=== PATIENT | male | born 1975 | race Caucasian/White ===

== ENCOUNTER 2019-10-23 19:43 | Emergency (ER) | payer MEDICARE, MEDICAID, SELFPAY ==
[2019-10-23] VITALS (10 sets, daily range): BP systolic 112–148; BP diastolic 75–90; PULSE 85–101; RESP 8–26; TEMP 36.7; O2SAT 88–96; BMI 33.8
--- NOTE | 2019-10-23 19:57 | PC.NURSE ---
EKG done at 1954 and shown to ER doctor
--- NOTE | 2019-10-23 21:27 | ECG_ITS ---
Measurements Intervals [place] Rate: 102 P: 59 MI: 144 QRS: 51 QRSD: 136 T: 31 QT: 358 QTc: 468 SINUS TACHYCARDIA INTRAVENTRICULAR CONDUCTION DELAY [130+ ms QRS DURATION] INFERIOR MYOCARDIAL INFARCTION [40+ ms Q WAVE AND/OR ST/T ABNORMALITY IN II/aVF], OF INDETERMINATE AGE Compared to ECG 06/17/2017 18:47:40 Intraventricular conduction delay now present Atrial flutter no longer present 2:1 AV block no longer present ST (T wave) deviation no longer present Myocardial infarct finding still present Electronically Signed On 10-24-2019 16:19:36 CDT by Linda Meade M.D. [id number]
--- NOTE | 2019-10-23 21:27 | XRR_ITS ---
PROCEDURE INFORMATION: Exam: XR Chest, 1 View Exam date and time: 10/23/2019 10:06 PM Age: 43 years old Clinical indication: Chest pain; Prior surgery; Surgery type: Defib, pacer; Additional info: Cp TECHNIQUE: Imaging protocol: XR of the chest Views: 1 view. COMPARISON: PA Chest 1 [place] [id number] 06/17/2017 3:06 PM FINDINGS: No focal pulmonary consolidation is demonstrated on this single frontal image. No significant obscuration of the lateral costophrenic angles is demonstrated. No significant vascular congestion is demonstrated. Visualized cardiac silhouette size appears within normal limits. Stable position of pacer leads. XR/XR chest 1V portable [id number] IMPRESSION: No acute pulmonary process is demonstrated.
[2019-10-23] MEDS: ondansetron 2 mg/ML SDV 2 mL 4 MG IVP (21:36)
[2019-10-23] MEDS: morphine 4 mg/mL SDV 1 mL IVP (21:37)
--- NOTE | 2019-10-23 21:45 | PC.NURSE ---
Second EKG done at 2142 and shown to ER doctor
[2019-10-23 21:57] LABS: Basophils # 0.1 10^3/uL (0.0-0.1); Basophils % 0.8 %; Eosinophils # 0.1 10^3/uL (0.0-0.8); Eosinophils % 0.9 %; Hematocrit 39.8 % (42.0-52.0); Hemoglobin 12.9 g/dL (11.7-16.6); Lymphocytes # 1.5 10^3/uL (0.8-4.8); Lymphocytes % 20.1 %; Mean Corpuscular HGB Conc 32.4 g/dL (30.0-36.0); Mean Corpuscular Hemoglobin 32.3 pg (28.0-34.0); Mean Corpuscular Volume 99.7 fL (80-94); Mean Platelet Volume 9.5 fL (7.4-10.4); Monocytes # 0.6 10^3/uL (0.2-0.9); Monocytes % 8.5 %; Neutrophils # 5.1 10^3/uL (1.8-7.7); Neutrophils % 69.4 %; Nucleated Red Blood Cells % 0 %; Platelet Count 241 10^3/cmm (130-400); Red Blood Count 3.99 10^6/uL (4.1-5.3); Red Cell Distribution Width 15.3 % (12.1-15.1); White Blood Count 7.4 10^3/uL (4.0-10.0)
[2019-10-23 22:14] LABS: Troponin(5th) Baseline 14 ng/mL (0-15)
[2019-10-23 22:23] LABS: Alanine Aminotransferase 100 U/L (0-41); Albumin Level 4.4 g/dL (3.5-5.2); Alkaline Phosphatase 66 IU/L (40-130); Anion Gap 19.7 (5-19); Aspartate Amino Transferase 89 U/L (0-40); Blood Urea Nitrogen 9 mg/dL (6-20); Calcium 9.2 mg/dL (8.5-10.5); Carbon Dioxide 24 mmol/L (22-29); Chloride 98 mmol/L (98-107); Globulin 2.6 g/dL (1.3-4.6); Glomerular Filtration Rate 104.5 mL/min (90-130); Glucose 96 mg/dL (65-115); NT Pro B Type Natriuretic Pept 83 pg/mL (0-125); Osmolality Calculated 282 mOsm/kg (285-295); Potassium 3.7 mmol/L (3.5-5.1); Sodium 138 mmol/L (136-145); Total Bilirubin 0.2 mg/dL (0.15-1.2)
[2019-10-23 22:27] LABS: INR 0.92 (0.8-1.2); Partial Thromboplastin Time 27.6 SECONDS (23.9-36.7)
--- NOTE | 2019-10-23 23:27 | ECG_ITS ---
Measurements Intervals [place] Rate: 92 P: 59 AR: 143 QRS: 56 QRSD: 146 T: 33 QT: 379 QTc: 470 SINUS RHYTHM INTRAVENTRICULAR CONDUCTION DELAY [130+ ms QRS DURATION] INFERIOR MYOCARDIAL INFARCTION , PROBABLY OLD [40+ ms Q WAVE AND/OR ST/T ABNORMALITY IN II/aVF] Compared to ECG 06/17/2017 18:47:40 Intraventricular conduction delay now present Atrial flutter no longer present 2:1 AV block no longer present ST (T wave) deviation no longer present Myocardial infarct finding still present Electronically Signed On 10-24-2019 16:23:38 CDT by Linda Meade M.D. [id number]
[2019-10-23 23:37] LABS: Add Urine Microscopic? YES; Bilirubin Urine 2+ (NEGATIVE); Blood Urine Neg (Negative); Glucose Urine UA Norm (Normal); Ketones Urine 1+ (Negative); Leukocyte Esterase Urine Negative (Negative); Nitrate Urine Negative (Negative); Protein Urine Neg (Negative); RBC Urine 0-4 /hpf (0-2); Squamous Epithelial Cell Urine 0-4 (0-5); Urine Color Yellow (Yellow); Urobilinogen Urine 1 mg/dL (Negative); WBC Urine 0-4 /hpf (0-5); pH Urine 5 (5-7)
[2019-10-23 23:38] LABS: Bacteria Urine 1+; Mucus Urine 3+
[2019-10-24] VITALS: BP 132/89; PULSE 96; RESP 21; O2SAT 92
[2019-10-24 00:26] LABS: Troponin 5 2HR 13.63 ng/mL (0-15)
[2019-10-24 00:30] VITALS: BP 133/84; PULSE 85; RESP 16; O2SAT 94
[2019-10-24 00:46] LABS: Troponin 5 2HR Delta -0.37 ABS# (0-10)
[2019-10-24 01:00] VITALS: BP 133/84; PULSE 88; RESP 16; O2SAT 94
--- NOTE | 2019-10-24 04:14 | ED_ITS ---
HPI - Chest Pain General: Chief Complaint: Chest Pain Stated Complaint: CHEST PAIN Time Seen by Provider: 10/23/19 19:48 History of Present Illness: HPI narrative: 43-year-old male with a history of coronary disease, with chronic pacer/defibrillator implant presents with chest discomfort. He says he was sitting down to eat dinner when it started. He complained of some shortness of breath. He is improved significantly with nitro, down to 3 on arrival. He had aspirin in route as well. It has been 3 years since he has had a cath. He has not had any recent follow-up. He states that he drinks every day, and had cut back significantly on his drinking today, only having one drinks instead of most of the fifth. MD complaint: chest pain Pertinent past history: coronary artery disease and [employer] Onset (ago): minute(s) Timing of current episode: constant Prior episodes: Yes Onset: during rest Pain location: substernal Pain radiation: none Quality: tightness Relieving factors: nitroglycerin Exacerbating factors: nothing Associated symptoms: Reports dyspnea, nausea and vomiting; Deny abdominal pain, fever(s) or palpitations Treatment prior to arrival: aspirin and nitroglycerin Review of Systems Const: Denies: fever Eyes: Denies: change in vision or blurry vision ENMT: Denies: painful swallowing or facial/sinus pain Card: Reports: chest pain and shortness of breath on exertion; Denies: palpitations, irregular heart rhythm, edema, swelling of feet/ankles or shortness of breath when lying down Resp: Reports: shortness of breath GI: Reports: nausea and vomiting; Denies: abdominal pain, rectal pain, blood in stool or black tarry stool : Denies: difficulty urinating, painful urination, urinary frequency, urinary urgency or blood in urine Musc: Denies: neck pain, back pain, redness or joint warmth Skin/Breast: Denies: rash, itching or redness Neuro: Denies: headache, dizziness, vertigo, confusion or seizure-like activity Psych: Denies: anxiety PFSH ED PFSH: Social History Smoking and tobacco status: current every day smoker Physical Exam Const: GENERAL APPEARANCE: well developed ORIENTATION/CONSCIOUSNESS: Yes oriented to person, Yes oriented to place and Yes oriented to time HENMT: COMMON NORMALS: external ears normal and external nose normal FACE & SINUS: normal facial exam NOSE: external nose normal and no nasal discharge EXTERNAL EAR: Yes external ears normal MOUTH: tongue normal Eye: COMMON NORMALS: PERRL, EOMs intact bilaterally and conjunctivae normal EYELID: eyelids normal CONJUNCTIVA: Yes conjunctivae normal PUPIL: Yes PERRL Neck/C-Spine: COMMON NORMALS: full ROM Chest: COMMONS NORMALS: inspection of chest normal CHEST: No tenderness Resp: COMMON NORMALS: clear to auscultation bilaterally EFFORT & INSPECTION: No tachypneic, No respiratory distress, No retractions, No uses accessory muscles and No tracheal deviation AUSCULTATION: clear to auscultation bilaterally, no rhonchi, no wheezes and lung sounds not diminished Cardio: COMMON NORMALS: regular rate and regular rhythm RATE: regular rate RHYTHM: regular rhythm HEART SOUNDS: no murmurs PERIPHERAL PULSES: radial pulses present GI: INSPECTION: No abdominal distension AUSCULTATION: No hyperactive bowel sounds and No hypoactive bowel sounds PALPATION: No guarding and No rigid PERCUSSION: no dullness to percussion and no tympanic to percussion Neuro: SENSORIUM/ORIENTATION: Yes oriented to person, Yes oriented to place and Yes oriented to time Psych: COMMON NORMALS: mental status grossly normal Skin: COMMON NORMALS: no rashes or lesions noted GENERAL SKIN EXAM: no rashes or lesions noted Course Vital Signs: Vital signs: Vital Signs Temperature 98.0 F 10/23/19 19:44 Pulse Rate 88 10/24/19 01:00 Respiratory Rate 16 10/24/19 01:00 Blood Pressure 133/84 10/24/19 01:00 Pulse Oximetry 94 10/24/19 01:00 MDM - Chest Pain MDM Narrative: Medical decision making narrative: 43-year-old male who does have a history. He presents with chest discomfort. His chest x-ray is negative. His EKG does not reveal any ST changes. His troponin was normal at baseline, and did not elevate at 2 hours. His other labs are benign. Since his high-sensitivity troponin is negative, his pain is resolved, he will be allowed home. Case management referral was put in for cardiology follow-up as he has a history. He knows to return for any return of his symptoms Lab Data: Labs: Lab Results 10/23/19 10/23/19 10/23/19 Range/Units 21:42 21:42 21:42 WBC 7.4 (4.0-10.0) 10^3/ uL RBC 3.99 L (4.1-5.3) 10^6/u L Hgb 12.9 (11.7-16.6) g/dL Hct 39.8 L (42.0-52.0) % MCV 99.7 H (80-94) fL MCH 32.3 (28.0-34.0) pg MCHC 32.4 (30.0-36.0) g/dL RDW 15.3 H (12.1-15.1) % Plt Count 241 (130-400) 10^3/c mm MPV 9.5 (7.4-10.4) fL Neut % (Auto) 69.4 % Lymph % (Auto) 20.1 % [place] % (Auto) 8.5 % Eos % (Auto) 0.9 % Baso % (Auto) 0.8 % Neut # (Auto) 5.1 (1.8-7.7) 10^3/u L Lymph # (Auto) 1.5 (0.8-4.8) 10^3/u L [place] # (Auto) 0.6 (0.2-0.9) 10^3/u L Eos # (Auto) 0.1 (0.0-0.8) 10^3/u L Baso # (Auto) 0.1 (0.0-0.1) 10^3/u L Nucleated RBC % (a uto) 0 % Nucleated RBCs # 0.0 /100WBC PT 12.70 (10.5-13.3) SECO NDS INR 0.92 (0.8-1.2) APTT 27.6 (23.9-36.7) SECO NDS Sodium 138 (136-145) mmol/L Potassium 3.7 (3.5-5.1) mmol/L Chloride 98 (98-107) mmol/L Carbon Dioxide 24 (22-29) mmol/L Anion Gap 19.7 H (5-19) BUN 9 (6-20) mg/dL Creatinine 0.8 (0.7-1.2) mg/dL GFR Calculation 104.5 (90-130) mL/min Glucose 96 (65-115) mg/dL Calculated Osmolal ity 282 L (285-295) mOsm/k g Calcium 9.2 (8.5-10.5) mg/dL Total Bilirubin 0.2 (0.15-1.2) mg/dL AST 89 H (0-40) U/L ALT 100 H (0-41) U/L Alkaline Phosphata se 66 (40-130) IU/L Troponin T Baselin e (0-15) ng/mL Troponin T 120 Min [place] (0-15) ng/mL Delta Troponin T (0-10) ABS# NT-Pro-B Natriuret Pep 83 (0-125) pg/mL Total Protein 7.0 (6.6-8.7) g/dL Albumin 4.4 (3.5-5.2) g/dL Globulin 2.6 (1.3-4.6) g/dL Urine Color (Yellow) Urine Appearance (CLEAR) Urine pH (5-7) Ur Specific Gravit y (1.005-1.030) Urine Protein (Negative) Urine Glucose (UA) (Normal) Urine Ketones (Negative) Urine Blood (Negative) Urine Nitrate (Negative) Urine Bilirubin (NEGATIVE) Urine Urobilinogen (Negative) mg/dL Ur Leukocyte Kandice ase (Negative) Urine RBC (0-2) /hpf Urine WBC (0-5) /hpf Ur Squamous Epith Cells (0-5) Urine Bacteria (NONE) Urine Mucus 10/23/19 10/23/19 10/23/19 Range/Units 21:42 23:00 23:40 WBC (4.0-10.0) 10^3/ uL RBC (4.1-5.3) 10^6/u L Hgb (11.7-16.6) g/dL Hct (42.0-52.0) % MCV (80-94) fL MCH (28.0-34.0) pg MCHC (30.0-36.0) g/dL RDW (12.1-15.1) % Plt Count (130-400) 10^3/c mm MPV (7.4-10.4) fL Neut % (Auto) % Lymph % (Auto) % [place] % (Auto) % Eos % (Auto) % Baso % (Auto) % Neut # (Auto) (1.8-7.7) 10^3/u L Lymph # (Auto) (0.8-4.8) 10^3/u L [place] # (Auto) (0.2-0.9) 10^3/u L Eos # (Auto) (0.0-0.8) 10^3/u L Baso # (Auto) (0.0-0.1) 10^3/u L Nucleated RBC % (a uto) % Nucleated RBCs # /100WBC PT (10.5-13.3) SECO NDS INR (0.8-1.2) APTT (23.9-36.7) SECO NDS Sodium (136-145) mmol/L Potassium (3.5-5.1) mmol/L Chloride (98-107) mmol/L Carbon Dioxide (22-29) mmol/L Anion Gap (5-19) BUN (6-20) mg/dL Creatinine (0.7-1.2) mg/dL GFR Calculation (90-130) mL/min Glucose (65-115) mg/dL Calculated Osmolal ity (285-295) mOsm/k g Calcium (8.5-10.5) mg/dL Total Bilirubin (0.15-1.2) mg/dL AST (0-40) U/L ALT (0-41) U/L Alkaline Phosphata se (40-130) IU/L Troponin T Baselin e 14 (0-15) ng/mL Troponin T 120 Min f[place] 13.63 (0-15) ng/mL Delta Troponin T -0.37 L (0-10) ABS# NT-Pro-B Natriuret Pep (0-125) pg/mL Total Protein (6.6-8.7) g/dL Albumin (3.5-5.2) g/dL Globulin (1.3-4.6) g/dL Urine Color Yellow (Yellow) Urine Appearance Sl cloudy A (CLEAR) Urine pH 5 (5-7) Ur Specific Gravit y 1.030 (1.005-1.030) Urine Protein Neg (Negative) Urine Glucose (UA) Norm (Normal) Urine Ketones 1+ H (Negative) Urine Blood Neg (Negative) Urine Nitrate Negative (Negative) Urine Bilirubin 2+ H (NEGATIVE) Urine Urobilinogen 1 H (Negative) mg/dL Ur Leukocyte Kandice ase Negative (Negative) Urine RBC 0-4 H (0-2) /hpf Urine WBC 0-4 H (0-5) /hpf Ur Squamous Epith Cells 0-4 H (0-5) Urine Bacteria 1+ H (NONE) Urine Mucus 3+ Discharge Plan Discharge Patient Disposition: Home, Self-Care Clinical Impression: Chest pain Qualifiers: Chest pain type: unspecified Qualified Code(s): R07.9 - Chest pain, unspecified Condition: Stable Discharge Orders: Discharge Order (Routine); Ordered 10/24/19 Ordered By: Blane Daniel Referrals: Carin Chavez MD [Family Provider] - 4-7 days Discharge Diet: Cardiac Discharge Activity: Increase activity as tolerated Patient Instructions: Chest Pain (ED) Activity Restrictions/Additional Instructions: Return for repeated episodes of chest pain, palpitations, shortness of breath, other concerning symptoms. We are putting in a case management order for referral to cardiology services. 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
--- NOTE | 2019-10-26 11:36 | DCPLANNER ---
manager change had message to schedule a follow up appointment for patient with [facility]. manager change called [facility], spoke with Lilliana, gave clinic patients information. A follow up appointment was scheduled for , November 05, 2019 at 1:[address] Meade. manager change called patient with appointment information, spoke with patients , gave her the appointment information.
--- NOTE | 2019-12-16 10:15 | DCPLANNER ---
Appointment scheduled for 11.05.19 with [facility], was cancelled.
== END 2019-10-24 01:41 | disposition home or self-care (01) ==
PROVIDERS: Emergency Provider Emergency Medicine; Family Provider Family Medicine
DX: R07.9 Chest pain, unspecified (principal); F17.210 Nicotine dependence, cigarettes, uncomplicated
CPT/HCPCS: 12345; 71045; 80053; 81001; 83880; 84484; 85025; 85610; 85730; 93005; 96374; 96375; 99283; 99284; J2270; J2405

== ENCOUNTER 2020-04-09 02:09 | Observation (INO) | payer MEDICARE, MEDICAID, SELFPAY ==
[2020-04-09] VITALS (35 sets, daily range): BP systolic 98–152; BP diastolic 58–99; PULSE 72–100; RESP 13–23; TEMP 36.6–36.9; O2SAT 88–99; BMI 36.4
--- NOTE | 2020-04-09 02:11 | XRR_ITS ---
PROCEDURE INFORMATION: Exam: XR Chest, 1 View Exam date and time: 04/09/2020 2:12 AM Age: 44 years old Clinical indication: Chest pain; Prior surgery; Surgery type: Pacer/defib; Patient HX: HX svt; Additional info: Cp TECHNIQUE: Imaging protocol: XR of the chest Views: 1 view. COMPARISON: CR XR chest 1V portable [id number] 10/23/2019 9:55 PM FINDINGS: Tubes, catheters and devices: Pacemaker. Lungs: Unremarkable. No consolidation. Pleural space: Unremarkable. No pleural effusion. No pneumothorax. Heart/Mediastinum: Cardiomegaly. Bones/joints: Unremarkable. XR/XR chest 1V portable [id number] IMPRESSION: 1. Negative for infiltrate 2. Cardiomegaly. 3. Pacemaker.
--- NOTE | 2020-04-09 02:11 | ECG_ITS ---
[facility] Test Date: 2020-04-09 Pat Name: Carlos Alberto Morrow Department: Room: Gender: Male Guest Specialist: : 1975 Requested By: Blane Mendez Order Number: [id number] Suraj MD: Irasema Patel M.D. Measurements Intervals [place] Rate: 87 P: 62 VT: 154 QRS: 64 QRSD: 144 T: 9 QT: 388 QTc: 467 Interpretive Statements SINUS RHYTHM Possible old inferior wall [place] INTRAVENTRICULAR CONDUCTION DELAY [130+ ms QRS DURATION] Compared to ECG 10/23/2019 21:49:26 Myocardial infarct finding no longer present Electronically Signed On 04-09-2020 16:05:22 CDT by Irasema Patel M.D. [id number]
[2020-04-09 02:17] LABS: Basophils # 0.1 10^3/uL (0.0-0.1); Basophils % 0.9 %; Eosinophils # 0.1 10^3/uL (0.0-0.8); Hematocrit 41.2 % (42.0-52.0); Hemoglobin 13.8 g/dL (11.7-16.6); Lymphocytes # 2.7 10^3/uL (0.8-4.8); Lymphocytes % 21.4 %; Mean Corpuscular HGB Conc 33.5 g/dL (30.0-36.0); Mean Corpuscular Hemoglobin 37.4 pg (28.0-34.0); Mean Corpuscular Volume 111.7 fL (80-94); Mean Platelet Volume 9.6 fL (7.4-10.4); Monocytes # 0.9 10^3/uL (0.2-0.9); Monocytes % 6.9 %; Neutrophils # 8.64 10^3/uL (1.8-7.7); Neutrophils % 68.9 %; Nucleated Red Blood Cells % 0.2 %; Platelet Count 258 10^3/cmm (130-400); Red Blood Count 3.69 10^6/uL (4.1-5.3); Red Cell Distribution Width 13.9 % (12.1-15.1); White Blood Count 12.5 10^3/uL (4.0-10.0)
--- NOTE | 2020-04-09 02:22 | ED_ITS ---
HPI - Arrhythmia/Palpitations General: Chief Complaint: Arrhythmia/Palpitations Stated Complaint: svt Time Seen by Provider: 04/09/20 02:10 History of Present Illness: HPI narrative: 44-year-old male presents after an episode of chest pain with palpitations. He notes that it started around 7 PM. He took a total of 7 nitroglycerin at home, and could not get rid of the pain. He felt his heart rate which was quite fast. EMS was called, and he was given adenosine on scene, twice, without any improvement. Air ambulance was called, and the patient was given 3 mg of Versed followed by cardioversion electronically, which converted the patient back into a sinus rhythm from a wide-complex tachycardia. He is essentially asymptomatic now. He is having minimal tightness in his chest, and is very tired, but otherwise is much improved. Currently his heart rate is 83, sinus. His blood pressure is 98/67. He denies any fever or other recent illness. He does have a history of coronary disease, as well as pacer placement. MD complaint: rapid heart beat and heart racing Onset (ago): hour(s) Duration: constant Severity: severe Context: occurred during rest Arrhythmia history: pacemaker and AICD Associated symptoms: Reports diaphoresis, nausea and short of breath; Deny anxiety Review of Systems Const: Reports: diaphoresis Eyes: Denies: change in vision ENMT: Denies: odynophagia, swelling of lips/tongue, post nasal drip or sinus pain Card: Reports: chest pain, palpitations, edema and dyspnea on exertion; Denies: irregular heart rhythm or orthopnea Resp: Reports: dyspnea; Denies: productive cough, non-productive cough or wheezing GI: Reports: nausea : Denies: difficulty urinating or hematuria Musc: Denies: neck pain, back pain, joint redness or joint warmth Skin/Breast: Denies: rash, pruritus or erythema Neuro: Denies: headache(s), vertigo or seizure-like activity Psych: Denies: anxiety [facility] ED PFSH: Medical History Abnormal coronary angiogram Cardiac defibrillator in place Cardiomyopathy Coronary disease Heart failure with reduced ejection fraction History of cardioversion Hypertension Ischemic cardiomyopathy Nicotine dependence Pacemaker Seizure disorder Surgical History AICD (automatic cardioverter/defibrillator) present H/O cardiac catheterization H/O hernia repair Family History Mother Family history of premature coronary artery disease Initial [place] age 31, at 60 Father Clotting disorder Social History Smoking and tobacco status: current every day smoker Alcohol intake: never Substance/Drug Use: never Housing: House Physical Exam Const: GENERAL APPEARANCE: well developed ORIENTATION/CONSCIOUSNESS: Yes oriented to person, Yes oriented to place and Yes oriented to time HENMT: COMMON NORMALS: normocephalic, external ears normal and Normal external nose present HEAD & SCALP: normocephalic FACE & SINUS: normal facial exam NOSE: Normal external nose present and No nasal discharge present EXTERNAL EAR: Yes external ears normal MOUTH: tongue normal Eye: COMMON NORMALS: Equal, round and reactive pupils present, EOMs intact bilaterally and conjunctivae normal EYELID: eyelids normal CONJUNCTIVA: Yes conjunctivae normal PUPIL: Yes Equal, round and reactive pupils present Neck/C-Spine: GENERAL: No tracheal deviation Chest: COMMONS NORMALS: normal inspection of the chest CHEST: No tenderness Resp: COMMON NORMALS: clear to auscultation bilaterally EFFORT & INSPECTION: No tachypneic, No respiratory distress, No retractions, No uses accessory muscles and No tracheal deviation AUSCULTATION: clear to auscultation bilaterally, no rhonchi, no wheezes and lung sounds not diminished Cardio: COMMON NORMALS: regular rate and regular rhythm RATE: regular rate RHYTHM: regular rhythm HEART SOUNDS: no murmurs PERIPHERAL PULSES: radial pulses present GI: INSPECTION: No abdominal distension AUSCULTATION: No Hyperactive bowel sounds present and No Hypoactive bowel sounds present PALPATION: No Guarding due to palpation present (GI) and No Rigid due to palpation PERCUSSION: no dullness to percussion and no tympanic to percussion Extremity: NARRATIVE EXTREMITY EXAM: Bilateral lower extremity edema present Neuro: SENSORIUM/ORIENTATION: Yes oriented to person, Yes oriented to place and Yes oriented to time Psych: COMMON NORMALS: mental status grossly normal Skin: COMMON NORMALS: no rashes or lesions noted GENERAL SKIN EXAM: no rashes or lesions noted Course Consultations: Consultation #1: hannah Vital Signs: Vital signs: Vital Signs Temperature 98.3 F 04/09/20 02:13 Pulse Rate 88 04/09/20 04:15 Respiratory Rate 16 04/09/20 04:15 Blood Pressure 123/86 04/09/20 04:15 Pulse Oximetry 97 04/09/20 04:15 MDM - Arrhythmia/Palpitations MDM Narrative: Medical decision making narrative: 44-year-old male with a history of heart disease, and ICD/pacemaker placement. He was cardioverted out of a wide-complex tachycardia by EMS. He remained stable in the ER. Blood pressure 130/78, sinus at 84. His chest x-ray only reveals cardiomegaly. His EKG shows no acute ST changes. His first troponin is elevated. His creatinine is elevated, and he has a low bicarbonate level. We will check a lactate. He will be observed for the chest discomfort and arrhythmia requiring cardioversion, pacer interrogated, etc. Lab Data: Labs: Lab Results 04/09/20 04/09/20 04/09/20 Range/Units 02:10 02:10 02:10 WBC 12.5 H (4.0-10.0) 10^3/ uL RBC 3.69 L (4.1-5.3) 10^6/u L Hgb 13.8 (11.7-16.6) g/dL Hct 41.2 L (42.0-52.0) % MCV 111.7 H (80-94) fL MCH 37.4 H (28.0-34.0) pg MCHC 33.5 (30.0-36.0) g/dL RDW 13.9 (12.1-15.1) % Plt Count 258 (130-400) 10^3/c mm MPV 9.6 (7.4-10.4) fL Neut % (Auto) 68.9 % Lymph % (Auto) 21.4 % [place] % (Auto) 6.9 % Eos % (Auto) 1.0 % Baso % (Auto) 0.9 % Neut # (Auto) 8.64 H (1.8-7.7) 10^3/u L Lymph # (Auto) 2.7 (0.8-4.8) 10^3/u L [place] # (Auto) 0.9 (0.2-0.9) 10^3/u L Eos # (Auto) 0.1 (0.0-0.8) 10^3/u L Baso # (Auto) 0.1 (0.0-0.1) 10^3/u L Nucleated RBC % (a uto) 0.2 % Nucleated RBCs # 0.0 /100WBC PT 12.40 (12.1-14.9) SECO NDS INR 0.90 (0.8-1.2) APTT 29.3 (23.9-36.7) SECO NDS Sodium 134 L (136-145) mmol/L Potassium 4.5 (3.5-5.1) mmol/L Chloride 100 (98-107) mmol/L Carbon Dioxide 17 L (22-29) mmol/L Anion Gap 21.5 H (5-19) BUN 17 (6-20) mg/dL Creatinine 1.4 H (0.7-1.2) mg/dL GFR Calculation 54.6 L (90-130) mL/min Glucose 154 H (65-115) mg/dL Calculated Osmolal ity 283 L (285-295) mOsm/k g Lactate (0.5-2.2) mmol/L Calcium 9.5 (8.5-10.5) mg/dL Total Bilirubin 0.2 (0.15-1.2) mg/dL AST 73 H (0-40) U/L ALT 64 H (0-41) U/L Alkaline Phosphata se 66 (40-130) IU/L Creatine Kinase 116 (39-308) U/L Troponin T Baselin e (0-15) ng/L Troponin T 120 Min kashia (0-15) ng/L Delta Troponin T (0-10) ABS# NT-Pro-B Natriuret Pep 422 H (0-125) pg/mL Total Protein 6.8 (6.6-8.7) g/dL Albumin 4.5 (3.5-5.2) g/dL Globulin 2.3 (1.3-4.6) g/dL Urine Color (Yellow) Urine Appearance (CLEAR) Urine pH (5-7) Ur Specific Gravit y (1.005-1.030) Urine Protein (Negative) Urine Glucose (UA) (Normal) Urine Ketones (Negative) Urine Blood (Negative) Urine Nitrate (Negative) Urine Bilirubin (Negative) Urine Urobilinogen (Negative) mg/dL Ur Leukocyte Kandice ase (Negative) Urine Opiates Scre en (Negative) ng/mL Ur Barbiturates Sc reen (Negative) ng/mL Ur Phencyclidine S crn (Negative) ng/mL Ur Amphetamines Sc reen (Negative) ng/mL U Benzodiazepines Scrn (Negative) ng/mL Urine Cocaine Scre en (Negative) ng/mL U Marijuana (THC) Screen (Negative) ng/mL 04/09/20 04/09/20 04/09/20 Range/Units 02:10 04:09 04:09 WBC (4.0-10.0) 10^3/ uL RBC (4.1-5.3) 10^6/u L Hgb (11.7-16.6) g/dL Hct (42.0-52.0) % MCV (80-94) fL MCH (28.0-34.0) pg MCHC (30.0-36.0) g/dL RDW (12.1-15.1) % Plt Count (130-400) 10^3/c mm MPV (7.4-10.4) fL Neut % (Auto) % Lymph % (Auto) % [place] % (Auto) % Eos % (Auto) % Baso % (Auto) % Neut # (Auto) (1.8-7.7) 10^3/u L Lymph # (Auto) (0.8-4.8) 10^3/u L [place] # (Auto) (0.2-0.9) 10^3/u L Eos # (Auto) (0.0-0.8) 10^3/u L Baso # (Auto) (0.0-0.1) 10^3/u L Nucleated RBC % (a uto) % Nucleated RBCs # /100WBC PT (12.1-14.9) SECO NDS INR (0.8-1.2) APTT (23.9-36.7) SECO NDS Sodium (136-145) mmol/L Potassium (3.5-5.1) mmol/L Chloride (98-107) mmol/L Carbon Dioxide (22-29) mmol/L Anion Gap (5-19) BUN (6-20) mg/dL Creatinine (0.7-1.2) mg/dL GFR Calculation (90-130) mL/min Glucose (65-115) mg/dL Calculated Osmolal ity (285-295) mOsm/k g Lactate 1.4 (0.5-2.2) mmol/L Calcium (8.5-10.5) mg/dL Total Bilirubin (0.15-1.2) mg/dL AST (0-40) U/L ALT (0-41) U/L Alkaline Phosphata se (40-130) IU/L Creatine Kinase (39-308) U/L Troponin T Baselin e 57 H (0-15) ng/L Troponin T 120 Min kashia 67.61 H (0-15) ng/L Delta Troponin T 10.61 H* (0-10) ABS# NT-Pro-B Natriuret Pep (0-125) pg/mL Total Protein (6.6-8.7) g/dL Albumin (3.5-5.2) g/dL Globulin (1.3-4.6) g/dL Urine Color (Yellow) Urine Appearance (CLEAR) Urine pH (5-7) Ur Specific Gravit y (1.005-1.030) Urine Protein (Negative) Urine Glucose (UA) (Normal) Urine Ketones (Negative) Urine Blood (Negative) Urine Nitrate (Negative) Urine Bilirubin (Negative) Urine Urobilinogen (Negative) mg/dL Ur Leukocyte Kandice ase (Negative) Urine Opiates Scre en (Negative) ng/mL Ur Barbiturates Sc reen (Negative) ng/mL Ur Phencyclidine S crn (Negative) ng/mL Ur Amphetamines Sc reen (Negative) ng/mL U Benzodiazepines Scrn (Negative) ng/mL Urine Cocaine Scre en (Negative) ng/mL U Marijuana (THC) Screen (Negative) ng/mL 04/09/20 04/09/20 Range/Units 04:16 04:16 WBC (4.0-10.0) 10^3/ uL RBC (4.1-5.3) 10^6/u L Hgb (11.7-16.6) g/dL Hct (42.0-52.0) % MCV (80-94) fL MCH (28.0-34.0) pg MCHC (30.0-36.0) g/dL RDW (12.1-15.1) % Plt Count (130-400) 10^3/c mm MPV (7.4-10.4) fL Neut % (Auto) % Lymph % (Auto) % [place] % (Auto) % Eos % (Auto) % Baso % (Auto) % Neut # (Auto) (1.8-7.7) 10^3/u L Lymph # (Auto) (0.8-4.8) 10^3/u L [place] # (Auto) (0.2-0.9) 10^3/u L Eos # (Auto) (0.0-0.8) 10^3/u L Baso # (Auto) (0.0-0.1) 10^3/u L Nucleated RBC % (a uto) % Nucleated RBCs # /100WBC PT (12.1-14.9) SECO NDS INR (0.8-1.2) APTT (23.9-36.7) SECO NDS Sodium (136-145) mmol/L Potassium (3.5-5.1) mmol/L Chloride (98-107) mmol/L Carbon Dioxide (22-29) mmol/L Anion Gap (5-19) BUN (6-20) mg/dL Creatinine (0.7-1.2) mg/dL GFR Calculation (90-130) mL/min Glucose (65-115) mg/dL Calculated Osmolal ity (285-295) mOsm/k g Lactate (0.5-2.2) mmol/L Calcium (8.5-10.5) mg/dL Total Bilirubin (0.15-1.2) mg/dL AST (0-40) U/L ALT (0-41) U/L Alkaline Phosphata se (40-130) IU/L Creatine Kinase (39-308) U/L Troponin T Baselin e (0-15) ng/L Troponin T 120 Min kashia (0-15) ng/L Delta Troponin T (0-10) ABS# NT-Pro-B Natriuret Pep (0-125) pg/mL Total Protein (6.6-8.7) g/dL Albumin (3.5-5.2) g/dL Globulin (1.3-4.6) g/dL Urine Color Yellow (Yellow) Urine Appearance Clear (CLEAR) Urine pH 5 (5-7) Ur Specific Gravit y 1.020 (1.005-1.030) Urine Protein Neg (Negative) Urine Glucose (UA) Norm (Normal) Urine Ketones Negative (Negative) Urine Blood Neg (Negative) Urine Nitrate Negative (Negative) Urine Bilirubin Neg (Negative) Urine Urobilinogen 1 H (Negative) mg/dL Ur Leukocyte Kandice ase Negative (Negative) Urine Opiates Scre en Positive H (Negative) ng/mL Ur Barbiturates Sc reen Negative (Negative) ng/mL Ur Phencyclidine S crn Negative (Negative) ng/mL Ur Amphetamines Sc reen Negative (Negative) ng/mL U Benzodiazepines Scrn Negative (Negative) ng/mL Urine Cocaine Scre en Negative (Negative) ng/mL U Marijuana (THC) Screen Positive H (Negative) ng/mL Discharge Plan Discharge Patient Disposition: Placed in Observation Clinical Impression: Tachyarrhythmia, Chest pain Condition: Stable Referrals: Carin Chavez MD [Family Provider] - Linda Meade MD [Primary Care Provider] - Coding Level of Care Code ED Iron Melter for g Fwd Exam Comprehensive
[2020-04-09 02:27] LABS: Partial Thromboplastin Time 29.3 SECONDS (23.9-36.7)
[2020-04-09 02:42] LABS: Troponin(5th) Baseline 57 ng/L (0-15)
[2020-04-09 02:51] LABS: Alanine Aminotransferase 64 U/L (0-41); Albumin Level 4.5 g/dL (3.5-5.2); Alkaline Phosphatase 66 IU/L (40-130); Blood Urea Nitrogen 17 mg/dL (6-20); Calcium 9.5 mg/dL (8.5-10.5); Carbon Dioxide 17 mmol/L (22-29); Chloride 100 mmol/L (98-107); Creatine Phosphokinase 116 U/L (39-308); Globulin 2.3 g/dL (1.3-4.6); Glomerular Filtration Rate 54.6 mL/min (90-130); Glucose 154 mg/dL (65-115); NT Pro B Type Natriuretic Pept 422 pg/mL (0-125); Osmolality Calculated 283 mOsm/kg (285-295); Sodium 134 mmol/L (136-145); Total Bilirubin 0.2 mg/dL (0.15-1.2); Total Protein 6.8 g/dL (6.6-8.7)
[2020-04-09 02:53] LABS: Anion Gap 21.5 (5-19)
[2020-04-09 02:54] LABS: Aspartate Amino Transferase 73 U/L (0-40); Potassium 4.5 mmol/L (3.5-5.1)
--- NOTE | 2020-04-09 03:01 | PM.HP ---
Providers/Chief Complaint Primary Care Provider: Linda Meade MD Chief Complaint: svt History of Present Illness Carlos Alberto Morrow is a 44 year old male who carries history of ischemic cardiomyopathy, reduced EF(ejection fraction improved from 35 to 53%), pacemaker/AICD placement, history of cardioversion(atrial flutter RVR) in the past, extensive coronary disease(7-9stents as per the patient), came in today for chest pain. Patient symptoms started around 7 PM with chest heaviness, he took 7 nitroglycerin pills, because of persistent palpitations and discomfort he called EMS, reportedly he was found to be in SVT, he was given adenosine 6 mg and 12 mg without success, his blood pressure dropped hence Air-Evac was called, he was given 3 mg of Versed for synchronized cardioversion for unstable tachycardia heart rate 170s with low blood pressure, it converted his rhythm to sinus. On arrival to the ER heart rate 83 normal sinus rhythm, blood pressure in 90s, patient did not experienced discharge of defibrillator. Patient is stating that he is drinking 6 shots of liquor every day, smoking half a pack a day, he also had a shot of liquor today around 10 PM. At the time my evaluation blood pressure 110/69, heart rate 83, sinus rhythm, saturating well on room air, I have reviewed his rhythm strip, it is wide complex tachycardia, it seems like atrial flutter/fibrillation with aberrant conduction versus V. tach Review of Systems Const: Reports: body aches and fatigue; Denies: fever(s) or chills Eyes: Denies: change in vision ENMT: Denies: throat pain Card: Reports: chest pain, irregular heart rhythm and dyspnea on exertion Resp: Reports: dyspnea GI: Denies: abdominal pain : Denies: flank pain Musc: Denies: neck pain Skin/Breast: Reports: lesions (Multiple skin tattoos) Neuro: Denies: headache(s) Psych: Denies: anxiety Endo: Denies: polyuria Naeem/Lymph: Denies: easy bruising All/Imm: Denies: urticaria Medications/Allergies Home Medications Medication Instructions Recorded Confirmed Last Taken Type amlodipine 04/09/20 04/09/20 Unknown History atorvastatin 04/09/20 04/09/20 Unknown History clopidogrel 04/09/20 04/09/20 Unknown History divalproex PO 04/09/20 04/09/20 Unknown History lisinopril 04/09/20 04/09/20 Unknown History nitroglycerin mg 04/09/20 04/09/20 Unknown History Allergies Allergy/AdvReac Type Severity Reaction Status Date / Time No Known Allergies Allergy Verified 10/23/19 19:50 PFSH Acute PFSH: Medical History Abnormal coronary angiogram Cardiac defibrillator in place Cardiomyopathy Coronary disease Heart failure with reduced ejection fraction History of cardioversion Hypertension Ischemic cardiomyopathy Nicotine dependence Pacemaker Seizure disorder Surgical History AICD (automatic cardioverter/defibrillator) present H/O cardiac catheterization H/O hernia repair Family History Mother Family history of premature coronary artery disease Initial [place] age 31, at 60 Father Clotting disorder Social History Smoking and tobacco status: current every day smoker Alcohol intake: never Substance/Drug Use: never Housing: House Vitals/I&O/Wt Last Vital Signs Temp 98.3 F 04/09/20 02:13 Pulse 86 04/09/20 02:30 Resp 13 04/09/20 02:30 BP 98/58 04/09/20 02:30 Pulse Ox 98 04/09/20 02:30 Weight last 48 hrs Weight 115.212 kg Physical Exam Narrative: EXAM NARRATIVE: This is a young male who appears more than stated age, unkempt appearance Awake alert oriented x3 EOMI, PERRLA No neurological deficit S1, S2 sinus rhythm heart rate 83, blood pressure 110 mmHg, Saturating well on room air No active respiratory distress, Complaining of mild chest discomfort Abdomen soft nontender bowel sound present Lungs are clear to auscultation Multiple skin tattoos Patient seems a bit drowsy Son at the bedside Data : 04/09/20 02:10 04/09/20 02:10 A&P Assessment and plan (1) Tachyarrhythmia: Status: Acute (2) MICHELLE (acute kidney injury): Status: Acute (3) Alcohol abuse: Status: Acute (4) Palpitations: Status: Acute Additional A&P Information Wide QRS tach arrhythmia Most likely atrial flutter/atrial fibrillation with aberrant conduction versus V. tach Failed adenosine 2 doses 6 mg and 12 mg status post cardioversion after getting 3 mg of Ativan by airvac Currently in sinus rhythm heart rate 83 systolic blood pressure 110 mmHg, saturating well on room air Complaining of mild chest discomfort, troponin less than 60, EKG not showing ischemic or infarctive changes, We will check magnesium level, alcohol level, drug screen, TSH Echo in the morning Patient is not sure about Eliquis but on last visit in [facility] 17 he was prescribed anticoagulant Eliquis 5 mg twice a day which I would continue for now along metoprolol 25 mg twice a day Patient had cardioversion in 2017, at that time he was found to be in atrial flutter with RVR We will request for pacemaker/AICD interrogation History of coronary artery disease Patient is endorsing history of 7 stents Ischemic cardiomyopathy with improvement in ejection fraction Current EF 53% No acute heart failure signs I would not start Lasix at this point, hold lisinopril secondary to MICHELLE Continue Plavix along Eliquis and atorvastatin 80 mg History of seizures: Check Depakote level Alcohol abuse: Patient is drinking 6 shots of liquor every day, counseled on cessation of alcohol along nicotine, would start thiamine and folic acid regimen We will check magnesium level Acute kidney injury : Hold lisinopril for now previous creatinine normal No signs of UTI, will follow up with drug screen, urinalysis Full code Cardiac diet DVT prophylaxis not indicated due to Eliquis use Attestations Medical Necessity Statement*: Anticipating discharge in less than 48 hours continued overnight monitoring because of tachyarrhythmia induced palpitations requiring cardioversion Time Spent in Patient Care: (>than 50% of time spent in counselling and/or direct pt care on unit). 40mins Coding Level of Care Code Acute Gas Line Repairer for Chg Fwd Diagnoses Tachyarrhythmia R00.0 MICHELLE (acute kidney injury) N17.9 Alcohol abuse F10.10 Palpitations R00.2
--- NOTE | 2020-04-09 04:11 | ECG_ITS ---
[facility] Test Date: 2020-04-09 Pat Name: Carlos Alberto Morrow Department: Room: Gender: Male Referral And Information Aide: : 1975 Requested By: Blane Mendez Order Number: [id number] Suraj MD: Irasema Patel M.D. Measurements Intervals [place] Rate: 83 P: 62 TN: 160 QRS: 55 QRSD: 145 T: 53 QT: 387 QTc: 455 Interpretive Statements SINUS RHYTHM INTRAVENTRICULAR CONDUCTION DELAY [130+ ms QRS DURATION] Possible old inferior wall MT Compared to ECG 04/09/2020 02:14:05 No significant changes Electronically Signed On 04-09-2020 18:34:37 CDT by Irasema Patel M.D. [email or web address]
[2020-04-09 04:22] LABS: Add Urine Microscopic? NO
[2020-04-09 04:29] LABS: Lactate (Lactic Acid level) 1.4 mmol/L (0.5-2.2)
[2020-04-09 04:32] LABS: Amphetamines Screen Urine Negative (Negative); Barbiturates Screen Urine Negative (Negative); Benzodiazepines Screen Urine Negative (Negative); Cocaine Screen Urine Negative (Negative); Opiate Screen Urine Positive (Negative); PCP Screen Urine Negative (Negative); THC Screen Urine Positive (Negative)
[2020-04-09 04:33] LABS: Bilirubin Urine Neg (Negative); Blood Urine Neg (Negative); Glucose Urine UA Norm (Normal); Ketones Urine Negative (Negative); Leukocyte Esterase Urine Negative (Negative); Nitrate Urine Negative (Negative); Protein Urine Neg (Negative); Urine Appearance Clear (CLEAR); Urine Color Yellow (Yellow); Urobilinogen Urine 1 mg/dL (Negative); pH Urine 5 (5-7)
[2020-04-09 04:35] LABS: Troponin 5 2HR 67.61 ng/L (0-15); Troponin 5 2HR Delta 10.61 ABS# (0-10)
--- NOTE | 2020-04-09 05:11 | PC.SOCIAL ---
ED CM visit: Initial Assessment: Patient seen in ED 11 after learning of his observation stay. His adult son at bedside. He lives with his , son, and 3 grandchildren. He uses a nebulizer and oxygen (nights only) from [facility]. He does not have any services at home such as home health. He uses [facility] in [place] and see's Dr. Gifford for his PCP. He has no advanced directives. This is the 3rd time this year he has went into SVT, he has seen Dr. Meade for this. No needs for discharge at this time. His son will provide a ride home when he is discharge.
[2020-04-09] MEDS: HYDROcodone-acetaminophen 10-325 mg Tablet 1 TAB PO (06:57)
--- NOTE | 2020-04-09 08:11 | ECG_ITS ---
[facility] Test Date: 2020-04-09 Pat Name: Carlos Alberto Morrow Department: Room: Gender: Male Territory Manager General Sales: : 1975 Requested By: Blane Mendez Order Number: [id number] Suraj MD: Irasema Patel M.D. Measurements Intervals [place] Rate: 86 P: 69 IA: 157 QRS: 64 QRSD: 137 T: 60 QT: 385 QTc: 462 Interpretive Statements SINUS RHYTHM INTRAVENTRICULAR CONDUCTION DELAY [130+ ms QRS DURATION] POSSIBLE INFERIOR MYOCARDIAL INFARCTION [30 ms Q WAVE IN II/aVF], PROBABLY OLD Nonspecific ST-T change Compared to ECG 04/09/2020 04:23:32 Myocardial infarct finding now present Electronically Signed On 04-09-2020 18:35:11 CDT by Irasema Patel M.D. [id number] f
[2020-04-09 08:29] LABS: Troponin 5 6HR 99.15 ng/L (0-15)
[2020-04-09] MEDS: lisinopril 20 mg Tablet PO (08:53)
[2020-04-09] MEDS: carvedilol 12.5 mg Tablet PO (08:53)
[2020-04-09] MEDS: divalproex ER 500 mg Tablet (24H) PO (08:54)
[2020-04-09] MEDS: atorvastatin 40 mg Tablet 80 MG PO (08:55)
[2020-04-09] MEDS: amlodipine 5 mg Tablet PO (08:57)
[2020-04-09] MEDS: clopidogrel 75 mg Tablet PO (08:57)
[2020-04-09 09:12] LABS: Troponin 5 6HR Delta 42.15 ng/L (0-12)
--- NOTE | 2020-04-09 13:19 | USCV_ITS ---
Carlos Alberto Morrow Age: 44 Gender: M : 1975 Exam Date: 04/09/2020 14:08 Ordering Phys: Linda Lewis MD Technologist: Unique Worley Exam Location: [facility] [place] Indication: Cardioversion, angina BP: 126 / 79 HR: 79 Rhythm: Sinus Technical Quality: Fair MEASUREMENTS (Male / Female) Normal Values 2D ECHO LV Diastolic Diameter PLAX 5.2 cm 4.2 - 5.9 / 3.9 - 5.3 cm LV Systolic Diameter PLAX 4.8 cm LV Chamber Size 5.6 cm IVS Diastolic Thickness 1.7 cm 0.6 - 1.0 / 0.6 - 0.9 cm IVS Systolic Thickness 1.8 cm LVPW Diastolic Thickness 1.3 cm 0.6 - 1.0 / 0.6 - 0.9 cm LVPW Systolic Thickness 1.6 cm RV Chamber Size 2.6 cm LVOT Diameter 2.4 cm LV Ejection Fraction 2D Teich 14.9 % LV Ejection Fraction MOD 2C 49.8 % LV Ejection Fraction 2C AL 49.9 % LA Diameter 3.2 cm LA Width 3.1 cm LA Height 5.4 cm RA Width 3.6 cm RA Height 3.8 cm Aorta at Sinotubular Diameter 3.6 cm M-MODE LV Diastolic Diameter MM 6.6 cm 4.2 - 5.9 / 3.9 - 5.3 cm LV Systolic Diameter MM 5.3 cm LV Ejection Fraction MM Teich 39.2 % IVS Diastolic Thickness MM 1.1 cm 0.6 - 1.0 / 0.6 - 0.9 cm IVS Systolic Thickness MM 1.2 cm LVPW Diastolic Thickness MM 1.3 cm 0.6 - 1.0 / 0.6 - 0.9 cm LVPW Systolic Thickness MM 1.6 cm RV Diastolic Diameter MM 1.1 cm Aortic Annulus Diameter 4.1 cm LA Ao Ratio MM 0.9 MV E Point Septal Separation 1.5 cm DOPPLER AV Peak Velocity 174.0 cm/s LVOT Peak Velocity 121.0 cm/s AV Area Cont Eq vti 3.2 cm squared AV Area Cont Eq pk 3.1 cm squared MV Area PHT 3.9 cm squared Mitral E to A Ratio 0.9 MV E' Velocity 43.5 cm/s Mitral E to MV E' Ratio 11.1 Mitral E to LV E' Lateral Ratio 9.3 Mitral E to LV E' Septal Ratio 14.1 TV Peak E Velocity 71.0 cm/s Right Atrial Pressure 3.0 mmHg FINDINGS Left Ventricle Mildly dilated left ventricle with diminished ejection fraction of 40 to 45%. Diffuse hypokinesia of the left ventricle. Right Ventricle The right ventricle is normal in size and function. Right Atrium The right atrium is normal in size. Left Atrium The left atrium is normal in size. Mitral Valve Trace mitral valve regurgitation. Aortic Valve Thickened aortic valve. Tricuspid Valve Structurally normal tricuspid valve without significant stenosis or regurgitation. Pulmonary artery systolic pressure is normal. Pulmonic Valve Structurally normal pulmonic valve without significant stenosis. There is no pulmonic regurgitation. Pericardium Normal pericardium without effusion. Aorta Normal ascending aorta dimension. CONCLUSIONS Mildly dilated left ventricle with diminished ejection fraction of 40 to 45%. Dffuse hypokinesia of the left ventricle. Thickened aortic valve. Trace mitral valve regurgitation. There is no pericardial effusion. There are no intracardiac masses. Dr Irasema Patel MD FACC (Electronically Signed) Final Date: 09 April 2020 14:46 S
--- NOTE | 2020-04-09 13:22 | P.CONIM_ITS ---
Providers/Reason For Consult Consulting Physican/Specialty*: Gilbert Patel MD/cardiology Reason for Consult*: Patient with wide-complex tachycardia/cardiomyopathy Attending Physician: Linda Lewis MD Primary Care Provider: Linda Meade MD History of Present Illness History of Present Illness Carlos Alberto Morrow is a 44 year old male with a history of atherosclerotic heart disease, status post multiple PCI's, ischemic cardiomyopathy, status post ICD implantation, is presenting with complaints of chest discomfort and rapid heart rate. He had electrical cardioversion in the air ambulance. Cardiology consult is requested for further cardiac evaluation recommendations. This patient with history of cardiomyopathy, coronary artery disease with multiple PCI's, apparently has been in his baseline state of health up until 8:00 last evening when he started having sudden onset of palpitation while being at home. He thyrocervical sublingual nitro but of no help. Around 12:00, his came home from work and called the ambulance, since there was no improvement of his symptoms. In the ambulance crew apparently he was found to be in an SVT with a heart rate in the 170s. His blood pressure was dropping in the 70s and 80s. Initially he was given IV Cardizem. Since there was no improvement, he was cardioverted. Details of the cardioversion is not known. On arrival to the emergency room, he was found to be in sinus rhythm. His blood pressure also was getting back to the normal range. Since hospital admission, he has not had any recurrence of tachyarrhythmia. According the patient, he had a similar episodes of tachyarrhythmia at least 2 other times in the past. Both times, he had hypotension and required electrical cardioversion. He had the first myocardial infarction at the age of 31. He had ICD implantation in 2008 and cancers for the first time. 3 years ago, the device was revised in [facility] by Dr. Serna the knee. Again details are not available. Seems to have a [employer] device. The patient is a heavy alcoholic. He quit for a while and then again started drinking 3 years ago. Yesterday he has the usual drink. He also smokes at least half a pack a day now. Used to be smoking 2 pack a day for 30 years or so. No other substance abuse. He has a strong family history for premature atherosclerotic heart disease. His mother had a myocardial infarction at the age of 31. Her sister had a heart attack at age of 29. Both grandparents had a myocardial infarction in their 50s and 60s. 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 At the time of my examination, patient has no specific symptoms. No chest pain no palpitation. No unusual shortness of breath. Review of Systems Narrative: CONSTITUTIONAL: No fever or chills. EYES: No blurring of vision or other visual disturbances lately. ENT: No hoarseness of voice, auditory disturbances or sore throat. CARDIOVASCULAR: As mentioned above. RESPIRATORY: Has shortness of breath with exertion. No orthopnea PND. GASTROINTESTINAL: No hematemesis or melena. GENITOURINARY: No dysuria or hematuria. INTEGUMENTARY: No skin rashes or history of skin cancer. NEURO: No transient ischemic attacks or amaurosis. PSYCHIATRIC: No history of psychosis or major depression. HEMATOLOGIC: No bleeding disorders or significant anemia. ENDOCRINE: No history of polyuria or polydipsia. MUSCULOSKELETAL: No recent joint pain or swelling. ALLERGY/IMMUNOLOGY: As mentioned above. Meds/Allergies Home Medications and Allergies Home Medications Medication Instructions Recorded Confirmed Last Taken Type amlodipine 10 mg PO DAILY 04/09/20 04/09/20 04/09/20 History atorvastatin 80 mg PO DAILY 04/09/20 04/09/20 04/09/20 History carvedilol 12.5 mg PO BID 04/09/20 04/09/20 04/09/20 History clopidogrel 75 mg PO DAILY 04/09/20 04/09/20 04/09/20 History divalproex 500 mg PO DAILY 04/09/20 04/09/20 04/09/20 History hydrocodone-acetaminophen 1 tab PO Q6H PRN 04/09/20 04/09/20 Unknown History lisinopril 20 mg PO DAILY 04/09/20 04/09/20 04/09/20 History nitroglycerin 0.4 mg SUBLINGUAL DAILY PRN 04/09/20 04/09/20 Unknown History Allergies Allergy/AdvReac Type Severity Reaction Status Date / Time No Known Allergies Allergy Verified 10/23/19 19:50 PFSH Acute PFSH: Medical History (Updated 04/09/20 @ 15:41 by Irasema Patel MD) Abnormal coronary angiogram Cardiac defibrillator in place Cardiomyopathy Coronary disease Heart failure with reduced ejection fraction History of cardioversion Hypertension Ischemic cardiomyopathy Nicotine dependence Pacemaker Seizure disorder Supraventricular tachycardia Surgical History AICD (automatic cardioverter/defibrillator) present H/O cardiac catheterization H/O hernia repair Family History Mother Family history of premature coronary artery disease Initial [place] age 31, at 60; his mother sister at the age of 20 and had a myocardial infarction. Maternal grandfather and grandmother of myocardial infarction in their 50s and 60s. One of his sisters had pacemaker placed placement Father Clotting disorder Social History Smoking and tobacco status: current every day smoker Alcohol intake: never Substance/Drug Use: never Housing: House Vitals/I&O/Wt Last Vital Signs Temp 97.8 F 04/09/20 12:38 Pulse 93 04/09/20 12:38 Resp 20 H 04/09/20 12:38 BP 124/79 04/09/20 12:38 Pulse Ox 94 04/09/20 12:38 Weight last 48 hrs Weight 254 lb Physical Exam Narrative: EXAM NARRATIVE: GENERAL: The patient is alert and oriented times three. Not in any acute distress. Moderately obese HEENT: No significant pallor, icterus or lymphadenopathy. The pupils are reactant to light. Oral cavity: There are no mucous membrane lesions. Funduscopic examination: The disk margins appear to be sharp with no exudates or hemorrhages. NECK: Trachea appears to be central. No masses noted. No JVD or thyromegaly appreciated. No carotid bruit. RESPIRATORY: Chest is symmetrical. No intercostals muscle retraction or any accessory muscle activation. There is no chest wall tenderness. Breath sounds are heard bilaterally. No rales or rhonchi heard. No evidence of any co nsolidation. BREASTS: Deferred. HEART: The PMI could not be palpated. No other palpable precordial events. . S1 and S2 are normal. No S3 or S4 heard. No pericardial rub or any click heard. Short systolic murmur in the left sternal border. No diastolic murmurs. ABDOMEN: No vessel pulsations or distention. No tenderness. No organomegaly appreciated. No abdominal bruit. Bowel sounds are normally heard. : Deferred. RECTAL: Deferred. LYMPHATIC: No lymphadenopathy noted in the neck or groin. EXTREMITIES: No edema or cyanosis. No clubbing. The pulses are symmetrical bilaterally. The radial, femoral, dorsalis pedis and the posterior tibial pulses are palpated but of low volume and amplitude. MUSCULOSKELETAL: No acute joint deformities or swelling SKIN: There are no significant scars or skin rash noted. NEUROPSYCHIATRIC: The patient is alert and oriented x3. Appears to be in a good mood. The higher functions are grossly within normal limits. No tremors or rigidity noted. Data Labs: Other Labs: Echocardiogram from today revealed Mildly dilated left ventricle with diminished ejection fraction of 40 to 45%. Dffuse hypokinesia of the left ventricle. Thickened aortic valve. Trace mitral valve regurgitation. There is no pericardial effusion. There are no intracardiac masses. Imaging^: Echo: My impression: In May 2017 echocardiogram revealed 1-Normal left ventricular cavity size. No regional wall motion abnormalities. Normal left ventricular systolic function. Left ventricular ejection fraction is estimated at 57 %. Normal diastolic function. 2-Moderately thickened mitral valve. Mild mitral annular calcification. No mitral valve stenosis. Mild mitral valve regurgitation. 3-There is no pericardial effusion. 4-Aortic valve sclerosis without stenosis or regurgitation. 5-Right atrial pressure is around 5 mm of mercury. 6-There are no prior echocardiogram studies to compare. CXR: My impression: Cardiomegaly with no lung infiltrates. Pacemaker/ICD present EKG^: EKG 1: My Interpretation: Normal sinus rhythm with a nonspecific IVCD. Diffuse nonspecific ST-T changes. A&P Assessment and plan (1) Supraventricular tachycardia: The exact nature of the arrhythmia is not clear at this time. Previous myocardial infarction, LV dysfunction coupled with the ongoing alcohol abuse, are major contributing factors for the arrhythmia. Patient is strongly advised to quit smoking and drinking. The cardiovascular implications were discussed in detail. So I will try to interrogate the device to see any stored arrhythmias. Apparently there is no rhythm strips available to review the arrhythmia. After interrogating the device, further management decisions will be made. Status: Acute (2) Atherosclerotic heart disease of [place] coronary artery with other forms of angina pectoris: Atypical chest symptoms, could be related to underlying coronary ischemia. For further evaluation of the patient's coronary status as well as the graft status, a myocardial perfusion imaging would be appropriate. Based on the results of the above test, further recommendations will be made. Status: Acute (3) Ischemic cardiomyopathy: We will continue on the current medication. Currently there is no evidence of any cardiac decompensation. I may discontinue the lisinopril and start him on losartan. We may consider starting him on Entresto after couple of days. Patient may be kept on the current medications for the time being. Status: Acute (4) Cardiac defibrillator in place: We will interrogate the device to recognize arrhythmias and ICD functions. May continue on the current measures at this time. Status: Acute Additional A&P Information Echocardiogram was reviewed. LV ejection fraction was found to be around 40%. Based on the patient's clinical progress and the results of the above, further recommendations will be made. Thank you for the opportunity to evaluate this patient make these recommendations Consult Attestations Medical Necessity Statement: Patient requires continued hospital stay for close monitoring and further management Coding Level of Care Code Acute Film Loader for Theodore Felton Diagnoses Supraventricular tachycardia I47.1 Atherosclerotic heart disease of [place] coronary artery with other forms of angina pectoris I25.118 Ischemic cardiomyopathy I25.[address] Z95.810
[2020-04-09] MEDS: HYDROcodone-acetaminophen 5-325 mg Tablet 1 TAB PO ×2 (13:36→20:06)
[2020-04-09] MEDS: apixaban 5 mg Tablet PO ×2 (13:44→17:05)
[2020-04-09] MEDS: folic acid 1 mg Tablet PO (13:44)
[2020-04-09] MEDS: metoprolol tartrate 25 mg Tablet PO ×2 (13:44→17:05)
[2020-04-09] MEDS: thiamine 100 mg Tablet PO (13:44)
[2020-04-09 14:42] LABS: D Dimer <= 0.27 ug/mIFEU (0-0.59)
[2020-04-09 14:44] LABS: Magnesium 2.2 mg/dL (1.7-2.3); Thyroid Stimulating Hormone 4.19 uIU/mL (0.27-4.20)
--- NOTE | 2020-04-09 20:08 | PC.NURSE ---
Rounding: Patient resting in bed and is alert and oriented. Patient denies any needs at this time.
[2020-04-10] VITALS: PULSE 70
[2020-04-10] MEDS: HYDROcodone-acetaminophen 5-325 mg Tablet 1 TAB PO ×2 (02:14→08:21)
[2020-04-10 03:00] VITALS: BP 106/88; PULSE 81; RESP 16; TEMP 36.6; O2SAT 98
[2020-04-10 05:52] LABS: Basophils # 0.1 10^3/uL (0.0-0.1); Eosinophils # 0.1 10^3/uL (0.0-0.8); Eosinophils % 2.2 %; Hematocrit 41.5 % (42.0-52.0); Hemoglobin 13.7 g/dL (11.7-16.6); Lymphocytes # 1.7 10^3/uL (0.8-4.8); Lymphocytes % 28.6 %; Mean Corpuscular Hemoglobin 37.7 pg (28.0-34.0); Mean Corpuscular Volume 114.3 fL (80-94); Mean Platelet Volume 9.4 fL (7.4-10.4); Monocytes # 0.6 10^3/uL (0.2-0.9); Monocytes % 9.5 %; Neutrophils # 3.49 10^3/uL (1.8-7.7); Nucleated Red Blood Cells % 0 %; Platelet Count 231 10^3/cmm (130-400); Red Blood Count 3.63 10^6/uL (4.1-5.3); Red Cell Distribution Width 13.7 % (12.1-15.1)
[2020-04-10 06:37] LABS: Blood Urea Nitrogen 12 mg/dL (6-20); Calcium 9.5 mg/dL (8.5-10.5); Carbon Dioxide 27 mmol/L (22-29); Chloride 99 mmol/L (98-107); Glomerular Filtration Rate 121.4 mL/min (90-130); Glucose 100 mg/dL (65-115); Osmolality Calculated 282 mOsm/kg (285-295); Sodium 136 mmol/L (136-145)
[2020-04-10 06:51] LABS: Anion Gap 14.2 (5-19); Potassium 4.2 mmol/L (3.5-5.1)
[2020-04-10 06:52] VITALS: BP 153/108; PULSE 86; RESP 16; TEMP 36.5; O2SAT 94
[2020-04-10] MEDS: apixaban 5 mg Tablet PO (08:21)
[2020-04-10] MEDS: clopidogrel 75 mg Tablet PO (08:21)
[2020-04-10] MEDS: thiamine 100 mg Tablet PO (08:22)
[2020-04-10] MEDS: atorvastatin 40 mg Tablet 80 MG PO (08:24)
[2020-04-10] MEDS: folic acid 1 mg Tablet PO (08:25)
[2020-04-10] MEDS: metoprolol tartrate 25 mg Tablet PO (08:25)
--- NOTE | 2020-04-10 09:31 | P.PN_ITS ---
Subjective Subjective: Interval history: Patient has no recurrence of chest pain or cardiac arrhythmia. I reviewed his ICD interrogation report. Patient had episodes of supraventricular tachycardia. No evidence of any atrial fibrillation or flutter. Also had few episodes of nonsustained V. tach. Has not had any recurrence of arrhythmia, since the hospital admission. Medications: Reviewed: Yes Medication Review Details: Current Medications Hydrocodone Bitart/Acetaminophen (Otto 5-325 Mg) 1 tab PO Q6H PRN PRN Reason: MODERATE PAIN Last Admin: 04/10/20 08:21 Dose: 1 tab Documented by: Alprazolam (Xanax) 0.25 mg PO BID PRN PRN Reason: AGITATION Apixaban (Eliquis) 5 mg PO BID [facility] Last Admin: 04/10/20 08:21 Dose: 5 mg Documented by: Atorvastatin Calcium (Lipitor) 80 mg PO DAILY [facility] Last Admin: 04/10/20 08:24 Dose: 80 mg Documented by: Clopidogrel Bisulfate (Plavix) 75 mg PO DAILY [facility] Last Admin: 04/10/20 08:21 Dose: 75 mg Documented by: Folic Acid (Folic Acid) 1 mg PO DAILY [facility] Last Admin: 04/10/20 08:25 Dose: 1 mg Documented by: Metoprolol Tartrate (Lopressor) 25 mg PO BID [facility] Last Admin: 04/10/20 08:25 Dose: 25 mg Documented by: Thiamine Mononitrate (Vitamin B-1) 100 mg PO DAILY [facility] Last Admin: 04/10/20 08:22 Dose: 100 mg Documented by: Vitals/I&O/Wt Last Vital Signs Temp 97.7 F 04/10/20 06:52 Pulse 86 04/10/20 06:52 Resp 16 04/10/20 06:52 BP 153/108 04/10/20 06:52 Pulse Ox 94 04/10/20 06:52 04/09/20 04/10/20 04/10/20 22:59 06:59 14:59 Intake Total 360 / 360 450 / 810 240 / 240 Output Total 400 / 400 Balance 360 / 360 50 / 410 240 / 240 Weight last 48 hrs Weight 254 lb Physical Exam Narrative: EXAM NARRATIVE: GENERAL: The patient is alert and oriented times three. Not in any acute distress. Moderately obese HEENT: No significant pallor, icterus or lymphadenopathy. NECK: Trachea appears to be central. No masses noted. No JVD or thyromegaly appreciated. No carotid bruit. RESPIRATORY: Chest is symmetrical. No intercostals muscle retraction or any accessory muscle activation. There is no chest wall tenderness. Breath sounds are heard bilaterally. No rales or rhonchi heard. No evidence of any consolidation. BREASTS: Deferred. HEART: The PMI could not be palpated. No other palpable precordial events. . S1 and S2 are normal. No S3 or S4 heard. No pericardial rub or any click heard. Short systolic murmur in the left sternal border. No diastolic murmurs. ABDOMEN: No vessel pulsations or distention. No tenderness. No organomegaly appreciated. No abdominal bruit. Bowel sounds are normally heard. : Deferred. RECTAL: Deferred. LYMPHATIC: No lymphadenopathy noted in the neck or groin. EXTREMITIES: No edema or cyanosis. No clubbing. The pulses are symmetrical bilaterally. The radial, femoral, dorsalis pedis and the posterior tibial pulses are palpated but of low volume and amplitude. MUSCULOSKELETAL: No acute joint deformities or swelling SKIN: There are no significant scars or skin rash noted. NEUROPSYCHIATRIC: The patient is alert and oriented x3. Appears to be in a good mood. The higher functions are grossly within normal limits. No tremors or rigidity noted. Data : 04/10/20 05:00 04/10/20 05:00 A&P Assessment and plan (1) Supraventricular tachycardia: Patient's alcohol abuse, could be a major contributing factor. Once again strongly advised to quit drinking. Patient agreed to do so. Status: Acute (2) Atherosclerotic heart disease of [place] coronary artery with other forms of angina pectoris: Atypical chest symptoms, could be related to underlying coronary ischemia. For further evaluation of the patient's coronary status as well as the graft status, a myocardial perfusion imaging would be appropriate. Based on the results of the above test, further recommendations will be made. Patient is wanting to go home today and would like to have the stress test done as an outpatient. Since the patient has no chest pain or any specific cardiac symptoms at this time, it may be appropriate to do so. This was discussed with the primary attending as well. Status: Acute (3) Ischemic cardiomyopathy: Patient was started on losartan. We may bridge this to the [facility] as an outpatient. Continue on the other medications as the days Status: Acute (4) Cardiac defibrillator in place: The defibrillator interrogation report was reviewed and discussed. We will continue on the other current medications as it is. Status: Acute Additional A&P Information If the patient continues remain stable, may be discharged home today. Myocardial perfusion imaging as an outpatient. Will be seen in the office in 3 weeks Attestations Medical Necessity Statement*: Possible discharge home today Coding Level of Care Code Acute Neck Fitter for Theodore Felton Medical Decision Making Moderate Complexity Diagnoses Supraventricular tachycardia I47.1 Atherosclerotic heart disease of [place] coronary artery with other forms of angina pectoris I25.118 Ischemic cardiomyopathy I25.[address] Z95.810 Time Spent (min) 30
--- NOTE | 2020-04-10 10:17 | P.DS_ITS ---
Discharge Providers Date of Admission: 04/09/20 03:19 Date of Discharge: April 10, 2020 Attending Provider at Admission: Linda Lewis MD Attending Provider at Discharge: Linda Lewis MD Primary Care Provider: Linda Meade MD Diagnoses at Discharge Discharge Diagnosis (1) Supraventricular tachycardia: Status: Acute (2) Atherosclerotic heart disease of [place] coronary artery with other forms of angina pectoris: Status: Acute (3) Ischemic cardiomyopathy: Status: Acute (4) Cardiac defibrillator in place: Status: Acute (5) Non-ST elevation [place] (NSTEMI): Status: Acute Problem details: Appears to be type II secondary to SVT. Reason for Visit Reason for Visit: svt Hospital Course Discharge Summary: Patient presented with chest pain and supraventricular tachycardia associated with low blood pressure requiring electrical cardioversion. Patient has AICD which was interrogated showing supraventricular tachycardia but otherwise no atrial fibrillation or flutter. Patient was hospitalized and further evaluated by Dr. Patel with recommendation to proceed with stress test. This morning patient reports that he feels back to his normal baseline. He reports that he likely skipped his home medications and reports that he will make sure he takes them as prescribed. He wants to go home and wants to come back for stress test on outpatient basis. Discussed with Dr. Patel who is okay for patient to be discharged with outpatient stress test scheduled early next week and appropriate follow-up. Some medication changes were made. 81 mg aspirin was also added along with Protonix for GI protection since patient drinks large amount of alcohol. Dr. Patel wants lisinopril to be switched to losartan but otherwise wants to continue rest of the medications. Importance of alcohol abstinence and smoking cessation was discussed with patient. He voiced understanding but refused pharmacological help. He does have at times heartburn but denies melena or hematochezia. Physical Exam Const: COMMON NORMALS: no acute distress and patient oriented x3 Resp: COMMON NORMALS: normal respiratory effort and clear to auscultation bilaterally AUSCULTATION: clear to auscultation bilaterally Cardio: COMMON NORMALS: regular rate, regular rhythm and S2 normal heart sound present RATE: regular rate RHYTHM: regular rhythm HEART SOUNDS: S2 normal heart sound present OTHER: No lower extremity edema GI: COMMON NORMALS: Normal to inspection, nondistended, normoactive bowel sounds present, Soft to palpation and non-tender PALPATION: Yes Soft to palpation Neuro: COMMON NORMALS: patient oriented x3 and no focal motor deficits Discharge Data Data Completed and Pending: Completed Studies During Hospitalization Category Date Time Status XR chest 1V kacie ble [id number] Stat Exams 04/09/20 02:11 Completed CV echo complete* [id number] Routine Ultrasound 04/09/20 13:19 Completed Labs from last 24 hours 04/10/20 04/10/20 04/09/20 05:00 05:00 02:10 WBC 6.0 RBC 3.63 L Hgb 13.7 Hct 41.5 L MCV 114.3 H MCH 37.7 H MCHC 33.0 RDW 13.7 Plt Count 231 MPV 9.4 Neut % (Auto) 58.0 Lymph % (Auto) 28.6 Frontier % (Auto) 9.5 Eos % (Auto) 2.2 Baso % (Auto) 1.0 Neut # (Auto) 3.49 Lymph # (Auto) 1.7 Frontier # (Auto) 0.6 Eos # (Auto) 0.1 Baso # (Auto) 0.1 Nucleated RBC % (a uto) 0 Nucleated RBCs # 0.0 D-Dimer Sodium 136 Potassium 4.2 Chloride 99 Carbon Dioxide 27 Anion Gap 14.2 BUN 12 Creatinine 0.7 GFR Calculation 121.4 Glucose 100 Calculated Osmolal ity 282 L Calcium 9.5 Magnesium 2.2 TSH 4.19 04/09/20 02:10 WBC RBC Hgb Hct MCV MCH MCHC RDW Plt Count MPV Neut % (Auto) Lymph % (Auto) Frontier % (Auto) Eos % (Auto) Baso % (Auto) Neut # (Auto) Lymph # (Auto) Frontier # (Auto) Eos # (Auto) Baso # (Auto) Nucleated RBC % (a uto) Nucleated RBCs # D-Dimer <= 0.27 Sodium Potassium Chloride Carbon Dioxide Anion Gap BUN Creatinine GFR Calculation Glucose Calculated Osmolal ity Calcium Magnesium TSH Vitals: Last Vital Signs Temp 97.7 F 04/10/20 06:52 Pulse 86 04/10/20 06:52 Resp 16 04/10/20 06:52 BP 153/108 04/10/20 06:52 Pulse Ox 94 04/10/20 06:52 Discharge Plan Discharge Patient Disposition: Home Condition: Stable Prescriptions: New folic acid 1 mg Tablet 1 mg PO DAILY Qty: 30 RF: 0 thiamine mononitrate (vit B1) [Vitamin B-1 (mononitrate)] 100 mg Tablet 100 mg PO DAILY Qty: 30 RF: 0 aspirin [Adult Aspirin Regimen] 81 mg tablet,delayed release (DR/EC) 81 mg PO DAILY Qty: 30 RF: 0 losartan 50 mg Tablet 50 mg PO DAILY Qty: 30 RF: 0 pantoprazole [Protonix] 20 mg tablet,delayed release (DR/EC) 20 mg PO DAILY Qty: 30 RF: 0 Continued atorvastatin 80 mg tablet 80 mg PO DAILY RF: 0 clopidogrel 75 mg tablet 75 mg PO DAILY RF: 0 divalproex 500 mg tablet,delayed release (DR/EC) 500 mg PO DAILY RF: 0 amlodipine 10 mg tablet 10 mg PO DAILY RF: 0 nitroglycerin 0.4 mg tablet, sublingual 0.4 mg sublingual DAILY PRN (Reason: Chest Pain) RF: 0 carvedilol 12.5 mg Tablet 12.5 mg PO BID RF: 0 hydrocodone-acetaminophen 10-325 mg tablet 1 tab PO Q6H PRN (Reason: Pain) RF: 0 Discontinued lisinopril 20 mg tablet 20 mg PO DAILY RF: 0 Discharge Orders: Discharge Order (Routine); Ordered 04/10/20 Ordered By: Abdelrahman Jefferson Other Ambulatory Orders: Sestamibi Stress Test Request (Routine) Timeframe: 2 Days Facility: [facility] - Location: Cardiac Diagnostic Laboratory Ordered By: Abdelrahman Jefferson Referrals: Carin Chavez MD [Family Provider] - 4-7 days Irasema Patel MD [Physician] - 4-7 days Linda Meade MD [Primary Care Provider] - Discharge Diet: Advance as tolerated Discharge Activity: Limit activity as instructed Activity Restrictions/Additional Instructions: Please call your doctor or present to emergency department if your condition worsens or you develop diarrhea, lightheadedness, dizziness or see blood in your stool or black stool. Please present back if you develop chest pain. Please make sure you have stress test early next week as we have discussed. Please quit smoking and gradually decrease amount of alcohol you are drinking as we have discussed. Discussed with your doctor if you think you will need to have pharmacological help to quit drinking or smoking. Limit your physical activity as we have discussed until stress test performed and you were told otherwise by your doctor. Discharge Attestations Time Spent in Discharge Care*: greater than 30 min Quality Metrics Clinical Quality Measures During this hospital stay, did patient experience: AMI Clinical Trial Participant: No Contraindication to aspirin (AMI): Aspirin given Cont raindication to statin: Statin prescribed Coding Level of Care Code Acute Psychologist Chief for Chg Fwd Diagnoses Supraventricular tachycardia I47.1 Atherosclerotic heart disease of [place] coronary artery with other forms of angina pectoris I25.118 Ischemic cardiomyopathy I25.[address] Z95.810 Non-ST elevation [place] (NSTEMI) I21.4
[2020-04-10] MEDS: losartan 50 mg Tablet PO (10:29)
[2020-04-10 11:01] VITALS: BP 149/105; PULSE 73; RESP 19; TEMP 36.6; O2SAT 98
[2020-04-10 12:37] VITALS: PULSE 73; RESP 19; TEMP 36.6; O2SAT 98
--- NOTE | 2020-04-10 13:15 | PC.NURSE ---
Discharge to home Instructed pt to follow-up w/ pcp and special events fundraiser. Instructed pt pt on new meds actions, timing, possible s/e and dosing. Informed pt on outpt stress test. Discharge papers provided to pt.
--- NOTE | 2020-04-11 11:52 | PC.RESP ---
SMOKING CESSATION INFORMATION SENT TO PATIENT.
== END 2020-04-10 13:19 | disposition home or self-care (01) ==
LOC: ER 03:59 → CSU 12:36
PROVIDERS: Emergency Medicine; Admitting Provider Internal Medicine; Family Provider Family Medicine; PCP Internal Medicine Cardiovascular Disease; Visit Provider Internal Medicine
DX: I47.1 Supraventricular tachycardia (principal); N17.9 Acute kidney failure, unspecified; F10.10 Alcohol abuse, uncomplicated; R00.2 Palpitations; Z95.0 Presence of cardiac pacemaker; F17.210 Nicotine dependence, cigarettes, uncomplicated; I25.118 Atherosclerotic heart disease of native coronary artery with other forms of angina pectoris; I25.2 Old myocardial infarction; Z82.49 Family history of ischemic heart disease and other diseases of the circulatory system
CPT/HCPCS: 12345; 36415; 71045; 80048; 80053; 80306; 81003; 82550; 83605; 83735; 83880; 84443; 84484; 85025; 85378; 85610; 85730; 93005; 93306; 99284; 99285; G0378

== ENCOUNTER → 2020-07-07 12:12 | Outpatient (BNVA) | payer MEDICARE, MEDICAID, SELFPAY | PROVIDERS: Family Provider Family Medicine; PCP Family Medicine; Visit Provider Internal Medicine Cardiovascular Disease | DX: R06.02 Shortness of breath (principal); I42.9 Cardiomyopathy, unspecified; I25.118 Atherosclerotic heart disease of native coronary artery with other forms of angina pectoris; I50.9 Heart failure, unspecified; I51.7 Cardiomegaly; I10 Essential (primary) hypertension | CPT/HCPCS: 80048; 83880 ==

== ENCOUNTER 2021-02-05 19:22 | Inpatient (IN) | payer MEDICARE, MEDICAID, SELFPAY ==
[2021-02-05] VITALS (7 sets, daily range): BP systolic 104–125; BP diastolic 48–85; PULSE 88–112; RESP 16–34; TEMP 36.6; O2SAT 91–99; BMI 41.5
--- NOTE | 2021-02-05 19:30 | ECG_ITS ---
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 Measurements Intervals [place] Rate: 102 P: 54 DE: 149 QRS: 52 QRSD: 99 T: 58 QT: 359 QTc: 468 Interpretive Statements SINUS TACHYCARDIA POSSIBLE LEFT ATRIAL ENLARGEMENT [-0.1mV P WAVE IN V1/V2] INFERIOR MYOCARDIAL INFARCTION [40+ ms Q WAVE AND/OR ST/T ABNORMALITY IN II/aVF], PROBABLY OLD Compared to ECG 04/09/2020 08:07:52 Sinus rhythm no longer present Intraventricular conduction delay no longer present ST (T wave) deviation no longer present Myocardial infarct finding still present Electronically Signed On 02-07-2021 16:43:25 CDT by Raquel Solano M.D. [email or web address]
--- NOTE | 2021-02-05 19:59 | XRR_ITS ---
PROCEDURE INFORMATION: Exam: XR Chest Exam date and time: 02/05/2021 7:59 PM Age: 45 years old Clinical indication: Pain; Other: Arrhythmia; Prior surgery; Additional info: Chest pain TECHNIQUE: Imaging protocol: XR of the chest. Views: 1 view. COMPARISON: CR XR chest 1V portable [id number] 04/09/2020 2:23 AM FINDINGS: Tubes, catheters and devices: Left chest ICD position is radiographically unremarkable. Lungs: Diffusely increased interstitial lung markings are more prominent than comparison imaging. No focal airspace consolidation. Pleural spaces: Unremarkable. No pleural effusion. No pneumothorax. Heart/Mediastinum: Moderate cardiomegaly. Bones/joints: Unremarkable. XR/XR chest 1V portable [id number] IMPRESSION: New finding of interstitial prominence. Interstitial edema or pneumonia in the differential.
[2021-02-05 20:11] LABS: Basophils # 0.1 10^3/uL (0.0-0.1); Basophils % 0.8 %; Eosinophils # 0.1 10^3/uL (0.0-0.8); Eosinophils % 0.8 %; Hematocrit 36.7 % (42.0-52.0); Hemoglobin 12.3 g/dL (11.7-16.6); Lymphocytes # 1.2 10^3/uL (0.8-4.8); Lymphocytes % 13.7 %; Mean Corpuscular HGB Conc 33.5 g/dL (30.0-36.0); Mean Corpuscular Hemoglobin 38.4 pg (28.0-34.0); Mean Corpuscular Volume 114.7 fl (80-94); Mean Platelet Volume 9.4 fL (7.4-10.4); Monocytes # 1.2 10^3/uL (0.2-0.9); Monocytes % 14.2 %; Nucleated Red Blood Cells % 0 %; Platelet Count 284 10^3/cmm (130-400); Red Cell Distribution Width 13.4 % (12.1-15.1); White Blood Count 8.4 10^3/uL (4.0-10.0)
--- NOTE | 2021-02-05 20:13 | ED_ITS ---
HPI - Arrhythmia/Palpitations General: Chief Complaint: Arrhythmia/Palpitations Stated Complaint: CP Time Seen by Provider: 02/05/21 19:36 Source: patient Mode of arrival: ambulatory Limitations: no limitations History of Present Illness: HPI narrative: This patient comes to our emergency department via EMS. He states she is not felt well for the past several days with some cough and malaise. He states he is not any vomiting or diarrhea. He states that his defibrillator went off earlier today. He states that prior to that he felt like his pacemaker had been trying to overdrive his heart rate. He states that he notified EMS and EMS noted he seemed to have a wide-complex tachycardia and gave him a dose of amiodarone which made him hypotensive. They gave him some fluid challenge and because of the time and distance air care was notified. Air care arrived on scene and found him to still be in a unstable rhythm and sedated and cardioverted him and he is now in the emergency department. He states he has had a total of 4 shocks in the last 12 hours. He states that he is a smoker. He states he had a pacemaker AICD originally placed at age 31 because he developed an arrhythmia at that time. 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 States his mother and sister also have a history of mitral valve disease but has never had any valvular disease. He states his chest is sore but otherwise denies any complaints. He is not immunized against COVID-19. complaint: rapid heart beat and heart racing Duration: intermittent Arrhythmia history: AICD Associated symptoms: Deny nausea or vomiting Review of Systems Const: Reports: body aches and change in appetite; Denies: fever(s) or chills Eyes: Denies: change in vision ENMT: Denies: throat pain or odynophagia Card: Reports: palpitations and irregular heart rhythm Resp: Reports: non-productive cough; Denies: wheezing or stridor GI: Denies: abdominal pain, nausea or vomiting : Denies: flank pain, difficulty urinating or dysuria Musc: Denies: neck pain, back pain or extremity pain Skin/Breast: Denies: rash Neuro: Denies: headache(s), numbness in extremities or weakness in extremities Endo: Denies: polyuria or polydipsia [facility] ED PFSH: Medical History Abnormal coronary angiogram Bronchitis Cardiac defibrillator in place Cardiomyopathy Coronary disease Heart failure with reduced ejection fraction History of cardioversion Hypertension Ischemic cardiomyopathy Nicotine dependence Pacemaker Pharyngitis Seizure disorder Shortness of breath Supraventricular tachycardia Surgical History AICD (automatic cardioverter/defibrillator) present H/O cardiac catheterization H/O hernia repair Family History Mother Family history of premature coronary artery disease Initial [place] age 31, at 60; his mother sister at the age of 20 and had a myocardial infarction. Maternal grandfather and grandmother of myocardial infarction in their 50s and 60s. One of his sisters had pacemaker placed placement CAD (coronary artery disease) Father Clotting disorder Bleeding disorder Family/Other CAD (coronary artery disease) Grandmother CAD (coronary artery disease) Grandfather CAD (coronary artery disease) Denies family history of Diabetes Dementia Chronic kidney disease (CKD) Suicide Anesthesia complication Lung disease Cancer Stroke Social History Smoking and tobacco status: current every day smoker cigarettes Packs smoked per day: 1 Years cigarettes smoked: 30 Alcohol intake: current Alcohol intake frequency: 3 or more drinks per day Alcohol type: hard liquor Housing: House Special eloise needs: No Physical Exam Const: COMMON NORMALS: no acute distress and alert GENERAL APPEARANCE: cooperative and comfortable NUTRITIONAL APPEARANCE: overweight ORIENTATION/CONSCIOUSNESS: Yes oriented to person HENMT: COMMON NORMALS: normocephalic and Normal external nose present HEAD & SCALP: normocephalic FACE & SINUS: normal facial exam NOSE: Normal external nose present MOUTH: Normal oral and palatal mucosa present Eye: COMMON NORMALS: Equal, round and reactive pupils present, EOMs intact bilaterally and conjunctivae normal CONJUNCTIVA: Yes conjunctivae normal PUPIL: Yes Equal, round and reactive pupils present Neck/C-Spine: COMMON NORMALS: full ROM, no lymphadenopathy, supple, no meningeal signs, no JVD and No carotid bruits Lymph: LYMPHATIC: no lymphadenopathy noted Chest: COMMONS NORMALS: normal inspection of the chest and normal palpation of entire chest wall Resp: COMMON NORMALS: normal respiratory effort EFFORT & INSPECTION: Yes Actively coughing AUSCULTATION: rhonchi Cardio: COMMON NORMALS: no JVD, regular rate, regular rhythm and No murmurs present (Cardio) JUGULAR VENOUS DISTENTION: no JVD RATE: regular rate RHYTHM: regular rhythm GI: COMMON NORMALS: Normal to inspection, nondistended, normoactive bowel sounds present, Soft to palpation, non-tender and no masses PALPATION: Yes Soft to palpation : COMMON NORMALS: Yes no CVA tenderness BLADDER/KIDNEY EXAM: Yes no CVA tenderness Back/Pelvis: COMMON NORMALS: no CVA tenderness, thoracic and lumbar spine normal to inspection and no thoracic nor lumbar tenderness Extremity: COMMON NORMALS: normal to inspection, full ROM, capillary refill normal, no calf tenderness and no pedal edema Neuro: COMMON NORMALS: no focal motor deficits, no sensory deficits noted and gait normal SENSORIUM/ORIENTATION: Yes alert and Yes oriented to person MENINGEAL SIGNS: Yes no meningeal signs Course Reevaluation(s): Reevaluation #1: Patient's AICD was interrogated. He apparently has had 2 shocks from V. tach V. fib as well as 2 episodes of attempting to overdrive either V. tach or V. fib today. Had a total of 7 shocks since 2019. Time: 21:10 Reevaluation #2: Patient remained stable. I discussed with him that we will go ahead and start him on a low-dose of amiodarone to control any further arrhythmias and plan for observation in the emergency at this time. He voiced understanding and agreed. Time: 22:00 Consultations: Consultation #1: Discussed with Dr. Patel who recommended we continue on amiodarone infusion to prevent recurrent arrhythmias. He will see and is him in consulting status. He also recommended ordering echocardiogram for tomorrow. Time: 22:00 Consultation #2: Discussed with who agrees to admission Time: 22:40 Vital Signs: Vital signs: Vital Signs Temperature 97.9 F 02/05/21 19:26 Pulse Rate 88 02/05/21 21:00 Respiratory Rate 23 H 02/05/21 21:00 Blood Pressure 105/48 02/05/21 21:00 Pulse Oximetry 99 02/05/21 21:00 MDM - Arrhythmia/Palpitations Lab Data: Labs: Lab Results 02/05/21 02/05/21 02/05/21 Range/Units 19:53 19:53 19:53 WBC 8.4 (4.0-10.0) 10^3/ uL RBC 3.20 L (4.1-5.3) 10^6/u L Hgb 12.3 (11.7-16.6) g/dL Hct 36.7 L (42.0-52.0) % MCV 114.7 H (80-94) fl MCH 38.4 H (28.0-34.0) pg MCHC 33.5 (30.0-36.0) g/dL RDW 13.4 (12.1-15.1) % Plt Count 284 (130-400) 10^3/c mm MPV 9.4 (7.4-10.4) fL Neut % (Auto) 68.0 % Lymph % (Auto) 13.7 % [place] % (Auto) 14.2 % Eos % (Auto) 0.8 % Baso % (Auto) 0.8 % Neut # (Auto) 5.70 (1.8-7.7) 10^3/u L Lymph # (Auto) 1.2 (0.8-4.8) 10^3/u L [place] # (Auto) 1.2 H (0.2-0.9) 10^3/u L Eos # (Auto) 0.1 (0.0-0.8) 10^3/u L Baso # (Auto) 0.1 (0.0-0.1) 10^3/u L Nucleated RBC % (a uto) 0 % Nucleated RBCs # 0.0 /100WBC PT 12.50 (12.1-14.9) SECO NDS INR 0.90 (0.8-1.2) APTT 35.7 (23.9-36.7) SECO NDS Sodium 136 (136-145) mmol/L Potassium 3.2 L (3.5-5.1) mmol/L Chloride 97 L (98-107) mmol/L Carbon Dioxide 27 (22-29) mmol/L Anion Gap 15.2 (5-19) BUN 9 (6-20) mg/dL Creatinine 0.5 L (0.7-1.2) mg/dL GFR Calculation 178.2 H (90-130) mL/min Glucose 97 (65-115) mg/dL Calculated Osmolal ity 281 L (285-295) mOsm/k g Calcium 8.6 (8.5-10.5) mg/dL Magnesium 1.7 (1.7-2.3) mg/dL Total Bilirubin 0.4 (0.15-1.2) mg/dL AST 31 (0-40) U/L ALT 26 (0-41) U/L Alkaline Phosphata se 113 (40-130) IU/L Troponin T Gen 5 n g/L (0-15) ng/L NT-Pro-B Natriuret Pep 696 H (0-125) pg/mL Total Protein 6.5 L (6.6-8.7) g/dL Albumin 3.4 L (3.5-5.2) g/dL Globulin 3.1 (1.3-4.6) g/dL SARS-CoV-2 Ag (Rap id) (Negative) 02/05/21 02/05/21 Range/Units 19:53 20:28 WBC (4.0-10.0) 10^3/ uL RBC (4.1-5.3) 10^6/u L Hgb (11.7-16.6) g/dL Hct (42.0-52.0) % MCV (80-94) fl MCH (28.0-34.0) pg MCHC (30.0-36.0) g/dL RDW (12.1-15.1) % Plt Count (130-400) 10^3/c mm MPV (7.4-10.4) fL Neut % (Auto) % Lymph % (Auto) % [place] % (Auto) % Eos % (Auto) % Baso % (Auto) % Neut # (Auto) (1.8-7.7) 10^3/u L Lymph # (Auto) (0.8-4.8) 10^3/u L [place] # (Auto) (0.2-0.9) 10^3/u L Eos # (Auto) (0.0-0.8) 10^3/u L Baso # (Auto) (0.0-0.1) 10^3/u L Nucleated RBC % (a uto) % Nucleated RBCs # /100WBC PT (12.1-14.9) SECO NDS INR (0.8-1.2) APTT (23.9-36.7) SECO NDS Sodium (136-145) mmol/L Potassium (3.5-5.1) mmol/L Chloride (98-107) mmol/L Carbon Dioxide (22-29) mmol/L Anion Gap (5-19) BUN (6-20) mg/dL Creatinine (0.7-1.2) mg/dL GFR Calculation (90-130) mL/min Glucose (65-115) mg/dL Calculated Osmolal ity (285-295) mOsm/k g Calcium (8.5-10.5) mg/dL Magnesium (1.7-2.3) mg/dL Total Bilirubin (0.15-1.2) mg/dL AST (0-40) U/L ALT (0-41) U/L Alkaline Phosphata se (40-130) IU/L Troponin T Gen 5 n g/L 14 (0-15) ng/L NT-Pro-B Natriuret Pep (0-125) pg/mL Total Protein (6.6-8.7) g/dL Albumin (3.5-5.2) g/dL Globulin (1.3-4.6) g/dL SARS-CoV-2 Ag (Rap id) Negative (Negative) Imaging Data^: CXR: Attestation: I personally reviewed and interpreted this imaging study as follows: (I reviewed the radiology report on the chest x-ray. They comment on some increased interstitial findings however I did not find this significant on my review of the chest x-ray.) EKG Data^: EKG 1: Attestation: I personally reviewed and interpreted this EKG as follows: (Resting EKG shows a borderline sinus tachycardia 102 bpm. Evidence of left atrial enlargement. Does have some baseline irritability and nonspecific ST-T wave changes noted across the precordial leads.) Other EKG comments: Chest X-Ray 02/05/21 19:59 IMPRESSION: New finding of interstitial prominence. Interstitial edema or pneumonia in the differential. Discharge Plan Discharge Clinical Impression: Ventricular tachycardia, Hypokalemia Condition: Stable Prescriptions: No Action albuterol sulfate [ProAir HFA] 90 mcg/actuation HFA aerosol inhaler 1 inh inhalation Q6H PRN (Reason: shortness of breath or wheezing) 30 Days Qty: 8.5 RF: 2 potassium chloride 8 mEq capsule, extended release See Rx Instructions .ROUTE .COMPLEX Qty: 90 RF: 3 metoprolol tartrate 50 mg tablet See Rx Instructions .ROUTE .COMPLEX Qty: 180 RF: 3 furosemide 20 mg tablet See Rx Instructions .ROUTE .COMPLEX Qty: 90 RF: 3 Entresto 49-51 mg tablet See Rx Instructions .ROUTE .COMPLEX Qty: 60 RF: 5 atorvastatin 80 mg tablet 80 mg PO DAILY RF: 0 clopidogrel 75 mg tablet 75 mg PO DAILY RF: 0 divalproex 500 mg tablet,delayed release (DR/EC) 500 mg PO DAILY RF: 0 amlodipine 10 mg tablet 10 mg PO DAILY RF: 0 nitroglycerin 0.4 mg tablet, sublingual 0.4 mg sublingual DAILY PRN (Reason: Chest Pain) RF: 0 hydrocodone-acetaminophen 10-325 mg tablet 1 tab PO Q6H PRN (Reason: Pain) RF: 0 folic acid 1 mg Tablet 1 mg PO DAILY Qty: 30 RF: 0 Vitamin B-1 (mononitrate) 100 mg Tablet 100 mg PO DAILY Qty: 30 RF: 0 Adult Aspirin Regimen 81 mg tablet,delayed release (DR/EC) 81 mg PO DAILY Qty: 30 RF: 0 Protonix 20 mg tablet,delayed release (DR/EC) 20 mg PO DAILY Qty: 30 RF: 0 Referrals: Carin Chavez MD [Family Provider] - Jonny Gifford [Primary Care Provider] - Coding Level of Care Code ED Pathology Teacher for Chg Fwd Exam Comprehensive
[2021-02-05] MEDS: lactated ringers 500 ML 999 ML IV (20:23)
[2021-02-05 20:39] LABS: Partial Thromboplastin Time 35.7 SECONDS (23.9-36.7)
[2021-02-05 20:43] LABS: Slide Review Slide Review Perform
[2021-02-05 20:44] LABS: Alanine Aminotransferase 26 U/L (0-41); Albumin Level 3.4 g/dL (3.5-5.2); Alkaline Phosphatase 113 IU/L (40-130); Anion Gap 15.2 (5-19); Aspartate Amino Transferase 31 U/L (0-40); Blood Urea Nitrogen 9 mg/dL (6-20); Calcium 8.6 mg/dL (8.5-10.5); Carbon Dioxide 27 mmol/L (22-29); Chloride 97 mmol/L (98-107); Globulin 3.1 g/dL (1.3-4.6); Glomerular Filtration Rate 178.2 mL/min (90-130); Glucose 97 mg/dL (65-115); Magnesium 1.7 mg/dL (1.7-2.3); NT Pro B Type Natriuretic Pept 696 pg/mL (0-125); Osmolality Calculated 281 mOsm/kg (285-295); Potassium 3.2 mmol/L (3.5-5.1); Sodium 136 mmol/L (136-145); Total Bilirubin 0.4 mg/dL (0.15-1.2); Total Protein 6.5 g/dL (6.6-8.7)
[2021-02-05 21:40] LABS: SARS Covid-2 Antigen Negative (Negative)
[2021-02-05 22:19] LABS: Troponin T (5th) Once 14 ng/L (0-15)
[2021-02-05] MEDS: potassium bicarb 25 mEq Tablet 50 MEQ PO (22:25)
[2021-02-05] MEDS: HYDROcodone-acetaminophen 10-325 mg Tablet 1 TAB PO (22:43)
--- NOTE | 2021-02-05 23:11 | P.HP_ITS ---
Providers/Chief Complaint Primary Care Provider: oJnny Gifford Chief Complaint: CP History of Present Illness Carlos Alberto Morrow is a 45 year old male with a history of atherosclerotic heart disease, status post multiple PCI's, ischemic cardiomyopathy, status post ICD implantation, is presenting with complaints of palpitations and his AICS firing earlier today x 2.Upon arrival EMS noted a wide complex tachycardia for which he received amiodarone. Then developed hypotension, Air evac was called in, again noted to be in unstable wide complex rhythm for which he was cardioverted en route. Since arrival at ER he has been in sinus rhythm, pacemaker has been interrogated and case discussed by ERP with cloth finishing range tender. Troponin baseline at 14. .EKG with sinus rhythm, D dimer negative. ROS+ respiratory symptoms over the past week with occasional cough Review of Systems General: Reports: 10 or more systems reviewed and unremarkable except in HPI and below Const: Denies: fever(s), chills or body aches Eyes: Denies: change in vision, blurry vision or photophobia ENMT: Reports: hoarseness; Denies: throat pain, enlarged tonsils, odynophagia or nasal congestion Card: Denies: chest pain, palpitations, irregular heart rhythm, edema, swelling of feet/ankles, lightheadedness, pre-syncope, dyspnea on exertion or orthopnea Resp: Denies: dyspnea, productive cough, non-productive cough, wheezing, stridor, pain on inspiration, change in phlegm color, hemoptysis or chest congestion GI: Denies: abdominal pain, nausea, vomiting, hematemesis, coffee ground emesis, dysphagia, heartburn, diarrhea, constipation, GI cramping, change in stool character, hematochezia or melena : Denies: flank pain, dysuria, urinary frequency, urinary urgency, urinary hesitancy or hematuria Musc: Denies: neck pain, back pain, extremity pain, joint swelling, joint warmth or deformity Neuro: Denies: headache(s), numbness in extremities, weakness in extremities, sensory changes, difficulty walking, frequent falls, dizziness, vertigo, b ehavioral changes, Slurred speech present or seizure-like activity Psych: Denies: anxiety, depression, suicidal ideation or homicidal ideation Endo: Denies: polyuria, polydipsia, tired all the time, cold intolerance or hot flashes Naeem/Lymph: Denies: easy bruising or easy bleeding Medications/Allergies Home Medications Medication Instructions Recorded Confirmed Last Taken Type amlodipine 10 mg PO DAILY 04/09/20 08/30/20 04/09/20 History atorvastatin 80 mg PO DAILY 04/09/20 08/30/20 04/09/20 History clopidogrel 75 mg PO DAILY 04/09/20 08/30/20 04/09/20 History divalproex 500 mg PO DAILY 04/09/20 08/30/20 04/09/20 History hydrocodone-acetaminophen 1 tab PO Q6H PRN 04/09/20 08/30/20 Unknown History nitroglycerin 0.4 mg SUBLINGUAL DAILY PRN 04/09/20 08/30/20 Unknown History aspirin [Adult Aspirin Regimen] 81 mg PO DAILY #30 tab 04/10/20 08/30/20 Unknown Rx folic acid 1 mg PO DAILY #30 tab 04/10/20 08/30/20 Unknown Rx pantoprazole [Protonix] 20 mg PO DAILY #30 tab 04/10/20 08/30/20 Unknown Rx thiamine mononitrate (vit B1) 100 mg PO DAILY #30 tab 04/10/20 08/30/20 Unknown Rx [Vitamin B-1 (mononitrate)] albuterol sulfate 90 mcg/actuation 1 inh INHALATION Q6H PRN 30 Days 06/02/20 08/30/20 Unknown Rx aerosol inhaler #8.5 g furosemide 20 mg tablet See Rx Instructions .ROUTE 07/07/20 08/30/20 Unknown Rx .COMPLEX #90 tab metoprolol tartrate 50 mg tablet See Rx Instructions .ROUTE 07/07/20 08/30/20 Unknown Rx .COMPLEX #180 tab potassium chloride 8 mEq See Rx Instructions .ROUTE 07/07/20 08/30/20 Unknown Rx capsule,extended release .COMPLEX #90 cap sacubitril 49 mg-valsartan 51 mg See Rx Instructions .ROUTE 12/28/20 Unknown Rx tablet .COMPLEX #60 tab Allergies Allergy/AdvReac Type Severity Reaction Status Date / Time No Known Allergies Allergy Verified 11/01/20 08:13 PFSH Acute PFSH: Medical History Abnormal coronary angiogram Bronchitis Cardiac defibrillator in place Cardiomyopathy Coronary disease Heart failure with reduced ejection fraction History of cardioversion Hypertension Ischemic cardiomyopathy Nicotine dependence Pacemaker Pharyngitis Seizure disorder Shortness of breath Supraventricular tachycardia Surgical History AICD (automatic cardioverter/defibrillator) present H/O cardiac catheterization H/O hernia repair Family History Mother Family history of premature coronary artery disease Initial [place] age 31, at 60; his mother sister at the age of 20 and had a myocardial infarction. Maternal grandfather and grandmother of myocardial infarction in their 50s and 60s. One of his sisters had pacemaker placed placement CAD (coronary artery disease) Father Clotting disorder Bleeding disorder Family/Other CAD (coronary artery disease) Grandmother CAD (coronary artery disease) Grandfather CAD (coronary artery disease) Denies family history of Diabetes Dementia Chronic kidney disease (CKD) Suicide Anesthesia complication Lung disease Cancer Stroke Social History Smoking and tobacco status: current every day smoker cigarettes Packs smoked per day: 1 Years cigarettes smoked: 30 Alcohol intake: current Alcohol intake frequency: 3 or more drinks per day Alcohol type: hard liquor Housing: House Special eloise needs: No Vitals/I&O/Wt Last Vital Signs Temp 97.9 F 02/05/21 19:26 Pulse 112 H 02/05/21 22:51 Resp 18 02/05/21 22:51 BP 122/85 02/05/21 22:51 Pulse Ox 96 02/05/21 22:51 Weight last 48 hrs Weight 131.542 kg Physical Exam Narrative: EXAM NARRATIVE: General: No acute distress, AO x3 HEENT: PERRLA, pupils bilaterally equal and reactive, pallors not present Chest: Normal vesicular breath sounds, no added sounds, equal good air entry bilaterally CVS: S1-S2 regular, no murmurs, no tachycardia, no gallops, no rubs Abdomen: Soft, nontender, no organomegaly, bowel sounds present Neuro: No focal deficits, no facial deformity, AO x3, power 5/5 in all limbs Data : 02/05/21 19:53 02/05/21 19:53 A&P Assessment and plan (1) Ventricular tachycardia: Status: Acute (2) Hypokalemia: Status: Acute (3) Cardiac defibrillator in place: Status: Acute Additional A&P Information Presentation as above in HPI AICD firing x 2 today, thereafter again noted to be in wide complex rhythm for which cardioversion performed by EMS Currently in sinus rhythm Troponin negative, no current chest pain, less likely ACS d dimer negative Cardiology consulted from ER, recommended to continue amiodarone infusion and monitor closely on telemtery Continue home doses of Asa, plavix, statin, metoprolol, entresto PPM report Attestations Medical Necessity Statement*: Anticipating less than 48 hours admission for now for monitoring because of tachyarrhythmia requiring cardioversion, amiodarone infusion Coding Level of Care Code Acute Bank Examiner for [facility] Fwd Diagnoses Ventricular tachycardia I47.2 Hypokalemia E87.[address] Z95.810
[2021-02-05 23:12] LABS: D Dimer 0.52 ug/mIFEU (0-0.59)
[2021-02-06] VITALS (15 sets, daily range): BP systolic 116–143; BP diastolic 68–93; PULSE 78–117; RESP 16–26; TEMP 36.6–38.5; O2SAT 94–97; BMI 34.7
[2021-02-06] MEDS: enoxaparin 40 mg/0.4 mL Syringe SUBCUT ×2 (02:18→22:51)
--- NOTE | 2021-02-06 03:01 | PC.NURSE ---
Transfer Note Patient transferred to [[facility]] from [ED] via [stretcher] [id number]. Handoff received from [ED nurse]. Patient oriented to environment and equipment. Covering service notified. Orders reviewed and will continue to monitor. Family and/or wholesale representative notified.
[2021-02-06] MEDS: acetaminophen 325 mg Tablet 650 MG PO (05:24)
--- NOTE | 2021-02-06 06:19 | PC.NURSE ---
Shift Note Frequent safety and comfort rounds continue. Orders and/or nursing care completed as indicated. Patient monitored for response to intervention and treatment(s). Education provided includes symptoms to report to the nurse. Patient and/or call center support representative understanding of teaching. Pt reported headache and was given tylenol. Will continue to monitor.
--- NOTE | 2021-02-06 06:36 | P.CONIM_ITS ---
Providers/Reason For Consult Consulting Physician/Specialty*: Gilbert Patel MD/cardiology Reason for Consult*: Patient with the ICD discharges and wide-complex tachycardia requiring electrical cardioversion Attending Physician: Karin Funk MD Primary Care Provider: Jonny Gifford History of Present Illness History of Present Illness Carlos Alberto Morrow is a 45 year old male with a history of coronary artery disease, status post multiple PCI's, status post ICD implantation for malignant ventricular arrhythmia, apparently had a ICD discharges yesterday at home. His called the ambulance. The EMS people found him in wide-complex tachycardia. He was started on IV amiodarone. Apparently his blood pressure dropped at that time. For that reason, he was cardioverted. He was staying in the sinus rhythm, since the ER admission. Except for some soreness in his chest, he seems to be doing okay. For the last 1 week or so, patient has been having some upper respiratory infection symptoms. He feels like the chest is congested. He was coughing up yellowish sputum. He also was having to use oxygen more often during the daytime than in the past. His oxygen saturation may drop dpwn to the 80s or low 90s. He was tested negative for COVID-19 in the ER(rapid test) . He also might have had some low-grade fever at home. He had the first myocardial infarction at the age of 31. He had ICD implantation in 2008 in [place] for the first time. 4 years ago, the device was revised in [facility] by Dr. Magallanes . He has a [employer] device. The device interrogation yesterday revealed two ATPs and 2 ICD discharges within the last 12 hours. The patient used to be a heavy alcoholic but lately he has been cutting it down. According to him he currently takes 4 drinks a day. He also smokes at least half a pack a day now. Used to be smoking 2 pack a day for 30 years or so. No other substance abuse. He has a strong family history for premature atherosclerotic heart disease. His mother had a myocardial infarction at the age of 31. Her sister had a heart attack at age of 29. Both grandparents had a myocardial infarction in their 50s and 60s. 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 Currently at the time of my examination, patient seems to be back to his baseline. Still having a cough and some amount of shortness of breath. Has some chest wall soreness soreness from the cardioversion. He had a low-grade fever of 101.3 last night. No other specific complaints. Review of Systems Narrative: CONSTITUTIONAL: Low-grade fever and upper respiratory infection symptoms as mentioned above. EYES: No blurring of vision or other visual disturbances lately. ENT: No hoarseness of voice, auditory disturbances or sore throat. CARDIOVASCULAR: As mentioned above. RESPIRATORY: COPD/sleep apnea. On home oxygen. GASTROINTESTINAL: No hematemesis or melena. GENITOURINARY: No dysuria or hematuria. INTEGUMENTARY: No skin rashes or history of skin cancer. NEURO: No transient ischemic attacks or amaurosis. PSYCHIATRIC: No history of psychosis or major depression. HEMATOLOGIC: No bleeding disorders or significant anemia. ENDOCRINE: No history of polyuria or polydipsia. MUSCULOSKELETAL: No recent joint pain or swelling. ALLERGY/IMMUNOLOGY: As mentioned above. Meds/Allergies Home Medications and Allergies Home Medications Medication Instructions Recorded Confirmed Last Taken Type amlodipine 10 mg PO DAILY@04/09/20 02/06/21 04/09/20 History atorvastatin 80 mg PO DAILY@04/09/20 02/06/21 04/09/20 History clopidogrel 75 mg PO DAILY@04/09/20 02/06/21 04/09/20 History divalproex 500 mg PO BID@04/09/20 02/06/21 04/09/20 History hydrocodone-acetaminophen 1 tab PO Q6H PRN 04/09/20 02/06/21 Unknown History folic acid 1 mg PO DAILY #30 tab 04/10/20 02/06/21 Unknown Rx albuterol sulfate 90 mcg/actuation 1 inh INHALATION Q6H PRN 30 Days 06/02/20 02/06/21 Unknown Rx aerosol inhaler #8.5 g aspirin [Aspir-81] 81 mg PO DAILY@02/06/21 02/06/21 Unknown History aspirin-caffeine [BC Pain Relief] 1 ea PO PRN PRN 02/06/21 02/06/21 Unknown History buspirone 10 mg PO TID PRN 02/06/21 02/06/21 Unknown History furosemide [Lasix] 20 mg PO DAILY@02/06/21 02/06/21 Unknown History garlic 1 tab PO DAILY 02/06/21 02/06/21 Unknown History metoprolol tartrate 50 mg PO BID@02/06/21 02/06/21 Unknown History multivitamin 1 tab PO DAILY@07 02/06/21 02/06/21 Unknown History nitroglycerin [Nitrostat] 0.4 mg SUBLINGUAL Q5M PRN 02/06/21 02/06/21 Unknown History potassium chloride 8 meq PO DAILY@02/06/21 02/06/21 Unknown History potassium gluconate 595 mg PO DAILY PRN 02/06/21 02/06/21 Unknown History sacubitril-valsartan [Entresto] 1 tab PO BID@02/06/21 02/06/21 Unknown History Allergies Allergy/AdvReac Type Severity Reaction Status Date / Time No Known Allergies Allergy Verified 02/06/21 08:05 Current Medications Current Medications Generic Name Dose Route Start Last Admin Trade Name Freq PRN Reason Stop Dose Admin Acetaminophen 650 mg 02/05/21 23:29 02/06/21 05:24 Acetaminophen 325 Mg Tablet PO 650 mg Q6H PRN Administration Mild/Mod Pain Or Temp >/= 101 Enoxaparin Sodium 40 mg 02/05/21 23:30 02/06/21 02:18 Enoxaparin 40 Mg/0.4 Ml Syringe SUBCUT 40 mg Q24H RICHARD Administration Amiodarone HCl 900 mg/ 518 mls @ 17.267 mls/hr 02/05/21 22:15 02/05/21 23:10 Dextrose/ IV Miscellaneous IV 0.5 mg/min Supplies CONT RICHARD 17.27 mls/hr Administration 0.5 MG/MIN PFSH Acute PFSH: Medical History Abnormal coronary angiogram Bronchitis Cardiac defibrillator in place Cardiomyopathy Coronary disease Heart failure with reduced ejection fraction History of cardioversion Hypertension Ischemic cardiomyopathy Nicotine dependence Pacemaker Pharyngitis Seizure disorder Shortness of breath Supraventricular tachycardia Surgical History AICD (automatic cardioverter/defibrillator) present H/O cardiac catheterization H/O hernia repair Family History Mother Family history of premature coronary artery disease Initial [place] age 31, at 60; his mother sister at the age of 20 and had a myocardial infarction. Maternal grandfather and grandmother of myocardial infarction in their 50s and 60s. One of his sisters had pacemaker placed placement CAD (coronary artery disease) Father Clotting disorder Bleeding disorder Family/Other CAD (coronary artery disease) Grandmother CAD (coronary artery disease) Grandfather CAD (coronary artery disease) Denies family history of Diabetes Dementia Chronic kidney disease (CKD) Suicide Anesthesia complication Lung disease Cancer Stroke Social History Smoking and tobacco status: current every day smoker cigarettes Packs smoked per day: 1 Years cigarettes smoked: 30 Alcohol intake: current Alcohol intake frequency: 3 or more drinks per day Alcohol type: hard liquor Housing: House Special eloise needs: No Vitals/I&O/Wt Last Vital Signs Temp 99 F 02/06/21 03:14 Pulse 112 H 02/06/21 05:10 Resp 26 H 02/06/21 03:14 BP 142/83 02/06/21 03:14 Pulse Ox 96 02/06/21 03:14 02/05/21 02/05/21 02/06/21 14:59 22:59 06:59 Output Total 350 / 350 Balance -350 / -350 Weight last 48 hrs Weight 242 lb 3.2 oz Weight 290 lb Physical Exam Narrative: EXAM NARRATIVE: GENERAL: The patient is alert and oriented times three. Not in any acute distress. Moderately obese HEENT: No significant pallor, icterus or lymphadenopathy. The pupils are reactant to light. Oral cavity: There are no mucous membrane lesions. Funduscopic examination: The fundus is not visualized. NECK: Trachea appears to be central. No masses noted. No JVD or thyromegaly appreciated. No carotid bruit. RESPIRATORY: Chest is symmetrical. No intercostals muscle retraction or any accessory muscle activation. There is no chest wall tenderness. Breath sounds are heard bilaterally. Bilateral coarse crackles and scattered expiratory wheezing. No evidence of consolidation. BREASTS: Deferred. HEART: The PMI could not be palpated. No other palpable precordial events. No palpable precordial events. S1 and S2 are normal. No S3 or S4 heard. No pericardial rub or any click heard. ABDOMEN: No vessel pulsations or distention. No tenderness. No organomegaly appreciated. No abdominal bruit. Bowel sounds are normally heard. : Deferred. RECTAL: Deferred. LYMPHATIC: No lymphadenopathy noted in the neck or groin. EXTREMITIES: No edema or cyanosis. No clubbing. The peripheral pulses are palpable in fairly good volume and amplitude. MUSCULOSKELETAL: No acute joint deformities or swelling. SKIN: There are no significant scars or skin rash noted. NEUROPSYCHIATRIC: The patient is alert and oriented x3. Appears to be in a good mood. The higher functions are grossly within normal limits. No tremors or rigidity noted. Data Labs: Other Labs: Laboratory Last Values WBC 8.4 10^3/uL (4.0- 10.0) 02/05/21 19:53 RBC 3.20 10^6/uL (4.1 -5.3) L 02/05/21 19:53 Hgb 12.3 g/dL (11.7-1 6.6) 02/05/21 19:53 Hct 36.7 % (42.0-52.0 ) L 02/05/21 19:53 MCV 114.7 fl (80-94) H 02/05/21 19:53 MCH 38.4 pg (28.0-34. 0) H 02/05/21 19:53 MCHC 33.5 g/dL (30.0-3 6.0) 02/05/21 19:53 RDW 13.4 % (12.1-15.1 ) 02/05/21 19:53 Plt Count 284 10^3/cmm (130 -400) 02/05/21 19:53 MPV 9.4 fL (7.4-10.4) 02/05/21 19:53 Neut % (Auto) 68.0 % 02/05/21 19:53 Lymph % (Auto) 13.7 % 02/05/21 19:53 [place] % (Auto) 14.2 % 02/05/21 19:53 Eos % (Auto) 0.8 % 02/05/21 19:53 Baso % (Auto) 0.8 % 02/05/21 19:53 Neut # (Auto) 5.70 10^3/uL (1.8 -7.7) 02/05/21 19:53 Lymph # (Auto) 1.2 10^3/uL (0.8- 4.8) 02/05/21 19:53 [place] # (Auto) 1.2 10^3/uL (0.2- 0.9) H 02/05/21 19:53 Eos # (Auto) 0.1 10^3/uL (0.0- 0.8) 02/05/21 19:53 Baso # (Auto) 0.1 10^3/uL (0.0- 0.1) 02/05/21 19:53 Nucleated RBC % (a uto) 0 % 02/05/21 19:53 Nucleated RBCs # 0.0 /100WBC 02/05/21 19:53 PT 12.50 SECONDS (12 .1-14.9) 02/05/21 19:53 INR 0.90 (0.8-1.2) 02/05/21 19:53 APTT 35.7 SECONDS (23. 9-36.7) 02/05/21 19:53 D-Dimer 0.52 ug/mIFEU (0- 0.59) 02/05/21 19:53 Sodium 136 mmol/L (136-1 45) 02/05/21 19:53 Potassium 3.2 mmol/L (3.5-5 .1) L 02/05/21 19:53 Chloride 97 mmol/L (98-107 ) L 02/05/21 19:53 Carbon Dioxide 27 mmol/L (22-29) 02/05/21 19:53 Anion Gap 15.2 (5-19) 02/05/21 19:53 BUN 9 mg/dL (6-20) 02/05/21 19:53 Creatinine 0.5 mg/dL (0.7-1. 2) L 02/05/21 19:53 GFR Calculation 178.2 mL/min (90- 130) H 02/05/21 19:53 Glucose 97 mg/dL (65-115) 02/05/21 19:53 Calculated Osmolal ity 281 mOsm/kg (285- 295) L 02/05/21 19:53 Calcium 8.6 mg/dL (8.5-10 .5) 02/05/21 19:53 Magnesium 1.7 mg/dL (1.7-2. 3) 02/05/21 19:53 Total Bilirubin 0.4 mg/dL (0.15-1 .2) 02/05/21 19:53 AST 31 U/L (0-40) 02/05/21 19:53 ALT 26 U/L (0-41) 02/05/21 19:53 Alkaline Phosphata se 113 IU/L (40-130) 02/05/21 19:53 Troponin T Gen 5 n g/L 14 ng/L (0-15) 02/05/21 19:53 NT-Pro-B Natriuret Pep 696 pg/mL (0-125) H 02/05/21 19:53 Total Protein 6.5 g/dL (6.6-8.7 ) L 02/05/21 19:53 Albumin 3.4 g/dL (3.5-5.2 ) L 02/05/21 19:53 Globulin 3.1 g/dL (1.3-4.6 ) 02/05/21 19:53 SARS-CoV-2 Ag (Rap id) Negative (Negati ve) 02/05/21 20:28 Imaging^: Echo: My impression: Echocardiogram from 04/09/2020 Mildly dilated left ventricle with diminished ejection fraction of 40 to 45%. Dffuse hypokinesia of the left ventricle. Thickened aortic valve. Trace mitral valve regurgitation. There is no pericardial effusion. There are no intracardiac masses. EKG^: EKG 1: My Interpretation: Normal sinus rhythm with nonspecific IVCD. Possible old inferior wall myocardial infarction. Some nonspecific T wave changes. A&P Assessment and plan (1) ICD (implantable cardioverter-defibrillator) discharge: The etiology for the recurrent ICD discharge is no clear at this time. Possibility of underlying coronary ischemia causing this is a consideration. His upper respiratory infection also could be a contributing factor. I will do an ICD interrogation today. After reviewing the recordings, further recommendations will be made. He is currently on IV amiodarone which may be continued. Once the IV infusion is finished, I may start him on p.o. amiodarone Status: Acute (2) Fever: This could be related to the upper respiratory infection. Further evaluation and management as per the primary attending Status: Acute Qualifiers: Fever type: unspecified Qualified Code(s): R50.9 - Fever, unspecified (3) Ischemic cardiomyopathy: Considering the possibility of coronary ischemia causing the ventricular arrhythmia, a myocardial perfusion imaging would be appropriate. So far there is no evidence of medical injury. We may go ahead and do a couple more cardiac enzymes to evaluate for medical injury. I may also go ahead and do an echocardiogram, to reevaluate LV ejection fraction. Status: Acute (4) Atherosclerosis of coronary artery of bo[place] heart without angina pectoris: As mentioned above. After reviewing the myocardial perfusion imaging results, further management decisions will be made. Status: Acute Qualifiers: Coronary Disease-Associated Artery/Lesion type: [place] artery Qualified Code(s): I25.10 - Atherosclerotic heart disease of [place] coronary artery without angina pectoris (5) Ventricular tachycardia: Patient may continue on the IV amiodarone. Once the IV infusion is done, we may start on p.o. Status: Acute Additional A&P Information After reviewing the above and also based on the patient's the clinical progress, further recommendations will be made. Thank you for the opportunity to eval this patient make these recommendations Consult Attestations Medical Necessity Statement: Patient requires continued hospital stay for close monitoring and further management Coding Level of Care Code Acute Human Resources Specialist for g Fwd History Detailed Exam Detailed Medical Decision Making Moderate Complexity Diagnoses ICD (implantable cardioverter-defibrillator) discharge Z45.02 Fever R50.9 Fever type: unspecified Ischemic cardiomyopathy I25.5 Atherosclerosis of coronary artery of [place] heart without angina pectoris I25.10 Coronary Disease-Associated Artery/Lesion type: [place] artery Ventricular tachycardia I47.2 Time Spent (min) 60
--- NOTE | 2021-02-06 08:10 | ECG_ITS ---
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 Measurements Intervals [place] Rate: 106 P: 55 DE: 148 QRS: 70 QRSD: 130 T: 85 QT: 338 QTc: 449 Interpretive Statements SINUS TACHYCARDIA POSSIBLE LEFT ATRIAL ENLARGEMENT [-0.1mV P-WAVE IN V1/V2] PROBABLE INFERIOR MYOCARDIAL INFARCTION , PROBABLY OLD [35 ms Q WAVE IN II/aVF] Compared to ECG 04/09/2020 08:07:52 Sinus rhythm no longer present Intraventricular conduction delay no longer present ST (T wave) deviation no longer present Myocardial infarct finding still present Electronically Signed On 02-07-2021 0:07:25 CDT by Irasema Patel M.D. [id number]
--- NOTE | 2021-02-06 08:17 | PC.PHAR ---
pt states him and his set up his medications-pt and pts linda verified the pts medications-pt states he only takes his divalproex dr 500mg bid rx filled as 500mg po tid on 12/28/20 90d/s-pts states the pt will take kcl otc when he is out of the rx kcl-pts states the pt will take about 6 bc powder a day sometimes-
--- NOTE | 2021-02-06 08:39 | P.PN_ITS ---
Subjective Subjective: Interval history: He says he is doing okay currently he has been ill for about a week, coughing up thick sputum, with greenish discoloration. Has not seen his PCP. Normally uses some oxygen only at night. Recently has been having to use it during the day as well. Had a headache initially, not currently. No nausea vomiting. No diarrhea. No abdominal discomfort. Vitals/I&O/Wt Last Vital Signs Temp 97.9 F 02/06/21 06:50 Pulse 105 H 02/06/21 06:50 Resp 18 02/06/21 06:50 BP 128/84 02/06/21 06:50 Pulse Ox 96 02/06/21 06:50 02/05/21 02/06/21 02/06/21 22:59 06:59 14:59 Output Total 350 / 350 Balance -350 / -350 Weight last 48 hrs Weight 109.86 kg Weight 131.542 kg Physical Exam Const: COMMON NORMALS: no acute distress and patient oriented x3 GENERAL APPEARANCE: cooperative NUTRITIONAL APPEARANCE: overweight OTHER: Sitting up in bed. Awake, alert. Conversant. HENMT: COMMON NORMALS: oropharynx normal Neck/C-Spine: COMMON NORMALS: no JVD Resp: COMMON NORMALS: normal respiratory effort AUSCULTATION: wheezes Cardio: COMMON NORMALS: no JVD, regular rhythm, S1 normal heart sound present, S2 normal heart sound present and No murmurs present (Cardio) RHYTHM: regular rhythm HEART SOUNDS: S1 normal heart sound present and S2 normal heart sound present GI: COMMON NORMALS: Normal to inspection, nondistended, normoactive bowel sounds present, Soft to palpation and non-tender PALPATION: Yes Soft to palpation Extremity: COMMON NORMALS: no joint enlargement GENERAL: Yes edema (trace if any) Neuro: COMMON NORMALS: patient oriented x3 and moves all extremities Skin: COMMON NORMALS: no rashes or lesions noted GENERAL SKIN EXAM: no rashes or lesions noted Data : 02/05/21 19:53 02/05/21 19:53 A&P Assessment and plan (1) Fever: 101.3 overnight. Discussed with cardiology, discussed with him. Possible sepsis with fever last night at midnight, sinus tachycardia 105. Cardiology request avoid azithromycin, quinolones for possibility of QT prolongation. Blood cultures requested. Will start on Zosyn as per discussion with him and with cardiology for now empirically, discussed with him possible pneumonia with interstitial prominence, as well as with his respiratory symptoms, cough, purulent sputum, hypoxia. Check MRSA PCR. Sputum culture. Urine bacterial antigens. COVID-19 PCR is ordered. Requested UA. Status: Acute (2) Hypoxia: Possible pneumonia as above. He reports at home had worse lower extremity swelling. Does have history of congestive heart failure. Possibly adding to the interstitial findings on chest x-ray. However I barely find traces of edema on exam. JVD not present, although neck is difficult to examine due to body habitus. Reports also COPD history. He is a current smoker. Appears to be in severe COPD exacerbation also as below. Has history of YURY with nocturnal hypoxia. Status: Acute (3) Ventricular tachycardia: Additional work-up by cardiology. Given received potassium replacement. Recheck BMP. Replace hypomagnesemia. Status post several discharges of ICD preadmission. Status: Acute (4) Hypokalemia: Status: Acute (5) Cardiac defibrillator in place: Pocket well-healed old scar. No signs of infection. Without any jamir thema, no swelling, no tenderness over palpation. Status: Acute Additional A&P Information Reports COPD COPD with exacerbation, with productive cough, wheezing, hypoxia, purulent sputum, dyspnea. Severe COPD exacerbation. Zosyn as above. Sputum cultures. Combivent. Hypomagnesemia: Replace. Smoking addiction: Encourage cessation. Continue home doses of Asa, plavix, statin, metoprolol, entresto Attestations Medical Necessity Statement*: Admission of over 2 midnights is going to be needed for assessment of management of gentleman presenting with ventricular tachycardia status post discharge of ICD, with fever, worsened hypoxia recently, possible sepsis. Coding Level of Care Code Acute Button Machine Operator for [facility] Fwd Diagnoses Fever R50.9 Hypoxia R09.02 Ventricular tachycardia I47.2 Hypokalemia E87.[address] Z95.810
[2021-02-06] MEDS: aspirin 81 mg EC Tablet PO (08:45)
[2021-02-06] MEDS: HYDROcodone-acetaminophen 10-325 mg Tablet 1 TAB PO ×3 (08:45→21:17)
[2021-02-06] MEDS: pantoprazole DR 40 mg Tablet PO (08:46)
[2021-02-06] MEDS: FUROsemide 20 mg Tablet PO (08:46)
[2021-02-06] MEDS: clopidogrel 75 mg Tablet PO (08:46)
--- NOTE | 2021-02-06 08:46 | PC.CHAP ---
Pastoral Care Encounter/Spiritual Assessment Type of Contact [] Declined business excellence manager visit [] Patient/Family/Request visit [] Outpatient visit [] Follow-up visit [] Physician referral [] Code/Alert [x] Routine visit [] Staff referral [] Actively dying [] Patient sleeping [] Family support [] [] Out of room [] Palliative care [] [] Receiving care in room [] Pre-surgical visit [] Trauma [] Long length of stay [] ICU visit [] Other: Relational/Emotional Strength [] Patient feels connected with others/family/visitors/staff [] Distress [] Loneliness/isolation [] Abandonment Spirituality of Patient [] Person of Jumana [] Attends Scientology of their Jumana [] Believes in Prayer [] Reads Bible or Baptism materials [] There are Spiritual issues to be addressed Training Instructor Interventions [x] Prayer [] Active listening [] Non-anxious presence [] Spiritual/emotional support [] Crisis/trauma care [] Spiritual counseling [] Bereavement support [] Provided bereavement packet [] Provided Bible/devotional materials [] Provided toy/stuffed animal, coloring book to patient or family member [] Provided Communion [] Anointing/[place] [] Salvation [x] Completed spiritual assessment [] Other: Impact on Illness or Injury [] Angry [] Fearful [] Anxious [] Often cries [] Exhaustion [] Unable to work [] Unable to attend religion [] Unable to walk/stand [] Unable to read [] Unable to drive [] Unable to eat/drink [] Unable to sleep [] Unable to be with family [] Patient intubated [] Other: Summary patient feeling much stronger... Time spent with patient 5 min
[2021-02-06] MEDS: atorvastatin 40 mg Tablet 80 MG PO (08:47)
[2021-02-06] MEDS: divalproex DR 500 mg Tablet PO (08:47)
[2021-02-06] MEDS: sacubitril/valsartan 24-26 mg Tablet 2 EACH PO ×2 (08:47→17:20)
[2021-02-06] MEDS: metoprolol tartrate 50 mg Tablet PO ×2 (08:47→17:20)
[2021-02-06] MEDS: magnesium sulfate premix 2 GM/50 ML PIGGYBACK IV (08:47)
[2021-02-06 10:03] LABS: Alanine Aminotransferase 23 U/L (0-41); Albumin Level 3.4 g/dL (3.5-5.2); Alkaline Phosphatase 107 IU/L (40-130); Anion Gap 12.6 (5-19); Aspartate Amino Transferase 32 U/L (0-40); Blood Urea Nitrogen 9 mg/dL (6-20); Calcium 8.5 mg/dL (8.5-10.5); Carbon Dioxide 32 mmol/L (22-29); Chloride 95 mmol/L (98-107); Globulin 2.5 g/dL (1.3-4.6); Glomerular Filtration Rate 230.6 mL/min (90-130); Glucose 101 mg/dL (65-115); Osmolality Calculated 281 mOsm/kg (285-295); Potassium 3.6 mmol/L (3.5-5.1); Sodium 136 mmol/L (136-145); Total Bilirubin 0.5 mg/dL (0.15-1.2); Total Protein 5.9 g/dL (6.6-8.7)
--- NOTE | 2021-02-06 10:04 | USCV_ITS ---
Carlos Alberto Morrow Age: 45 Gender: M : 1975 Exam Date: 02/06/2021 14:32 Ordering Phys: Irasema Patel MD ([email or web address]) Technologist: Exam Location: [facility] [place] Indication: HX OF NM CHEST PAIN BP: / HR: 99 Rhythm: Sinus Technical Quality: Adequate MEASUREMENTS (Male / Female) Normal Values 2D ECHO LV Diastolic Diameter PLAX 6.2 cm 4.2 - 5.9 / 3.9 - 5.3 cm LV Systolic Diameter PLAX 4.3 cm IVS Diastolic Thickness 1.1 cm 0.6 - 1.0 / 0.6 - 0.9 cm IVS Systolic Thickness 1.6 cm LVPW Diastolic Thickness 1.2 cm 0.6 - 1.0 / 0.6 - 0.9 cm LVPW Systolic Thickness 1.4 cm LVOT Diameter 2.1 cm LV Ejection Fraction 2D Teich 58.8 % LV Ejection Fraction MOD 2C 36.6 % LV Ejection Fraction 2C AL 36.5 % LA Diameter 4.7 cm LA Width 4.9 cm LA Height 5.4 cm RA Width 4.9 cm RA Height 5.6 cm DOPPLER AV Peak Velocity 179.3 cm/s LVOT Peak Velocity 80.3 cm/s AV Area Cont Eq vti 1.5 cm squared AV Area Cont Eq pk 1.5 cm squared MV Area PHT 5.0 cm squared Mitral E to A Ratio 0.9 MV E' Velocity 42.5 cm/s Mitral E to MV E' Ratio 6.9 Mitral E to LV E' Lateral Ratio 6.2 Mitral E to LV E' Septal Ratio 7.9 TR Peak Velocity 158.0 cm/s TR Peak Gradient 10.0 mmHg FINDINGS Left Ventricle Mildly dilated LV cavity with diffuse hypokinesia. LV ejection fraction around 40% Right Ventricle Could not be visualized well Right Atrium Right atrium not well visualized. Left Atrium Mildly increased left atrial size. Mitral Valve No gross abnormalities noted Aortic Valve No gross abnormalities noted Tricuspid Valve Tricuspid valve not well visualized. Pulmonic Valve Pulmonic valve not well visualized. Pericardium No pericardial effusion. Aorta Normal aortic annulus size. CONCLUSIONS Mildly dilated LV cavity with diffuse hypokinesia. Mildly increased left atrial size. LV ejection fraction around 40%. There is no pericardial effusion. The right-sided valves were not visualized because of the technical issues. LV Ejection fraction was performed with contrast echo. Comparison with the previous study is difficult because of the difference in the technical quality. Dr Irasema Patel MD [facility] (Electronically Signed) Final Date: 06 February 2021 17:59 S
[2021-02-06 10:10] LABS: Troponin T (5th) Once 11 ng/L (0-15)
[2021-02-06] MEDS: piperacillin-tazobactam 3.375 GM in sodium chloride 0.9% (plus) 50 ML IV ×2 (10:38→17:19)
[2021-02-06] MEDS: perflutren protein-a microsphr 0.22 mg/mL SDV 3 mL IV (15:12)
[2021-02-06 16:28] LABS: Add Urine Microscopic? NO; Charge for UA Resulting for Rev
--- NOTE | 2021-02-06 16:57 | PC.RESP ---
SMOKING CESSATION INFORMATION SENT TO PATIENT.
[2021-02-06 17:34] LABS: Bilirubin Urine Neg (Negative); Blood Urine Neg (Negative); Glucose Urine UA Norm (Normal); Ketones Urine Negative (Negative); Leukocyte Esterase Urine Negative (Negative); Nitrate Urine Negative (Negative); Protein Urine Neg (Negative); Specific Gravity, Urine 1.015 (1.005-1.030); Urine Appearance Clear (CLEAR); Urine Color Yellow (Yellow); Urobilinogen Urine Norm (Negative); pH Urine 5 (5-7)
[2021-02-07] VITALS (17 sets, daily range): BP systolic 106–175; BP diastolic 64–95; PULSE 71–110; RESP 16–26; TEMP 36.6–37; O2SAT 92–98
[2021-02-07] MEDS: piperacillin-tazobactam 3.375 GM in sodium chloride 0.9% (plus) 50 ML IV ×3 (00:04→17:30)
[2021-02-07] MEDS: HYDROcodone-acetaminophen 10-325 mg Tablet 1 TAB PO ×4 (03:28→22:23)
[2021-02-07 04:43] LABS: Basophils % 0.3 %; Eosinophils # 0.2 10^3/uL (0.0-0.8); Eosinophils % 1.9 %; Hematocrit 36.7 % (42.0-52.0); Hemoglobin 12.2 g/dL (11.7-16.6); Lymphocytes # 1.1 10^3/uL (0.8-4.8); Lymphocytes % 13.6 %; Mean Corpuscular HGB Conc 33.2 g/dL (30.0-36.0); Mean Corpuscular Volume 117.3 fl (80-94); Mean Platelet Volume 9.6 fL (7.4-10.4); Monocytes % 12.5 %; Neutrophils % 66.3 %; Nucleated Red Blood Cells % 0 %; Platelet Count 296 10^3/cmm (130-400); Red Blood Count 3.13 10^6/uL (4.1-5.3); Red Cell Distribution Width 13.3 % (12.1-15.1); White Blood Count 7.8 10^3/uL (4.0-10.0)
[2021-02-07 05:02] LABS: Alanine Aminotransferase 20 U/L (0-41); Albumin Level 2.7 g/dL (3.5-5.2); Alkaline Phosphatase 105 IU/L (40-130); Anion Gap 13.3 (5-19); Aspartate Amino Transferase 28 U/L (0-40); Blood Urea Nitrogen 7 mg/dL (6-20); Calcium 8.3 mg/dL (8.5-10.5); Carbon Dioxide 29 mmol/L (22-29); Chloride 95 mmol/L (98-107); Globulin 3.4 g/dL (1.3-4.6); Glomerular Filtration Rate 230.6 mL/min (90-130); Glucose 95 mg/dL (65-115); Magnesium 2.1 mg/dL (1.7-2.3); Osmolality Calculated 276 mOsm/kg (285-295); Potassium 3.3 mmol/L (3.5-5.1); Sodium 134 mmol/L (136-145); Total Bilirubin 0.4 mg/dL (0.15-1.2); Total Protein 6.1 g/dL (6.6-8.7)
[2021-02-07 05:19] LABS: Slide Review Slide Review Perform
--- NOTE | 2021-02-07 06:39 | NUR.SHIFT ---
Shift Note Frequent safety and comfort rounds continue. Orders and/or nursing care completed as indicated. Patient monitored for response to intervention and treatment(s). Education provided includes infection prevention. Patient and/or call center representative verbalized understanding. Will continue to monitor.
--- NOTE | 2021-02-07 08:40 | P.PN_ITS ---
Subjective Subjective: Interval history: Patient is complaining of palpitations when the heart rate goes into the 150s and 170s as he gets up and move around. I reviewed his device interrogation reports. The patient appears to have a narrow complex tachycardia. So-called V. fib that triggered the ICD discharge appeared to be atrial fibrillation with rapid ventricular rate. Medications: Reviewed: Yes Medication Review Details: Current Medications Acetaminophen (Acetaminophen 325 Mg Tablet) 650 mg PO Q6H PRN PRN Reason: Mild/Mod Pain Or Temp >/= 101 Last Admin: 02/06/21 05:24 Dose: 650 mg Documented by: Hydrocodone Bitart/Acetaminophen (Hydrocodone-Acetaminophen 10-325 Mg Tablet) 1 tab PO Q6H PRN PRN Reason: Pain Last Admin: 02/07/21 03:28 Dose: 1 tab Documented by: Albuterol Sulfate (Albuterol 2.5 Mg/0.5 Ml Neb) 2.5 mg INHALATION Q4H PRN PRN Reason: wheezing Albuterol/Ipratropium (Ipratropium-Albuterol 4 Gm Mdi) 1 puff INHALATION QID.RESPIRATORY [facility] Last Admin: 02/07/21 07:15 Dose: 1 puff Documented by: Aspirin (Aspirin 81 Mg Ec Tablet) 81 mg PO DAILY [facility] Last Admin: 02/06/21 08:45 Dose: 81 mg Documented by: Atorvastatin Calcium (Atorvastatin 40 Mg Tablet) 80 mg PO DAILY [facility] Last Admin: 02/06/21 08:47 Dose: 80 mg Documented by: Clopidogrel Bisulfate (Clopidogrel 75 Mg Tablet) 75 mg PO DAILY [facility] Last Admin: 02/06/21 08:46 Dose: 75 mg Documented by: Divalproex Sodium (Divalproex Dr 500 Mg Tablet) 500 mg PO DAILY [facility] Last Admin: 02/06/21 08:47 Dose: 500 mg Documented by: Enoxaparin Sodium (Enoxaparin 40 Mg/0.4 Ml Syringe) 40 mg SUBCUT Q24H [facility] Last Admin: 02/06/21 22:51 Dose: 40 mg Documented by: Furosemide (Furosemide 20 Mg Tablet) 20 mg PO DAILY [facility] Last Admin: 02/06/21 08:46 Dose: 20 mg Documented by: Guaifenesin (Guaifenesin 600 Mg Tablet) 1,200 mg PO BID [facility] Amiodarone HCl 900 mg/Dextrose/ IV Miscellaneous Supplies 518 mls @ 17.267 mls/hr IV CONT [facility] Last Admin: 02/07/21 04:10 Dose: 0.5 mg/min, 17.27 mls/hr Documented by: Piperacillin Sod/Tazobactam (Sod 3.375 gm/ Sodium Chloride) 50 mls @ 12.5 ml s/hr IV Q8H [facility]; Protocol Last Infusion: 02/07/21 04:25 Dose: Infused Documented by: Metoprolol Tartrate (Metoprolol Tartrate 50 Mg Tablet) 50 mg PO BID [facility] Last Admin: 02/06/21 17:20 Dose: 50 mg Documented by: Morphine Sulfate (Morphine 4 Mg/Ml Sdv 1 Ml) 2 mg IVP Q4H PRN PRN Reason: SEVERE PAIN Nitroglycerin (Nitroglycerin 0.4 Mg Sublingual Tablet) 0.4 mg SUBLINGUAL DAILY PRN PRN Reason: Chest Pain Ondansetron HCl (Ondansetron 2 Mg/Ml Sdv 2 Ml) 4 mg IVP Q8H PRN PRN Reason: vomiting, or N/V if npo Pantoprazole Sodium (Pantoprazole Dr 40 Mg Tablet) 40 mg PO DAILY [facility] Last Admin: 02/06/21 08:46 Dose: 40 mg Documented by: Sacubitril/Valsartan (Sacubitril/Valsartan 24-26 Mg Tablet) 2 each PO BID [facility] Last Admin: 02/06/21 17:20 Dose: 2 each Documented by: Vitals/I&O/Wt Last Vital Signs Temp 98.4 F 02/07/21 07:17 Pulse 103 H 02/07/21 08:00 Resp 16 02/07/21 07:17 BP 150/94 02/07/21 07:17 Pulse Ox 98 02/07/21 07:17 02/06/21 02/07/21 02/07/21 22:59 06:59 14:59 Intake Total 530 / 870 868 / 1738 Output Total 400 / 850 Balance 530 / 420 468 / 888 Weight last 48 hrs Weight 243 lb Weight 242 lb 3.2 oz Weight 290 lb Physical Exam Narrative: EXAM NARRATIVE: GENERAL: The patient is alert and oriented times three. Not in any acute distress. Moderately obese HEENT: No significant pallor, icterus or lymphadenopathy. The pupils are reactant to light. Oral cavity: There are no mucous membrane lesions. Funduscopic examination: The fundus is not visualized. NECK: Trachea appears to be central. No masses noted. No JVD or thyromegaly appreciated. No carotid bruit. RESPIRATORY: Chest is symmetrical. No intercostals muscle retraction or any accessory muscle activation. There is no chest wall tenderness. Breath sounds are heard bilaterally. Bilateral coarse crackles and scattered expiratory wheezing. No evidence of consolidation. BREASTS: Deferred. HEART: The PMI could not be palpated. No other palpable precordial events. No palpable precordial events. S1 and S2 are normal. No S3 or S4 heard. No pericardial rub or any click heard. ABDOMEN: No vessel pulsations or distention. No tenderness. No organomegaly appreciated. No abdominal bruit. Bowel sounds are normally heard. : Deferred. RECTAL: Deferred. LYMPHATIC: No lymphadenopathy noted in the neck or groin. EXTREMITIES: No edema or cyanosis. No clubbing. The peripheral pulses are palpable in fairly good volume and amplitude. MUSCULOSKELETAL: No acute joint deformities or swelling. SKIN: There are no significant scars or skin rash noted. NEUROPSYCHIATRIC: The patient is alert and oriented x3. Appears to be in a good mood. The higher functions are grossly within normal limits. No tremors or rigidity noted. Data : 02/09/21 05:06 02/09/21 05:06 Other Labs: Laboratory Last Values WBC 7.8 10^3/uL (4.0-10.0) 02/07/21 04:35 RBC 3.13 10^6/uL (4.1-5.3) L 02/07/21 04:35 Hgb 12.2 g/dL (11.7-16.6) 02/07/21 04:35 Hct 36.7 % (42.0-52.0) L 02/07/21 04:35 MCV 117.3 fl (80-94) H 02/07/21 04:35 MCH 39.0 pg (28.0-34.0) H 02/07/21 04:35 MCHC 33.2 g/dL (30.0-36.0) 02/07/21 04:35 RDW 13.3 % (12.1-15.1) 02/07/21 04:35 Plt Count 296 10^3/cmm (130-400) 02/07/21 04:35 MPV 9.6 fL (7.4-10.4) 02/07/21 04:35 Neut % (Auto) 66.3 % 02/07/21 04:35 Lymph % (Auto) 13.6 % 02/07/21 04:35 Pratt % (Auto) 12.5 % 02/07/21 04:35 Eos % (Auto) 1.9 % 02/07/21 04:35 Baso % (Auto) 0.3 % 02/07/21 04:35 Neut # (Auto) 5.20 10^3/uL (1.8-7.7) 02/07/21 04:35 Lymph # (Auto) 1.1 10^3/uL (0.8-4.8) 02/07/21 04:35 Pratt # (Auto) 1.0 10^3/uL (0.2-0.9) H 02/07/21 04:35 Eos # (Auto) 0.2 10^3/uL (0.0-0.8) 02/07/21 04:35 Baso # (Auto) 0.0 10^3/uL (0.0-0.1) 02/07/21 04:35 Nucleated RBC % (auto) 0 % 02/07/21 04:35 Nucleated RBCs # 0.0 /100WBC 02/07/21 04:35 PT 12.50 SECONDS (12.1-14.9) 02/05/21 19:53 INR 0.90 (0.8-1.2) 02/05/21 19:53 APTT 35.7 SECONDS (23.9-36.7) 02/05/21 19:53 D-Dimer 0.52 ug/mIFEU (0-0.59) 02/05/21 19:53 Sodium 134 mmol/L (136-145) L 02/07/21 04:35 Potassium 3.3 mmol/L (3.5-5.1) L 02/07/21 04:35 Chloride 95 mmol/L (98-107) L 02/07/21 04:35 Carbon Dioxide 29 mmol/L (22-29) 02/07/21 04:35 Anion Gap 13.3 (5-19) 02/07/21 04:35 BUN 7 mg/dL (6-20) 02/07/21 04:35 Creatinine 0.4 mg/dL (0.7-1.2) L 02/07/21 04:35 GFR Calculation 230.6 mL/min (90-130) H 02/07/21 04:35 Glucose 95 mg/dL (65-115) 02/07/21 04:35 Calculated Osmolality 276 mOsm/kg (285-295) L 02/07/21 04:35 Calcium 8.3 mg/dL (8.5-10.5) L 02/07/21 04:35 Magnesium 2.1 mg/dL (1.7-2.3) 02/07/21 04:35 Total Bilirubin 0.4 mg/dL (0.15-1.2) 02/07/21 04:35 AST 28 U/L (0-40) 02/07/21 04:35 ALT 20 U/L (0-41) 02/07/21 04:35 Alkaline Phosphatase 105 IU/L (40-130) 02/07/21 04:35 Troponin T Gen 5 ng/L 11 ng/L (0-15) 02/06/21 09:25 NT-Pro-B Natriuret Pep 696 pg/mL (0-125) H 02/05/21 19:53 Total Protein 6.1 g/dL (6.6-8.7) L 02/07/21 04:35 Albumin 2.7 g/dL (3.5-5.2) L 02/07/21 04:35 Globulin 3.4 g/dL (1.3-4.6) 02/07/21 04:35 Urine Color Yellow (Yellow) 02/06/21 16:05 Urine Appearance Clear (CLEAR) 02/06/21 16:05 Urine pH 5 (5-7) 02/06/21 16:05 Ur Specific [place] 1.015 (1.005-1.030) 02/06/21 16:05 Urine Protein Neg (Negative) 02/06/21 16:05 Urine Glucose (UA) Norm (Normal) 02/06/21 16:05 Urine Ketones Negative (Negative) 02/06/21 16:05 Urine Blood Neg (Negative) 02/06/21 16:05 Urine Nitrate Negative (Negative) 08/16/21 16:05 Urine Bilirubin Neg (Negative) 02/06/21 16:05 Urine Urobilinogen Norm mg/dL (Negative) 02/06/21 16:05 Ur Leukocyte Esterase Negative (Negative) 02/06/21 16:05 SARS-CoV-2 Ag (Rapid) Negative (Negative) 02/05/21 20:28 Micro: Microbiology 02/06/21 10:30 MRSA Culture - Final Nose 02/06/21 09:30 Blood Culture - Preliminary Blood SPECIMEN COLLECTED 02/06/21 09:25 Blood Culture - Preliminary Blood SPECIMEN COLLECTED A&P Assessment and plan (1) ICD (implantable cardioverter-defibrillator) discharge: The patient seems to have aflutter fib on the monitor. I would increase the dose of Metoprolol to 100 mg PO BID and also start him on PO Amiodarone. He also may benefit form from terminal block assembler oral anticoagulation. I will start him on Lovenox now. We also will reprogram the ICD for a different arrhythmia detection algorithm. Status: Acute (2) Fever: This could be related to the upper respiratory infection. Further evaluation and management as per the primary attending Status: Acute Qualifiers: Fever type: unspecified Qualified Code(s): R50.9 - Fever, unspecified (3) Ischemic cardiomyopathy: Considering the possibility of coronary ischemia causing the ventricular arrhythmia, a myocardial perfusion imaging would be appropriate. So far there is no evidence of myocardial injury. The echocardiogram was reviewed. His LV ejection fraction was around 40%. I may add spironolactone to his current medications. Status: Acute (4) Atherosclerosis of coronary artery of [place] heart without angina pectoris: As mentioned above. After reviewing the myocardial perfusion imaging results, further management decisions will be made. Status: Acute Qualifiers: Coronary Disease-Associated Artery/Lesion type: [place] artery Qualified Code(s): I25.10 - Atherosclerotic heart disease of [place] coronary artery without angina pectoris (5) Benign essential hypertension with target blood pressure below 140/90: We will optimize his antihypertensive medications. Status: Acute Additional A&P Information Based on his clinical progress, further management decisions will be made Attestations Medical Necessity Statement*: Patient requires continued hospital stay for close monitoring and further management Coding Level of Care Code Acute Physical Therapy Technician for [facility] Fwd History Detailed Exam Detailed Medical Decision Making Moderate Complexity Diagnoses ICD (implantable cardioverter-defibrillator) discharge Z45.02 Fever R50.9 Fever type: unspecified Ischemic cardiomyopathy I25.5 Atherosclerosis of coronary artery of [place] heart without angina pectoris I25.10 Coronary Disease-Associated Artery/Lesion type: [place] artery Benign essential hypertension with target blood pressure below 140/90 I10 Time Spent (min) 35
--- NOTE | 2021-02-07 08:51 | P.PN_ITS ---
Subjective Subjective: Interval history: He is doing little better. He is still coughing quite a bit, coughing up quite a bit of phlegm. Green in color. Denies chest pain. So far without recurrence of ICD discharge. Vitals/I&O/Wt Last Vital Signs Temp 98.4 F 02/07/21 07:17 Pulse 103 H 02/07/21 08:00 Resp 16 02/07/21 07:17 BP 150/94 02/07/21 07:17 Pulse Ox 98 02/07/21 07:17 02/06/21 02/07/21 02/07/21 22:59 06:59 14:59 Intake Total 530 / 870 868 / 1738 Output Total 400 / 850 Balance 530 / 420 468 / 888 Weight last 48 hrs Weight 110.223 kg Weight 109.86 kg Weight 131.542 kg Physical Exam Const: COMMON NORMALS: no acute distress and patient oriented x3 GENERAL APPEARANCE: cooperative NUTRITIONAL APPEARANCE: overweight OTHER: Sitting up in bed. HENMT: COMMON NORMALS: oropharynx normal Neck/C-Spine: COMMON NORMALS: no JVD Resp: COMMON NORMALS: normal respiratory effort AUSCULTATION: wheezes and diminished lung sounds Cardio: COMMON NORMALS: no JVD, regular rhythm, S1 normal heart sound present, S2 normal heart sound present and No murmurs present (Cardio) RHYTHM: regular rhythm HEART SOUNDS: S1 normal heart sound present and S2 normal heart sound present GI: COMMON NORMALS: Normal to inspection, nondistended, normoactive bowel s ounds present, Soft to palpation and non-tender PALPATION: Yes Soft to palpation Extremity: COMMON NORMALS: no joint enlargement GENERAL: Yes edema (trace if any) Neuro: COMMON NORMALS: patient oriented x3 and moves all extremities Skin: COMMON NORMALS: no rashes or lesions noted GENERAL SKIN EXAM: no rashes or lesions noted Data : 02/07/21 04:35 02/07/21 04:35 Micro: Microbiology 02/06/21 10:30 MRSA Culture - Final Nose 02/06/21 09:30 Blood Culture - Preliminary Blood SPECIMEN COLLECTED 02/06/21 09:25 Blood Culture - Preliminary Blood SPECIMEN COLLECTED A&P Assessment and plan (1) Hypoxia: Possible pneumonia as above. He reports at home had worse lower extremity swelling. Does have history of congestive heart failure. Possibly adding to the interstitial findings on chest x-ray. However I barely find traces of edema on exam. JVD not present, although neck is difficult to examine due to body habitus. Reports also COPD history. He is a current smoker. Appears to be in severe COPD exacerbation also as below. Has history of YURY with nocturnal hypoxia. Status: Acute (2) Fever: Fever so far without recurrence. Today is feeling a bit better. Still coughing with productive cough. Suspect may be related to pneumonia. COVID-19 PCR sample for some reason was not collected given the marked collected, confirmed with nursing, who submitted a fresh sample today. Pending. 101.3 overnight. Blood cultures requested. Zosyn empirically, discussed with him possible pneumonia with interstitial prominence, as well as with his respiratory symptoms, cough, purulent sputum, hypoxia. Negative MRSA PCR. Sputum culture. Urine bacterial antigens. Unremarkable UA. Status: Acute Qualifiers: Fever type: unspecified Qualified Code(s): R50.9 - Fever, unspecified (3) Ventricular tachycardia: Continue cardiac work-up as per cardiology service. He is requested to have stress test today. Appears he is has breakfast. Change diet to n.p.o. Next available stress test. Currently on amiodarone drip. Transition to p.o. as per cardiology. Received potassium, magnesium replacement. Status post several discharges of ICD preadmission. TTE with improvement in EF to 40%. Mildly dilated LV cavity with diffuse hypokinesia. Mildly increased LA size. No effusion. Status: Acute (4) Hypokalemia: Status: Acute (5) Cardiac defibrillator in place: Pocket well-healed old scar. No signs of infection. Without any erythema, no swelling, no tenderness over palpation. Status: Acute Attestations Medical Necessity Statement*: Continue admission for assessment management of new hypoxia, severe COPD suspicion, pneumonia, DVT with several ICD discharges. Coding Level of Care Code Acute Dye Tub Tender for [facility] Diagnoses Hypoxia R09.02 Fever R50.9 Fever type: unspecified Ventricular tachycardia I47.2 Hypokalemia E87.[address] Z95.810
--- NOTE | 2021-02-07 09:00 | PC.NURSE ---
Dr Patel on unit for rounds and discussion of plan of care instructions given to start amio 400mg bid when 16 hrs of maintenance amio iv is finished
[2021-02-07] MEDS: metoprolol tartrate 50 mg Tablet PO ×2 (09:19→10:00)
[2021-02-07] MEDS: guaiFENesin 600 mg Tablet 1200 MG PO ×2 (09:19→17:31)
[2021-02-07] MEDS: pantoprazole DR 40 mg Tablet PO (09:19)
[2021-02-07] MEDS: sacubitril/valsartan 24-26 mg Tablet 2 EACH PO ×2 (09:19→17:31)
[2021-02-07] MEDS: FUROsemide 20 mg Tablet PO (09:19)
[2021-02-07] MEDS: divalproex DR 500 mg Tablet PO (09:19)
[2021-02-07] MEDS: clopidogrel 75 mg Tablet PO (09:19)
[2021-02-07] MEDS: potassium chloride ER 20 mEq Tablet PO ×3 (09:19→21:14)
[2021-02-07] MEDS: atorvastatin 40 mg Tablet 80 MG PO (09:20)
[2021-02-07] MEDS: morphine 4 mg/mL SDV 1 mL 2 MG IVP (09:20)
[2021-02-07] MEDS: aspirin 81 mg EC Tablet PO (09:20)
--- NOTE | 2021-02-07 09:31 | PC.CHAP ---
Pastoral Care Encounter/Spiritual Assessment Type of Contact [] Declined chopper feeder visit [] Patient/Family/Request visit [] Outpatient visit [] Follow-up visit [] Physician referral [] Code/Alert [x] Routine visit [] Staff referral [] Actively dying [x] Patient sleeping [] Family support [] [] Out of room [] Palliative care [] [] Receiving care in room [] Pre-surgical visit [] Trauma [] Long length of stay [] ICU visit [] Other: Relational/Emotional Strength [] Patient feels connected with others/family/visitors/staff [] Distress [] Loneliness/isolation [] Abandonment Spirituality of Patient [] Person of Jumana [] Attends Yazidi of their Jumana [] Believes in Prayer [] Reads Bible or Anabaptism materials [] There are Spiritual issues to be addressed Food Beverage Manager Interventions [x] Prayer [] Active listening [] Non-anxious presence [] Spiritual/emotional support [] Crisis/trauma care [] Spiritual counseling [] Bereavement support [] Provided bereavement packet [] Provided Bible/devotional materials [] Provided toy/stuffed animal, coloring book to patient or family member [] Provided Communion [] Anointing/Terril [] Salvation [x] Completed spiritual assessment [] Other: Impact on Illness or Injury [] Angry [] Fearful [] Anxious [] Often cries [] Exhaustion [] Unable to work [] Unable to attend presybeterian [] Unable to walk/stand [] Unable to read [] Unable to drive [] Unable to eat/drink [] Unable to sleep [] Unable to be with family [] Patient intubated [] Other: Summary Time spent with patient
--- NOTE | 2021-02-07 10:15 | PC.NURSE ---
patient got up to bathroom upon returning to bed patient felt a bit sob and when plugged into monitor patient HR 172 sustained tried vagal with no success ICU nurse at bedside and had patient blow through straw and patient HR then settled into the low 100's Dr Patel notified and instructions received to give metoprolol IVP 5 mg times one order placed upon waiting for pharmacy verification patient HR decreased to 97-103 call then placed to Dr Patel instruction to hold off on giving the IVP metoprolol continue with Administration of extra dose of 50 mg po metoprolol if patient has another episode attempt to obtain EKG while patient is having elevated HR
[2021-02-07] MEDS: enoxaparin 100 mg/mL Syringe SUBCUT ×2 (11:03→21:14)
[2021-02-07] MEDS: spironolactone 25 mg Tablet PO (11:04)
--- NOTE | 2021-02-07 11:19 | PC.NURSE ---
Patient HR is now down to 78-85 patient was able to get out of bed and to use the urinal with out episode
[2021-02-07] MEDS: amiodarone 200 mg Tablet 400 MG PO (17:31)
[2021-02-07] MEDS: metoprolol tartrate 50 mg Tablet 100 MG PO (17:31)
--- NOTE | 2021-02-07 20:11 | PC.NURSE ---
Shift Note Frequent safety and comfort rounds continue. Orders and/or nursing care completed as indicated. Patient monitored for response to intervention and treatment(s). Education provided includes amiodarone. Patient and/or automotive sales representative verbalized understanding. Received bedside report from KIM Hu. Mayte stopped amiodarone drip at 1930. Patient has received PO dose of Amiodarone. Patient current heart rate in the 70s. Patient denies pain or discomfort at this time. No distress observed. Will continue to monitor.
[2021-02-08] VITALS (14 sets, daily range): BP systolic 121–154; BP diastolic 74–129; PULSE 64–94; RESP 17–24; TEMP 36.2–36.8; O2SAT 92–96
[2021-02-08] MEDS: potassium chloride ER 20 mEq Tablet PO (01:54)
[2021-02-08] MEDS: piperacillin-tazobactam 3.375 GM in sodium chloride 0.9% (plus) 50 ML IV ×4 (01:54→23:49)
[2021-02-08] MEDS: HYDROcodone-acetaminophen 10-325 mg Tablet 1 TAB PO ×4 (04:02→23:49)
[2021-02-08 05:58] LABS: Hematocrit 37.1 % (42.0-52.0); Hemoglobin 12.5 g/dL (11.7-16.6); Mean Corpuscular HGB Conc 33.7 g/dL (30.0-36.0); Mean Corpuscular Hemoglobin 38.9 pg (28.0-34.0); Mean Corpuscular Volume 115.6 fl (80-94); Mean Platelet Volume 10.5 fL (7.4-10.4); Platelet Count 336 10^3/cmm (130-400); Red Blood Count 3.21 10^6/uL (4.1-5.3); Red Cell Distribution Width 13.2 % (12.1-15.1); White Blood Count 9.6 10^3/uL (4.0-10.0)
[2021-02-08 06:18] LABS: Alanine Aminotransferase 20 U/L (0-41); Alkaline Phosphatase 118 IU/L (40-130); Aspartate Amino Transferase 30 U/L (0-40); Blood Urea Nitrogen 6 mg/dL (6-20); Calcium 8.6 mg/dL (8.5-10.5); Carbon Dioxide 30 mmol/L (22-29); Chloride 93 mmol/L (98-107); Globulin 3.7 g/dL (1.3-4.6); Glomerular Filtration Rate 178.2 mL/min (90-130); Glucose 86 mg/dL (65-115); Osmolality Calculated 275 mOsm/kg (285-295); Sodium 134 mmol/L (136-145); Total Bilirubin 0.3 mg/dL (0.15-1.2); Total Protein 6.7 g/dL (6.6-8.7)
[2021-02-08 06:19] LABS: Anion Gap 14.8 (5-19); Potassium 3.8 mmol/L (3.5-5.1)
--- NOTE | 2021-02-08 06:28 | PC.NURSE ---
Shift Note Frequent safety and comfort rounds continue. Orders and/or nursing care completed as indicated. Patient monitored for response to intervention and treatment(s). Education provided includes Zosyn. Patient and/or patient care representative verbalized complete understanding. Patient had an uneventful evening. Heart rate remained well controlled with no evidence of tachycardia during the night. Patient c/o chronic generalized body pain. Hyrocodone given as ordered. Patient denies needs at this time. No distress observed. Will continue to monitor.
[2021-02-08 06:29] LABS: Slide Review Slide Review Perform
[2021-02-08 06:39] LABS: Absolute Segmented Neutrophil 4.2 10/cmm (1.6-7.1); Band Neutrophils Absolute 1.5 10^3/cmm (0.0-1.2); Eosinophils 1 %; Lymphocytes 19 %; Lymphocytes Absolute 1.9 10^3/cmm (1.2-3.4); Monocytes Absolute 0.7 10^3/cmm (0.1-0.6); Segmented Neutrophils 44 %; Total Cells Counted 100 (0-100)
[2021-02-08 06:40] LABS: Absolute Neutrophil 5.8 10^3/cmm (1.4-6.5); Macrocytosis 1+; Platelet Estimate Normal (Normal)
[2021-02-08] MEDS: guaiFENesin 600 mg Tablet 1200 MG PO ×2 (08:08→17:04)
[2021-02-08] MEDS: FUROsemide 20 mg Tablet PO (08:09)
[2021-02-08] MEDS: spironolactone 25 mg Tablet PO (08:09)
[2021-02-08] MEDS: divalproex DR 500 mg Tablet PO (08:09)
[2021-02-08] MEDS: amiodarone 200 mg Tablet 400 MG PO ×2 (08:09→17:04)
[2021-02-08] MEDS: sacubitril/valsartan 24-26 mg Tablet 2 EACH PO ×2 (08:09→17:04)
[2021-02-08] MEDS: metoprolol tartrate 50 mg Tablet 100 MG PO ×2 (08:09→17:04)
[2021-02-08] MEDS: atorvastatin 40 mg Tablet 80 MG PO (08:09)
[2021-02-08] MEDS: aspirin 81 mg EC Tablet PO (08:09)
[2021-02-08] MEDS: clopidogrel 75 mg Tablet PO (08:10)
[2021-02-08] MEDS: pantoprazole DR 40 mg Tablet PO (08:10)
[2021-02-08] MEDS: enoxaparin 100 mg/mL Syringe SUBCUT ×2 (10:35→23:49)
--- NOTE | 2021-02-08 11:37 | P.PN_ITS ---
Subjective Subjective: Interval history: Please continue to gradually improve in terms of his breathing. Chest still congested, still coughing, sputum is becoming thinner. Denies chest pain. Discussed with him as per cardiology is asked to get up and get around little bit to see how his heart rates may respond with transition to oral medication. Pending results of COVID-19 PCR. Pending additional assessment by stress testing. Vitals/I&O/Wt Last Vital Signs Temp 98.3 F 02/08/21 04:00 Pulse 88 02/08/21 11:04 Resp 17 02/08/21 11:01 BP 121/74 02/08/21 04:00 Pulse Ox 96 02/08/21 11:01 02/07/21 02/08/21 02/08/21 22:59 06:59 14:59 Intake Total 431.928 / 481.928 470 / 951.928 Output Total 850 / 1200 300 / 1500 Balance -418.072 / -718.072 170 / -548.072 Weight last 48 hrs Weight 111.13 kg Weight 110.223 kg Physical Exam Const: COMMON NORMALS: no acute distress and patient oriented x3 GENERAL APPEARANCE: cooperative NUTRITIONAL APPEARANCE: overweight OTHER: Sitting up in bed. HENMT: COMMON NORMALS: oropharynx normal Neck/C-Spine: COMMON NORMALS: no JVD Resp: COMMON NORMALS: normal respiratory effort AUSCULTATION: wheezes and diminished lung sounds Cardio: COMMON NORMALS: no JVD, regular rhythm, S1 normal heart sound present, S2 normal heart sound present and No murmurs present (Cardio) RHYTHM: regular rhythm HEART SOUNDS: S1 normal heart sound present and S2 normal heart sound present GI: COMMON NORMALS: Normal to inspection, nondistended, normoactive bowel so unds present, Soft to palpation and non-tender PALPATION: Yes Soft to palpation Extremity: COMMON NORMALS: no joint enlargement GENERAL: Yes edema (trace if any) Neuro: COMMON NORMALS: patient oriented x3 and moves all extremities Skin: COMMON NORMALS: no rashes or lesions noted GENERAL SKIN EXAM: no rashes or lesions noted Data : 02/08/21 04:47 02/08/21 04:47 Micro: Microbiology 02/07/21 21:20 Gram Stain - Final Sputum - Expectorated Sputum 02/06/21 16:05 Legionella Urinary Antigen - Final Urine,Voided Bacterial Antigens - Final 02/06/21 09:30 Blood Culture - Preliminary Blood NEGATIVE TO DATE 02/06/21 09:25 Blood Culture - Preliminary Blood NEGATIVE TO DATE A&P Assessment and plan (1) Hypoxia: As he is still having chest congestion, wheezing, productive cough, persistent hypoxia, heart rates are now better, we will additionally start him on Solu-Medrol for severe COPD exacerbation. Possible pneumonia. Continue Zosyn. He is a current smoker. Has history of YURY with nocturnal hypoxia. Status: Acute (2) Fever: Continue Zosyn for pneumonia. Additional treatment for severe COPD exacerbation as above. Pending COVID-19 PCR. Sputum culture was requested. Urine bacterial antigens negative. Negative MRSA PCR. Status: Acute Qualifiers: Fever type: unspecified Qualified Code(s): R50.9 - Fever, unspecified (3) Ventricular tachycardia: Becoming tachycardic with exertion. Metoprolol dose had to be increased. Is transition to oral amiodarone. Pending additional assessment by stress testing. Cardiology plans to also reprogram his ICD to prevent discharge and response to atrial fibrillation. Continue cardiac work-up as per cardiology service. Status post several discharges of ICD preadmission. TTE with improvement in EF to 40%. Mildly dilated LV cavity with diffuse hypokinesia. Mildly increased LA size. No effusion. Status: Acute (4) Hypokalemia: Status: Acute (5) Cardiac defibrillator in place: Pocket well-healed old scar. No signs of infection. Without any erythema, no swelling, no tenderness over palpation. Status: Acute Attestations Medical Necessity Statement*: Continue admission for assessment of management of pneumonia, severe COPD exacerbation, optimization of antiarrhythmic medication after several discharges of ICD with underlying cardiomyopathy. Coding Level of Care Code Acute Director Of Family Service [facility] for [facility] Fwd Diagnoses Hypoxia R09.02 Fever R50.9 Fever type: unspecified Ventricular tachycardia I47.2 Hypokalemia E87.[address] Z95.810
--- NOTE | 2021-02-08 19:48 | PC.NURSE ---
Shift Note Frequent safety and comfort rounds continue. Orders and/or nursing care completed as indicated. Patient monitored for response to intervention and treatment(s). Education provided includes deep breathing and coughing, treatment plan, medications. Patient and/or canvas products sales representative receptive to teaching. Will continue to monitor.
[2021-02-09] VITALS (20 sets, daily range): BP systolic 123–180; BP diastolic 76–118; PULSE 63–98; RESP 16–24; TEMP 36.6–36.8; O2SAT 92–96
[2021-02-09] MEDS: HYDROcodone-acetaminophen 10-325 mg Tablet 1 TAB PO ×3 (05:30→20:30)
[2021-02-09 05:33] LABS: Hematocrit 39.1 % (42.0-52.0); Hemoglobin 13.1 g/dL (11.7-16.6); Mean Corpuscular HGB Conc 33.5 g/dL (30.0-36.0); Mean Corpuscular Volume 116.4 fl (80-94); Mean Platelet Volume 9.6 fL (7.4-10.4); Platelet Count 353 10^3/cmm (130-400); Red Blood Count 3.36 10^6/uL (4.1-5.3); Red Cell Distribution Width 13.2 % (12.1-15.1)
[2021-02-09 05:51] LABS: Alanine Aminotransferase 19 U/L (0-41); Albumin Level 3.3 g/dL (3.5-5.2); Alkaline Phosphatase 117 IU/L (40-130); Aspartate Amino Transferase 27 U/L (0-40); Blood Urea Nitrogen 9 mg/dL (6-20); Calcium 8.9 mg/dL (8.5-10.5); Carbon Dioxide 28 mmol/L (22-29); Chloride 97 mmol/L (98-107); Globulin 2.7 g/dL (1.3-4.6); Glomerular Filtration Rate 178.2 mL/min (90-130); Glucose 125 mg/dL (65-115); Magnesium 2.2 mg/dL (1.7-2.3); Osmolality Calculated 280 mOsm/kg (285-295); Sodium 135 mmol/L (136-145); Total Bilirubin 0.2 mg/dL (0.15-1.2)
[2021-02-09 06:00] LABS: Anion Gap 14.5 (5-19); Potassium 4.5 mmol/L (3.5-5.1)
--- NOTE | 2021-02-09 06:19 | PC.NURSE ---
Shift Note Frequent safety and comfort rounds continue. Orders and/or nursing care completed as indicated. Patient monitored for response to intervention and treatment(s). Education provided includes Solumedrol. Patient verbalized complete understanding. Patient had uneventful evening. C/o chronic pain which was managed well per patient. Patient reports feeling ready to go home. Will continue to monitor.
[2021-02-09 06:28] LABS: Slide Review Slide Review Perform
[2021-02-09 06:29] LABS: Absolute Neutrophil 11.8 10^3/cmm (1.4-6.5); Absolute Segmented Neutrophil 10.5 10/cmm (1.6-7.1); Band Neutrophils Absolute 1.3 10^3/cmm (0.0-1.2); Eosinophils 0 %; Lymphocytes 7 %; Monocytes Absolute 0.3 10^3/cmm (0.1-0.6); Platelet Estimate Normal (Normal); Segmented Neutrophils 75 %; Total Cells Counted 100 (0-100)
[2021-02-09 08:51] LABS: Coronavirus Test Green County Not Detected
--- NOTE | 2021-02-09 09:00 | PC.NURSE ---
called infection control Talked to Cristiane Mancilla RN. To verify pt's Covid PCR result
--- NOTE | 2021-02-09 09:17 | ECG_ITS ---
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 Interpretive Statements NAME OF STUDY: LEXISCAN SESTAMIBI STRESS TEST INDICATION: Chest Pressure; Shortness of Breath PROCEDURE: At the baseline, the EKG revealed normal sinus rhythm with some nonspecific T wave changes. The baseline blood pressure was 137/85 mm Hg with a heart rate of 88 beats/min. Lexiscan was infused over a period of 20 seconds. A total of 0.4 milligrams of Lexiscan was infused. The stress phase was continued for a total of 5 minutes. Heart rate at the end of the stress phase was 98 with a blood pressure 144/90. The EKG at the peak infusion revealed no significant changes. Sestamibi was injected 20 seconds after the Lexiscan infusion. Blood pressure at the end of the recovery phase was 127/96 with a heart rate of 98 per minute. CONCLUSION: 1. No significant EKG changes with the LexiScan infusion 2. No LexiScan induced chest pain or cardiac arrhythmia 3. Normal blood pressure and heart rate response 4. Sestamibi/sestamibi perfusion scan pending; see separate report. Electronically Signed On 02-10-2021 19:05:54 CDT by Irasema Patel M.D. [id number]
--- NOTE | 2021-02-09 09:17 | NMCV_ITS ---
NM alfonso perf SPECT r/s* [id number] Carlos Alberto Morrow Age: 45 Gender: M : 1975 Exam Date: 02/09/2021 12:01 Ordering Phys: Irasema Patel MD ([email or web address]) Technologist: CARMEN Womack Exam Location: [facility] Indications: CHEST PAIN STRESS TEST [facility] IMAGE PROTOCOL Rest/Stress 1 Lexiscan Day Radiopharmaceutical Dose (mCi) Administration Site Administered by Rest: Tc-99m 10.9 IV CARMEN Womack Sestamibi Stress:Tc-99m 33.0 IV CARMEN Williamson Sestamibi Rest: 09-Feb-2021 60 Discovery 630 Stress: 09-Feb-2021 30 Discovery 630 0.4mg Lexiscan. Images obtained in supine and prone position. SPECT RESULTS Technical Quality: Excellent Raw Data Analysis: Normal Image Corrections: No attenuation or motion correction applied to prone images. Summed Stress Score: 30 Summed Rest Score: 19 Summed Difference Score: 11 PERFUSION FINDINGS Moderate to large area of severely decreased tracer uptake in the basal and mid inferior, inferolateral regions with a subtle area of reversibility in the basal inferolateral region. Moderate areas of decreased reciprocal noted in the basal and mid anterolateral and inferoseptal regions with significant reversibility. Severely decreased tracer uptake also was noted in the apical inferior, apical lateral and LV apex. Some reversibility was noted in the apical lateral and apex. FUNCTIONAL RESULTS (calculated via Gated SPECT) Stress Image LV EF (%): 53 Stress EDV (mL):193 TID: 1.24 Stress ESV (mL):90 FUNCTIONAL FINDINGS: Segmental wall motion analysis revealed mild diffuse hypokinesia of the septum and the LV apex. IMPRESSIONS #1. Myocardial perfusion imaging revealing moderate to large areas of persistent decreased tracer uptake in the inferior and inferolateral regions, suggestive of myocardial scarring in the distribution of the right coronary artery and circumflex artery. Small to moderate areas of moderately decreased tracer uptake in the anterolateral, inferoseptal and apical regions, with significant reversibility, suggestive of myocardial scarring with ischemia in the distribution of the left circumflex artery/right coronary artery. Elevated transient ischemic dilatation index of 1.24 also is suggestive of ischemia. #2 . Normal LV ejection fraction of 53%. #3. LV wall motion analysis revealing mild diffuse hypokinesia of the septum and the apical regions. #4. Moderately dilated LV cavity with an end-systolic volume of 90 ml. No similar previous studies are available for comparison Dr Irasema Patel MD [facility] (Electronically Signed) Final Date: 09 February 2021 14:51 S
[2021-02-09] MEDS: guaiFENesin 600 mg Tablet 1200 MG PO ×2 (09:27→17:20)
[2021-02-09] MEDS: FUROsemide 20 mg Tablet PO (09:27)
[2021-02-09] MEDS: sacubitril/valsartan 24-26 mg Tablet 2 EACH PO ×2 (09:27→17:20)
[2021-02-09] MEDS: divalproex DR 500 mg Tablet PO (09:27)
[2021-02-09] MEDS: clopidogrel 75 mg Tablet PO (09:27)
[2021-02-09] MEDS: metoprolol tartrate 50 mg Tablet 100 MG PO ×2 (09:27→17:21)
[2021-02-09] MEDS: spironolactone 25 mg Tablet PO (09:27)
[2021-02-09] MEDS: amiodarone 200 mg Tablet 400 MG PO ×2 (09:28→17:21)
[2021-02-09] MEDS: aspirin 81 mg EC Tablet PO (09:28)
[2021-02-09] MEDS: atorvastatin 40 mg Tablet 80 MG PO (09:28)
[2021-02-09] MEDS: pantoprazole DR 40 mg Tablet PO (09:28)
[2021-02-09] MEDS: piperacillin-tazobactam 3.375 GM in sodium chloride 0.9% (plus) 50 ML IV ×2 (09:31→17:19)
[2021-02-09] MEDS: enoxaparin 100 mg/mL Syringe SUBCUT (09:31)
--- NOTE | 2021-02-09 10:24 | PC.SOCIAL ---
Pg 2 IMM Explained to pt Pg 2 IMM. No questions voiced. Provided pt a copy. Initialed, dated, & timed a copy & placed in chart.
--- NOTE | 2021-02-09 12:12 | PC.NURSE ---
Off unit To [facility] for stress test.
[2021-02-09] MEDS: regadenoson 0.4 Mg/5 ml Syringe IVP (12:43)
--- NOTE | 2021-02-09 19:15 | P.PN_ITS ---
Subjective Subjective: Interval history: He is feeling better still with regards to his respiratory condition. Secretions are quite improved, drying up. Still having cough, now dry. Denies being short of breath. Currently no chest pain. Vitals/I&O/Wt Last Vital Signs Temp 97.9 F 02/09/21 16:23 Pulse 96 02/09/21 16:23 Resp 17 02/09/21 16:23 BP 180/118 02/09/21 16:23 Pulse Ox 92 02/09/21 16:23 02/09/21 02/09/21 02/09/21 06:59 14:59 22:59 Intake Total 50 / 150 890 / 890 582 / 1472 Output Total 200 / 500 Balance -150 / -350 890 / 890 582 / 1472 Weight last 48 hrs Weight 111.13 kg Physical Exam Const: COMMON NORMALS: no acute distress and patient oriented x3 GENERAL APPEARANCE: cooperative NUTRITIONAL APPEARANCE: overweight OTHER: Sitting up in bed. Pleasant, conversant. HENMT: COMMON NORMALS: oropharynx normal Neck/C-Spine: COMMON NORMALS: no JVD Resp: COMMON NORMALS: normal respiratory effort AUSCULTATION: no rhonchi and wheezes (Now mild to none) Cardio: COMMON NORMALS: no JVD, regular rhythm, S1 normal heart sound present, S2 normal heart sound present and No murmurs present (Cardio) RHYTHM: regular rhythm HEART SOUNDS: S1 normal heart sound present and S2 normal heart sound present GI: COMMON NORMALS: Normal to inspection, nondistended, normoactive bowel sounds present, Soft to palpation and non-tender PALPATION: Yes Soft to palpation Extremity: COMMON NORMALS: no joint enlargement GENERAL: Yes edema (trace if any) Neuro: COMMON NORMALS: patient oriented x3 and moves all extremities Skin: COMMON NORMALS: no rashes or lesions noted GENERAL SKIN EXAM: no rashes or lesions noted Data : 02/09/21 05:06 02/09/21 05:06 Micro: Microbiology 02/07/21 21:20 Gram Stain - Final Sputum - Expectorated Sputum Sputum Culture - Preliminary A&P Assessment and plan (1) Ventricular tachycardia: COVID-19 was found negative. Assessed by stress test, which was found abnormal. Appreciate cardiology assessment, they are planning for additional a ssessment by coronary angiography tomorrow for possible advancement of CAD. He reports he has previously had a cardiogram but it had been 4-5 years ago. Becoming tachycardic with exertion. Metoprolol dose had to be increased. Is transition to oral amiodarone. Cardiology plans to also reprogram his ICD to prevent discharge and response to atrial fibrillation. Status post several discharges of ICD preadmission. TTE with improvement in EF to 40%. Mildly dilated LV cavity with diffuse hypoki nesia. Mildly increased LA size. No effusion. Status: Acute (2) Hypoxia: Continuing to improve. COPD exacerbation improving. Possible pneumonia. Continue Solu-Medrol. Continue Zosyn. He is a current smoker. Has history of YURY with nocturnal hypoxia. Status: Acute (3) Fever: Resolved. As above. Continue Zosyn for pneumonia. Negative COVID-19 PCR. Urine bacterial antigens negative. Negative MRSA PCR. Status: Acute Qualifiers: Fever type: unspecified Qualified Code(s): R50.9 - Fever, unspecified (4) Hypokalemia: Status: Acute (5) Cardiac defibrillator in place: Pocket well-healed old scar. No signs of infection. Without any erythema, no swelling, no tenderness over palpation. Status: Acute Attestations Medical Necessity Statement*: Continue admission for assessment management of CAD following abnormal stress test, status post ICD discharges due to arrhythmia. Coding Level of Care Code Acute Saw [facility] Fuser Circular for [facility] Diagnoses Ventricular tachycardia I47.2 Hypoxia R09.02 Fever R50.9 Fever type: unspecified Hypokalemia E87.[address] Z95.810
--- NOTE | 2021-02-09 19:31 | PC.NURSE ---
Shift Note Frequent safety and comfort rounds continue. Orders and/or nursing care completed as indicated. Patient monitored for response to intervention and treatment(s). Education provided includes left heart cath tomorrow. 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 Will continue to monitor.
--- NOTE | 2021-02-09 19:35 | PM.PN ---
Subjective Subjective: Interval history: Patient is feeling better. He still has some cough and wheezing. He is remaining afebrile. Telemetry shows sinus rhythm. Has shortness of breath with activities. No chest pain. Medications: Reviewed: Yes Medication Review Details: Current Medications Acetaminophen (Acetaminophen 325 Mg Tablet) 650 mg PO Q6H PRN PRN Reason: Mild/Mod Pain Or Temp >/= 101 Last Admin: 02/06/21 05:24 Dose: 650 mg Documented by: Hydrocodone Bitart/Acetaminophen (Hydrocodone-Acetaminophen 10-325 Mg Tablet) 1 tab PO Q6H PRN PRN Reason: Pain Last Admin: 02/09/21 14:05 Dose: 1 tab Documented by: Albuterol Sulfate (Albuterol 2.5 Mg/0.5 Ml Neb) 2.5 mg INHALATION Q4H PRN PRN Reason: wheezing Albuterol/Ipratropium (Ipratropium-Albuterol 4 Gm Mdi) 1 puff INHALATION QID.RESPIRATORY [facility] Last Admin: 02/09/21 15:06 Dose: 1 puff Documented by: Aminophylline (Aminophylline 25 Mg/Ml Sdv 10 Ml) 25 mg IVP Q2M PRN PRN Reason: see dose instructions Stop: 02/10/21 09:16 Amiodarone HCl (Amiodarone 200 Mg Tablet) 400 mg PO BID [facility] Last Admin: 02/09/21 17:21 Dose: 400 mg Documented by: Aspirin (Aspirin 81 Mg Ec Tablet) 81 mg PO DAILY [facility] Last Admin: 02/09/21 09:28 Dose: 81 mg Documented by: Atorvastatin Calcium (Atorvastatin 40 Mg Tablet) 80 mg PO DAILY [facility] Last Admin: 02/09/21 09:28 Dose: 80 mg Documented by: Benzonatate (Benzonatate 100 Mg Capsule) 100 mg PO TID PRN PRN Reason: COUGH Clopidogrel Bisulfate (Clopidogrel 75 Mg Tablet) 75 mg PO DAILY [facility] Last Admin: 02/09/21 09:27 Dose: 75 mg Documented by: Diphenhydramine HCl (Diphenhydramine 50 Mg Capsule) 50 mg PO ONCE ONE Stop: 02/10/21 12:01 Divalproex Sodium (Divalproex Dr 500 Mg Tablet) 500 mg PO DAILY [facility] Last Admin: 02/09/21 09:27 Dose: 500 mg Documented by: Enoxaparin Sodium (Enoxaparin 100 Mg/Ml Syringe) 100 mg SUBCUT Q12H [facility] Last Admin: 02/09/21 09:31 Dose: 100 mg Documented by: Furosemide (Furosemide 20 Mg Tablet) 20 mg PO DAILY [facility] Last Admin: 02/09/21 09:27 Dose: 20 mg Documented by: Guaifenesin (Guaifenesin 600 Mg Tablet) 1,200 mg PO BID [facility] Last Admin: 02/09/21 17:20 Dose: 1,200 mg Documented by: Piperacillin Sod/Tazobactam (Sod 3.375 gm/ Sodium Chloride) 50 mls @ 12.5 mls/hr IV Q8H [facility]; Protocol Last Admin: 02/09/21 17:19 Dose: 12.5 mls/hr Documented by: Sodium Chloride (Sodium Chloride 0.9%) 1,000 mls @ 50 mls/hr IV .Q20H ONE Stop: 02/11/21 07:59 Methylprednisolone Sodium Succinate (Methylprednisolone Sod Succ 125 Mg/2 Ml Inj) 60 mg IVP Q6H [facility] Last Admin: 02/09/21 18:35 Dose: 60 mg Documented by: Metoprolol Tartrate (Metoprolol Tartrate 50 Mg Tablet) 100 mg PO BID [facility] Last Admin: 02/09/21 17:21 Dose: 100 mg Documented by: Morphine Sulfate (Morphine 4 Mg/Ml Sdv 1 Ml) 2 mg IVP Q4H PRN PRN Reason: SEVERE PAIN Last Admin: 02/07/21 09:20 Dose: 2 mg Documented by: Nitroglycerin (Nitroglycerin 0.4 Mg Sublingual Tablet) 0.4 mg SUBLINGUAL DAILY PRN PRN Reason: Chest Pain Nitroglycerin (Nitroglycerin 0.4 Mg Sublingual Tablet) 0.4 mg SUBLINGUAL Q5M PRN PRN Reason: CHEST PAIN Stop: 02/10/21 09:16 Ondansetron HCl (Ondansetron 2 Mg/Ml Sdv 2 Ml) 4 mg IVP Q8H PRN PRN Reason: vomiting, or N/V if npo Ondansetron HCl (Ondansetron 2 Mg/Ml Sdv 2 Ml) 4 mg IVP Q2M PRN PRN Reason: NAUSEA Pantoprazole Sodium (Pantoprazole Dr 40 Mg Tablet) 40 mg PO DAILY [facility] Last Admin: 02/09/21 09:28 Dose: 40 mg Documented by: Sacubitril/Valsartan (Sacubitril/Valsartan 24-26 Mg Tablet) 2 each PO BID [facility] Last Admin: 02/09/21 17:20 Dose: 2 each Documented by: Spironolactone (Spironolactone 25 Mg Tablet) 25 mg PO DAILY [facility] Last Admin: 02/09/21 09:27 Dose: 25 mg Documented by: Vitals/I&O/Wt Last Vital Signs Temp 97.9 F 02/09/21 16:23 Pulse 96 02/09/21 16:23 Resp 17 02/09/21 16:23 BP 180/118 02/09/21 16:23 Pulse Ox 92 02/09/21 16:23 02/09/21 02/09/21 02/09/21 06:59 14:59 22:59 Intake Total 50 / 150 890 / 890 582 / 1472 Output Total 200 / 500 Balance -150 / -350 890 / 890 582 / 1472 Weight last 48 hrs Weight 245 lb Physical Exam Narrative: EXAM NARRATIVE: GENERAL: The patient is alert and oriented times three. Not in any acute distress. Moderately obese HEENT: No significant pallor, icterus or lymphadenopathy. The pupils are reactant to light. Oral cavity: There are no mucous membrane lesions. Funduscopic examination: The fundus is not visualized. NECK: Trachea appears to be central. No masses noted. No JVD or thyromegaly appreciated. No carotid bruit. RESPIRATORY: Chest is symmetrical. No intercostals muscle retraction or any accessory muscle activation. There is no chest wall tenderness. Breath sounds are heard bilaterally. Bilateral coarse crackles and scattered expiratory wheezing. No evidence of consolidation. BREASTS: Deferred. HEART: The PMI could not be palpated. No other palpable precordial events. No palpable precordial events. S1 and S2 are normal. No S3 or S4 heard. No pericardial rub or any click heard. ABDOMEN: No vessel pulsations or distention. No tenderness. No organomegaly appreciated. No abdominal bruit. Bowel sounds are normally heard. : Deferred. RECTAL: Deferred. LYMPHATIC: No lymphadenopathy noted in the neck or groin. EXTREMITIES: No edema or cyanosis. No clubbing. The peripheral pulses are palpable in fairly good volume and amplitude. MUSCULOSKELETAL: No acute joint deformities or swelling. SKIN: There are no significant scars or skin rash noted. NEUROPSYCHIATRIC: The patient is alert and oriented x3. Appears to be in a good mood. The higher functions are grossly within normal limits. No tremors or rigidity noted. Data : 02/09/21 05:06 02/09/21 05:06 Other Labs: Laboratory Last Values WBC 14.0 10^3/uL (4.0-10.0) H 02/09/21 05:06 RBC 3.36 10^6/uL (4.1-5.3) L 02/09/21 05:06 Hgb 13.1 g/dL (11.7-16.6) 02/09/21 05:06 Hct 39.1 % (42.0-52.0) L 02/09/21 05:06 MCV 116.4 fl (80-94) H 02/09/21 05:06 MCH 39.0 pg (28.0-34.0) H 02/09/21 05:06 MCHC 33.5 g/dL (30.0-36.0) 02/09/21 05:06 RDW 13.2 % (12.1-15.1) 02/09/21 05:06 Plt Count 353 10^3/cmm (130-400) 02/09/21 05:06 MPV 9.6 fL (7.4-10.4) 02/09/21 05:06 Neut % (Auto) 66.3 % 02/07/21 04:35 Lymph % (Auto) Not Reportable 02/09/21 05:06 [place] % (Auto) Not Reportable 02/09/21 05:06 Eos % (Auto) 1.9 % 02/07/21 04:35 Baso % (Auto) 0.3 % 02/07/21 04:35 Neut # (Auto) 5.20 10^3/uL (1.8-7.7) 02/07/21 04:35 Lymph # (Auto) Not Reportable 02/09/21 05:06 [place] # (Auto) Not Reportable 02/09/21 05:06 Eos # (Auto) 0.2 10^3/uL (0.0-0.8) 02/07/21 04:35 Baso # (Auto) 0.0 10^3/uL (0.0-0.1) 02/07/21 04:35 Nucleated RBC % (auto) 0 % 02/07/21 04:35 Total Counted 100 (0-100) 02/09/21 05:06 Atypical Lymphs % 0.0 % (0-5) 02/09/21 05:06 Absolute Neutrophils 11.8 10^3/cmm (1.4-6.5) H 02/09/21 05:06 Segmented Neutrophils 75 % 02/09/21 05:06 Abs Segm Neuts (Man) 10.5 10/cmm (1.6-7.1) H 02/09/21 05:06 Band Neutrophils 9.0 % 02/09/21 05:06 Abs Band Neuts (Man) 1.3 10^3/cmm (0.0-1.2) H 02/09/21 05:06 Absolute Lymphocytes 1.0 10^3/cmm (1.2-3.4) L 02/09/21 05:06 Lymphocytes (Manual) 7 % 02/09/21 05:06 Monocytes (Manual) 2.0 % 02/09/21 05:06 Absolute Monocytes 0.3 10^3/cmm (0.1-0.6) 02/09/21 05:06 Eosinophils (Manual) 0 % 02/09/21 05:06 Absolute Eosinophils 0.0 10^3/cmm (0.0-0.7) 02/09/21 05:06 Basophils (Manual) 0.0 % 02/09/21 05:06 Absolute Basophils 0.0 10^3/cmm (0.0-0.2) 02/09/21 05:06 Metamyelocytes 6.0 % 02/09/21 05:06 Myelocytes 1.0 % 02/09/21 05:06 Nucleated RBCs 1.0 /100WBC (0-1) 02/08/21 04:47 Nucleated RBCs # 0.0 /100WBC 02/07/21 04:35 Platelet Estimate Normal (Normal) 02/09/21 05:06 Macrocytosis 1+ H 02/08/21 04:47 PT 12.50 SECONDS (12.1-14.9) 02/05/21 19:53 INR 0.90 (0.8-1.2) 02/05/21 19:53 APTT 35.7 SECONDS (23.9-36.7) 02/05/21 19:53 D-Dimer 0.52 ug/mIFEU (0-0.59) 02/05/21 19:53 Sodium 135 mmol/L (136-145) L 02/09/21 05:06 Potassium 4.5 mmol/L (3.5-5.1) 02/09/21 05:06 Chloride 97 mmol/L (98-107) L 02/09/21 05:06 Carbon Dioxide 28 mmol/L (22-29) 02/09/21 05:06 Anion Gap 14.5 (5-19) 02/09/21 05:06 BUN 9 mg/dL (6-20) 02/09/21 05:06 Creatinine 0.5 mg/dL (0.7-1.2) L 02/09/21 05:06 GFR Calculation 178.2 mL/min (90-130) H 02/09/21 05:06 Glucose 125 mg/dL (65-115) H 02/09/21 05:06 Calculated Osmolality 280 mOsm/kg (285-295) L 02/09/21 05:06 Calcium 8.9 mg/dL (8.5-10.5) 02/09/21 05:06 Magnesium 2.2 mg/dL (1.7-2.3) 02/09/21 05:06 Total Bilirubin 0.2 mg/dL (0.15-1.2) 02/09/21 05:06 AST 27 U/L (0-40) 02/09/21 05:06 ALT 19 U/L (0-41) 02/09/21 05:06 Alkaline Phosphatase 117 IU/L (40-130) 02/09/21 05:06 Troponin T Gen 5 ng/L 11 ng/L (0-15) 02/06/21 09:25 NT-Pro-B Natriuret Pep 696 pg/mL (0-125) H 02/05/21 19:53 Total Protein 6.0 g/dL (6.6-8.7) L 02/09/21 05:06 Albumin 3.3 g/dL (3.5-5.2) L 02/09/21 05:06 Globulin 2.7 g/dL (1.3-4.6) 02/09/21 05:06 Urine Color Yellow (Yellow) 02/06/21 16:05 Urine Appearance Clear (CLEAR) 02/06/21 16:05 Urine pH 5 (5-7) 02/06/21 16:05 Ur Specific [place] 1.015 (1.005-1.030) 02/06/21 16:05 Urine Protein Neg (Negative) 02/06/21 16:05 Urine Glucose (UA) Norm (Normal) 02/06/21 16:05 Urine Ketones Negative (Negative) 02/06/21 16:05 Urine Blood Neg (Negative) 02/06/21 16:05 Urine Nitrate Negative (Negative) 02/06/21 16:05 Urine Bilirubin Neg (Negative) 02/06/21 16:05 Urine Urobilinogen Norm mg/dL (Negative) 02/06/21 16:05 Ur Leukocyte Esterase Negative (Negative) 02/06/21 16:05 Nasal/Oral COVID-19 PCR Not detected 02/07/21 07:30 SARS-CoV-2 Ag (Rapid) Negative (Negative) 02/05/21 20:28 Micro: Microbiology 02/07/21 21:20 Gram Stain - Final Sputum - Expectorated Sputum Sputum Culture - Preliminary A&P Assessment and plan (1) Atherosclerosis of coronary artery of [place] heart without angina pectoris: Patient had a myocardial perfusion imaging today. He was found to have areas of ischemia in the distribution of the left circumflex artery and right coronary artery. For further evaluation of his coronary status, he requires a cardiac catheterization. The risk of bleeding, hematoma, vascular injury, myocardial infarction, CVA, renal failure and other concomitant complications were explained in detail. Patient understood this well and consented to proceed. Status: Acute Qualifiers: Coronary Disease-Associated Artery/Lesion type: [place] artery Qualified Code(s): I25.10 - Atherosclerotic heart disease of [place] coronary artery without angina pectoris (2) ICD (implantable cardioverter-defibrillator) discharge: Continue other current medications. Status: Acute (3) Fever: Most likely from the upper story infection. Currently he is afebrile. Management as per the primary attending. Status: Acute Qualifiers: Fever type: unspecified Qualified Code(s): R50.9 - Fever, unspecified (4) Ischemic cardiomyopathy: Considering the possibility of coronary ischemia causing the ventricular arrhythmia, a myocardial perfusion imaging would be appropriate. So far there is no evidence of myocardial injury. The echocardiogram was reviewed. His LV ejection fraction was around 40%. I may add spironolactone to his current medications. Status: Acute (5) Benign essential hypertension with target blood pressure below 140/90: Currently the blood pressure is a stage II. We will optimize his antihypertensive medications. Status: Acute (6) Atrial fibrillation: Continue with the Lovenox and other current medications. Will discontinue the Lovenox in the morning Status: Acute Qualifiers: Atrial fibrillation type: unspecified chronic Qualified Code(s): I48.20 - Chronic atrial fibrillation, unspecified Additional A&P Information Will require to schedule further cardiac catheterization tomorrow. We will continue optimizing medical treatment. Based on the clinical progress and the results of the above, further management decisions will be made Attestations Medical Necessity Statement*: Patient requires continued hospital stay for close monitoring and further management Coding Level of Care Code Acute Client Services Specialist for [facility] Diagnoses Atherosclerosis of coronary artery of [place] heart without angina pectoris I25.10 Coronary Disease-Associated Artery/Lesion type: [place] artery ICD (implantable cardioverter-defibrillator) discharge Z45.02 Fever R50.9 Fever type: unspecified Ischemic cardiomyopathy I25.5 Benign essential hypertension with target blood pressure below 140/90 I10 Atrial fibrillation I48.20 Atrial fibrillation type: unspecified chronic
[2021-02-09] MEDS: benzonatate 100 mg Capsule PO (20:30)
--- NOTE | 2021-02-09 21:26 | PC.NURSE ---
Shift Note Frequent safety and comfort rounds continue. Orders and/or nursing care completed as indicated. Patient monitored for response to intervention and treatment(s). Education provided includes Qi Murphy. Patient verbalized complete understanding. Will continue to monitor.
[2021-02-10] VITALS (23 sets, daily range): BP systolic 99–147; BP diastolic 58–113; PULSE 60–91; RESP 14–18; TEMP 36.2–36.6; O2SAT 93–98
[2021-02-10] MEDS: piperacillin-tazobactam 3.375 GM in sodium chloride 0.9% (plus) 50 ML IV ×3 (00:21→17:10)
[2021-02-10] MEDS: HYDROcodone-acetaminophen 10-325 mg Tablet 1 TAB PO ×3 (02:40→19:44)
--- NOTE | 2021-02-10 06:17 | PM.PN ---
Subjective Subjective: Interval history: The patient is feeling okay with no chest pain or chest tightness. He still has some amount of shortness of breath with activities. No fever or chills. Has intermittent cough . The cough and the shortness of breath are improving Medications: Reviewed: Yes Medication Review Details: Current Medications Acetaminophen (Acetaminophen 325 Mg Tablet) 650 mg PO Q6H PRN PRN Reason: Mild/Mod Pain Or Temp >/= 101 Last Admin: 02/06/21 05:24 Dose: 650 mg Documented by: Hydrocodone Bitart/Acetaminophen (Hydrocodone-Acetaminophen 10-325 Mg Tablet) 1 tab PO Q6H PRN PRN Reason: MODERATE PAIN Last Admin: 02/10/21 02:40 Dose: 1 tab Documented by: Albuterol Sulfate (Albuterol 2.5 Mg/0.5 Ml Neb) 2.5 mg INHALATION Q4H PRN PRN Reason: wheezing Albuterol/Ipratropium (Ipratropium-Albuterol 4 Gm Mdi) 1 puff INHALATION QID.RESPIRATORY [facility] Last Admin: 02/09/21 20:50 Dose: 1 puff Documented by: Aminophylline (Aminophylline 25 Mg/Ml Sdv 10 Ml) 25 mg IVP Q2M PRN PRN Reason: see dose instructions Stop: 02/10/21 09:16 Amiodarone HCl (Amiodarone 200 Mg Tablet) 400 mg PO BID [facility] Last Admin: 02/09/21 17:21 Dose: 400 mg Documented by: Aspirin (Aspirin 81 Mg Ec Tablet) 81 mg PO DAILY [facility] Last Admin: 02/09/21 09:28 Dose: 81 mg Documented by: Atorvastatin Calcium (Atorvastatin 40 Mg Tablet) 80 mg PO DAILY [facility] Last Admin: 02/09/21 09:28 Dose: 80 mg Documented by: Benzonatate (Benzonatate 100 Mg Capsule) 100 mg PO TID PRN PRN Reason: COUGH Last Admin: 02/09/21 20:30 Dose: 100 mg Documented by: Clopidogrel Bisulfate (Clopidogrel 75 Mg Tablet) 75 mg PO DAILY [facility] Last Admin: 02/09/21 09:27 Dose: 75 mg Documented by: Diphenhydramine HCl (Diphenhydramine 50 Mg Capsule) 50 mg PO ONCE ONE Stop: 02/10/21 12:01 Divalproex Sodium (Divalproex Dr 500 Mg Tablet) 500 mg PO DAILY [facility] Last Admin: 02/09/21 09:27 Dose: 500 mg Documented by: Enoxaparin Sodium (Enoxaparin 100 Mg/Ml Syringe) 100 mg SUBCUT Q12H [facility] Last Admin: 02/09/21 09:31 Dose: 100 mg Documented by: Furosemide (Furosemide 20 Mg Tablet) 20 mg PO DAILY [facility] Last Admin: 02/09/21 09:27 Dose: 20 mg Documented by: Guaifenesin (Guaifenesin 600 Mg Tablet) 1,200 mg PO BID [facility] Last Admin: 02/09/21 17:20 Dose: 1,200 mg Documented by: Piperacillin Sod/Tazobactam (Sod 3.375 gm/ Sodium Chloride) 50 mls @ 12.5 mls/hr IV Q8H [facility]; Protocol Last Infusion: 02/10/21 04:06 Dose: Infused Documented by: Sodium Chloride (Sodium Chloride 0.9%) 1,000 mls @ 50 mls/hr IV .Q20H ONE Stop: 02/11/21 07:59 Methylprednisolone Sodium Succinate (Methylprednisolone Sod Succ 125 Mg/2 Ml Inj) 60 mg IVP Q6H [facility] Last Admin: 02/10/21 06:15 Dose: 60 mg Documented by: Metoprolol Tartrate (Metoprolol Tartrate 50 Mg Tablet) 100 mg PO BID [facility] [place] Last Admin: 02/09/21 17:21 Dose: 100 mg Documented by: Nitroglycerin (Nitroglycerin 0.4 Mg Sublingual Tablet) 0.4 mg SUBLINGUAL DAILY PRN PRN Reason: Chest Pain Nitroglycerin (Nitroglycerin 0.4 Mg Sublingual Tablet) 0.4 mg SUBLINGUAL Q5M PRN PRN Reason: CHEST PAIN Stop: 02/10/21 09:16 Ondansetron HCl (Ondansetron 2 Mg/Ml Sdv 2 Ml) 4 mg IVP Q8H PRN PRN Reason: vomiting, or N/V if npo Ondansetron HCl (Ondansetron 2 Mg/Ml Sdv 2 Ml) 4 mg IVP Q2M PRN PRN Reason: NAUSEA Pantoprazole Sodium (Pantoprazole Dr 40 Mg Tablet) 40 mg PO DAILY [facility] [place] Last Admin: 02/09/21 09:28 Dose: 40 mg Documented by: Sacubitril/Valsartan (Sacubitril/Valsartan 24-26 Mg Tablet) 2 each PO BID [facility] [place] Last Admin: 02/09/21 17:20 Dose: 2 each Documented by: Spironolactone (Spironolactone 25 Mg Tablet) 25 mg PO DAILY [facility] Last Admin: 02/09/21 09:27 Dose: 25 mg Documented by: Vitals/I&O/Wt Last Vital Signs Temp 97.8 F 02/10/21 04:22 Pulse 60 02/10/21 05:33 Resp 16 02/09/21 20:51 BP 143/85 02/10/21 04:20 Pulse Ox 96 02/10/21 04:20 02/09/21 02/09/21 02/10/21 14:59 22:59 06:59 Intake Total 890 / 890 632 / 1522 50 / 1572 Output Total 250 / 250 Balance 890 / 890 632 / 1522 -200 / 1322 Physical Exam Narrative: EXAM NARRATIVE: GENERAL: The patient is alert and oriented times three. Not in any acute distress. Moderately obese HEENT: No significant pallor, icterus or lymphadenopathy. The pupils are reactant to light. Oral cavity: There are no mucous membrane lesions. Funduscopic examination: The fundus is not visualized. NECK: Trachea appears to be central. No masses noted. No JVD or thyromegaly appreciated. No carotid bruit. RESPIRATORY: Chest is symmetrical. No intercostals muscle retraction or any accessory muscle activation. There is no chest wall tenderness. Breath sounds are heard bilaterally. Bilateral coarse crackles and scattered expiratory wheezing. No evidence of consolidation. BREASTS: Deferred. HEART: The PMI could not be palpated. No other palpable precordial events. No palpable precordial events. S1 and S2 are normal. No S3 or S4 heard. No pericardial rub or any click heard. ABDOMEN: No vessel pulsations or distention. No tenderness. No organomegaly appreciated. No abdominal bruit. Bowel sounds are normally heard. : Deferred. RECTAL: Deferred. LYMPHATIC: No lymphadenopathy noted in the neck or groin. EXTREMITIES: No edema or cyanosis. No clubbing. The peripheral pulses are palpable in fairly good volume and amplitude. MUSCULOSKELETAL: No acute joint deformities or swelling. SKIN: There are no significant scars or skin rash noted. NEUROPSYCHIATRIC: The patient is alert and oriented x3. Appears to be in a good mood. The higher functions are grossly within normal limits. No tremors or rigidity noted. Data : 02/10/21 07:19 02/10/21 07:19 Other Labs: Laboratory Last Values WBC 14.0 10^3/uL (4.0-10.0) H 02/09/21 05:06 RBC 3.36 10^6/uL (4.1-5.3) L 02/09/21 05:06 Hgb 13.1 g/dL (11.7-16.6) 02/09/21 05:06 Hct 39.1 % (42.0-52.0) L 02/09/21 05:06 MCV 116.4 fl (80-94) H 02/09/21 05:06 MCH 39.0 pg (28.0-34.0) H 02/09/21 05:06 MCHC 33.5 g/dL (30.0-36.0) 02/09/21 05:06 RDW 13.2 % (12.1-15.1) 02/09/21 05:06 Plt Count 353 10^3/cmm (130-400) 02/09/21 05:06 MPV 9.6 fL (7.4-10.4) 02/09/21 05:06 Neut % (Auto) 66.3 % 02/07/21 04:35 Lymph % (Auto) Not Reportable 02/09/21 05:06 [place] % (Auto) Not Reportable 02/09/21 05:06 Eos % (Auto) 1.9 % 02/07/21 04:35 Baso % (Auto) 0.3 % 02/07/21 04:35 Neut # (Auto) 5.20 10^3/uL (1.8-7.7) 02/07/21 04:35 Lymph # (Auto) Not Reportable 02/09/21 05:06 [place] # (Auto) Not Reportable 02/09/21 05:06 Eos # (Auto) 0.2 10^3/uL (0.0-0.8) 02/07/21 04:35 Baso # (Auto) 0.0 10^3/uL (0.0-0.1) 02/07/21 04:35 Nucleated RBC % (auto) 0 % 02/07/21 04:35 Total Counted 100 (0-100) 02/09/21 05:06 Atypical Lymphs % 0.0 % (0-5) 02/09/21 05:06 Absolute Neutrophils 11.8 10^3/cmm (1.4-6.5) H 02/09/21 05:06 Segmented Neutrophils 75 % 02/09/21 05:06 Abs Segm Neuts (Man) 10.5 10/cmm (1.6-7.1) H 02/09/21 05:06 Band Neutrophils 9.0 % 02/09/21 05:06 Abs Band Neuts (Man) 1.3 10^3/cmm (0.0-1.2) H 02/09/21 05:06 Absolute Lymphocytes 1.0 10^3/cmm (1.2-3.4) L 02/09/21 05:06 Lymphocytes (Manual) 7 % 02/09/21 05:06 Monocytes (Manual) 2.0 % 02/09/21 05:06 Absolute Monocytes 0.3 10^3/cmm (0.1-0.6) 02/09/21 05:06 Eosinophils (Manual) 0 % 02/09/21 05:06 Absolute Eosinophils 0.0 10^3/cmm (0.0-0.7) 02/09/21 05:06 Basophils (Manual) 0.0 % 02/09/21 05:06 Absolute Basophils 0.0 10^3/cmm (0.0-0.2) 02/09/21 05:06 Metamyelocytes 6.0 % 02/09/21 05:06 Myelocytes 1.0 % 02/09/21 05:06 Nucleated RBCs 1.0 /100WBC (0-1) 02/08/21 04:47 Nucleated RBCs # 0.0 /100WBC 02/07/21 04:35 Platelet Estimate Normal (Normal) 02/09/21 05:06 Macrocytosis 1+ H 02/08/21 04:47 PT 12.50 SECONDS (12.1-14.9) 02/05/21 19:53 INR 0.90 (0.8-1.2) 02/05/21 19:53 APTT 35.7 SECONDS (23.9-36.7) 02/05/21 19:53 D-Dimer 0.52 ug/mIFEU (0-0.59) 02/05/21 19:53 Sodium 135 mmol/L (136-145) L 02/09/21 05:06 Potassium 4.5 mmol/L (3.5-5.1) 02/09/21 05:06 Chloride 97 mmol/L (98-107) L 02/09/21 05:06 Carbon Dioxide 28 mmol/L (22-29) 02/09/21 05:06 Anion Gap 14.5 (5-19) 02/09/21 05:06 BUN 9 mg/dL (6-20) 02/09/21 05:06 Creatinine 0.5 mg/dL (0.7-1.2) L 02/09/21 05:06 GFR Calculation 178.2 mL/min (90-130) H 02/09/21 05:06 Glucose 125 mg/dL (65-115) H 02/09/21 05:06 Calculated Osmolality 280 mOsm/kg (285-295) L 02/09/21 05:06 Calcium 8.9 mg/dL (8.5-10.5) 02/09/21 05:06 Magnesium 2.2 mg/dL (1.7-2.3) 02/09/21 05:06 Total Bilirubin 0.2 mg/dL (0.15-1.2) 02/09/21 05:06 AST 27 U/L (0-40) 02/09/21 05:06 ALT 19 U/L (0-41) 02/09/21 05:06 Alkaline Phosphatase 117 IU/L (40-130) 02/09/21 05:06 Troponin T Gen 5 ng/L 11 ng/L (0-15) 02/06/21 09:25 NT-Pro-B Natriuret Pep 696 pg/mL (0-125) H 02/05/21 19:53 Total Protein 6.0 g/dL (6.6-8.7) L 02/09/21 05:06 Albumin 3.3 g/dL (3.5-5.2) L 02/09/21 05:06 Globulin 2.7 g/dL (1.3-4.6) 02/09/21 05:06 Urine Color Yellow (Yellow) 02/06/21 16:05 Urine Appearance Clear (CLEAR) 02/06/21 16:05 Urine pH 5 (5-7) 02/06/21 16:05 Ur Specific [place] 1.015 (1.005-1.030) 02/06/21 16:05 Urine Protein Neg (Negative) 02/06/21 16:05 Urine Glucose (UA) Norm (Normal) 02/06/21 16:05 Urine Ketones Negative (Negative) 02/06/21 16:05 Urine Blood Neg (Negative) 02/06/21 16:05 Urine Nitrate Negative (Negative) 02/06/21 16:05 Urine Bilirubin Neg (Negative) 02/06/21 16:05 Urine Urobilinogen Norm mg/dL (Negative) 02/06/21 16:05 Ur Leukocyte Esterase Negative (Negative) 02/06/21 16:05 Nasal/Oral COVID-19 PCR Not detected 02/07/21 07:30 SARS-CoV-2 Ag (Rapid) Negative (Negative) 02/05/21 20:28 Micro: Microbiology 02/07/21 21:20 Gram Stain - Final Sputum - Expectorated Sputum Sputum Culture - Preliminary A&P Assessment and plan (1) Atherosclerosis of coronary artery of ione heart without angina pectoris: Patient underwent left heart catheterization with left and right coronary angiogram and an aortogram today. He was found to have a high-grade lesion in the proximal circumflex artery and had a high-grade in-stent stenosis in the first obtuse marginal artery. The LAD was found to have no significant stenotic lesions. The right coronary artery was found to be totally occluded with fairly good [id number] collaterals. Patient underwent a PCI of the circumflex/obtuse marginal artery lesion. Status: Acute Qualifiers: Coronary Disease-Associated Artery/Lesion type: ione artery Qualified Code(s): I25.10 - Atherosclerotic heart disease of ione coronary artery without angina pectoris (2) ICD (implantable cardioverter-defibrillator) discharge: Continue other current medications. Status: Acute (3) Fever: Most likely from the upper story infection. Currently he is afebrile. Management as per the primary attending. Status: Acute Qualifiers: Fever type: unspecified Qualified Code(s): R50.9 - Fever, unspecified (4) Ischemic cardiomyopathy: 12 ejection fraction was around 40% by echocardiogram. Patient will be kept on the Entresto. Status: Acute (5) Benign essential hypertension with target blood pressure below 140/90: The blood pressure seems to be fairly under control. May continue on the current medications. Status: Acute (6) Atrial fibrillation: Patient is to be started on Eliquis tomorrow. We will discontinue the Lovenox now Status: Acute Qualifiers: Atrial fibrillation type: unspecified chronic Qualified Code(s): I48.20 - Chronic atrial fibrillation, unspecified Additional A&P Information If the patient continues remain stable, may be discharged home tomorrow. May continue on the metoprolol, tapering dose of amiodarone and Entresto. May be started on Eliquis tomorrow. Elevated white cell count most likely from the steroids. Need to have a repeat CBC in the morning Attestations Medical Necessity Statement*: Possible discharge home tomorrow Coding Level of Care Code Acute [place] Worker for g Fwd Diagnoses Atherosclerosis of coronary artery of ione heart without angina pectoris I25.10 Coronary Disease-Associated Artery/Lesion type: ione artery ICD (implantable cardioverter-defibrillator) discharge Z45.02 Fever R50.9 Fever type: unspecified Ischemic cardiomyopathy I25.5 Benign essential hypertension with target blood pressure below 140/90 I10 Atrial fibrillation I48.20 Atrial fibrillation type: unspecified chronic
--- NOTE | 2021-02-10 06:30 | PC.NURSE ---
Shift Note Frequent safety and comfort rounds continue. Orders and/or nursing care completed as indicated. Patient monitored for response to intervention and treatment(s). Education provided includes solumedrol. Patient verbalized complete understanding. Patient ready for [facility] today. Will continue to monitor.
[2021-02-10 07:52] LABS: Basophils # 0.1 10^3/uL (0.0-0.1); Basophils % 0.5 %; Hematocrit 39.7 % (42.0-52.0); Hemoglobin 13.3 g/dL (11.7-16.6); Lymphocytes # 1.3 10^3/uL (0.8-4.8); Lymphocytes % 5.1 %; Mean Corpuscular HGB Conc 33.5 g/dL (30.0-36.0); Mean Corpuscular Hemoglobin 38.9 pg (28.0-34.0); Mean Corpuscular Volume 116.1 fl (80-94); Mean Platelet Volume 9.5 fL (7.4-10.4); Monocytes # 1.1 10^3/uL (0.2-0.9); Monocytes % 4.5 %; Neutrophils # 21.51 10^3/uL (1.8-7.7); Neutrophils % 85.3 %; Nucleated Red Blood Cells % 0 %; Platelet Count 435 10^3/cmm (130-400); Red Blood Count 3.42 10^6/uL (4.1-5.3); Red Cell Distribution Width 13.3 % (12.1-15.1); White Blood Count 25.2 10^3/uL (4.0-10.0)
[2021-02-10 08:02] LABS: Blood Urea Nitrogen 13 mg/dL (6-20); Carbon Dioxide 25 mmol/L (22-29); Chloride 97 mmol/L (98-107); Glomerular Filtration Rate 178.2 mL/min (90-130); Glucose 113 mg/dL (65-115); Osmolality Calculated 279 mOsm/kg (285-295); Sodium 134 mmol/L (136-145)
[2021-02-10] MEDS: aspirin 81 mg EC Tablet PO (08:52)
[2021-02-10] MEDS: sacubitril/valsartan 24-26 mg Tablet 2 EACH PO ×2 (08:52→17:18)
[2021-02-10] MEDS: guaiFENesin 600 mg Tablet 1200 MG PO ×2 (08:52→17:18)
[2021-02-10] MEDS: pantoprazole DR 40 mg Tablet PO (08:53)
[2021-02-10] MEDS: spironolactone 25 mg Tablet PO (08:53)
[2021-02-10] MEDS: clopidogrel 75 mg Tablet PO (08:53)
[2021-02-10] MEDS: atorvastatin 40 mg Tablet 80 MG PO (08:53)
[2021-02-10] MEDS: divalproex DR 500 mg Tablet PO (08:53)
[2021-02-10] MEDS: amiodarone 200 mg Tablet 400 MG PO ×2 (08:53→17:18)
[2021-02-10] MEDS: FUROsemide 20 mg Tablet PO (08:53)
[2021-02-10] MEDS: metoprolol tartrate 50 mg Tablet 100 MG PO ×2 (08:54→17:18)
--- NOTE | 2021-02-10 10:31 | PC.NURSE ---
Shift Rounds: Patient is awake, a/ox3, aware of upcoming left heart cath at noon. He states he has had nothing to eat or drink since midnight. Patient is requesting a shower prior ro procedure.
--- NOTE | 2021-02-10 10:34 | PC.NURSE ---
At 0915 patient was taken to shower room in a wheelchair and assisted with set up for shower. Patient showered self. Assisted patient into hospital gown and non skid socks. Patient was a little shob. Wheeled patient back to room. Resumed O2 and patient recovered oxygen saturation within a few minutes.
--- NOTE | 2021-02-10 10:35 | XACV_ITS ---
Exam Room: 1 Ht: 178 cm Wt: 111 kg BSA: 2.38 m2 Gender: Male : 1975 Exam Priority: Routine Procedure(s): Procedure Description: Diagnostic procedure Procedure Description: PCI procedure Procedure Description: Left Heart Catheterization Procedure Description: Aortogram Procedure Description: Drug Eluting Coronary Stent Procedure Description: PTCA Procedure Description: Coronary Angiography Diagnostic Cath Status: Urgent Diagnostic Findings * Coronary angiography shows right dominance. * Left main is a medium caliber short vessel with no significant stenotic lesions. * The left anterior descending artery is a medium caliber vessel which appears to bifurcate of the mid segment by giving a fair diagonal branch of equal caliber. The LAD proper appears to taper off towards the LV apex. Minimal intimal abnormalities were noted in the mid LAD and the proximal segment of the first diagonal. No significant stenotic lesions were seen.. * The left circumflex artery is a medium caliber vessel. The proximal segment of the artery appears to be stented with severe diffuse in-stent narrowing. The proximal segment of the first obtuse marginal artery also is stented with a severe diffuse in-stent narrowing. The distal artery was found to have minimal intimal irregularities. * The intermedius artery is a high diagonal branch with mild diffuse disease. No significant stenotic lesions. * The right coronary artery could not be engaged selectively. With aortic root injection, the artery appears to be totally occluded. Grade 2 to 3 [id number] collaterals were noted filling up the PDA and the PLV branches during the left coronary injection.. PCI Status: Urgent PCI Indication: Other Interventional Findings * Procedure detail: We engaged left main artery with XB 3.5 guide catheter. IV heparin was used to maintain ACT above 2/52. We used 0.014 run-through guidewire to cross the left circumflex stenosis and put in distal vessel. This was followed by predilation with a 2.5 x 12 mm semicompliant balloon. We then placed 3.0 x 38 mm resolute Jacqueline drug-eluting stent. Proximal part of the stent was postdilated with a 3.0 x 8 mm NC balloon. At this time final angiogram was performed that showed excellent stent expansion, ANILA-3 flow and no residual stenosis. Guidewire and guide catheter were removed. Patient left the Organ Builder in a stable condition.. * Proximal Circumflex: 100% stenosis treated with a AB TREK 2.50X12 RX BALLOON, KULWINDER R JACQUELINE 3.0X38 ADITHYA, and MDAilyn NC EUPHORA RX [id number] BALLOON. 0% residual stenosis, ANILA: 3 flow. * First Obtuse Marginal Branch Segment: 100% stenosis treated with a AB TREK 2.50X12 RX BALLOON. 0% residual stenosis, ANILA: 3 flow. Conclusions 1. This is a 45-year-old white male with history of coronary disease, status post multiple PCI's, history of ventricular arrhythmia, presents with complaints of chest pain and recurrent episodes of ICD discharges/overdrive pacing. He was found to have episodes of atrial fibrillation with rapid ventricular rate. For further evaluation of his coronary status, a myocardialperfusion imaging was performed. The perfusion scan revealed moderate areas of ischemia in the distribution of the left circumflex artery and right coronary artery. In view of his presenting symptoms and the abnormal objective findings, in order to further evaluate his coronary status, a cardiac catheterization was recommended. Patient underwent left heart catheterization with left and right coronary angiogram and an aortogram today. The findings are as follows.. 2. High-grade in-stent stenosis in the proximal circumflex and proximal segment of the first obtuse marginal artery. Total occlusion of the right coronary artery at the ostium. Mild disease in the left anterior descending artery. LVEDP of 27 mmHg. 3. I reviewed and discussed the cardiac catheterization data with the Dr. Hardwick. Based on the above findings, it was thought to be appropriate to consider PCI of the in-stent stenosis in the circumflex/obtuse marginal artery. At this point, Dr. Hardwick took over further management of this patient. 4. Successful revascularization of proximal 5. to mid left circumflex artery with ADITHYA x1.. 6. Proximal Circumflex was treated with a Balloon, Drug Eluting Stent, and Balloon. 7. First Obtuse Marginal Branch Segment was treated with a Balloon. Recommendations * Continue aspirin and Plavix for at least 1 year. * High intensity statin therapy. * Follow-up appointment with cardiology in 4 weeks. Interventional RX Recommendation: PCI w/o planned CABG Diagnostic RX Recommendation: PCI w/o planned CABG Anticoagulation: Heparin LV EDP: 27 mmHg Left Ventriculography Findings: * LV gram was not performed because of the concern about dye overload. An aortogram was performed by placing the pigtail catheter just above the level of the coronary sinus. The right coronary artery appears to be completely occluded. The proximal artery appears to be stented. Pressures Phase:Rest AO : 152 / 71 ( 103 ) @ 10:02:00 AM 146 / 55 ( 91 ) @ 10:20:00 AM 131 / 94 ( 109 ) @ 10:21:00 AM 99 / 73 ( 85 ) @ 10:51:00 AM 121 / 86 ( 102 ) @ 11:00:00 AM LV : 145 / 8 / 28 @ 10:20:00 AM Clinical Evaluation EBL: 5mL-10mL Procedural Details Pre-Procedure Time Out. Identified patient by full name and date of as verbalized by the patient/guarantor. Does the consent match the physician's order: Yes. Accurate & Complete Informed Consent: Yes. Inpatient/Outpatient History & Physical on Chart: Yes. If H&P is completed, is and addenduem needed: No. Visualize and Verify Site with Patient/Guarantor: N/A. Relevant Radiology Images available: Yes. Pre-op teaching completed and patient verbalized understanding. The risks, benefits, and alternatives of sedation and/or procedure were discussed by physician. The patient agrees to continue. Procedure started. [facility] Clinical Fraility Score: 4: Vulnerable. Organ Builder Indications: Cardiac Arrhythmia. Chest Pain Symptom Assessment: Atypical Angina. Cardiovascular Instability: No. Correct patient, site and procedure confirmed by cath team. Current diagnosis: Cardiac arrythmia s/p ICD discharge with abnormal stress test. PERRLA. Strong, equal hand adjunct phlebotomy instructor bilaterally. Lungs clear x 5 lobes. IV Site on Arrival: 20 gauge in the left anticubital. IV Fluids: 0.9% NaCl at KVO. 0 mL infused prior to optical lab technician. Oxygen started at 2liters/min via nasal canula. Pre Procedural Pulses: bilateral posterior tibial was Doppled. Pre Procedural Pulses: bilateral dorsalis pedis was Doppled. Pre Procedural Pulses: bilateral radial was 1+. right groin was prepped with chloroprep then draped in the usual sterile fashion. right radial was prepped with chloroprep then draped in the usual sterile fashion. Physician notified. Physician arrived. Patient's family unavailable. Equipment: 6F - Radial. Cardiac Cath Pack. ACIST Manifold Kit Model BT 2000. Heparinized Saline (2 units/mL), 1000 mL bag. Baseline sample Acquired. HR: 80 BPM. Becki Carrasco RN cirulating with Cassi Brasher RN. Current Diagnosis : Chest Pain. Physician scrubbed in. Immediate Pre-Procedure Time Out. Correct Patient: Yes; Correct Procedure: Yes; Correct Site: Yes; Correct Patient Position: Yes; Correct Supplies: Yes; Dried Flammable Prep: Yes; Blood Products Available: N/A. Lidocaine 1% infiltrated to the right radial. Arterial access obtained. A 5 english Evelio catheter in over the exchange wire. Multiple views taken of left coronary artery. Dr. Hardwick called to view cineography. Catheter redirected to the RCA. Unable to cannulate. Catheter removed over the exchange wire. A 5 english JR4 catheter in over the exchange wire , unable to cannulate. Dr. Hardwick here to view cineography. Catheter removed over the exchange wire. A 5 english AR MOD catheter in over the exchange wire. Catheter removed over the exchange wire. A 5 english Angled Pig catheter in over wire. EDP Sample taken: LV 145/8,28; HR: 71 BPM; SpO2: 97%. Pullback taken: LV Off; AO Off; Mean: , Peak to Peak: , SEP: ; HR: 74 BPM; SpO2: 98%. Aortogram performed in MAKI @ 20 mL/second for a total of 40 mL. Catheter removed over the exchange wire. A 5 english 3DRC catheter in over the exchange wir, unable to cannulate. Catheter removed over the exchange wire. Dr. Patel scrubbed out. Diagnostic complete, starting intervention. Dr. Hardwick scrubbed in to perform intervention. 6 english XB 3.5 guide catheter was inserted over the exchange wire. Exchange wire out, glidewire in. Glidewire out. Exchange wire in. A 5 english JR4 catheter in over the exchange wire. Cine of the RCA performed, chronic occlusion. Catheter removed over the exchange wire. 6 english XB 3.5 guide catheter was inserted over the exchange wire. Runthrough guidewire was advanced through the guide catheter to lesion in the prox Circ. Inflation number : 1 A AB TREK 2.50X12 RX BALLOON was prepped and advanced across the 1st Ob Nany , then inflated to 14 TATO for 0:22 seconds. Inflation number: 2 The AB TREK 2.50X12 RX BALLOON was reinflated across the 1st Ob Nany, to 16 TATO for 0:24 seconds. Inflation number: 1 The AB TREK 2.50X12 RX BALLOON was reinflated across the Prox CX, to 14 TATO for 0:25 seconds. Inflation number: 2 The AB TREK 2.50X12 RX BALLOON was reinflated across the Prox CX, to 14 TATO for 0:20 seconds. Balloon out. Results checked. Balloon redirected tot he Prox CX. Inflation Number : 3 A MDT R JACQUELINE 3.0X38 ADITHYA -Lot Number# [id number] was prepped and advanced across the Prox CX. The stent was deployed at 12 TATO for 0:28 seconds. Exp. 10/19/2023. Stent balloon out over wire. Results checked. Inflation number : 4 A MDT NC EUPHORA RX 3.19W48OP BALLOON was prepped and advanced across the Prox CX , then inflated to 16 TATO for 0:19 seconds. Inflation number: 5 The MDT NC EUPHORA RX 3.90S59KT BALLOON was reinflated across the Prox CX, to 16 TATO for 0:14 seconds. Inflation number: 6 The MDT NC EUPHORA RX [id number] BALLOON was reinflated across the Prox CX, to 16 TATO for 0:16 seconds. Inflation number: 7 The MDT NC EUPHORA RX 3.13O02YW BALLOON was reinflated across the Prox CX, to 16 TATO for 0:17 seconds. results checked. Wire out. Results checked. Guide catheter out over the exchange wire. Dr. Hardwick scrubbed out. A TR Band was successful obtaining hemostatsis at the Right Radial artery insertion site. TR band placed. Hemostasis obtained. Post Procedure: Pulses reassessed and unchanged. PERRLA. Strong, equal hand adjunct phlebotomy instructor bilaterally. No VTE prophylaxis required. Medication's Wasted: Lidocaine 1% = 17 mL. Medication's Wasted: Nitro = 49.8 mg. Medication's Wasted: Heparin = 4000 units. Medication's Wasted: Lasix = 80 mg. Total IV fluids: 328 mL. Post-op diagnosis: Severe Proximal CX/1st Om stenosis, CLINICAL SERVICES SPECIALIST of the RCA. Complications: none. Estimated blood loss: 5mL-10mL. Procedure completed. Patient transferred by wheelchair to 1st floor. Vital chart was stopped. Access Site Site: Right Radial artery Sheath Size: 6 Fr Hemostasis Method: TR Band Hemostasis Success: Successful Procedure Medications Start: 10:51 AM Stop: 10:51 AM Medication: Versed Amount: 1 mg Route: I.V. Start: 10:51 AM Stop: 10:51 AM Medication: Fentanyl Amount: 50 mcg Route: I.V. Start: 10:51 AM Stop: 10:51 AM Medication: Benadryl Amount: 50 mg Route: I.V. Start: 10:56 AM Stop: 10:56 AM Medication: Versed Amount: 1 mg Route: I.V. Start: 10:56 AM Stop: 10:56 AM Medication: Fentanyl Amount: 50 mcg Route: I.V. Start: 10:59 AM Stop: 10:59 AM Medication: Nitrogylcerin Amount: 200 mcg Route: I.A. Start: 10:59 AM Stop: 10:59 AM Medication: Verapamil Amount: 5 mg Route: I.A. Start: 11:00 AM Stop: 11:00 AM Medication: Versed Amount: 1 mg Route: I.V. Start: 11:03 AM Stop: 11:03 AM Medication: 0.9% Saline Amount: 250 ml Route: I.V. bolus Start: 11:03 AM Stop: 11:03 AM Medication: Heparin Amount: 5000 units Route: I.V. Start: 11:24 AM Stop: 11:24 AM Medication: Versed Amount: 1 mg Route: I.V. Start: 11:28 AM Stop: 11:28 AM Medication: Lasix (furosemide) Amount: 20 mg Route: I.V. Start: 11:34 AM Stop: 11:34 AM Medication: Heparin Amount: 5000 units Route: I.V. Start: 11:51 AM Stop: 11:51 AM Medication: Fentanyl Amount: 50 mcg Route: I.V. Start: 11:56 AM Stop: 11:56 AM Medication: Versed Amount: 1 mg Route: I.V. Start: 11:57 AM Stop: 11:57 AM Medication: Heparin Amount: 2000 units Route: I.V. I, the attending physician, have reviewed and verified all procedure medications. Yes, all medications given per verbal order History/Risk Factors Hypertension: Yes Dyslipidemia: No Peripheral Arterial Disease (PAD): No Myocardial Infarction (SC): Yes Obesity: Yes Renal Disease: No Tobacco Use: Current/Recent(w/in 1 year) Prior Interventions PCI: Yes CABG: No Valve Surgery: No Report Signatures Interventional Workflow Finalized by Ulices Hardwick MD on 02/22/2021 12:05 PM Diagnostic Workflow Finalized by Dr Irasema Patel MD [facility] on 02/10/2021 05:55 PM
--- NOTE | 2021-02-10 10:48 | W.PM.OPSUD ---
Surgery/Procedure H&P Update DATE OF PROCEDURE: February 10, 2021 DATE H&P PERFORMED: 02/06/21 H&P UPDATE INFORMATION: I have reviewed H&P completed within last 30 days and I have examined patient prior to procedure PREOP DIAGNOSIS: ASHD/abnormal stress test PRIMARY INDICATION FOR PROCEDURE: As above PLANNED PROCEDURE: Operation Date: 02/10/21 13:30 Proposed Procedures p Cardiac Catheterization(Left) - Irasema Patel MD PATIENT REASSESSED PRIOR TO SEDATION, WITH NO CHANGE NOTED: Yes PHYSICAL EXAM: alert, clear to auscultation bilaterally and regular rate & rhythm AIRWAY EVAL/ANESTHESIA PLAN: normal airway, see other exam findings, ASA III, Monitored Anesthesia, Local Anesthesia, Risks, benefits & alternatives of sedation and/or procedure discussed and Patient agrees to continue as planned
--- NOTE | 2021-02-10 11:30 | PC.NURSE ---
Patient taken to heart medical lab assistant
--- NOTE | 2021-02-10 13:41 | PM.PN ---
Subjective Subjective: Interval history: This morning he is doing all right. He gradually continues to improve constantly having cough, some wheezing. Vitals/I&O/Wt Last Vital Signs Temp 97.2 F L 02/10/21 08:00 Pulse 80 02/10/21 08:00 Resp 14 02/10/21 08:00 BP 112/70 02/10/21 08:00 Pulse Ox 93 02/10/21 08:00 02/09/21 02/10/21 02/10/21 22:59 06:59 14:59 Intake Total 632 / 1522 50 / 1572 Output Total 250 / 250 Balance 632 / 1522 -200 / 1322 Physical Exam Const: COMMON NORMALS: no acute distress and patient oriented x3 GENERAL APPEARANCE: cooperative NUTRITIONAL APPEARANCE: overweight OTHER: Sitting up in bed. Pleasant, conversant. HENMT: COMMON NORMALS: oropharynx normal Neck/C-Spine: COMMON NORMALS: no JVD Resp: COMMON NORMALS: normal respiratory effort AUSCULTATION: no rhonchi and wheezes (Now mild to none) Cardio: COMMON NORMALS: no JVD, regular rhythm, S1 normal heart sound present, S2 normal heart sound present and No murmurs present (Cardio) RHYTHM: regular rhythm HEART SOUNDS: S1 normal heart sound present and S2 normal heart sound present GI: COMMON NORMALS: Normal to inspection, nondistended, normoactive bowel sounds present, Soft to palpation and non-tender PALPATION: Yes Soft to palpation Extremity: COMMON NORMALS: no joint enlargement GENERAL: Yes edema (trace if any) Neuro: COMMON NORMALS: patient oriented x3 and moves all extremities Skin: COMMON NORMALS: no rashes or lesions noted GENERAL SKIN EXAM: no rashes or lesions noted Data : 02/10/21 07:19 02/10/21 07:19 A&P Assessment and plan (1) Ventricular tachycardia: Significant CAD noted in several vessels per discussion with cardiology during angiogram, currently undergoing PCI, stenting. Continue post PCI care. Continue metoprolol, amiodarone. Cardiology plans to also reprogram his ICD to prevent discharge and response to atrial fibrillation. Status post several discharges of ICD preadmission. TTE with improvement in EF to 40%. Mildly dilated LV cavity with diffuse hypokinesia. Mildly increased LA size. No effusion. Status: Acute (2) Hypoxia: COPD exacerbation gradually improving but still wheezing,, still somewhat diminished air entry, continue IV steroids currently. Still requiring 2 L of oxygen during the day. Continue nebulizer treatments. Possible pneumonia. Sputum culture so far with moderate mixed upper respiratory tomas. Continue Zosyn. He is a current smoker. Has history of YURY with nocturnal hypoxia. Status: Acute (3) Fever: Resolved. As above. Continue Zosyn for pneumonia. Negative COVID-19 PCR. Urine bacterial antigens negative. Negative MRSA PCR. Status: Acute Qualifiers: Fever type: unspecified Qualified Code(s): R50.9 - Fever, unspecified (4) Hypokalemia: Status: Acute (5) Cardiac defibrillator in place: Pocket well-healed old scar. No signs of infection. Without any erythema, no swelling, no tenderness over palpation. Status: Acute Attestations Medical Necessity Statement*: Continue admission for assessment of management of CAD and several vessels, requiring PCI, stenting, with arrhythmia, ICD discharges prior to admission. Continue treatment of COPD exacerbation, pneumonia. Coding Level of Care Code Acute C 40A Crew Chief for [facility] Diagnoses Ventricular tachycardia I47.2 Hypoxia R09.02 Fever R50.9 Fever type: unspecified Hypokalemia E87.[address] Z95.810
--- NOTE | 2021-02-10 15:00 | PC.NURSE ---
Between 1400 and 1500 air removed from TR band in 3 ml increments. No bleeding. No hematoma. Site cleaned and dressed with 2x2 and opsite.
--- NOTE | 2021-02-10 16:28 | PC.RESP ---
SMOKING CESSATION INFORMATION SENT TO PATIENT.
--- NOTE | 2021-02-10 19:33 | PC.NURSE ---
Shift Note Frequent safety and comfort rounds continue. Orders and/or nursing care completed as indicated. Patient monitored for response to intervention and treatment(s). Education provided includes[physical restrictions of right arm.]. Patient and/or sales representative gas service [states understanding]. Will continue to monitor.
--- NOTE | 2021-02-10 19:42 | PC.NURSE ---
NS running at 75 ml/hr upon my arrival on shift. Dr. Hardwick ordered to stop fluids at 9 pm.
--- NOTE | 2021-02-10 22:26 | PC.NURSE ---
Spoke with Dr. Solano. Lovenox is due at this time. Ordered to stop Lovenox.
[2021-02-11] MEDS: HYDROcodone-acetaminophen 10-325 mg Tablet 1 TAB PO ×2 (01:16→08:01)
[2021-02-11] MEDS: piperacillin-tazobactam 3.375 GM in sodium chloride 0.9% (plus) 50 ML IV ×2 (01:17→08:00)
--- NOTE | 2021-02-11 03:30 | PC.NURSE ---
Shift Note Frequent safety and comfort rounds continue. Orders and/or nursing care completed as indicated. Patient monitored for response to intervention and treatment(s). Education provided includes post-cath activity and care. Patient and/or industrial relations representative verbalized understanding. Will continue to monitor.
[2021-02-11 04:00] VITALS: BP 129/83; PULSE 61; PULSE 74; RESP 22; TEMP 36.4; O2SAT 91
[2021-02-11 07:51] VITALS: BP 142/80; PULSE 113; RESP 29; TEMP 36.2; O2SAT 89
[2021-02-11] MEDS: spironolactone 25 mg Tablet PO (08:00)
[2021-02-11] MEDS: aspirin 81 mg EC Tablet PO (08:00)
[2021-02-11] MEDS: FUROsemide 20 mg Tablet PO (08:00)
[2021-02-11] MEDS: clopidogrel 75 mg Tablet PO (08:00)
[2021-02-11] MEDS: metoprolol tartrate 50 mg Tablet 100 MG PO (08:00)
[2021-02-11] MEDS: divalproex DR 500 mg Tablet PO (08:00)
[2021-02-11] MEDS: sacubitril/valsartan 24-26 mg Tablet 2 EACH PO (08:00)
[2021-02-11] MEDS: amiodarone 200 mg Tablet 400 MG PO (08:00)
[2021-02-11] MEDS: pantoprazole DR 40 mg Tablet PO (08:01)
[2021-02-11] MEDS: atorvastatin 40 mg Tablet 80 MG PO (08:01)
[2021-02-11] MEDS: guaiFENesin 600 mg Tablet 1200 MG PO (08:01)
[2021-02-11 08:03] LABS: Basophils # 0.1 10^3/uL (0.0-0.1); Basophils % 0.6 %; Hematocrit 42.6 % (42.0-52.0); Hemoglobin 14.3 g/dL (11.7-16.6); Lymphocytes # 1.2 10^3/uL (0.8-4.8); Lymphocytes % 5.7 %; Mean Corpuscular HGB Conc 33.6 g/dL (30.0-36.0); Mean Corpuscular Hemoglobin 38.3 pg (28.0-34.0); Mean Corpuscular Volume 114.2 fl (80-94); Mean Platelet Volume 10.5 fL (7.4-10.4); Monocytes # 0.9 10^3/uL (0.2-0.9); Monocytes % 4.3 %; Neutrophils # 18.44 10^3/uL (1.8-7.7); Neutrophils % 85.1 %; Nucleated Red Blood Cells % 0 %; Platelet Count 483 10^3/cmm (130-400); Red Blood Count 3.73 10^6/uL (4.1-5.3); Red Cell Distribution Width 13.3 % (12.1-15.1); White Blood Count 21.7 10^3/uL (4.0-10.0)
[2021-02-11 08:06] VITALS: PULSE 86; RESP 18; O2SAT 95
--- NOTE | 2021-02-11 09:06 | PC.SOCIAL ---
Pg 2 IMM Explained to pt Pg 2 IMM. No questions voiced. Provided pt a copy. Initialed, dated, & timed a copy & placed in chart.
--- NOTE | 2021-02-11 10:16 | P.PN_ITS ---
Subjective Subjective: Interval history: HPI: Carlos Alberto Morrow is a 45 year old male with a history of coronary artery disease, family history of premature CAD, former heavy alcoholic status, chronic active smoker, post multiple PCI's, status post ICD implantation for malignant ventricular arrhythmia, apparently had a ICD discharges on presentation. EMS found him in wide-complex tachycardia. He was started on IV amiodarone. He was cardioverted. He had the first myocardial infarction at the age of 31. He had ICD implantation in 2008 in [place] for the first time. 4 years ago, the device was revised in [facility] by Dr. Magallanes . He has a [employer] device. The device interrogation yesterday revealed two ATPs and 2 ICD discharges within the last 12 hours. He was tested negative for COVID-19 in the ER . He underwent stress test that was abnormal and hence underwent coronary angiogram and intervention to circumflex and obtuse marginal artery yesterday. Sub: Patient is s/p left heart cath and intervention to circumflex and obtuse marginal artery lesion yesterday. He is doing well post procedure. His shortness of breath has improved and he is eager to go home. Medications: Reviewed: Yes Vitals/I&O/Wt Last Vital Signs Temp 97.1 F L 02/11/21 07:51 Pulse 86 02/11/21 08:06 Resp 18 02/11/21 08:06 BP 142/80 02/11/21 07:51 Pulse Ox 95 02/11/21 08:06 02/10/21 02/11/21 02/11/21 22:59 06:59 14:59 Intake Total 770 / 1220 1250 / 2470 Output Total 1010 / 1810 900 / 2710 Balance -240 / -590 350 / -240 Physical Exam Narrative: EXAM NARRATIVE: GENERAL: Obese man sitting in bed in no acute distress HEENT: Pupils equal round reactive to light. No pallor or icterus. NECK: No JVD appreciated CARDIOVASCULAR SYSTEM: S1-S2 regular. No S3 or S4 present. No murmur rubs or gallops. RESPIRATORY SYSTEM: Chest clear to auscultation. No wheezes rhonchi heard. No use of accessory muscles. ABDOMEN: Soft, nontender and obese. Normal bowel sounds present. EXTREMITIES: No cyanosis or clubbing. No edema. 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 No focal neurological deficits. Data : 02/11/21 06:35 02/10/21 07:19 Micro: Microbiology 02/06/21 09:30 Blood Culture - Final Blood NO GROWTH AFTER 5 DAYS 02/06/21 09:25 Blood Culture - Final Blood NO GROWTH AFTER 5 DAYS 02/07/21 21:20 Gram Stain - Final Sputum - Expectorated Sputum Sputum Culture - Final Attestation for Other Data: I personally reviewed and interpreted the following: Other data: Transthoracic echocardiogram 16 transthoracic echocardiogram 06 February 2021 CONCLUSIONS Mildly dilated LV cavity with diffuse hypokinesia. Mildly increased left atrial size. LV ejection fraction around 40%. There is no pericardial effusion. The right-sided valves were not visualized because of the technical issues. LV Ejection fraction was performed with contrast echo. Comparison with the previous study is difficult because of the difference in the technical quality. A&P Assessment and plan (1) Atherosclerosis of coronary artery of [place] heart without angina pectoris: Patient underwent left heart catheterization with left and right coronary angiogram and an aortogram today. He was found to have a high-grade lesion in the proximal circumflex artery and had a high-grade in-stent stenosis in the first obtuse marginal artery. The LAD was found to have no significant stenotic lesions. The right coronary artery was found to be totally occluded with fairly good [id number] collaterals. Patient underwent a PCI of the circumflex/obtuse marginal artery lesion. -Continue DAPT, statin and beta-anna. -Stable to be discharged home. -Follow-up with Ms. Mya Valenzuela in 1 week for BMP and site check. -Follow-up with Dr. Patel in 6 weeks. Status: Acute Qualifiers: Coronary Disease-Associated Artery/Lesion type: [place] artery Qualified Code(s): I25.10 - Atherosclerotic heart disease of [place] coronary artery without angina pectoris (2) ICD (implantable cardioverter-defibrillator) discharge: ICD discharges for A. fib/flutter with RVR -currently on amiodarone 400 mg twice daily, -continue at same dose for another 7 days and then decrease to amiodarone 200 mg daily. Status: Acute (3) Ischemic cardiomyopathy: Currently on Entresto, Aldactone and metoprolol tartrate. -Transition to metoprolol succinate. Status: Acute (4) Atrial fibrillation: Runs of A. fib/flutter with RVR causing ICD discharge - restart Eliquis. -Continue amiodarone to maintain sinus rhythm. Status: Acute Qualifiers: Atrial fibrillation type: unspecified chronic Qualified Code(s): I48.20 - Chronic atrial fibrillation, unspecified (5) Benign essential hypertension with target blood pressure below 140/90: The blood pressure seems to be fairly under control. May continue on the current medications. Status: Acute Additional A&P Information Pneumonia Current active smoker: Counseled on smoking cessation patient voiced his willingness to quit. Obstructive sleep apnea Attestations Medical Necessity Statement*: Patient is stable to be discharged home from cardiac standpoint. Time Spent in Patient Care: 16 - 35 minutes (>than 50% of time spent in counselling and/or direct pt care on unit) . 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
--- NOTE | 2021-02-11 10:37 | P.DS_ITS ---
Discharge Providers Date of Admission: 02/06/21 08:54 Date of Discharge: February 11, 2021 Attending Provider at Admission: Karin Funk MD Attending Provider at Discharge: Wolfgang Mcaedo Primary Care Provider: Jonny Gifford Diagnoses at Discharge Discharge Diagnosis (1) Atherosclerosis of coronary artery of [place] heart without angina pectoris: Status: Acute Qualifiers: Coronary Disease-Associated Artery/Lesion type: [place] artery Qualified Code(s): I25.10 - Atherosclerotic heart disease of [place] coronary artery without angina pectoris (2) ICD (implantable cardioverter-defibrillator) discharge: Status: Acute (3) Ischemic cardiomyopathy: Status: Acute (4) Benign essential hypertension with target blood pressure below 140/90: Status: Acute (5) Atrial fibrillation: Status: Acute Qualifiers: Atrial fibrillation type: unspecified chronic Qualified Code(s): I48.20 - Chronic atrial fibrillation, unspecified (6) Fever: Status: Acute Qualifiers: Fever type: unspecified Qualified Code(s): R50.9 - Fever, unspecified Reason for Visit Reason for Visit: CP Hospital Course Hospital Course Very pleasant 45-year-old gentleman with history of ischemic cardiomyopathy, ICD in place, CAD, HTN, current smoker, COPD was admitted due to ICD discharge. Hospitalization, with reported ventricular tachycardia, as well as respiratory symptoms over the preceding week, with productive cough, dyspnea and having to use oxygen worse previously using oxygen only at night. He was assessed by cardiology, treated with amiodarone drip, and metoprolol dose was increased from 50 to 100 mg. Amiodarone transition to 400 mg twice daily by mouth. While in hospital noted episodes of atrial fibrillation. Due to hypoxia, respiratory symptoms was tested for COVID-19 which was negative. He has not received vaccination. Due to possible pneumonia, with episode of fever, was treated with Zosyn. Continue inhalers for COPD exacerbation, due to persistent symptoms, wheezing, productive cough with purulent sputum in addition to antibiotic steroid was added as well. His oxygenation gradually improved, oxygen requi rement came down from 5 L to 2 L. Purulent secretions improving/resolving. Air entry improving, wheezing improving. He eventually underwent stress testing which was found abnormal with perfusion scan indicating multiple areas of abnormal tracer uptake, LVEF 53%, diffuse hypokinesis of septum and apical regions. He was additionally assessed by coronary angiography with finding of multifocal CAD with high-grade lesions stented in circumflex artery and in-stent stenosis of OM1. With also disease noted in RCA with total occlusion. Please see final report once available. He is feeling quite significantly better. Feels ready to return home. Prescription with cardiology they like to continue Plavix and Eliquis, together with aspirin for about a month at which point aspirin may be discontinued. He is otherwise continuing on metoprolol, tapering dose of amiodarone, statin, Entresto. For COPD exacerbation, pneumonia, he will complete prednisone taper, antibiotic course with cefdinir, continue with Combivent, albuterol as needed. He is asked to stop smoking. Please aid him in achieving cessation. Physical Exam Const: COMMON NORMALS: no acute distress and patient oriented x3 HENMT: COMMON NORMALS: oropharynx normal Neck/C-Spine: COMMON NORMALS: no JVD Resp: COMMON NORMALS: normal respiratory effort and clear to auscultation bilaterally AUSCULTATION: clear to auscultation bilaterally Cardio: COMMON NORMALS: no JVD, regular rhythm, S1 normal heart sound present, S2 normal heart sound present and No murmurs present (Cardio) RHYTHM: regular rhythm HEART SOUNDS: S1 normal heart sound present and S2 normal heart sound present GI: COMMON NORMALS: Normal to inspection, nondistended, normoactive bowel sounds present, Soft to palpation and non-tender PALPATION: Yes Soft to palpation Extremity: COMMON NORMALS: no joint enlargement and no pedal edema OTHER: Right wrist access site clean, no swelling bruising, no pulsatile mass. Neuro: COMMON NORMALS: patient oriented x3 and moves all extremities Skin: COMMON NORMALS: no rashes or lesions noted GENERAL SKIN EXAM: no rashes or lesions noted Discharge Data Data Completed and Pending: Completed Studies During Hospitalization Category Date Time Status Cardiac Stress Te st MIBI [Sestamibi Stress Test Reque st Exams 02/09/21 09:17 Completed ] Routine XR chest 1V kacie ble [id number] Urgent Exams 02/05/21 19:59 Completed NM alfonso perf SPECT r/s* [id number] Routin e Nuc Med 02/09/21 09:17 Completed CV. echo wo/w con trast [id number] Routin e Ultrasound 02/06/21 10:04 Completed Pending at discharge Category Date Time Status METAL BURRER request for service Routin e Exams 02/10/21 10:35 Ordered Basic Metabolic P deo AM LABS Lab 02/12/21 04:00 Ordered Basic Metabolic P deo Routine Lab 02/11/21 08:29 Ordered Complete Blood Co unt w/Auto AM LABS Lab 02/12/21 04:00 Ordered Labs from last 24 hours 02/11/21 02/11/21 06:35 06:35 WBC 21.7 H RBC 3.73 L Hgb 14.3 Hct 42.6 MCV 114.2 H MCH 38.3 H MCHC 33.6 RDW 13.3 Plt Count 483 H MPV 10.5 H Neut % (Auto) 85.1 Lymph % (Auto) 5.7 Walker % (Auto) 4.3 Eos % (Auto) 0.0 Baso % (Auto) 0.6 Neut # (Auto) 18.44 H Lymph # (Auto) 1.2 Walker # (Auto) 0.9 Eos # (Auto) 0.0 Baso # (Auto) 0.1 Nucleated RBC % (a uto) 0 Nucleated RBCs # 0.0 Sodium Cancelled Potassium Cancelled Chloride Cancelled Carbon Dioxide Cancelled Anion Gap Cancelled BUN Cancelled Creatinine Cancelled GFR Calculation Cancelled Glucose Cancelled Calculated Osmolal ity Cancelled Calcium Cancelled Vitals: Last Vital Signs Temp 97.1 F L 02/11/21 07:51 Pulse 86 02/11/21 08:06 Resp 18 02/11/21 08:06 BP 142/80 02/11/21 07:51 Pulse Ox 95 02/11/21 08:06 Discharge Plan Discharge Patient Disposition: Home Condition: Stable Prescriptions: New Combivent Respimat 20-100 mcg/actuation Mist 1 puff inhalation QID.RESPIRATORY Qty: 4 RF: 0 guaifenesin [Mucinex] 600 mg Tablet Extended Release 12hr 1,200 mg PO BID Qty: 60 RF: 0 spironolactone 25 mg Tablet 25 mg PO DAILY Qty: 30 RF: 0 benzonatate 100 mg Capsule 100 mg PO TID PRN (Reason: Cough) Qty: 30 RF: 0 prednisone 10 mg tablet 10 mg PO DAILY Qty: 20 RF: 0 metoprolol succinate 100 mg tablet extended release 24 hr 100 mg PO BID Qty: 60 RF: 3 amiodarone 200 mg tablet 400 mg PO BID Qty: 120 RF: 2 apixaban 5 mg (74 tabs) tablets,dose pack See Rx Instructions .ROUTE .COMPLEX Qty: 74 RF: 0 cefdinir 300 mg capsule 300 mg PO BID 5 Days Qty: 10 RF: 0 Continued albuterol sulfate [ProAir HFA] 90 mcg/actuation HFA aerosol inhaler 1 inh inhalation Q6H PRN (Reason: shortness of breath or wheezing) 30 Days Qty: 8.5 RF: 2 multivitamin Tablet 1 tab PO DAILY@07 RF: 0 potassium chloride 8 mEq capsule, extended release 8 meq PO DAILY@07 RF: 0 buspirone 10 mg tablet 10 mg PO TID PRN (Reason: Anxiety) RF: 0 Nitrostat 0.4 mg Tablet, Sublingual 0.4 mg SUBLINGUAL Q5M PRN (Reason: Chest Pain) RF: 0 Lasix 20 mg Tablet 20 mg PO DAILY@07 RF: 0 garlic Tablet 1 tab PO DAILY RF: 0 potassium gluconate 595 mg (99 mg) Tablet 595 mg PO DAILY PRN (Reason: will take when out of rx kcl) RF: 0 BC Pain Relief 845-65 mg Powder In Packet 1 ea PO PRN PRN (Reason: see pharmacy comments) RF: 0 Entresto 49-51 mg tablet 1 tab PO BID@,13 RF: 0 atorvastatin 80 mg tablet 80 mg PO DAILY@07 RF: 0 clopidogrel 75 mg tablet 75 mg PO DAILY@07 RF: 0 divalproex 500 mg tablet,delayed release (DR/EC) 500 mg PO BID@,13 RF: 0 amlodipine 10 mg tablet 10 mg PO DAILY@07 RF: 0 hydrocodone-acetaminophen 10-325 mg tablet 1 tab PO Q6H PRN (Reason: Pain) RF: 0 folic acid 1 mg Tablet 1 mg PO DAILY Qty: 30 RF: 0 aspirin 81 mg Tablet,Delayed Release (Dr/Ec) 81 mg PO DAILY@07 Qty: 0 RF: 0 Discontinued metoprolol tartrate 50 mg tablet 50 mg PO BID@,13 RF: 0 Discharge Orders: Discharge Order (Routine); Ordered 02/11/21 Ordered By: Wolfgang Macedo Referrals: Carin Chavez MD [Family Provider] - Irasema Patel MD [Physician] - 2 weeks ([facility] will contact you to schedule an follow-up appointment. If you haven't heard from them by Saturday. Please call ) Jonny Gifford [Primary Care Provider] - 4-7 days Mya Valenzuela FNP [Nurse Practitioner] - 1 week ([facility] will contact you to schedule an follow-up appointment in 1 week. If you haven't heard from them by Saturday. Please call ) Discharge Diet: Cardiac Discharge Activity: Increase activity as tolerated and Oxygen as instructed Patient Instructions: Metoprolol (By mouth), Spironolactone (By mouth), Prednisone (By mouth), Clopidogrel (By mouth), Cefdinir (By mouth), Prednisolone (By mouth), Apixaban (By mouth), Coronary Artery Disease (GEN), Left Heart Catheterization (DC), How to Stop Smoking (GEN), Cigarette Smoking and Your Health (GEN), Chronic Obstructive Pulmonary Disease (GEN), Opioid Safety, Post Angiogram Home Care Instructions Activity Restrictions/Additional Instructions: Please stop smoking. Continued smoking will worsen your lung disease, hypoxia, lead to progression of coronary disease, heart attack, risk of stroke, as well as risk of multiple different cancers. Please never smoke anywhere near oxygen due to severe fire hazard. If you experience chest pain or pressure, severe shortness of breath, very fast heart rate, or other concerning symptoms, please seek medial attention. Please note that Plavix, Eliquis can increase your risk of bleeding. Please avoid injury at any cost. In case you experience bleeding seek medical att ention. Please make sure not to stop to take your Plavix as this may be life-threatening risking blockage of the stents and heart attack. Please obtain vaccination for COVID-19 to protect herself from the infection as you have risk factors for severe disease. Discharge Attestations Time Spent in Discharge Care*: greater than 30 min Quality Metrics Clinical Quality Measures During this hospital stay, did patient experience: None Coding Level of Care Code Acute g FW DC note Diagnoses Atherosclerosis of coronary artery of [place] heart without angina pectoris I25.10 Coronary Disease-Associated Artery/Lesion type: [place] artery ICD (implantable cardioverter-defibrillator) discharge Z45.02 Ischemic cardiomyopathy I25.5 Benign essential hypertension with target blood pressure below 140/90 I10 Atrial fibrillation I48.20 Atrial fibrillation type: unspecified chronic Fever R50.9 Fever type: unspecified
[2021-02-11 11:26] VITALS: PULSE 85; RESP 18; O2SAT 93
[2021-02-11 11:37] VITALS: O2SAT 86; O2SAT 93; O2SAT 95
[2021-02-11 12:24] VITALS: PULSE 85; RESP 18; O2SAT 93
[2021-02-11] MEDS: apixaban 5 mg Tablet PO (12:28)
[2021-02-11 12:32] LABS: Blood Urea Nitrogen 15 mg/dL (6-20); Calcium 8.7 mg/dL (8.5-10.5); Carbon Dioxide 27 mmol/L (22-29); Chloride 95 mmol/L (98-107); Glomerular Filtration Rate 120.9 mL/min (90-130); Glucose 113 mg/dL (65-115); Osmolality Calculated 280 mOsm/kg (285-295); Sodium 134 mmol/L (136-145)
--- NOTE | 2021-02-11 12:33 | PC.NURSE ---
Discharge Note Patient discharged to Home via private vehicle accompanied by spouse . Discharge instructions reviewed with patient and/or financial sales representative. Mobile pharmacy medications and/or prescriptions provided. Belongings/home medications returned.
[2021-02-11 12:36] LABS: Anion Gap 16.3 (5-19); Potassium 4.3 mmol/L (3.5-5.1)
--- NOTE | 2021-02-15 08:59 | PC.SOCIAL ---
discharge follow up call made. patient had medications delivered to his room prior to discharge, taking as prescribed. states he feels much better and he can actually breath. Pt continues to use 2L O2 NC. Has follow up appointments with Dr. Patel and Mya Valenzuela. Will make his appointment with .
== END 2021-02-11 12:32 | disposition home or self-care (01) | DRG 247 ==
LOC: ER 23:40 → CSU 23:56
PROVIDERS: Internal Medicine; Internal Medicine Cardiovascular Disease; Admitting Provider Student in an Organized Health Care Education/Training Program; Emergency Provider Emergency Medicine; Family Provider Family Medicine; PCP Family Medicine; Visit Provider Internal Medicine
DX: T82.855A Stenosis of coronary artery stent, initial encounter (principal); I47.2 Ventricular tachycardia; I48.20 Chronic atrial fibrillation, unspecified; J44.1 Chronic obstructive pulmonary disease with (acute) exacerbation; J44.0 Chronic obstructive pulmonary disease with (acute) lower respiratory infection; Z95.810 Presence of automatic (implantable) cardiac defibrillator; Y71.1 Therapeutic (nonsurgical) and rehabilitative cardiovascular devices associated with adverse incidents; I25.10 Atherosclerotic heart disease of native coronary artery without angina pectoris; F17.210 Nicotine dependence, cigarettes, uncomplicated; I25.5 Ischemic cardiomyopathy; I10 Essential (primary) hypertension; E87.6 Hypokalemia; Z99.81 Dependence on supplemental oxygen; I25.2 Old myocardial infarction; F10.20 Alcohol dependence, uncomplicated; Z82.49 Family history of ischemic heart disease and other diseases of the circulatory system; E83.42 Hypomagnesemia; G47.33 Obstructive sleep apnea (adult) (pediatric); Z79.82 Long term (current) use of aspirin; Z79.891 Long term (current) use of opiate analgesic; Z79.02 Long term (current) use of antithrombotics/antiplatelets; Z79.51 Long term (current) use of inhaled steroids
CPT/HCPCS: 36415; 71045; 78452; 80048; 80053; 81003; 83735; 83880; 84484; 85007; 85025; 85378; 85610; 85730; 86403; 87040; 87070; 87205; 87426; 87449; 87635; 87641; 93005; 93017; 93452; 94640; 96365; 96366; 96372; 99285; A9500; C1725; C1769; C1874; C1887; C1894; C8929; C9600; G0378; J0282; J1200; J1644; J1650; J1940; J2250; J2270; J2543; J2785; J2930; J3010; J3475; J3490; J3535; J7030; J7060; Q9956; Q9967

== ENCOUNTER → 2021-02-20 09:57 | Outpatient (BNVA) | payer MEDICARE, MEDICAID, SELFPAY | PROVIDERS: Family Provider Family Medicine; PCP Family Medicine; Visit Provider Nurse Practitioner Family | DX: Z09 Encounter for follow-up examination after completed treatment for conditions other than malignant neoplasm (principal); I25.10 Atherosclerotic heart disease of native coronary artery without angina pectoris; Z79.899 Other long term (current) drug therapy | CPT/HCPCS: 80048 ==

== ENCOUNTER 2021-10-03 18:27 | Inpatient (IN) | payer MEDICARE, MEDICAID, SELFPAY ==
[2021-10-03] VITALS (66 sets, daily range): BP systolic 56–138; BP diastolic 44–99; PULSE 70–159; RESP 10–29; TEMP 36.7–37; O2SAT 87–99; BMI 38.4
--- NOTE | 2021-10-03 18:31 | ECG_ITS ---
[facility] Test Date: 2021-10-03 Pat Name: Carlos Alberto Morrow Department: Room: Gender: Male Mother'S Helper: : 1975 Requested By: Prieto Saldaña Order Number: [id number] Suraj MD: Raquel Solano M.D. Measurements Intervals [place] Rate: 143 P: [place]: QRS: -76 QRSD: 160 T: 97 QT: 337 QTc: 521 Interpretive Statements Ventricular tachycardia Compared to ECG 02/06/2021 08:36:11 Sinus tachycardia no longer present Myocardial infarct finding no longer present Electronically Signed On 10-04-2021 6:35:08 CDT by Raquel Solano M.D. [email or web address]
[2021-10-03] MEDS: LORazepam 2 mg/mL INJ 1 mL IVP (18:36)
[2021-10-03] MEDS: metoprolol tartrate 1 mg/1 mL SDV 5 mL 5 MG IVP ×2 (18:37→18:40)
[2021-10-03 18:40] LABS: Basophils # 0.1 10^3/uL (0.0-0.1); Basophils % 0.5 %; Eosinophils # 0.1 10^3/uL (0.0-0.8); Eosinophils % 1.4 %; Hematocrit 44.3 % (42.0-52.0); Hemoglobin 15.8 g/dL (11.7-16.6); Lymphocytes # 1.4 10^3/uL (0.8-4.8); Mean Corpuscular HGB Conc 35.7 g/dL (30.0-36.0); Mean Corpuscular Hemoglobin 35.5 pg (28.0-34.0); Mean Corpuscular Volume 99.6 fl (80-94); Mean Platelet Volume 9.5 fL (7.4-10.4); Monocytes # 1.2 10^3/uL (0.2-0.9); Monocytes % 12.1 %; Neutrophils # 7.33 10^3/uL (1.8-7.7); Neutrophils % 71.4 %; Nucleated Red Blood Cells % 0 %; Platelet Count 277 10^3/cmm (130-400); Red Blood Count 4.45 10^6/uL (4.1-5.3); Red Cell Distribution Width 15.6 % (12.1-15.1); White Blood Count 10.3 10^3/uL (4.0-10.0)
[2021-10-03] MEDS: morphine 4 mg/mL SDV 1 mL IVP (18:43)
[2021-10-03] MEDS: sodium chloride 0.9% 1,000 ML 999 ML IV ×2 (18:50→19:30)
--- NOTE | 2021-10-03 18:52 | XRR_ITS ---
PROCEDURE INFORMATION: Exam: XR Chest Exam date and time: 10/03/2021 7:08 PM Age: 45 years old Clinical indication: Condition or disease; Cardiac pacemaker adjustment and management; Prior surgery; Surgery date: 6+ months; Additional info: Vt TECHNIQUE: Imaging protocol: XR of the chest. Views: 1 view. COMPARISON: CR (CHEST, ) 02/05/2021 8:12 PM FINDINGS: Tubes, catheters and devices: There is a dual-lead cardiac AICD via left subclavian approach. Findings are stable. External defibrillator patches overlie the chest. Lungs: Lungs are clear bilaterally. Pleural spaces: No pleural effusion. No pneumothorax. Heart/Mediastinum: Stable moderate enlargement of the cardiac silhouette. Mediastinal contours are unremarkable. Bones/joints: Unremarkable for age. XR/XR chest 1V portable [id number] IMPRESSION: 1. No acute cardiopulmonary process. 2. Incidental/nonacute findings are listed in the report.
[2021-10-03] MEDS: midazolam 1 mg/mL INJ 2 mL 2 MG IVP (18:55)
--- NOTE | 2021-10-03 18:56 | P.CONIM_ITS ---
Providers/Reason For Consult Consulting Physician/Specialty*: FRANKLIN Patel MD/cardiology Reason for Consult*: Patient with ventricular tachycardia/ASHD/ICD implantation Primary Care Provider: Jonny Gifford History of Present Illness History of Present Illness Carlos Alberto Morrow is a 45 year old male with a history of sensory coronary disease, i ncessant ventricular tachycardia, atrial fibrillation, status post ICD implantation, is presenting with complaints of recurrent episodes of near syncope. He was found to be in ventricular tachycardia by the EMS. He was given simulates cardioversion 1 time in the ambulance. Since there was no resp onse, he was started on IV amiodarone. Since he came to our emergency room, he had 2 more attempted synchronized cardioversion. Apparently there was no response. Cardiology consult is requested for further cardiac evaluation recommendations. This patient was in the hospital in January of last year with a more or less similar symptoms. At that time, he was started on amiodarone. He was dischar ged home on amiodarone along with the medication. According the patient, he was compliant with the medication. For the last 4 days, he and his family had some kind of viral infection/stomach flu. He had a watery diarrhea for 3 days or so. Apparently he was not eating for the last 3 days or so. This afternoon, he started eating fried chicken and [place] fries. Prior to this he had a couple of shots of wine?. Soon after his meal, he started getting dizzy and lightheaded. He also started shaking all over. At this point, his called 911. As EMS arrived, he was in medically tachycardia. He had a 1 attempted cardioversion. Since there was no response, he was started on IV amiodarone in the ambulance. He had 150 mg of bolus. Currently he is on a maintenance dose. Patient denies any chest pain or chest tightness. No fever or chills. No cough. He was started on IV esmolol in the emergency room. At the time of my examination, patient seems to be in sinus rhythm. He had the first myocardial infarction at the age of 31.? He had ICD implantation in 2008 at [place] for the first time.? 4 years ago, the device was revised in [facility] by ? The details are not available.? Seems to have a [employer] device. The patient is a heavy alcoholic.? Current hemoglobin has not been drinking for 3 to 4 months. Even drinking very occasionally. His previous drink was more than 2 weeks ago. He also smokes at least half a pack a day now.? Used to be smoking 2 pack a day for 30 years or so.? No other substance abuse. He has a strong family history for premature atherosclerotic heart disease.? His mother had a myocardial infarction at the age of 31.? Her sister had a heart attack at age of 29.? 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 Review of Systems Narrative: CONSTITUTIONAL: No fever or chills. EYES: No blurring of vision or other visual disturbances lately. ENT: No hoarseness of voice, auditory disturbances or sore throat. CARDIOVASCULAR: As mentioned above. RESPIRATORY: No significant cough. GASTROINTESTINAL: Diarrhea for the last 3 days. GENITOURINARY: No dysuria or hematuria. INTEGUMENTARY: No skin rashes or history of skin cancer. NEURO: History of seizure disorder PSYCHIATRIC: No history of psychosis or major depression. HEMATOLOGIC: No bleeding disorders or significant anemia. ENDOCRINE: No history of polyuria or polydipsia. MUSCULOSKELETAL: No recent joint pain or swelling. ALLERGY/IMMUNOLOGY: As mentioned above. Medications/Allergies Home Medications Medication Instructions Recorded Confirmed Last Taken Type amlodipine 10 mg tablet 10 mg PO DAILY@04/09/20 10/04/21 04/09/20 History atorvastatin 80 mg tablet 80 mg PO DAILY@04/09/20 10/04/21 04/09/20 History clopidogrel 75 mg tablet 75 mg PO DAILY@04/09/20 10/04/21 04/09/20 History divalproex 500 mg tablet,delayed 500 mg PO BID 04/09/20 10/04/21 04/09/20 History release hydrocodone 10 mg-acetaminophen 1 tab PO Q6H PRN 04/09/20 10/04/21 Unknown History 325 mg tablet folic acid 1 mg tablet 1 mg PO DAILY #30 tab 04/10/20 10/04/21 Unknown Rx albuterol sulfate 90 mcg/actuation 1 inh INHALATION Q6H PRN 30 Days 06/02/20 10/04/21 Unknown Rx aerosol inhaler (ProAir HFA) #8.5 g aspirin-caffeine 845 mg-65 mg oral 1 ea PO PRN PRN 02/06/21 10/04/21 Unknown History powder packet (BC Pain Relief) buspirone 10 mg tablet 10 mg PO BID 02/06/21 10/04/21 Unknown History furosemide 20 mg tablet (Lasix) 20 mg PO DAILY@02/06/21 10/04/21 Unknown History multivitamin 1 tab PO DAILY@02/06/21 10/04/21 Unknown History potassium gluconate 595 mg (99 mg) 595 mg PO DAILY PRN 02/06/21 10/04/21 Unknown History tablet aspirin 81 mg tablet,delayed 81 mg PO DAILY@07 #0 tab 02/11/21 10/04/21 Unknown Rx release metoprolol succinate 100 mg 100 mg PO BID #60 tab 02/11/21 10/04/21 Unknown Rx tablet,extended release 24 hr apixaban 5 mg tablet (Eliquis) 5 mg PO BID 10/04/21 10/04/21 Unknown History nitroglycerin 0.4 mg sublingual 0.4 mg SUBLINGUAL Q5M PRN 10/04/21 10/04/21 Unknown History tablet (Nitrostat) sildenafil 100 mg tablet 50 - 100 mg PO DAILY PRN 10/04/21 10/04/21 Unknown History Allergies Allergy/AdvReac Type Severity Reaction Status Date / Time No Known Allergies Allergy Verified 10/04/21 08:16 Current Medications Generic Name Dose Route Start Last Admin Trade Name Freq PRN Reason Stop Dose Admin Sodium Chloride 1,000 mls @ 999 mls/hr 10/03/21 18:31 10/03/21 18:50 Sodium Chloride 0.9% IV 10/03/21 19:31 999 mls/hr .Q1H1M ONE Administration Amiodarone HCl 900 mg/ 518 mls @ 0 mls/hr 10/03/21 18:45 10/03/21 18:53 Dextrose/ IV Miscellaneous IV 0.96 mg/min Supplies .Q0M RICHARD 33.3 mls/hr Administration Protocol Per Protocol PFSH Acute 2 PFSH: Medical History Abnormal coronary angiogram Bronchitis Cardiac defibrillator in place Cardiomyopathy Coronary disease Heart failure with reduced ejection fraction History of cardioversion Hypertension ICD (implantable cardioverter-defibrillator) discharge Ischemic cardiomyopathy Nicotine dependence Pacemaker Pharyngitis Seizure disorder Shortness of breath Supraventricular tachycardia Ventricular tachycardia Surgical History AICD (automatic cardioverter/defibrillator) present H/O cardiac catheterization H/O hernia repair Family History Mother Family history of premature coronary artery disease Initial [place] age 31, at 60; his mother sister at the age of 20 and had a myocardial infarction. Maternal grandfather and grandmother of myocardial infarction in their 50s and 60s. One of his sisters had pacemaker placed placement CAD (coronary artery disease) Father Clotting disorder Bleeding disorder Family/Other CAD (coronary artery disease) Grandmother CAD (coronary artery disease) Grandfather CAD (coronary artery disease) Denies family history of Diabetes Dementia Chronic kidney disease (CKD) Suicide Anesthesia complication Lung disease Cancer Stroke Social History Smoking and tobacco status: current every day smoker cigarettes Packs smoked per day: 1 Years cigarettes smoked: 30 Alcohol intake: current Alcohol intake frequency: 3 or more drinks per day Alcohol type: hard liquor Housing: House Special eloise needs: No Vitals/I&O/Wt Last Vital Signs Temp 98.1 F 10/03/21 18:27 Pulse 145 H 10/03/21 18:48 Resp 21 H 10/03/21 18:48 BP 100/83 10/03/21 18:48 Pulse Ox 94 10/03/21 18:48 Weight last 48 hrs Weight 268 lb Physical Exam Narrative: GENERAL: The patient is alert and oriented times three. Not in any acute distress. HEENT: No significant pallor, icterus or lymphadenopathy. The pupils are reactant to light. Oral cavity: There are no mucous membrane lesions. Funduscopic examination: The disk margins appear to be sharp with no exudates or hemorrhages. NECK: Trachea appears to be central. No masses noted. No JVD or thyromegaly appreciated. No carotid bruit. RESPIRATORY: Chest is symmetrical. No intercostals muscle retraction or any accessory muscle activation. There is no chest wall tenderness. Breath sounds are heard bilaterally. No rales or rhonchi heard. No evidence of any consolidation. BREASTS: Deferred. HEART: The PMI could not be about. No palpable precordial events. S1 and S2 are normal. No S3 or S4 heard. No pericardial rub or any click heard. ABDOMEN: No vessel pulsations or distention. No tenderness. No organomegaly appreciated. No abdominal bruit. Bowel sounds are normally heard. : Deferred. RECTAL: Deferred. LYMPHATIC: No lymphadenopathy noted in the neck or groin. EXTREMITIES: No edema or cyanosis. No clubbing. The pulses are symmetrical bilaterally. The radial, femoral, dorsalis pedis and the posterior tibial pulses are palpated and found to be in good volume and amplitude. MUSCULOSKELETAL: No acute joint deformities or swelling SKIN: There are no significant scars or skin rash noted. NEUROPSYCHIATRIC: The patient is alert and oriented x3. Appears to be in a good mood. The higher functions are grossly within normal limits. No tremors or rigidity noted. Data : 10/04/21 05:07 10/04/21 05:07 Echo: My impression: On 02/09/2021 Mildly dilated LV cavity with diffuse hypokinesia.? ?Mildly increased left atrial size. ?LV ejection fraction around 40%. ?There is no pericardial effusion. ?The right-sided valves were not visualized because of the ?technical issues. ?LV Ejection fraction was performed with contrast echo. ?Comparison with the previous study is difficult because of the ?difference in the technical quality. Cardiac catheterization: My impression: 02/10/2021 * Coronary angiography shows right dominance. ? * Left main is a medium caliber short vessel with no significant stenotic lesions. ? * The left anterior descending artery is a medium caliber vessel which appears to bifurcate of the mid segment by giving a fair diagonal branch of equal caliber. The LAD proper appears to taper off towards the LV apex. Minimal intimal abnormalities were noted in the mid LAD and the proximal segment of the first diagonal. No significant stenotic lesions were seen.. ? * The left circumflex artery is a medium caliber vessel.? The proximal segment of the artery appears to be stented with severe diffuse in-stent narrowing.? The proximal segment of the first obtuse marginal artery also is stented with a severe diffuse in-stent narrowing.? The distal artery was found to have minimal intimal irregularities. ? * The intermedius artery is a high diagonal branch with mild diffuse disease.? No significant stenotic lesions. ? * The right coronary artery could not be engaged selectively.? With aortic root injection, the artery appears to be totally occluded.? Grade 2 to 3 [id number] collaterals were noted filling up? the PDA and the PLV branches during the left coronary injection.. EKG 1: My Interpretation: Nuclear tachycardia with a heart rate of 143 bpm. EKG computer-generated impression: Chest X-Ray 10/03/21 18:52 IMPRESSION: 1. No acute cardiopulmonary process. 2. Incidental/nonacute findings are listed in the report. A&P Assessment and plan (1) Ventricular tachycardia: Patient will be kept on IV amiodarone and the esmolol. Also he may be restarted on all his home medications. Myocardial infarction needs to be ruled out with serial enzymes and EKGs. Eliquis may be held at this time. May be started on Lovenox, weight-based Status: Acute (2) Atrial fibrillation: Eliquis may be held at this point. Start him on Lovenox, weight-based Status: Acute Qualifiers: Atrial fibrillation type: unspecified chronic Qualified Code(s): I48.20 - Chronic atrial fibrillation, unspecified (3) Benign essential hypertension with target blood pressure below 140/90: May continue on the current medications. Status: Acute (4) Atherosclerosis of coronary artery of [place] heart without angina pectoris: Serial cardiac enzymes and EKGs as mentioned above. Patient clinical progress, further recommendations will be made. Status: Acute Qualifiers: Coronary Disease-Associated Artery/Lesion type: [place] artery Qualified Code(s): I25.10 - Atherosclerotic heart disease of [place] coronary artery without angina pectoris (5) Cardiomyopathy: Clinically there is no evidence of any decompensation. Status: Acute (6) Seizure disorder: Continue on the current medications. Status: Acute Plan Other problems are as outlined before Consult Attestations Medical Necessity Statement: Consider doing a myocardial perfusion imaging, to evaluate for any underlying coronary ischemia causing the V. tach. 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
[2021-10-03] MEDS: esmolol drip 2,500 MG/250 ML PREMIX 36.47 MG IV ×2 (19:03→21:16)
[2021-10-03 19:04] LABS: Troponin(5th) Baseline 17 ng/L (0-15)
--- NOTE | 2021-10-03 19:13 | W.ED.GENADLT ---
HPI - General Adult General: Chief complaint: Arrhythmia/Palpitations Stated complaint: VTACH INTERMITTENT Time Seen by Provider: 10/03/21 18:30 History of Present Illness: Patient is a 45-year-old male with CAD with stent x8 presenting to the emergency room with paroxsymal wide complex tachycardia. Earlier today, patient reports that he was not feeling well throughout the day. Patient called EMS earlier noted that he was in ventricular tachycardia to the 180s 200s. In route patient received 1 cardioversion and 150 mg of amiodarone 10 minutes. On arrival, patient denies any active chest pain, LOC, shortness of breath, abdominal complaints nausea/vomiting, fever/chills. Patient is followed by Dr. Patel. On ekg monitor tech, patient showed ventricular tachycardia with intermittent capture beats. Patient has an ICD device but however did not get any shocks today. Onset: earlier today Duration:ongoing Location:home Severity:severe Associated symptoms: Reports palpitations; Deny chest pain, dyspnea, nausea, rash or vomiting Review of Systems Const: Denies: fever(s) or chills Eyes: Denies: change in vision ENMT: Denies: mouth pain Card: Reports: palpitations; Denies: chest pain Resp: Denies: dyspnea or non-productive cough GI: Denies: abdominal pain, nausea, vomiting or diarrhea : Denies: dysuria Musc: Denies: extremity pain Skin/Breast: Denies: rash or new lesions Neuro: Denies: weakness in extremities Psych: Reports: other (Normal mood) Naeem/Lymph: Denies: easy bruising PFS ED PFSH: Medical History Abnormal coronary angiogram Bronchitis Cardiac defibrillator in place Cardiomyopathy Coronary disease Heart failure with reduced ejection fraction History of cardioversion Hypertension ICD (implantable cardioverter-defibrillator) discharge Ischemic cardiomyopathy Nicotine dependence Pacemaker Pharyngitis Seizure disorder Shortness of breath Supraventricular tachycardia Ventricular tachycardia Surgical History AICD (automatic cardioverter/defibrillator) present H/O cardiac catheterization H/O hernia repair Family History Mother Family history of premature coronary artery disease Initial [place] age 31, at 60; his mother sister at the age of 20 and had a myocardial infarction. Maternal grandfather and grandmother of myocardial infarction in their 50s and 60s. One of his sisters had pacemaker placed placement CAD (coronary artery disease) Father Clotting disorder Bleeding disorder Family/Other CAD (coronary artery disease) Grandmother CAD (coronary artery disease) Grandfather CAD (coronary artery disease) Denies family history of Diabetes Dementia Chronic kidney disease (CKD) Suicide Anesthesia complication Lung disease Cancer Stroke Social History Smoking and tobacco status: current every day smoker cigarettes Packs smoked per day: 1 Years cigarettes smoked: 30 Alcohol intake: current Alcohol intake frequency: 3 or more drinks per day Alcohol type: hard liquor Housing: House Special eloise needs: No Physical Exam Const: COMMON NORMALS: alert HENMT: COMMON NORMALS: atraumatic HEAD & SCALP: atraumatic MOUTH: moist mucous membranes not abnormal Eye: COMMON NORMALS: EOMs intact bilaterally and conjunctivae normal CONJUNCTIVA: Yes conjunctivae normal Neck/C-Spine: COMMON NORMALS: full ROM and supple Resp: COMMON NORMALS: normal respiratory effort and clear to auscultation bilaterally AUSCULTATION: clear to auscultation bilaterally Cardio: RATE: tachycardic GI: COMMON NORMALS: Soft to palpation and non-tender PALPATION: Yes Soft to palpation Extremity: COMMON NORMALS: full ROM Neuro: SENSORIUM/ORIENTATION: Yes alert MOTOR EXAM: No Abnormal motor strength present and Other motor observations present (no focal motor deficits) Psych: COMMON NORMALS: speech normal SPEECH: Yes normal speech MOOD & AFFECT: Yes euthymic mood Course Vital Signs: Vital signs: Vital Signs Temperature 98.7 F 10/04/21 07:30 Pulse Rate 77 10/04/21 11:15 Respiratory Rate 16 10/04/21 11:15 Blood Pressure 106/63 10/04/21 10:15 Pulse Oximetry 94 10/04/21 11:15 [facility] - General Adult Medical Decision Making 45-year-old male w/ CAD s/p stents x 8 presenting to the emergency room with wide-complex tachycardia. Patient is hemodynamically stable, GCS 15. Patient is noted to have captured beats intermittently. Findings consistent with ventricular tachycardia. Patient received 150 mg amiodarone over 10 minutes prior to arrival. Patient was started on amiodarone 1mg/kg. Patient received 2 mg of Ativan and and 200 J of synchronized cardioversion. Patient temporarily break into NSR before resuming back into V. tach intermittently. Patient received 10 mg of metoprolol for burst suppression. We performed a second synchronized cardioversion of 200 J after patient received 5 mg of Versed and 4mg of morphine. Patient was then started on esmolol drip at 50 mcg/kg/min with moderate improvement on ekg monitor tech. Patient was observed to be in more NRS but has occasional runs of V tach. Case was discussed with Dr. Patel recommend continue the esmolol and the amiodarone drip. Dr. Patel evaluated patient at bedside and tells me he will follow the patient. It is unclear why patient's AICD device is not working. It is likely due to low VT HR and ICD is not sensing properly at this rates. Patient received 10mEQ/hr of K for hypokalemia and 2g of magnesium sulfate. He had intermittent hypotension for which he received 2 L of fluids. Disposition: admission Lab Data : 10/04/21 05:07 10/04/21 05:07 Radiology Impressions Chest X-Ray 10/03/21 18:52 IMPRESSION: 1. No acute cardiopulmonary process. 2. Incidental/nonacute findings are listed in the report. Laboratory Results WBC 10.3 10^3/uL (4.0-10.0) H 10/03/21 18:31 RBC 4.45 10^6/uL (4.1-5.3) 10/03/21 18:31 Hgb 15.8 g/dL (11.7-16.6) 10/03/21 18:31 Hct 44.3 % (42.0-52.0) 10/03/21 18:31 MCV 99.6 fl (80-94) H 10/03/21 18:31 MCH 35.5 pg (28.0-34.0) H 10/03/21 18:31 MCHC 35.7 g/dL (30.0-36.0) 10/03/21 18:31 RDW 15.6 % (12.1-15.1) H 10/03/21 18:31 Plt Count 277 10^3/cmm (130-400) 10/03/21 18:31 MPV 9.5 fL (7.4-10.4) 10/03/21 18: Neut % (Auto) 71.4 % 10/03/21 18: Lymph % (Auto) 14.0 % 10/03/21 18: [place] % (Auto) 12.1 % 10/03/21 18: Eos % (Auto) 1.4 % 10/03/21 18: Baso % (Auto) 0.5 % 10/03/21 18: Neut # (Auto) 7.33 10^3/uL (1.8-7.7) 10/03/21 18: Lymph # (Auto) 1.4 10^3/uL (0.8-4.8) 10/03/21: [place] # (Auto) 1.2 10^3/uL (0.2-0.9) H 10/03/21: Eos # (Auto) 0.1 10^3/uL (0.0-0.8) 10/03/21: Baso # (Auto) 0.1 10^3/uL (0.0-0.1) 10/03/21 18: Nucleated RBC % (auto) 0 % 10/03/21 Nucleated RBCs # 0.0 /100WBC 10/03/21 18: D-Dimer Cancelled 10/03/21 18: Sodium 131 mmol/L (136-145) L 10/03/21 18: Potassium 3.0 mmol/L (3.5-5.1) L 10/03/21: Chloride 91 mmol/L (98-107) L 10/03/21: Carbon Dioxide 24 mmol/L (22-29) 10/03/21 18: Anion Gap 19.0 (5-19) 10/03/21 18: BUN 14 mg/dL (6-20) 10/03/21 18: Creatinine 1.0 mg/dL (0.7-1.2) 10/03/21 18: GFR Calculation 80.1 mL/min (90-130) L 10/03/21 18: Glucose 110 mg/dL (65-115) 10/03/21 18: Calculated Osmolality 273 mOsm/kg (285-295) L 10/03/21: Calcium 9.4 mg/dL (8.5-10.5) 10/03/21 18:31 Magnesium 2.1 mg/dL (1.7-2.3) 10/03/21 18:31 Total Bilirubin 0.6 mg/dL (0.15-1.2) 10/03/21 18:31 AST 30 U/L (0-40) 10/03/21 18:31 ALT 20 U/L (0-41) 10/03/21 18:31 Alkaline Phosphatase 92 IU/L (40-130) 10/03/21 18:31 Troponin T Baseline 17 ng/L (0-15) H 10/03/21 18:31 NT-Pro-B Natriuret Pep 1873 pg/mL (0-125) H 10/03/21 18:31 Total Protein 7.7 g/dL (6.6-8.7) 10/03/21 18:31 Albumin 4.5 g/dL (3.5-5.2) 10/03/21 18:31 Globulin 3.2 g/dL (1.3-4.6) 10/03/21 18:31 Lipase 9 U/L (13-60) L 10/03/21 18:31 Vitamin B12 353 pg/mL (232-1245) 10/03/21 18:31 Folate 7.1 ng/mL (4.5-32.2) 10/03/21 18:31 TSH 5.86 uIU/mL (0.27-4.20) H 10/03/21 18:31 Free T4 1.24 ng/dL (0.82-1.77) 10/03/21 18:31 Imaging Data Other Imaging: Radiologist's impression: [address] [address] XRay Report Signed Patient: Carlos Alberto Morrow Unit #: [id number] : 1975 Age/Sex: 45 / M ADM Date: 10/03/21 Loc: ER Room/Bed: Attending Dr: Ordering Provider/Ordering MD: Raad Prado MD Date of Service: 10/03/21 Procedure(s): XR chest 1V portable [id number] Accession Number(s): [id number] Report Number: [id number] PROCEDURE INFORMATION: Exam: XR Chest Exam date and time: 10/03/2021 7:08 PM Age: 45 years old Clinical indication: Condition or disease; Cardiac pacemaker adjustment and management; Prior surgery; Surgery date: 6+ months; Additional info: Vt TECHNIQUE: Imaging protocol: XR of the chest. Views: 1 view. COMPARISON: CR (CHEST, ) 02/05/2021 8:12 PM FINDINGS: Tubes, catheters and devices: There is a dual-lead cardiac AICD via left subclavian approach. Findings are stable. External defibrillator patches overlie the chest. Lungs: Lungs are clear bilaterally. Pleural spaces: No pleural effusion. No pneumothorax. Heart/Mediastinum: Stable moderate enlargement of the cardiac silhouette. Mediastinal contours are unremarkable. Bones/joints: Unremarkable for age. XR/XR chest 1V portable [id number] IMPRESSION: 1. No acute cardiopulmonary process. 2. Incidental/nonacute findings are listed in the report. ? Dictated By: Jojo Ang MD Signed By: Jojo Ang MD Signed Date/Time: 10/03/211948 DD/ 07 Critical Care Time Critical Care Time: Critical Care Time: Yes Total Critical Care Time: 38 Attestation: The high probability of a clinically significant, sudden or life threatening deterioration of the patient's Cardiovascular system(s) required my full and direct attention, intervention and personal management. The critical care time is as shown. This time is in addition to time spent performing any reported procedures but includes the following: [x] Data and vital sign review and interpretation [x] Patient assessment, examination and intervention [x] Documentation [x] Medication orders and management Discharge Plan Discharge Patient Disposition: Admitted As Inpatient Admit Provider: Hernan Frey Clinical Impression: Ventricular tachycardia Condition: Stable Coding Level of Care Code ED Preparation Room Worker for Chg Fwd Exam Comprehensive
[2021-10-03 19:14] LABS: Alanine Aminotransferase 20 U/L (0-41); Albumin Level 4.5 g/dL (3.5-5.2); Alkaline Phosphatase 92 IU/L (40-130); Aspartate Amino Transferase 30 U/L (0-40); Blood Urea Nitrogen 14 mg/dL (6-20); Calcium 9.4 mg/dL (8.5-10.5); Carbon Dioxide 24 mmol/L (22-29); Chloride 91 mmol/L (98-107); Globulin 3.2 g/dL (1.3-4.6); Glomerular Filtration Rate 80.1 mL/min (90-130); Glucose 110 mg/dL (65-115); Lipase 9 U/L (13-60); NT Pro B Type Natriuretic Pept 1873 pg/mL (0-125); Osmolality Calculated 273 mOsm/kg (285-295); Sodium 131 mmol/L (136-145); Thyroid Stimulating Hormone 5.86 uIU/mL (0.27-4.20); Total Bilirubin 0.6 mg/dL (0.15-1.2); Total Protein 7.7 g/dL (6.6-8.7)
[2021-10-03 19:27] LABS: Magnesium 2.1 mg/dL (1.7-2.3)
[2021-10-03 19:51] LABS: D Dimer 0.19 ug/mIFEU (0-0.59)
[2021-10-03] MEDS: magnesium sulfate premix 2 GM/50 ML PIGGYBACK IV (20:12)
[2021-10-03 20:16] LABS: SARS Covid-2 Antigen Negative (Negative)
[2021-10-03] MEDS: lidocaine drip 2,000 MG/500 ML PREMIX 30 MG IV (20:16)
--- NOTE | 2021-10-03 20:16 | P.HP_ITS ---
Providers/Chief Complaint Admitting Physician: Hernan Frey DO Primary Care Provider: Jonny Gifford Chief Complaint: VTACH INTERMITTENT History of Present Illness The patient is a 45-year-old male who present chief complaint of my heart was not feeling right . The patient is a fair historian at best and not forthcoming with details especially regarding his smoking, his drinking, and his drug use. From what I was able to ascertain he admits to dyspnea, lightheaded, dizziness, diaphoresis, sense of rapid heartbeat, sensation knee regular heartbeat. He denies chest pain or any new peripheral edema. Patient has known history of coronary artery disease, status post IN, status post stent ?8, CHF ejection fraction 40-45%, continued tobacco abuse, continued alcohol abuse, he is status post pacemaker/AICD placement. During my encounter with the patient, he is quite argumentative his lifestyle choices and does not cooperate with the interview. He presents for further evaluation Review of Systems General: Reports: 10 or more systems reviewed and unremarkable except in HPI and below Medications/Allergies Home Medications Medication Instructions Recorded Confirmed Last Taken Type amlodipine 10 mg tablet 10 mg PO DAILY@04/09/20 02/20/21 04/09/20 History atorvastatin 80 mg tablet 80 mg PO DAILY@04/09/20 02/20/21 04/09/20 History clopidogrel 75 mg tablet 75 mg PO DAILY@04/09/20 02/20/21 04/09/20 History divalproex 500 mg tablet,delayed 500 mg PO BID@,04/09/20 02/20/21 04/09/20 History release hydrocodone 10 mg-acetaminophen 1 tab PO Q6H PRN 04/09/20 02/20/21 Unknown History 325 mg tablet folic acid 1 mg tablet 1 mg PO DAILY #30 tab 04/10/20 02/20/21 Unknown Rx albuterol sulfate 90 mcg/actuation 1 inh INHALATION Q6H PRN 30 Days 06/02/20 02/20/21 Unknown Rx aerosol inhaler (ProAir HFA) #8.5 g aspirin-caffeine 845 mg-65 mg oral 1 ea PO PRN PRN 02/06/21 02/20/21 Unknown H istory powder packet (BC Pain Relief) buspirone 10 mg tablet 10 mg PO TID PRN 02/06/21 02/20/21 Unknown History furosemide 20 mg tablet (Lasix) 20 mg PO DAILY@07 02/06/21 02/20/21 Unknown Hi story garlic 1 tab PO DAILY 02/06/21 02/20/21 Unknown History multivitamin 1 tab PO DAILY@07 02/06/21 02/20/21 Unknown History nitroglycerin 0.4 mg sublingual 0.4 mg SUBLINGUAL Q5M PRN 02/06/21 02/20/21 Unknown History tablet (Nitrostat) potassium chloride 8 mEq 8 meq PO DAILY@07 02/06/21 02/20/21 Unknown History capsule,extended release potassium gluconate 595 mg (99 mg) 595 mg PO DAILY PRN 02/06/21 02/20/21 Unknown History tablet sacubitril 49 mg-valsartan 51 mg 1 tab PO BID@07,13 02/06/21 02/20/21 Unknown History tablet (Entresto) apixaban 5 mg (74 tabs) tablets in See Rx Instructions .ROUTE 02/11/21 02/20/21 Unknown Rx a dose pack .COMPLEX #74 ea aspirin 81 mg tablet,delayed 81 mg PO DAILY@07 #0 tab 02/11/21 02/20/21 Unknown Rx release benzonatate 100 mg capsule 100 mg PO TID PRN #30 cap 02/11/21 02/20/21 Unknown Rx guaifenesin 600 mg tablet, 1,200 mg PO BID #60 tab 02/11/21 Unknown Rx extended release 12 hr (Mucinex) ipratropium 20 mcg-albuterol 100 1 puff INHALATION QID.RESPIRATORY 02/11/21 02/20/21 Unknown Rx mcg/actuation mist for inhalation #4 g (Combivent Respimat) metoprolol succinate 100 mg 100 mg PO BID #60 tab 02/11/21 02/20/21 Unknown Rx tablet,extended release 24 hr prednisone 10 mg tablet 10 mg PO DAILY #20 tab 02/11/21 02/20/21 Unknown Rx spironolactone 25 mg tablet 25 mg PO DAILY #30 tab 02/11/21 02/20/21 Unknown Rx amiodarone 200 mg tablet 200 mg PO DAILY tab 02/20/21 02/20/21 Unknown History Allergies Allergy/AdvReac Type Severity Reaction Status Date / Time No Known Allergies Allergy Verified 03/15/21 08:30 PFSH Acute PFSH: Medical History Abnormal coronary angiogram Bronchitis Cardiac defibrillator in place Cardiomyopathy Coronary disease Heart failure with reduced ejection fraction History of cardioversion Hypertension ICD (implantable cardioverter-defibrillator) discharge Ischemic cardiomyopathy Nicotine dependence Pacemaker Pharyngitis Seizure disorder Shortness of breath Supraventricular tachycardia Ventricular tachycardia Surgical History AICD (automatic cardioverter/defibrillator) present H/O cardiac catheterization H/O hernia repair Family History Mother Family history of premature coronary artery disease Initial IN age 29, at 60; his mother sister at the age of 20 and had a myocardial infarction. Maternal grandfather and grandmother of myocardial infarction in their 50s and 60s. One of his sisters had pacemaker placed placement CAD (coronary artery disease) Father Clotting disorder Bleeding disorder Family/Other CAD (coronary artery disease) Grandmother CAD (coronary artery disease) Grandfather CAD (coronary artery disease) Denies family history of Diabetes Dementia Chronic kidney disease (CKD) Suicide Anesthesia complication Lung disease Cancer Stroke Social History Smoking and tobacco status: current every day smoker cigarettes Packs smoked per day: 1 Years cigarettes smoked: 30 Alcohol intake: current Alcohol intake frequency: 3 or more drinks per day Alcohol type: hard liquor Housing: House Special eloise needs: No Vitals/I&O/Wt Last Vital Signs Temp 98.1 F 10/03/21 18:27 Pulse 100 10/03/21 18:54 Resp 14 10/03/21 18:54 BP 100/83 10/03/21 18:50 Pulse Ox 97 10/03/21 18:54 10/03/21 10/03/21 10/03/21 06:59 14:59 22:59 Intake Total 1027.048 / 1027.048 Balance 1027.048 / 1027.048 Weight last 48 hrs Weight 121.563 kg Physical Exam Narrative: General: -Alert -No acute distress -No dyspnea -No tachypnea Head: -Atraumatic -Normocephalic Eyes: -Pupils equally round and reactive to light and accommodation -Extraocular muscles intact Neurological: -Cranial nerves II-XII intact Neck: -No jugular venous distention -No thyromegaly -No cervical lymphadenopathy Heart: -Regular rate -Regular rhythm -No murmurs -No gallops -No rubs Lungs: -No wheeze -No rhonchi -No rales ? Abdomen: -Normal bowel sounds in all four quadrants -No rebound -No guarding -No tenderness Extremities: -2/4 pulse in all four extremities -No clubbing -No cyanosis -No edema -No calf tenderness present bilaterally -Negative Shania?s sign bilaterally Musculoskeletal: -5/5 bilateral upper extremity strength -5/5 bilateral lower extremity strength -Sensorium of bilateral upper extremities are equal and intact -Sensorium of bilateral lower extremities are equal and intact ? Additional Details / Additional Findings / Exceptions / Miscellaneous: Data : 10/03/21 18:31 10/03/21 18:31 A&P Assessment and plan (1) Cardiomyopathy: Status: Acute Plan Ventricular tachycardia. Patient status post AICD/pacemaker placement. Patient slightly hypokalemic which may be contributing.TSH slightly elevated, free T4 pending. Urine drug screen pending. Magnesium level within normal limits. Echo cardiac pending. Lexiscan pending. Will monitor patient on telemetry and checks her cardiac enzymes. Recheck EKG on the morning of October 04, 2021. IV amiodarone drip per protocol. IV esmolol drip per protocol. IV lidocaine drip per protocol. IV heparin drip per protocol.Will follow up on cardiology's findings recommendations Hyponatremia, chronic. This may be a sequelae of his history of alcohol abuse. Will monitor sodium level intermittently Proximal atrial fibrillation. Will monitor patient on telemetry. IV amiodarone drip per protocol. IV heparin drip per protocol. Hypokalemia. Will monitor potassium levels intermittently and supplement as necessary. Telemetry monitoring Chronic pain Anxiety Query depression. Depakote 500 Mill grams by mouth twice a day Hypothyroidism. TSH slightly elevated. Free T4 pending. Synthroid 50 my grams by mouth daily Macrocytosis. This likely sequelae of his history of alcohol abuse. TSH slightly elevated. Free T4, B12, folate levels pending COPD, O2 dependent nocturnally at 2.5-3 L. Pain is on 10 Mill grams by mouth daily plus Combivent Respimat: 20/100 my grams: 1 inhalation 4 times a day CHF, ejection fraction 40-45%. Patient status post AICD/pacemaker placement. Echocardiogram pending. Strict I/O. Daily weight. In Presto 49/51 Mill grams by mouth twice a day Coronary artery disease, status post IN, status post stent ?8. Aspirin 81 Mill grams by mouth daily plus Plavix 85 Mill grams by mouth daily plus Lipitor 80 Mill grams by mouth daily at bedtime plus IV heparin drip per protocol. Hyperlipidemia. Lipitor 80 Mill grams by mouth daily at bedtime History of hypertension Obesity. The patient becomes regarding lifestyle modification Smoker. The patient becomes regarding smoking cessation Alcohol abuse. Seizure precautions. IV when necessary Ativan on a sliding scale Marijuana abuse. The patient will be counseled regarding marijuana cessation Medical noncompliance. The patient will be counseled regarding medical compliance DVT Proflex is. 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
--- NOTE | 2021-10-03 20:31 | ECG_ITS ---
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 Measurements Intervals [place] Rate: 75 P: 56 WA: 158 QRS: 62 QRSD: 162 T: 32 QT: 438 QTc: 490 Interpretive Statements SINUS RHYTHM WITH OCCASIONAL VENTRICULAR PREMATURE COMPLEXES INTRAVENTRICULAR CONDUCTION DELAY [130+ ms QRS DURATION] PROBABLE INFERIOR MYOCARDIAL INFARCTION , PROBABLY OLD [35 ms Q WAVE IN II/aVF] Compared to ECG 10/03/2021 18:28:08 Ventricular premature complex(es) now present Myocardial infarct finding now present Left ventricular hypertrophy no longer present ST (T wave) deviation no longer present Electronically Signed On 10-04-2021 6:46:45 CDT by Raquel Solano M.D. [id number]
--- NOTE | 2021-10-03 20:45 | PC.NURSE ---
Pt. has arrived to room icu 10 from er. Pt. is on esmolol drip, amiodarone drip, lidocaine drip per protocol from ER. Pt. is sinus rhythm with frequent pvc's and runs of V-tach. Pads and defibrillator hooked to patient and at bedside precautionary. Pt. states he is feeling much better than when he came to the hospital. NO needs expressed or identified at this time.
--- NOTE | 2021-10-03 20:48 | USCV_ITS ---
Transthoracic Echo Carlos Alberto Morrow Age: 45 Gender: M : 1975 Exam Date: 10/03/2021 23:42 Ordering Phys: Hernan Frey DO Technologist: Ariel Guan Exam Location: [facility] [place] Indication: V-Tach BP: 108 / 87 HR: 72 Rhythm: Sinus Technical Quality: Adequate MEASUREMENTS (Male / Female) Normal Values 2D ECHO LV Diastolic Diameter PLAX 6.6 cm 4.2 - 5.9 / 3.9 - 5.3 cm LV Systolic Diameter PLAX 6.1 cm IVS Diastolic Thickness 0.9 cm 0.6 - 1.0 / 0.6 - 0.9 cm IVS Systolic Thickness 1.8 cm LVPW Diastolic Thickness 1.4 cm 0.6 - 1.0 / 0.6 - 0.9 cm LVPW Systolic Thickness 1.1 cm LVOT Diameter 2.6 cm LV Ejection Fraction 2D Teich 16.2 % LV Ejection Fraction MOD 2C 38.1 % LV Ejection Fraction 2C AL 37.9 % LA Diameter 2.8 cm LA Width 3.3 cm LA Height 6.3 cm RA Width 3.4 cm RA Height 3.2 cm Aorta at Sinotubular Diameter 2.6 cm M-MODE Aortic Annulus Diameter 3.5 cm LA Ao Ratio MM 0.7 MV E Point Septal Separation 1.9 cm DOPPLER AV Peak Velocity 160.3 cm/s LVOT Peak Velocity 86.0 cm/s AV Area Cont Eq vti 2.4 cm squared AV Area Cont Eq pk 2.9 cm squared MV Peak Velocity 49.0 cm/s MV Area PHT 3.1 cm squared Mitral E to A Ratio 1.1 MV E' Velocity 26.0 cm/s Mitral E to MV E' Ratio 4.8 Mitral E to LV E' Lateral Ratio 4.4 Mitral E to LV E' Septal Ratio 5.3 TR Peak Velocity 69.6 cm/s TR Peak Gradient 1.9 mmHg TR Mean Velocity 48.8 cm/s TR Mean Gradient 1.0 mmHg TR Velocity Time Integral 13.4 cm Right Atrial Pressure 10.0 mmHg Pulmonary Artery Systolic Pressu 11.9 mmHg PV Peak Velocity 66.0 cm/s RV Acceleration Time 0.1 s RV Ejection Time 0.3 s RV AcT/ET 0.4 FINDINGS Left Ventricle Dilated left ventricle with ejection fraction of 38%. Diffuse hypokinesia of the ventricle. Right Ventricle The right ventricle is normal in size and function. Defibrillator wire on the right ventricle Right Atrium The right atrium is normal in size. Left Atrium The left atrium is normal in size. Mitral Valve Mild mitral valve regurgitation. Aortic Valve No gross abnormalities noted Tricuspid Valve No gross abnormalities noted Pulmonic Valve Pulmonic valve not well visualized. Pericardium No pericardial effusion. Aorta Normal ascending aorta dimension. CONCLUSIONS Dilated left ventricle with ejection fraction of 38%. Diffuse hypokinesia of the ventricle. Mild mitral valve regurgitation. There is no pericardial effusion. Defibrillator wire on the right ventricle There is no pericardial effusion. Compared to the study from 02/06/2021, there may not be a significant change Dr Irasema Patel MD [facility] (Electronically Signed) Final Date: 04 October 2021 11:14 S
--- NOTE | 2021-10-03 20:54 | PC.NURSE ---
1857 Pr cardioiverted 200j per Dr Saldaña
[2021-10-03 20:56] LABS: Troponin 5 2HR 15.81 ng/L (0-15)
[2021-10-03 20:57] LABS: Troponin 5 2HR Delta -1.19 ABS# (0-10)
[2021-10-03] MEDS: lidocaine drip 2,000 MG/500 ML PREMIX 15 MG IV (21:11)
[2021-10-03] MEDS: lidocaine 1% 5 ML in potassium chloride premix 100 ML 25 ML IV (21:30)
[2021-10-03] MEDS: HYDROcodone-acetaminophen 10-325 mg Tablet 1 TAB PO (21:55)
[2021-10-03 22:16] LABS: Folate Level 7.1 ng/mL (4.5-32.2); Vitamin B12 353 pg/mL (232-1245)
[2021-10-03] MEDS: heparin drip 25,000 UNIT/500 ML PREMIX 35 UNIT IV (23:32)
[2021-10-03 23:42] LABS: Free T4 Free Thyroxine 1.24 ng/dL (0.82-1.77)
[2021-10-04] VITALS (233 sets, daily range): BP systolic 68–141; BP diastolic 44–91; PULSE 65–142; RESP 8–30; TEMP 36.4–37.1; O2SAT 65–100; BMI 41.0
[2021-10-04] MEDS: lidocaine 1% 5 ML in potassium chloride premix 100 ML 25 ML IV (02:05)
[2021-10-04 02:25] LABS: Troponin 5 6HR 16.13 ng/L (0-15)
[2021-10-04] MEDS: esmolol drip 2,500 MG/250 ML PREMIX 36.47 MG IV (02:34)
[2021-10-04 02:51] LABS: Troponin 5 6HR Delta -0.87 ng/L (0-12)
[2021-10-04] MEDS: HYDROcodone-acetaminophen 10-325 mg Tablet 1 TAB PO ×4 (04:17→22:27)
[2021-10-04 05:34] LABS: Alanine Aminotransferase 17 U/L (0-41); Albumin Level 3.8 g/dL (3.5-5.2); Alkaline Phosphatase 77 IU/L (40-130); Anion Gap 15.5 (5-19); Aspartate Amino Transferase 27 U/L (0-40); Blood Urea Nitrogen 13 mg/dL (6-20); Calcium 8.3 mg/dL (8.5-10.5); Carbon Dioxide 24 mmol/L (22-29); Chloride 97 mmol/L (98-107); Globulin 2.8 g/dL (1.3-4.6); Glomerular Filtration Rate 120.9 mL/min (90-130); Glucose 91 mg/dL (65-115); Osmolality Calculated 276 mOsm/kg (285-295); Potassium 3.5 mmol/L (3.5-5.1); Sodium 133 mmol/L (136-145); Total Bilirubin 0.8 mg/dL (0.15-1.2); Total Protein 6.6 g/dL (6.6-8.7)
[2021-10-04 05:35] LABS: Basophils % 0.6 %; Eosinophils # 0.2 10^3/uL (0.0-0.8); Eosinophils % 2.2 %; Hematocrit 41.7 % (42.0-52.0); Hemoglobin 14.3 g/dL (11.7-16.6); Lymphocytes # 1.3 10^3/uL (0.8-4.8); Lymphocytes % 19.7 %; Mean Corpuscular HGB Conc 34.3 g/dL (30.0-36.0); Mean Corpuscular Hemoglobin 35.6 pg (28.0-34.0); Mean Corpuscular Volume 103.7 fl (80-94); Mean Platelet Volume 9.6 fL (7.4-10.4); Monocytes # 0.8 10^3/uL (0.2-0.9); Monocytes % 11.7 %; Neutrophils # 4.41 10^3/uL (1.8-7.7); Neutrophils % 65.5 %; Nucleated Red Blood Cells % 0 %; Platelet Count 204 10^3/cmm (130-400); Red Blood Count 4.02 10^6/uL (4.1-5.3); Red Cell Distribution Width 15.7 % (12.1-15.1); White Blood Count 6.7 10^3/uL (4.0-10.0)
[2021-10-04 05:52] LABS: Partial Thromboplastin Time 116.1 SECONDS (23.9-36.7)
[2021-10-04] MEDS: sacubitril/valsartan 24-26 mg Tablet 2 EACH PO ×2 (06:20→12:25)
[2021-10-04] MEDS: levothyroxine 50 mcg Tablet PO (06:21)
[2021-10-04] MEDS: clopidogrel 75 mg Tablet PO (06:21)
[2021-10-04] MEDS: aspirin 81 mg EC Tablet PO (06:21)
[2021-10-04] MEDS: atorvastatin 40 mg Tablet 80 MG PO (06:22)
[2021-10-04] MEDS: divalproex DR 500 mg Tablet PO ×2 (06:22→12:25)
--- NOTE | 2021-10-04 07:31 | PC.NURSE ---
07- Spoke with Dr. Mahmood about call from nuclear medicine questioning ordering medication used for stress test. Medication needed to be ordered by 0715 to perform stress test today. Dr. Mahmood reviewed cardiac events over night and the decision was made not to perform stress test at this time and would reorder test if needed.
[2021-10-04] MEDS: amiodarone 200 mg Tablet 400 MG PO ×2 (09:37→17:16)
[2021-10-04] MEDS: predniSONE 10 mg Tablet PO (09:37)
[2021-10-04] MEDS: metoprolol succinate ER (24 HR) 100 mg Tablet PO ×2 (09:37→18:16)
[2021-10-04] MEDS: potassium chloride ER 20 mEq Tablet 40 MEQ PO (09:37)
[2021-10-04] MEDS: adenosine 3 mg/mL SDV 2mL 6 MG IVP (14:21)
[2021-10-04 14:57] LABS: Partial Thromboplastin Time 43.6 SECONDS (23.9-36.7)
[2021-10-04] MEDS: adenosine 3 mg/mL SDV 2mL 12 MG IVP (14:59)
[2021-10-04] MEDS: esmolol drip 2,500 MG/250 ML PREMIX 91.17 MG IV (15:02)
[2021-10-04] MEDS: LORazepam 2 mg/mL INJ 1 mL IVP (15:27)
[2021-10-04] MEDS: heparin drip 25,000 UNIT/500 ML PREMIX 77.8 UNIT IV (16:12)
[2021-10-04] MEDS: heparin 5,000 unit/mL INJ 1 mL 5000 UNIT IVP (16:14)
[2021-10-04] MEDS: lidocaine drip 2,000 MG/500 ML PREMIX 15 MG IV (16:28)
--- NOTE | 2021-10-04 16:32 | P.PN_ITS ---
Subjective Subjective: Patient was seen and examined this morning again went into SVT, with rate in 160s , for which he had to be restarted on lidocaine as well as esmolol drip,and was continued on amidarone drip,he was also given adenosine times 2 6 and 12 with no effect, later esmolol drip had to be titrated down as h is blood pressure was dropping, patient was continued on amnio drip as well as lidocaine drip. 500 normal saline IV bolus was given. During the entire event patient was asymptomatic. Medications: Medication Review Details: Generic Name Dose Route Start Last Admin Trade Name Freq PRN Reason Stop Dose Admin Hydrocodone Bitart /Acetaminophen 1 tab 10/03/21 21:44 10/04/21 16:27 Hydrocodone-Acet aminophen 10-325 M g Tablet PO 1 tab Q6H PRN Administration MODERATE PAIN Albuterol/Ipratrop ium 1 puff 10/04/21 08:00 10/04/21 15:40 Ipratropium-Albu terol 4 Gm Mdi INHALATION Not Given QID.RESPIRATORY S CH Amiodarone HCl 400 mg 10/04/21 09:00 10/04/21 09:37 Amiodarone 200 M g Tablet PO 400 mg Q8H RICHARD Administration Aspirin 81 mg 10/04/21 07:00 10/04/21 06:21 Aspirin 81 Mg Ec Tablet PO 81 mg DAILY@07 RICHARD Administration Atorvastatin Calci um 80 mg 10/04/21 07:00 10/04/21 06:22 Atorvastatin 40 Mg Tablet PO 80 mg DAILY@07 RICHARD Administration Clopidogrel Bisulf ate 75 mg 10/04/21 07:00 10/04/21 06:21 Clopidogrel 75 M g Tablet PO 75 mg DAILY@07 RICHARD Administration Divalproex Sodium 500 mg 10/04/21 07:00 10/04/21 12:[address] 50 0 Mg Tablet PO 500 mg BID@ RICHARD Administration Amiodarone HCl 900 mg/ 518 mls @ 0 mls/h r 10/03/21 18:45 10/04/21 01:00 Dextrose/ IV Misce llaneous IV 0.5 mg/min Supplies .Q0M RICHARD 17.27 mls/hr Titration Protocol Per Protocol Heparin Sodium/Sod ium Chloride 25,000 unit in 50 0 mls @ 29.175 mls /hr 10/03/21 20:48 10/04/21 16:12 Heparin Drip IV 32 unit/kg/hr .Q17H9M RICHARD 77.8 mls/hr Administration 12 UNIT/KG/HR Esmolol HCl 2,500 mg in 250 m ls @ 0 mls/hr 10/04/21 15:00 10/04/21 15:02 Brevibloc Drip IV 125 mcg/kg/min .Q0M RICHARD 91.17 mls/hr Administration Protocol Per Protocol Lidocaine HCl/Dext dinh 2,000 mg in 500 m ls @ 15 mls/hr 10/04/21 16:00 10/04/21 16:28 Lidocaine Drip IV 1 mg/min .Q24H RICHARD 15 mls/hr Administration 1 MG/MIN Levothyroxine Sodi um 50 mcg 10/04/21 06:00 10/04/21 06:21 Levothyroxine 50 Mcg Tablet PO 50 mcg QAM RICHARD Administration Lorazepam 2 mg 10/03/21 20:48 10/04/21 15:27 Lorazepam 2 Mg/M l Inj 1 Ml IVP 2 mg Q2H PRN Administration prn mod anx/agita tion Metoprolol Succina te 100 mg 10/04/21 09:00 10/04/21 09:37 Metoprolol Succi kemal Er (24 Hr) 10 0 Mg Tablet PO 100 mg BID RICHARD Administration Prednisone 10 mg 10/04/21 09:00 10/04/21 09:37 Prednisone 10 Mg Tablet PO 10 mg DAILY RICHARD Administration Sacubitril/Valsart an 2 each 10/04/21 07:00 10/04/21 12:25 Sacubitril/Valsa rtan 24-26 Mg Tabl et PO 2 each BID@ RICHARD Administration Vitals/I&O/Wt Last Vital Signs Temp 98.7 F 10/04/21 07:30 Pulse 127 H 10/04/21 15:30 Resp 13 10/04/21 15:30 BP 89/59 10/04/21 15:30 Pulse Ox 97 10/04/21 15:30 10/04/21 10/04/21 10/04/21 06:59 14:59 22:59 Intake Total 428.354 / 2602.180 1202 / 1202 Output Total 400 / 400 Balance 28.354 / 2202.180 1202 / 1202 Weight last 48 hrs Weight 121.563 kg Physical Exam Const: COMMON NORMALS: patient oriented x3 HENMT: COMMON NORMALS: normocephalic and atraumatic HEAD & SCALP: no rmocephalic and atraumatic Chest: COMMONS NORMALS: normal inspection of the chest and normal palpation of entire chest wall CHEST: Yes Symmetrical chest wall rise Resp: COMMON NORMALS: normal respiratory effort, No retractions, No use of accessory muscles and clear to auscultation bilaterally EFFORT & INSPECTION: Yes symmetric chest movement AUSCULTATION: clear to auscultation bilaterally Cardio: COMMON NORMALS: regular rate, regular rhythm, S1 normal heart sound present, S2 normal heart sound present, No gallops present (Cardio), No murmurs present (Cardio), No rub (Cardio) and Peripheral pulses 2+ throughout RATE: regular rate RHYTHM: regular rhythm HEART SOUNDS: S1 normal heart sound present and S2 normal heart sound present PERIPHERAL PULSES: Peripheral pulses 2+ throughout GI: COMMON NORMALS: Normal to inspection, nondistended, normoactive bowel sounds present, Soft to palpation, non-tender, No hepatosplenomegaly present and no masses AUSCULTATION: Yes normoactive bowel sounds PALPATION: Yes Soft to palpation and Yes No hepatosplenomegaly present RECTAL EXAM: Yes deferred Extremity: COMMON NORMALS: no clubbing, cyanosis or edema and no pedal edema Neuro: COMMON NORMALS: patient oriented x3 Data : 10/04/21 05:07 10/04/21 05:07 A&P Assessment and plan (1) Cardiomyopathy: Status: Acute Plan 45-year-old male with past medical history of coronary artery disease status post PCI, ischemic cardiomyopathy, HFrEF EF of 40-45 hypertension, status post AICD placement, pacemaker,?incessant ventricular tachycardia, atrial fibrillation,history of alcohol use in the past, was brought in with chief complaint of palpitation, dyspnea , dizziness, lightheadedness, he was found to be in ventricular tachycardia by the EMS and was given cardioversion one time, in the ER he subsequently received 2 synchronized cardioversion , after that he was started on amiodarone drip, lidocaine drip, esmolol drip. Assessment #?Incessant ventricular tachycardia: Currently on lidocaine amiodarone and esmolol drip On p.o. amiodarone On heparin drip K>4 ,MG>2 Continue telemetry monitoring AICD interrogation Cardiology on board #History of coronary artery disease s/p PCI: Patient has a recent coronary angiogram: 2D echo: Dilated left ventricle with ejection fraction of 38%.?Diffuse hypokinesia of the ventricle. ?Mild mitral valve regurgitation. ?There is no pericardial effusion. Initial plan was to do stress test, which has been canceled Continue aspirin, Plavix statin beta-anna, continue Entresto #History of atrial fibrillation: #HFrEF : Plan as above #Hypothyroidism: TSH:5.86 Continue levothyroxine #Seizure: Continue Depakote #DVT PPX : Not needed on heparin drip #CODE STATUS; full code Attestations Medical Necessity Statement*: Patient needs to be in hospital for management of wide-complex tachycardia Time Spent in Patient Care: Greater than 35 minutes (>than 50% of time spe nt in counselling and/or direct pt care on unit) . Critical Care Time: The high probability of a clinically significant, sudden or life threatening deterioration of the patient's [] system(s) required my full and direct attention, intervention and personal management. The critical care time is as shown. 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
--- NOTE | 2021-10-04 17:35 | ECG_ITS ---
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 Measurements Intervals [place] Rate: 123 P: -59 DE: 218 QRS: -86 QRSD: 179 T: 82 QT: 381 QTc: 546 Interpretive Statements ECTOPIC ATRIAL TACHYCARDIA WITH FIRST DEGREE AV BLOCK RIGHT BUNDLE BRANCH BLOCK [120+ ms QRS DURATION, UPRIGHT V1, 40+ ms S IN I/aVL/V4/V5/V6] Compared to ECG 10/03/2021 21:21:06 First degree AV block now present Right bundle-branch block now present Electronically Signed On 10-05-2021 18:16:19 CDT by Ulices Hardwick M.D. [id number]
[2021-10-04] MEDS: sodium chloride 0.9% 500 ML 150 ML IV (17:49)
[2021-10-04] MEDS: esmolol drip 2,500 MG/250 ML PREMIX 18.23 MG IV (18:29)
--- NOTE | 2021-10-04 19:28 | PC.NURSE ---
Approximately 1420 patients rhythm changed from SR to SVT sustained in the 150's. Patient instructed in valsalva maneuver which was ineffective. Patient not symptomatic. Dr. Mahmood called and arrived on unit. At approximately 1430 Dr. Mahmood ordered 6mg IVP adenosine which was ineffective. 12mg adenosine also ineffective. Dr. Mahmood ordered Esmolol drip restarted at 100mcg/kg/min. Titrated Q15min to reach 200mcg/kg/min. Dr. Patel notified. At approximately 1450 Dr. Mahmood ordered Lidocaine drip restarted at 1mg/min as well as 10 mg IVP of Cardizem. Patient remained in SVT in 120's to 130's. Approximately 1615, Dr. Mahmood ordered 150 amiodarone bolus. Patient remains in SVT 120's. Blood pressures very soft with MAP sustaining in the 50's. Dr. Mahmood notified and orders to titrate esmolol down received. EKG performed and pacemaker interrogated. Report to be faxed to ICU per Indigo who gave report from [employer]. Patient remains in SVT at this time. MAP of 71 currently. Patient remains asymptomatic and is resting in bed.
[2021-10-04 20:49] LABS: Partial Thromboplastin Time 146.7 SECONDS (23.9-36.7)
--- NOTE | 2021-10-04 21:30 | PC.NURSE ---
Lidocaine Drip During bedside report, nurse reported lidocaine drip to be titrated to 2 mg/min from 1 mg/min. No order for titration present. Upon assessment of patient, HR remaining around 120s while blood pressure MAP 72. Dr. Hardwick called, notified of patient's vitals, and order clarified. Telephone order received for lidocaine drip to be titrated to 2 mg/min. Medication titrated per AUG.
[2021-10-04] MEDS: lidocaine drip 2,000 MG/500 ML PREMIX 30 MG IV (21:32)
--- NOTE | 2021-10-04 22:51 | PM.PN ---
Subjective Subjective: Patient was in sinus rhythm this morning. He was on IV amiodarone, lidocaine and esmolol. The lidocaine and esmolol were tapered off. An hour later, he went back into wide-complex tachycardia. He was placed back on a lidocaine and esmolol. His blood pressure started dropping. The dose of the esmolol was titrated down. Currently he is staying in a heart rate around 122 bpm. He appears to be tracking his upper rate for the pacemaker Medications: Medication Review Details: Current Medications Hydrocodone Bitart/Acetaminophen (Hydrocodone-Acetaminophen 10-325 Mg Tablet) 1 tab PO Q6H PRN PRN Reason: MODERATE PAIN Last Admin: 10/04/21 22:27 Dose: 1 tab Documented by: Albuterol/Ipratropium (Ipratropium-Albuterol 4 Gm Mdi) 1 puff INHALATION QID.RESPIRATORY [facility] Last Admin: 10/04/21 20:19 Dose: 1 puff Documented by: Amiodarone HCl (Amiodarone 200 Mg Tablet) 400 mg PO Q8H [facility] Last Admin: 10/04/21 17:16 Dose: 400 mg Documented by: Aspirin (Aspirin 81 Mg Ec Tablet) 81 mg PO DAILY@07 [facility] Last Admin: 10/04/21 06:21 Dose: 81 mg Documented by: Atorvastatin Calcium (Atorvastatin 40 Mg Tablet) 80 mg PO DAILY@07 [facility] Last Admin: 10/04/21 06:22 Dose: 80 mg Documented by: Buspirone HCl (Buspirone 10 Mg Tablet) 10 mg PO TID PRN PRN Reason: Anxiety Clopidogrel Bisulfate (Clopidogrel 75 Mg Tablet) 75 mg PO DAILY@ [facility] Last Admin: 10/04/21 06:21 Dose: 75 mg Documented by: Divalproex Sodium (Divalproex Dr 500 Mg Tablet) 500 mg PO BID@ [facility] Last Admin: 10/04/21 12:25 Dose: 500 mg Documented by: Amiodarone HCl 900 mg/Dextrose/ IV Miscellaneous Supplies 518 mls @ 0 mls/hr IV .Q0M [facility]; Protocol Last Admin: 10/04/21 18:13 Dose: 0.5 mg/min, 17.27 mls/hr Documented by: Heparin Sodium/Sodium Chloride (Heparin Drip) 25,000 unit in 500 mls @ 29.175 mls/hr IV .Q17H9M [facility] Last Infusion: 10/04/21 21:00 Dose: 9.87 unit/kg/hr, 24 mls/hr Documented by: Esmolol HCl (Brevibloc Drip) 2,500 mg in 250 mls @ 0 mls/hr IV .Q0M [facility]; Protocol Last Admin: 10/04/21 18:29 Dose: 25 mcg/kg/min, 18.23 mls/hr Documented by: Lidocaine HCl/Dextrose (Lidocaine Drip) 2,000 mg in 500 mls @ 30 mls/hr IV .[id number] [facility] Last Admin: 10/04/21 21:32 Dose: 2 mg/min, 30 mls/hr Documented by: Levothyroxine Sodium (Levothyroxine 50 Mcg Tablet) 50 mcg PO QAM [facility] Last Admin: 10/04/21 06:21 Dose: 50 mcg Documented by: Lorazepam (Lorazepam 2 Mg/Ml Inj 1 Ml) 1 mg IVP Q2H PRN PRN Reason: prn mild anx/agita Lorazepam (Lorazepam 2 Mg/Ml Inj 1 Ml) 2 mg IVP Q2H PRN PRN Reason: prn mod anx/agitation Last Admin: 10/04/21 15:27 Dose: 2 mg Documented by: Lorazepam (Lorazepam 2 Mg/Ml Inj 1 Ml) 5 mg IVP Q2H PRN PRN Reason: prn severe anx/agitation Metoprolol Succinate (Metoprolol Succinate Er (24 Hr) 100 Mg Tablet) 100 mg PO BID [facility] Last Admin: 10/04/21 18:16 Dose: 100 mg Documented by: Prednisone (Prednisone 10 Mg Tablet) 10 mg PO DAILY [facility] Last Admin: 10/04/21 09:37 Dose: 10 mg Documented by: Sacubitril/Valsartan (Sacubitril/Valsartan 24-26 Mg Tablet) 2 each PO BID@ [facility] Last Admin: 10/04/21 12:25 Dose: 2 each Documented by: Vitals/I&O/Wt Last Vital Signs Temp 98.2 F 10/04/21 20:00 Pulse 118 H 10/04/21 22:00 Resp 14 10/04/21 22:00 BP 94/73 10/04/21 22:00 Pulse Ox 94 10/04/21 22:00 10/04/21 10/04/21 10/04/21 06:59 14:59 22:59 Intake Total 428.354 / 2602.180 1202 / 1202 1989.151 / 3191.151 Output Total 400 / 400 600 / 600 Balance 28.354 / 2202.180 1202 / 1202 1389.151 / 2591.151 Weight last 48 hrs Weight 286 lb Weight 268 lb Physical Exam Narrative: GENERAL: The patient is alert and oriented times three. Not in any acute distress. Obese HEENT: No significant pallor, icterus or lymphadenopathy. NECK: Trachea appears to be central. No masses noted. No JVD or thyromegaly appreciated. No carotid bruit. RESPIRATORY: Chest is symmetrical. No intercostals muscle retraction or any accessory muscle activation. There is no chest wall tenderness. Breath sounds are heard bilaterally. No rales or rhonchi heard. No evidence of any consolidation. BREASTS: Deferred. HEART: The PMI could not be about. No palpable precordial events. S1 and S2 are normal. No S3 or S4 heard. No pericardial rub or any click heard. ABDOMEN: No vessel pulsations or distention. No tenderness. No organomegaly appreciated. No abdominal bruit. Bowel sounds are normally heard. : Deferred. RECTAL: Deferred. LYMPHATIC: No lymphadenopathy noted in the neck or groin. EXTREMITIES: 1+ edema with no cyanosis. Intervals are palpable and fairly good volume. MUSCULOSKELETAL: No acute joint deformities or swelling SKIN: There are no significant scars or skin rash noted. NEUROPSYCHIATRIC: The patient is alert and oriented x3. Appears to be in a good mood. The higher functions are grossly within normal limits. No tremors or rigidity noted. Data : 10/04/21 05:07 10/04/21 05:07 Micro: Laboratory Last Values WBC 6.7 10^3/uL (4.0-10.0) 10/04/21 05:07 RBC 4.02 10^6/uL (4.1-5.3) L 10/04/21 05:07 Hgb 14.3 g/dL (11.7-16.6) 10/04/21 05:07 Hct 41.7 % (42.0-52.0) L 10/04/21 05:07 MCV 103.7 fl (80-94) H 10/04/21 05:07 MCH 35.6 pg (28.0-34.0) H 10/04/21 05:07 MCHC 34.3 g/dL (30.0-36.0) 10/04/21 05:07 RDW 15.7 % (12.1-15.1) H 10/04/21 05:07 Plt Count 204 10^3/cmm (130-400) 10/04/21 05:07 MPV 9.6 fL (7.4-10.4) 10/04/21 05:07 Neut % (Auto) 65.5 % 10/04/21 05:07 Lymph % (Auto) 19.7 % 10/04/21 05:07 [place] % (Auto) 11.7 % 10/04/21 05:07 Eos % (Auto) 2.2 % 10/04/21 05:07 Baso % (Auto) 0.6 % 10/04/21 05:07 Neut # (Auto) 4.41 10^3/uL (1.8-7.7) 10/04/21 05:07 Lymph # (Auto) 1.3 10^3/uL (0.8-4.8) 10/04/21 05:07 [place] # (Auto) 0.8 10^3/uL (0.2-0.9) 10/04/21 05:07 Eos # (Auto) 0.2 10^3/uL (0.0-0.8) 10/04/21 05:07 Baso # (Auto) 0.0 10^3/uL (0.0-0.1) 10/04/21 05:07 Nucleated RBC % (auto) 0 % 10/04/21 05:07 Nucleated RBCs # 0.0 /100WBC 10/04/21 05:07 APTT 146.7 SECONDS (23.9-36.7) H D 10/04/21 20:04 D-Dimer 0.19 ug/mIFEU (0-0.59) 10/03/21 19:32 Sodium 133 mmol/L (136-145) L 10/04/21 05:07 Potassium 3.5 mmol/L (3.5-5.1) 10/04/21 05:07 Chloride 97 mmol/L (98-107) L 10/04/21 05:07 Carbon Dioxide 24 mmol/L (22-29) 10/04/21 05:07 Anion Gap 15.5 (5-19) 10/04/21 05:07 BUN 13 mg/dL (6-20) 10/04/21 05:07 Creatinine 0.7 mg/dL (0.7-1.2) 10/04/21 05:07 GFR Calculation 120.9 mL/min (90-130) 10/04/21 05:07 Glucose 91 mg/dL (65-115) 10/04/21 05:07 Calculated Osmolality 276 mOsm/kg (285-295) L 10/04/21 05:07 Calcium 8.3 mg/dL (8.5-10.5) L 10/04/21 05:07 Magnesium 2.1 mg/dL (1.7-2.3) 10/03/21 18:31 Total Bilirubin 0.8 mg/dL (0.15-1.2) 10/04/21 05:07 AST 27 U/L (0-40) 10/04/21 05:07 ALT 17 U/L (0-41) 10/04/21 05:07 Alkaline Phosphatase 77 IU/L (40-130) 10/04/21 05:07 Troponin T Baseline 17 ng/L (0-15) H 10/03/21 18:31 Troponin T 120 Minute 15.81 ng/L (0-15) H 10/03/21 20:24 Delta Troponin T -1.19 ABS# (0-10) L 10/03/21 20:24 Troponin T Hi Sens 6Hr 16.13 ng/L (0-15) H 10/04/21 01:04 Troponin T Hi Sens 6Hr Delta -0.87 ng/L (0-12) L 10/04/21 01:04 NT-Pro-B Natriuret Pep 1873 pg/mL (0-125) H 10/03/21 18:31 Total Protein 6.6 g/dL (6.6-8.7) 10/04/21 05:07 Albumin 3.8 g/dL (3.5-5.2) 10/04/21 05:07 Globulin 2.8 g/dL (1.3-4.6) 10/04/21 05:07 Lipase 9 U/L (13-60) L 10/03/21 18:31 Vitamin B12 353 pg/mL (232-1245) 10/03/21 18:31 Folate 7.1 ng/mL (4.5-32.2) 10/03/21 18:31 TSH 5.86 uIU/mL (0.27-4.20) H 10/03/21 18:31 Free T4 1.24 ng/dL (0.82-1.77) 10/03/21 18:31 SARS-CoV-2 Ag (Rapid) Negative (Negative) 10/03/21 19:30 A&P Assessment and plan (1) Ventricular tachycardia: Patient was placed back on the lidocaine and esmolol along with IV amiodarone. I may taper off the esmolol at this time. The dose of the latter can be decreased to 2 mg/min Status: Acute (2) Atrial fibrillation: Eliquis may be held at this point. Start him on Lovenox, weight-based Status: Acute Qualifiers: Atrial fibrillation type: unspecified chronic Qualified Code(s): I48.20 - Chronic atrial fibrillation, unspecified (3) Benign essential hypertension with target blood pressure below 140/90: Patient was hypotensive for a while. Currently the blood pressure has improved. Status: Acute (4) Atherosclerosis of coronary artery of cheesh-na heart without angina pectoris: The cardiac enzymes are negative for micro injury. Status: Acute Qualifiers: Coronary Disease-Associated Artery/Lesion type: cheesh-na artery Qualified Code(s): I25.10 - Atherosclerotic heart disease of cheesh-na coronary artery without angina pectoris (5) Cardiomyopathy: Clinically there is no evidence of any decompensation. Status: Acute (6) Seizure disorder: Continue on the current medications. Status: Acute Plan Other problems are as outlined before. Apparently the ventricular tachycardia detection rate was set for 171 to 200/min. This need to be reprogrammed for a low rate. He also has pacemaker at the AAI/DDD mode. Because of the atrial fibrillation, this also need to be changed. 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
--- NOTE | 2021-10-04 23:52 | PC.NURSE ---
Esmolol Dr. Patel called and received updates on patient. Vitals and current administration of esmolol, lidocaine, and amiodarone relayed. Verbal order received to discontinue esmolol for systolic BP <100. Critical care message order placed. See MAR for titrations.
[2021-10-05] VITALS (66 sets, daily range): BP systolic 83–132; BP diastolic 60–99; PULSE 60–119; RESP 8–26; TEMP 36.1–37.2; O2SAT 85–99; BMI 41.0
[2021-10-05] MEDS: amiodarone 200 mg Tablet 400 MG PO ×4 (00:17→21:03)
--- NOTE | 2021-10-05 02:15 | PC.NURSE ---
Physician Communication Patient's HR remaining in the 60-70s, normal sinus rhythm. Dr. Hardwick called and notified; telephone order received to decrease lidocaine drip to 1 mg/min. Additional telephone order received to restart esmolol drip if HR sustains >80 and BP maintains adequate. See MAR for titrations.
[2021-10-05] MEDS: lidocaine drip 2,000 MG/500 ML PREMIX 15 MG IV (02:30)
[2021-10-05 04:04] LABS: Partial Thromboplastin Time 44.9 SECONDS (23.9-36.7)
[2021-10-05] MEDS: HYDROcodone-acetaminophen 10-325 mg Tablet 1 TAB PO ×4 (04:25→22:45)
[2021-10-05] MEDS: heparin 5,000 unit/mL INJ 1 mL IV (04:26)
--- NOTE | 2021-10-05 04:50 | PC.NURSE ---
Physician Communication Patient's ptt resulted at 44.9; per protocol, heparin drip to be increased by 5 ml/hr and a 5000 unit bolus administered. No PRN heparin bolus ordered. Dr. Frey contacted and order clarified to administer heparin PRN bolus per protocol. Patient's HR also sustaining around 115s with esmolol drip restarted. Dr. Hardwick contacted and notified of increased HR; order received to titrate lidocaine back to 2 mg/min. See MAR for medication administrations.
[2021-10-05] MEDS: lidocaine drip 2,000 MG/500 ML PREMIX 30 MG IV ×2 (05:05→22:37)
[2021-10-05] MEDS: levothyroxine 50 mcg Tablet PO (05:22)
[2021-10-05] MEDS: atorvastatin 40 mg Tablet 80 MG PO (06:11)
[2021-10-05] MEDS: sacubitril/valsartan 24-26 mg Tablet 2 EACH PO ×2 (06:12→13:24)
[2021-10-05] MEDS: aspirin 81 mg EC Tablet PO (06:12)
[2021-10-05] MEDS: clopidogrel 75 mg Tablet PO (06:12)
[2021-10-05] MEDS: divalproex DR 500 mg Tablet PO ×2 (06:12→13:23)
[2021-10-05] MEDS: predniSONE 10 mg Tablet PO (08:59)
[2021-10-05] MEDS: metoprolol succinate ER (24 HR) 100 mg Tablet PO ×2 (08:59→16:46)
[2021-10-05] MEDS: heparin drip 25,000 UNIT/500 ML PREMIX 29 UNIT IV (10:29)
[2021-10-05 11:06] LABS: Partial Thromboplastin Time 86.5 SECONDS (23.9-36.7)
--- NOTE | 2021-10-05 13:48 | P.PN_ITS ---
Subjective Subjective: Patient was seen and examined today ICD interrogation done, appropriate settings done, Patient has remained in sinus rhythm for most part of the day. We will titrate lidocaine drip down Continue amnio drip, esmolol drip has been discontinued, Patient has been fairly stable today. Medications: Medication Review Details: Current Medications Hydrocodone Bitart/Acetaminophen (Hydrocodone-Acetaminophen 10-325 Mg Tablet) 1 tab PO Q6H PRN PRN Reason: MODERATE PAIN Last Admin: 10/04/21 22:27 Dose: 1 tab Documented by: Albuterol/Ipratropium (Ipratropium-Albuterol 4 Gm Mdi) 1 puff INHALATION QID.RESPIRATORY [facility] Last Admin: 10/04/21 20:19 Dose: 1 puff Documented by: Amiodarone HCl (Amiodarone 200 Mg Tablet) 400 mg PO Q8H [facility] Last Admin: 10/04/21 17:16 Dose: 400 mg Documented by: Aspirin (Aspirin 81 Mg Ec Tablet) 81 mg PO DAILY@07 [facility] Last Admin: 10/04/21 06:21 Dose: 81 mg Documented by: Atorvastatin Calcium (Atorvastatin 40 Mg Tablet) 80 mg PO DAILY@07 [facility] Last Admin: 10/04/21 06:22 Dose: 80 mg Documented by: Buspirone HCl (Buspirone 10 Mg Tablet) 10 mg PO TID PRN PRN Reason: Anxiety Clopidogrel Bisulfate (Clopidogrel 75 Mg Tablet) 75 mg PO DAILY@07 [facility] Last Admin: 10/04/21 06:21 Dose: 75 mg Documented by: Divalproex Sodium (Divalproex Dr 500 Mg Tablet) 500 mg PO BID@ [facility] Last Admin: 10/04/21 12:25 Dose: 500 mg Documented by: Amiodarone HCl 900 mg/Dextrose/ IV Miscellaneous Supplies 518 mls @ 0 mls/hr IV .Q0M [facility]; Protocol Last Admin: 10/04/21 18:13 Dose: 0.5 mg/min, 17.27 mls/hr Documented by: Heparin Sodium/Sodium Chloride (Heparin Drip) 25,000 unit in 500 mls @ 29.175 mls/hr IV .Q17H9M [facility] Last Infusion: 10/04/21 21:00 Dose: 9.87 unit/kg/hr, 24 mls/hr Documented by: Esmolol HCl (Brevibloc Drip) 2,500 mg in 250 mls @ 0 mls/hr IV .Q0M [facility]; Pr otocol Last Admin: 10/04/21 18:29 Dose: 25 mcg/kg/min, 18.23 mls/hr Documented by: Lidocaine HCl/Dextrose (Lidocaine Drip) 2,000 mg in 500 mls @ 30 mls/hr IV .[id number] [facility] Last Admin: 10/04/21 21:32 Dose: 2 mg/min, 30 mls/hr Documented by: Levothyroxine Sodium (Levothyroxine 50 Mcg Tablet) 50 mcg PO QAM [facility] Last Admin: 10/04/21 06:21 Dose: 50 mcg Documented by: Lorazepam (Lorazepam 2 Mg/Ml Inj 1 Ml) 1 mg IVP Q2H PRN PRN Reason: prn mild anx/agita Lorazepam (Lorazepam 2 Mg/Ml Inj 1 Ml) 2 mg IVP Q2H PRN PRN Reason: prn mod anx/agitation Last Admin: 10/04/21 15:27 Dose: 2 mg Documented by: Lorazepam (Lorazepam 2 Mg/Ml Inj 1 Ml) 5 mg IVP Q2H PRN PRN Reason: prn severe anx/agitation Metoprolol Succinate (Metoprolol Succinate Er (24 Hr) 100 Mg Tablet) 100 mg PO BID [facility] Last Admin: 10/04/21 18:16 Dose: 100 mg Documented by: Prednisone (Prednisone 10 Mg Tablet) 10 mg PO DAILY [facility] Last Admin: 10/04/21 09:37 Dose: 10 mg Documented by: Sacubitril/Valsartan (Sacubitril/Valsartan 24-26 Mg Tablet) 2 each PO BID@07,13 [facility] Last Admin: 10/04/21 12:25 Dose: 2 each Documented by: Vitals/I&O/Wt Last Vital Signs Temp 97.0 F L 10/05/21 08:30 Pulse 69 10/05/21 13:00 Resp 21 H 10/05/21 13:00 BP 122/83 10/05/21 13:00 Pulse Ox 93 10/05/21 13:00 10/04/21 10/05/21 10/05/21 22:59 06:59 14:59 Intake Total 1989.151 / 3191.151 817.493 / 4008.644 486.56 / 486.56 Output Total 600 / 600 725 / 1325 525 / 525 Balance 1389.151 / 2591.151 92.493 / 2683.644 -38.44 / -38.44 Weight last 48 hrs Weight 129.727 kg Weight 129.727 kg Weight 121.563 kg Physical Exam Const: COMMON NORMALS: patient oriented x3 HENMT: COMMON NORMALS: normocephalic and atraumatic HEAD & SCALP: normocephalic and atraumatic Chest: COMMONS NORMALS: normal inspection of the chest and normal palpation of entire chest wall CHEST: Yes Symmetrical chest wall rise Resp: COMMON NORMALS: normal respiratory effort, No retractions, No use of accessory muscles and clear to auscultation bilaterally EFFORT & INSPECTION: Yes symmetric chest movement AUSCULTATION: clear to auscultation bilaterally Cardio: COMMON NORMALS: regular rate, regular rhythm, S1 normal heart sound present, S2 normal heart sound present, No gallops present (Cardio), No murmurs present (Cardio), No rub (Cardio) and Peripheral pulses 2+ throughout RATE: r egular rate RHYTHM: regular rhythm HEART SOUNDS: S1 normal heart sound present and S2 normal heart sound present PERIPHERAL PULSES: Peripheral pulses 2+ throughout GI: COMMON NORMALS: Normal to inspection, nondistended, normoactive bowel sounds present, Soft to palpation, non-tender, No hepatosplenomegaly present and no masses AUSCULTATION: Yes normoactive bowel sounds PALPATION: Yes Soft to palpation and Yes No hepatosplenomegaly present RECTAL EXAM: Yes deferred Extremity: COMMON NORMALS: no clubbing, cyanosis or edema and no pedal edema Neuro: COMMON NORMALS: patient oriented x3 Data : 10/04/21 05:07 10/04/21 05:07 A&P Assessment and plan (1) Cardiomyopathy: Status: Acute Plan 45-year-old male with past medical history of coronary artery disease status post PCI, ischemic cardiomyopathy, HFrEF EF of 40-45 hypertension, status post AICD placement, pacemaker,?incessant ventricular tachycardia, atrial fibrillation,history of alcohol use in the past, was brought in with chief complaint of palpitation, dyspnea , dizziness, lightheadedness, he was found to be in ventricular tachycardia by the EMS and was given cardioversion one time, in the ER he subsequently received 2 synchronized cardioversion , after that he was started on amiodarone drip, lidocaine drip, esmolol drip. Assessment #?Incessant ventricular tachycardia: Currently on lidocaine amiodarone and esmolol drip On p.o. amiodarone On heparin drip K>4 ,MG>2 Continue telemetry monitoring AICD interrogation Cardiology on board #History of coronary artery disease s/p PCI: Patient has a recent coronary angiogram:02/11: * The left anterior descending artery is a medium caliber vessel which appears to bifurcate of the mid segment by giving a fair diagonal branch of equal caliber. The LAD proper appears to taper off towards the LV apex. Minimal intimal abnormalities were noted in the mid LAD and the proximal segment of the first diagonal. No significant stenotic lesions were seen.The left circumflex artery is a medium caliber vessel.? The proximal segment of the artery appears to be stented with severe diffuse in-stent narrowing.? The proximal segment of the first obtuse marginal artery also is stented with a severe diffuse in-stent narrowing.? The distal artery was found to have minimal intimal irregularities. The intermedius artery is a high diagonal branch with mild diffuse disease.? No significant stenotic lesions.The right coronary artery could not be engaged selectively.? With aortic root injection, the artery appears to be totally occluded.? Grade 2 to 3 [id number] collaterals were noted filling up? the PDA and the PLV branches during the left coronary injection.. 2D echo: Dilated left ventricle with ejection fraction of 38%.?Diffuse hypokinesia of the ventricle. Mild mitral valve regurgitation. ?There is no pericardial effusion. Initial plan was to do stress test, which has been canceled Continue aspirin, Plavix statin beta-anna, continue Entresto #History of atrial fibrillation: #HFrEF : Plan as above #Hypothyroidism: TSH:5.86 Continue levothyroxine #Seizure: Continue Depakote #DVT PPX : Not needed on heparin drip #CODE STATUS; full code Attestations Medical Necessity Statement*: Patient is to the hospital for management of SVT with aberrancy. Critical Care Time: The high probability of a clinically significant, sudden or life threatening deterioration of the patient's [] system(s) required my full and direct attention, intervention and personal management. The critical care time is as shown. 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
[2021-10-05 18:13] LABS: Partial Thromboplastin Time 43.2 SECONDS (23.9-36.7)
[2021-10-05] MEDS: enoxaparin 100 mg/mL Syringe SUBCUT (18:33)
[2021-10-05] MEDS: enoxaparin 30 mg/0.3 mL Syringe SUBCUT (18:33)
[2021-10-05] MEDS: digoxin 250 mcg/ml INJ 2 mL IVP ×2 (18:34→23:35)
--- NOTE | 2021-10-05 22:58 | PM.PN ---
Subjective Subjective: This patient went back into the tachycardia after the lidocaine was rescheduled. So she had to be restarted on the lidocaine. Continues to be in tachycardia with a rate of 130/min. Denies any chest pain. Has some amount of shortness of breath. No fever or chills. No cough. No other specific complaints. Medications: Medication Review Details: Current Medications Hydrocodone Bitart/Acetaminophen (Hydrocodone-Acetaminophen 10-325 Mg Tablet) 1 tab PO Q6H PRN PRN Reason: MODERATE PAIN Last Admin: 10/05/21 22:45 Dose: 1 tab Documented by: Albuterol/Ipratropium (Ipratropium-Albuterol 4 Gm Mdi) 1 puff INHALATION QID.RESPIRATORY [facility] Last Admin: 10/05/21 20:51 Dose: 1 puff Documented by: Amiodarone HCl (Amiodarone 200 Mg Tablet) 400 mg PO TID [facility] Last Admin: 10/05/21 21:03 Dose: 400 mg Documented by: Aspirin (Aspirin 81 Mg Ec Tablet) 81 mg PO DAILY@07 [facility] Last Admin: 10/05/21 06:12 Dose: 81 mg Documented by: Atorvastatin Calcium (Atorvastatin 40 Mg Tablet) 80 mg PO DAILY@07 [facility] Last Admin: 10/05/21 06:11 Dose: 80 mg Documented by: Buspirone HCl (Buspirone 10 Mg Tablet) 10 mg PO TID PRN PRN Reason: Anxiety Clopidogrel Bisulfate (Clopidogrel 75 Mg Tablet) 75 mg PO DAILY@07 [facility] Last Admin: 10/05/21 06:12 Dose: 75 mg Documented by: Digoxin (Digoxin 250 Mcg/Ml Inj 2 Ml) 250 mcg IVP Q6H [facility] Stop: 10/06/21 12:01 Last Admin: 10/05/21 18:34 Dose: 250 mcg Documented by: Digoxin (Digoxin 250 Mcg/Ml Inj 2 Ml) 250 mcg IVP DAILY [facility] Divalproex Sodium (Divalproex Dr 500 Mg Tablet) 500 mg PO BID@, [facility] Last Admin: 10/05/21 13:23 Dose: 500 mg Documented by: Enoxaparin Sodium (Enoxaparin 100 Mg/Ml Syringe) 100 mg SUBCUT Q12H [facility] Last Admin: 10/05/21 18:33 Dose: 100 mg Documented by: Enoxaparin Sodium (Enoxaparin 30 Mg/0.3 Ml Syringe) 30 mg SUBCUT Q12H [facility] Last Admin: 10/05/21 18:33 Dose: 30 mg Documented by: Heparin Sodium (Porcine) (Heparin 5,000 Unit/Ml Inj 1 Ml) 0 unit IV PRN PRN; Protocol PRN Reason: Heparin weight-base protocol Last Admin: 10/05/21 04:26 Dose: 5,000 unit Documented by: Amiodarone HCl 900 mg/Dextrose/ IV Miscellaneous Supplies 518 mls @ 0 mls/hr IV .Q0M [facility]; Protocol Last Titration: 10/05/21 22:00 Dose: 0 mg/min, 0 mls/hr Documented by: Lidocaine HCl/Dextrose (Lidocaine Drip) 2,000 mg in 500 mls @ 15 mls/hr IV .Q24H [facility] Last Admin: 10/05/21 22:37 Dose: 2 mg/min, 30 mls/hr Documented by: Levothyroxine Sodium (Levothyroxine 50 Mcg Tablet) 50 mcg PO QAM [facility] Last Admin: 10/05/21 05:22 Dose: 50 mcg Documented by: Lorazepam (Lorazepam 2 Mg/Ml Inj 1 Ml) 1 mg IVP Q2H PRN PRN Reason: prn mild anx/agita Lorazepam (Lorazepam 2 Mg/Ml Inj 1 Ml) 2 mg IVP Q2H PRN PRN Reason: prn mod anx/agitation Last Admin: 10/04/21 15:27 Dose: 2 mg Documented by: Lorazepam (Lorazepam 2 Mg/Ml Inj 1 Ml) 5 mg IVP Q2H PRN PRN Reason: prn severe anx/agitation Metoprolol Succinate (Metoprolol Succinate Er (24 Hr) 100 Mg Tablet) 100 mg PO BID [facility] Last Admin: 10/05/21 16:46 Dose: 100 mg Documented by: Sacubitril/Valsartan (Sacubitril/Valsartan 24-26 Mg Tablet) 2 each PO BID@, [facility] Last Admin: 10/05/21 13:24 Dose: 2 each Documented by: Vitals/I&O/Wt Last Vital Signs Temp 98.0 F 10/05/21 21:00 Pulse 64 10/05/21 22:30 Resp 14 10/05/21 22:30 BP 119/82 10/05/21 22:30 Pulse Ox 96 04/14/22 22:30 10/05/21 10/05/21 10/05/21 06:59 14:59 22:59 Intake Total 817.493 / 4008.644 830.543 / 830.543 995.818 / 1826.361 Output Total 725 / 1325 1225 / 1225 850 / 2075 Balance 92.493 / 2683.644 -394.457 / -394.457 145.818 / -248.639 Weight last 48 hrs Weight 286 lb Weight 286 lb Physical Exam Narrative: GENERAL: The patient is alert and oriented times three. Not in any acute distress. Obese HEENT: No significant pallor, icterus or lymphadenopathy. NECK: Trachea appears to be central. No masses noted. No JVD or thyromegaly appreciated. No carotid bruit. RESPIRATORY: Chest is symmetrical. No intercostals muscle retraction or any accessory muscle activation. There is no chest wall tenderness. Breath sounds are heard bilaterally. No rales or rhonchi heard. No evidence of any consolidation. BREASTS: Deferred. HEART: The PMI could not be about. No palpable precordial events. S1 and S2 are normal. No S3 or S4 heard. No pericardial rub or any click heard. ABDOMEN: No vessel pulsations or distention. No tenderness. No organomegaly appreciated. No abdominal bruit. Bowel sounds are normally heard. : Deferred. RECTAL: Deferred. LYMPHATIC: No lymphadenopathy noted in the neck or groin. EXTREMITIES: 1+ edema with no cyanosis. Intervals are palpable and fairly good volume. MUSCULOSKELETAL: No acute joint deformities or swelling SKIN: There are no significant scars or skin rash noted. NEUROPSYCHIATRIC: The patient is alert and oriented x3. Appears to be in a good mood. The higher functions are grossly within normal limits. No tremors or rigidity noted. Data : 10/04/21 05:07 10/04/21 05:07 Other Labs: Laboratory Last Values WBC 6.7 10^3/uL (4.0-10.0) 10/04/21 05:07 RBC 4.02 10^6/uL (4.1-5.3) L 10/04/21 05:07 Hgb 14.3 g/dL (11.7-16.6) 10/04/21 05:07 Hct 41.7 % (42.0-52.0) L 10/04/21 05:07 MCV 103.7 fl (80-94) H 10/04/21 05:07 MCH 35.6 pg (28.0-34.0) H 10/04/21 05:07 MCHC 34.3 g/dL (30.0-36.0) 10/04/21 05:07 RDW 15.7 % (12.1-15.1) H 10/04/21 05:07 Plt Count 204 10^3/cmm (130-400) 10/04/21 05:07 MPV 9.6 fL (7.4-10.4) 10/04/21 05:07 Neut % (Auto) 65.5 % 10/04/21 05:07 Lymph % (Auto) 19.7 % 10/04/21 05:07 [place] % (Auto) 11.7 % 10/04/21 05:07 Eos % (Auto) 2.2 % 10/04/21 05:07 Baso % (Auto) 0.6 % 10/04/21 05:07 Neut # (Auto) 4.41 10^3/uL (1.8-7.7) 10/04/21 05:07 Lymph # (Auto) 1.3 10^3/uL (0.8-4.8) 10/04/21 05:07 [place] # (Auto) 0.8 10^3/uL (0.2-0.9) 10/04/21 05:07 Eos # (Auto) 0.2 10^3/uL (0.0-0.8) 10/04/21 05:07 Baso # (Auto) 0.0 10^3/uL (0.0-0.1) 10/04/21 05:07 Nucleated RBC % (auto) 0 % 10/04/21 05:07 Nucleated RBCs # 0.0 /100WBC 10/04/21 05:07 APTT 43.2 SECONDS (23.9-36.7) H D 10/05/21 17:40 D-Dimer 0.19 ug/mIFEU (0-0.59) 10/03/21 19:32 Sodium 133 mmol/L (136-145) L 10/04/21 05:07 Potassium 3.5 mmol/L (3.5-5.1) 10/04/21 05:07 Chloride 97 mmol/L (98-107) L 10/04/21 05:07 Carbon Dioxide 24 mmol/L (22-29) 10/04/21 05:07 Anion Gap 15.5 (5-19) 10/04/21 05:07 BUN 13 mg/dL (6-20) 10/04/21 05:07 Creatinine 0.7 mg/dL (0.7-1.2) 10/04/21 05:07 GFR Calculation 120.9 mL/min (90-130) 10/04/21 05:07 Glucose 91 mg/dL (65-115) 10/04/21 05:07 Calculated Osmolality 276 mOsm/kg (285-295) L 10/04/21 05:07 Calcium 8.3 mg/dL (8.5-10.5) L 10/04/21 05:07 Magnesium 2.1 mg/dL (1.7-2.3) 10/03/21 18:31 Total Bilirubin 0.8 mg/dL (0.15-1.2) 10/04/21 05:07 AST 27 U/L (0-40) 10/04/21 05:07 ALT 17 U/L (0-41) 10/04/21 05:07 Alkaline Phosphatase 77 IU/L (40-130) 10/04/21 05:07 Troponin T Baseline 17 ng/L (0-15) H 10/03/21 18:31 Troponin T 120 Minute 15.81 ng/L (0-15) H 10/03/21 20:24 Delta Troponin T -1.19 ABS# (0-10) L 10/03/21 20:24 Troponin T Hi Sens 6Hr 16.13 ng/L (0-15) H 10/04/21 01:04 Troponin T Hi Sens 6Hr Delta -0.87 ng/L (0-12) L 10/04/21 01:04 NT-Pro-B Natriuret Pep 1873 pg/mL (0-125) H 10/03/21 18:31 Total Protein 6.6 g/dL (6.6-8.7) 10/04/21 05:07 Albumin 3.8 g/dL (3.5-5.2) 10/04/21 05:07 Globulin 2.8 g/dL (1.3-4.6) 10/04/21 05:07 Lipase 9 U/L (13-60) L 10/03/21 18:31 Vitamin B12 353 pg/mL (232-1245) 10/03/21 18:31 Folate 7.1 ng/mL (4.5-32.2) 10/03/21 18:31 TSH 5.86 uIU/mL (0.27-4.20) H 10/03/21 18:31 Free T4 1.24 ng/dL (0.82-1.77) 10/03/21 18:31 SARS-CoV-2 Ag (Rapid) Negative (Negative) 10/03/21 19:30 A&P Assessment and plan (1) Ventricular tachycardia: The patient was interrogated today. Patient had a several episodes of sustained ventricular tachycardia which were treated with ATP. Patient was found to be in atrial tachycardia following the ATP. He was responding to lidocaine in addition to the IV amiodarone. Apparently the time when the lidocaine is discontinued, he goes into tachycardia with a heart rate in the 120s Status: Acute (2) Atrial fibrillation: Patient is on IV heparin. The Eliquis was held. Status: Acute Qualifiers: Atrial fibrillation type: unspecified chronic Qualified Code(s): I48.20 - Chronic atrial fibrillation, unspecified (3) Benign essential hypertension with target blood pressure below 140/90: Patient was hypotensive for a while. Currently the blood pressure has improved. He is taking normotensive. Status: Acute (4) Atherosclerosis of coronary artery of [place] heart without angina pectoris: The cardiac enzymes are negative for myocardial injury. Patient may not require any specific intervention at this point. Status: Acute Qualifiers: Coronary Disease-Associated Artery/Lesion type: [place] artery Qualified Code(s): I25.10 - Atherosclerotic heart disease of [place] coronary artery without angina pectoris (5) Cardiomyopathy: Clinically there is no evidence of any decompensation. We will continue on the current medications. Status: Acute (6) Seizure disorder: Continue on the current medications. Has not had any recurrence of seizure activities in the recent past. Status: Acute Plan The ICD was reprogrammed today for burst pacing for a VT of 140/min. Also the mode switch was turned on for atrial fibrillation. We will discontinue the lidocaine. We will start him on p.o. amiodarone, once the IV amiodarone is finished. For some reason, the patient has not been taking p.o. 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
[2021-10-06] VITALS (29 sets, daily range): BP systolic 98–146; BP diastolic 56–101; PULSE 60–85; RESP 10–22; TEMP 36.7–37; O2SAT 89–98
[2021-10-06] MEDS: HYDROcodone-acetaminophen 10-325 mg Tablet 1 TAB PO ×2 (05:05→10:57)
[2021-10-06] MEDS: digoxin 250 mcg/ml INJ 2 mL IVP ×2 (05:05→11:44)
[2021-10-06] MEDS: levothyroxine 50 mcg Tablet PO (05:06)
[2021-10-06 05:33] LABS: Basophils % 0.6 %; Eosinophils # 0.1 10^3/uL (0.0-0.8); Eosinophils % 1.3 %; Hematocrit 43.3 % (42.0-52.0); Hemoglobin 14.8 g/dL (11.7-16.6); Lymphocytes # 2.2 10^3/uL (0.8-4.8); Lymphocytes % 30.6 %; Mean Corpuscular HGB Conc 34.2 g/dL (30.0-36.0); Mean Corpuscular Hemoglobin 35.6 pg (28.0-34.0); Mean Corpuscular Volume 104.1 fl (80-94); Mean Platelet Volume 10.1 fL (7.4-10.4); Monocytes # 0.7 10^3/uL (0.2-0.9); Monocytes % 10.1 %; Neutrophils # 4.07 10^3/uL (1.8-7.7); Neutrophils % 56.7 %; Nucleated Red Blood Cells % 0 %; Platelet Count 184 10^3/cmm (130-400); Red Blood Count 4.16 10^6/uL (4.1-5.3); Red Cell Distribution Width 15.6 % (12.1-15.1); White Blood Count 7.2 10^3/uL (4.0-10.0)
[2021-10-06] MEDS: sacubitril/valsartan 24-26 mg Tablet 2 EACH PO ×2 (06:05→11:59)
[2021-10-06] MEDS: enoxaparin 30 mg/0.3 mL Syringe SUBCUT (06:06)
[2021-10-06] MEDS: enoxaparin 100 mg/mL Syringe SUBCUT (06:06)
[2021-10-06] MEDS: atorvastatin 40 mg Tablet 80 MG PO (06:06)
[2021-10-06] MEDS: aspirin 81 mg EC Tablet PO (06:06)
[2021-10-06] MEDS: divalproex DR 500 mg Tablet PO ×2 (06:06→12:00)
[2021-10-06] MEDS: clopidogrel 75 mg Tablet PO (06:06)
[2021-10-06 07:30] LABS: Anion Gap 14.3 (5-19); Blood Urea Nitrogen 10 mg/dL (6-20); Calcium 8.3 mg/dL (8.5-10.5); Carbon Dioxide 27 mmol/L (22-29); Chloride 93 mmol/L (98-107); Glomerular Filtration Rate 120.9 mL/min (90-130); Glucose 97 mg/dL (65-115); Magnesium 2.5 mg/dL (1.7-2.3); Osmolality Calculated 269 mOsm/kg (285-295); Potassium 4.3 mmol/L (3.5-5.1); Sodium 130 mmol/L (136-145)
[2021-10-06] MEDS: amiodarone 200 mg Tablet 400 MG PO (08:41)
[2021-10-06] MEDS: metoprolol succinate ER (24 HR) 100 mg Tablet PO (08:41)
--- NOTE | 2021-10-06 10:04 | P.PN_ITS ---
Subjective Subjective: The patient is feeling okay with no chest pain, palpitation, dizziness or any syncopal episode. Seems to be staying in the sinus rhythm since yesterday. The vital signs remained stable. He is off the lidocaine and IV amiodarone. Received 1 dose of digoxin 25 mg yesterday IV. Medications: Medication Review Details: Current Medications Hydrocodone Bitart/Acetaminophen (Hydrocodone-Acetaminophen 10-325 Mg Tablet) 1 tab PO Q6H PRN PRN Reason: MODERATE PAIN Last Admin: 10/06/21 05:05 Dose: 1 tab Documented by: Albuterol/Ipratropium (Ipratropium-Albuterol 4 Gm Mdi) 1 puff INHALATION QID.RESPIRATORY [facility] Last Admin: 10/06/21 08:22 Dose: 1 puff Documented by: Amiodarone HCl (Amiodarone 200 Mg Tablet) 400 mg PO TID [facility] Last Admin: 10/06/21 08:41 Dose: 400 mg Documented by: Aspirin (Aspirin 81 Mg Ec Tablet) 81 mg PO DAILY@07 [facility] Last Admin: 10/06/21 06:06 Dose: 81 mg Documented by: Atorvastatin Calcium (Atorvastatin 40 Mg Tablet) 80 mg PO DAILY@07 [facility] Last Admin: 10/06/21 06:06 Dose: 80 mg Documented by: Buspirone HCl (Buspirone 10 Mg Tablet) 10 mg PO TID PRN PRN Reason: Anxiety Clopidogrel Bisulfate (Clopidogrel 75 Mg Tablet) 75 mg PO DAILY@07 [facility] Last Admin: 10/06/21 06:06 Dose: 75 mg Documented by: Digoxin (Digoxin 250 Mcg/Ml Inj 2 Ml) 250 mcg IVP Q6H [facility] Stop: 10/06/21 12:01 Last Admin: 10/06/21 05:05 Dose: 250 mcg Documented by: Digoxin (Digoxin 250 Mcg/Ml Inj 2 Ml) 250 mcg IVP DAILY [facility] Divalproex Sodium (Divalproex Dr 500 Mg Tablet) 500 mg PO BID@ [facility] Last Admin: 10/06/21 06:06 Dose: 500 mg Documented by: Enoxaparin Sodium (Enoxaparin 100 Mg/Ml Syringe) 100 mg SUBCUT Q12H [facility] Last Admin: 10/06/21 06:06 Dose: 100 mg Documented by: Enoxaparin Sodium (Enoxaparin 30 Mg/0.3 Ml Syringe) 30 mg SUBCUT Q12H [facility] Last Admin: 10/06/21 06:06 Dose: 30 mg Documented by: Heparin Sodium (Porcine) (Heparin 5,000 Unit/Ml Inj 1 Ml) 0 unit IV PRN PRN; Protocol PRN Reason: Heparin weight-base protocol Last Admin: 10/05/21 04:26 Dose: 5,000 unit Documented by: Amiodarone HCl 900 mg/Dextrose/ IV Miscellaneous Supplies 518 mls @ 0 mls/hr IV .Q0M [facility]; Protocol Last Titration: 10/05/21 22:00 Dose: 0 mg/min, 0 mls/hr Documented by: Lidocaine HCl/Dextrose (Lidocaine Drip) 2,000 mg in 500 mls @ 15 mls/hr IV .Q24H [facility] Last Titration: 10/05/21 23:38 Dose: 0 mg/min, 0 mls/hr Documented by: Levothyroxine Sodium (Levothyroxine 50 Mcg Tablet) 50 mcg PO QAM [facility] Last Admin: 10/06/21 05:06 Dose: 50 mcg Documented by: Lorazepam (Lorazepam 2 Mg/Ml Inj 1 Ml) 1 mg IVP Q2H PRN PRN Reason: prn mild anx/agita Lorazepam (Lorazepam 2 Mg/Ml Inj 1 Ml) 2 mg IVP Q2H PRN PRN Reason: prn mod anx/agitation Last Admin: 10/04/21 15:27 Dose: 2 mg Documented by: Lorazepam (Lorazepam 2 Mg/Ml Inj 1 Ml) 5 mg IVP Q2H PRN PRN Reason: prn severe anx/agitation Metoprolol Succinate (Metoprolol Succinate Er (24 Hr) 100 Mg Tablet) 100 mg PO BID [facility] Last Admin: 10/06/21 08:41 Dose: 100 mg Documented by: Sacubitril/Valsartan (Sacubitril/Valsartan 24-26 Mg Tablet) 2 each PO BID@ [facility] Last Admin: 10/06/21 06:05 Dose: 2 each Documented by: Vitals/I&O/Wt Last Vital Signs Temp 98.6 F 10/06/21 09:30 Pulse 67 10/06/21 10:00 Resp 17 10/06/21 10:00 BP 118/88 10/06/21 10:00 Pulse Ox 93 10/06/21 10:00 10/05/21 10/06/21 10/06/21 22:59 06:59 14:59 Intake Total 995.818 / 1826.361 502.25 / 2328.611 240 / 240 Output Total 850 / 2075 1300 / 3375 Balance 145.818 / -248.639 -797.75 / -1046.389 240 / 240 Weight last 48 hrs Weight 275 lb 3 oz Weight 286 lb Weight 286 lb Physical Exam Narrative: GENERAL: The patient is alert and oriented times three. Not in any acute distress. Obese HEENT: No significant pallor, icterus or lymphadenopathy. NECK: Trachea appears to be central. No masses noted. No JVD or thyromegaly appreciated. No carotid bruit. RESPIRATORY: Chest is symmetrical. No intercostals muscle retraction or any accessory muscle activation. There is no chest wall tenderness. Breath sounds are heard bilaterally. No rales or rhonchi heard. No evidence of any consolidation. BREASTS: Deferred. HEART: The PMI could not be about. No palpable precordial events. S1 and S2 are normal. No S3 or S4 heard. No pericardial rub or any click heard. ABDOMEN: No vessel pulsations or distention. No tenderness. No organomegaly appreciated. No abdominal bruit. Bowel sounds are normally heard. : Deferred. RECTAL: Deferred. LYMPHATIC: No lymphadenopathy noted in the neck or groin. EXTREMITIES: No edema or cyanosis. MUSCULOSKELETAL: No acute joint deformities or swelling SKIN: There are no significant scars or skin rash noted. NEUROPSYCHIATRIC: The patient is alert and oriented x3. Appears to be in a good mood. The higher functions are grossly within normal limits. No tremors or rigidity noted. Data : 10/06/21 04:32 10/06/21 06:38 Other Labs: Laboratory Last Values WBC 7.2 10^3/uL (4.0-10.0) 10/06/21 04:32 RBC 4.16 10^6/uL (4.1-5.3) 10/06/21 04:32 Hgb 14.8 g/dL (11.7-16.6) 10/06/21 04:32 Hct 43.3 % (42.0-52.0) 10/06/21 04:32 MCV 104.1 fl (80-94) H 10/06/21 04:32 MCH 35.6 pg (28.0-34.0) H 10/06/21 04:32 MCHC 34.2 g/dL (30.0-36.0) 10/06/21 04:32 RDW 15.6 % (12.1-15.1) H 10/06/21 04:32 Plt Count 184 10^3/cmm (130-400) 10/06/21 04:32 MPV 10.1 fL (7.4-10.4) 10/06/21 04:32 Neut % (Auto) 56.7 % 10/06/21 04:32 Lymph % (Auto) 30.6 % 10/06/21 04:32 [place] % (Auto) 10.1 % 10/06/21 04:32 Eos % (Auto) 1.3 % 10/06/21 04:32 Baso % (Auto) 0.6 % 10/06/21 04:32 Neut # (Auto) 4.07 10^3/uL (1.8-7.7) 10/06/21 04:32 Lymph # (Auto) 2.2 10^3/uL (0.8-4.8) 10/06/21 04:32 [place] # (Auto) 0.7 10^3/uL (0.2-0.9) 10/06/21 04:32 Eos # (Auto) 0.1 10^3/uL (0.0-0.8) 10/06/21 04:32 Baso # (Auto) 0.0 10^3/uL (0.0-0.1) 10/06/21 04:32 Nucleated RBC % (auto) 0 % 10/06/21 04:32 Nucleated RBCs # 0.0 /100WBC 10/06/21 04:32 APTT 43.2 SECONDS (23.9-36.7) H D 10/05/21 17:40 D-Dimer 0.19 ug/mIFEU (0-0.59) 10/03/21 19:32 Sodium 130 mmol/L (136-145) L 10/06/21 06:38 Potassium 4.3 mmol/L (3.5-5.1) 10/06/21 06:38 Chloride 93 mmol/L (98-107) L 10/06/21 06:38 Carbon Dioxide 27 mmol/L (22-29) 10/06/21 06:38 Anion Gap 14.3 (5-19) 10/06/21 06:38 BUN 10 mg/dL (6-20) 10/06/21 06:38 Creatinine 0.7 mg/dL (0.7-1.2) 10/06/21 06:38 GFR Calculation 120.9 mL/min (90-130) 10/06/21 06:38 Glucose 97 mg/dL (65-115) 10/06/21 06:38 Calculated Osmolality 269 mOsm/kg (285-295) L 10/06/21 06:38 Calcium 8.3 mg/dL (8.5-10.5) L 10/06/21 06:38 Magnesium 2.5 mg/dL (1.7-2.3) H 10/06/21 06:38 Total Bilirubin 0.8 mg/dL (0.15-1.2) 10/04/21 05:07 AST 27 U/L (0-40) 10/04/21 05:07 ALT 17 U/L (0-41) 10/04/21 05:07 Alkaline Phosphatase 77 IU/L (40-130) 10/04/21 05:07 Troponin T Baseline 17 ng/L (0-15) H 10/03/21 18:31 Troponin T 120 Minute 15.81 ng/L (0-15) H 10/03/21 20:24 Delta Troponin T -1.19 ABS# (0-10) L 10/03/21 20:24 Troponin T Hi Sens 6Hr 16.13 ng/L (0-15) H 10/04/21 01:04 Troponin T Hi Sens 6Hr Delta -0.87 ng/L (0-12) L 10/04/21 01:04 NT-Pro-B Natriuret Pep 1873 pg/mL (0-125) H 10/03/21 18:31 Total Protein 6.6 g/dL (6.6-8.7) 10/04/21 05:07 Albumin 3.8 g/dL (3.5-5.2) 10/04/21 05:07 Globulin 2.8 g/dL (1.3-4.6) 10/04/21 05:07 Lipase 9 U/L (13-60) L 10/03/21 18:31 Vitamin B12 353 pg/mL (232-1245) 10/03/21 18:31 Folate 7.1 ng/mL (4.5-32.2) 10/03/21 18:31 TSH 5.86 uIU/mL (0.27-4.20) H 10/03/21 18:31 Free T4 1.24 ng/dL (0.82-1.77) 10/03/21 18:31 SARS-CoV-2 Ag (Rapid) Negative (Negative) 10/03/21 19:30 A&P Assessment and plan (1) Ventricular tachycardia: We will continue on the p.o. amiodarone. Amiodarone 400 mg p.o. 3 times a day for 5 days followed by twice daily for 1 week, followed by 400 mg daily. Status: Acute (2) Atrial fibrillation: Discontinue the IV heparin. Start taking Eliquis this evening. He was given a total of 0.75 mg of digoxin. May get the next 0.25 mg at noon. He may be started on a maintenance dose of 0.25 mg p.o. daily from tomorrow onwards. Status: Acute Qualifiers: Atrial fibrillation type: unspecified chronic Qualified Code(s): I48.20 - Chronic atrial fibrillation, unspecified (3) Benign essential hypertension with target blood pressure below 140/90: Blood pressure seems to be staying in the normal range at this time. We will continue on the current medication. Status: Acute (4) Atherosclerosis of coronary artery of [place] heart without angina pectoris: The cardiac enzymes are negative for myocardial injury. Patient may not require any specific intervention at this point. May continue on the current medications. Status: Acute Qualifiers: Coronary Disease-Associated Artery/Lesion type: [place] artery Qualified Code(s): I25.10 - Atherosclerotic heart disease of [place] coronary artery without angina pectoris (5) Cardiomyopathy: Clinically there is no evidence of any decompensation. We will continue on the current medications. Status: Acute (6) Seizure disorder: Continue on the current medications. Has not had any recurrence of seizure activities in the recent past. Status: Acute Plan We will keep the patient on the current VT therapy protocol-burst pacing x3, ATP x3. VT detection rate 140 Attestations Medical Necessity Statement*: The patient continues remain stable, may be discharged home today. 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
--- NOTE | 2021-10-06 10:44 | P.DS_ITS ---
Discharge Providers Date of Admission: 10/03/21 19:29 Date of Discharge: October 06, 2021 Attending Provider at Admission: Hernan Frey DO Attending Provider at Discharge: Angel Mahmood MD Primary Care Provider: Jonny Gifford Diagnoses at Discharge Discharge Diagnosis (1) Ventricular tachycardia: Status: Acute (2) Atrial fibrillation: Status: Acute Qualifiers: Atrial fibrillation type: unspecified chronic Qualified Code(s): I48.20 - Chronic atrial fibrillation, unspecified (3) Benign essential hypertension with target blood pressure below 140/90: Status: Acute (4) Atherosclerosis of coronary artery of [place] heart without angina pectoris: Status: Acute Qualifiers: Coronary Disease-Associated Artery/Lesion type: [place] artery Qualified Code(s): I25.10 - Atherosclerotic heart disease of [place] coronary artery without angina pectoris (5) Cardiomyopathy: Status: Acute (6) Seizure disorder: Status: Acute Reason for Visit Reason for Visit: [facility] Hospital Course Hospital Course HPI: 45-year-old male with past medical history of coronary artery disease status post PCI, ischemic cardiomyopathy, HFrEF EF of 40-45 hypertension, status post AICD placement, pacemaker,?incessant ventricular tachycardia, atrial fibrillation,history of alcohol use in the past, was brought in with chief complaint of palpitation, dyspnea , dizziness, lightheadedness, he was found to be in ventricular tachycardia by the EMS and was given cardioversion one time,? in the ER he subsequently? received 2 synchronized cardioversion , after that he was started on amiodarone drip, lidocaine drip, esmolol drip. Hospital course: Was admitted for the management of Incessant ventricular tachycardia: He was kept on amiodarone drip lidocaine drip, esmolol drip , device interrogation was done which showed multiple episodes of nonsustained VT dealt with Antitachycardia Pacing (ATP), changes were made to the device settings, he was discharged on amiodarone p.o. For his atrial fibrillation he was loaded with digoxin and was then discharged on p.o. digoxin maintenance dose of 0.25 p.o. daily, he has been continued on Eliquis for his anticoagulation. Patient responded well to medical management and has been discharged in stable condition to home he will continue to follow cardiology as well as his primary care physician as an outpatient. Physical Exam Const: COMMON NORMALS: patient oriented x3 HENMT: COMMON NORMALS: normocephalic and atraumatic HEAD & SCALP: normocephalic and atraumatic Chest: COMMONS NORMALS: normal inspection of the chest and normal palpation of entire chest wall CHEST: Yes Symmetrical chest wall rise Resp: COMMON NORMALS: normal respiratory effort, No retractions, No use of accessory muscles and clear to auscultation bilaterally EFFORT & INSPECTION: Yes symmetric chest movement AUSCULTATION: clear to auscultation bilaterally Cardio: COMMON NORMALS: regular rate, regular rhythm, S1 normal heart sound present, S2 normal heart sound present, No gallops present (Cardio), No murmurs present (Cardio), No rub (Cardio) and Peripheral pulses 2+ throughout RATE: regular rate RHYTHM: regular rhythm HEART SOUNDS: S1 normal heart sound present and S2 normal heart sound present PERIPHERAL PULSES: Peripheral pulses 2+ throughout GI: COMMON NORMALS: Normal to inspection, nondistended, normoactive bowel sounds present, Soft to palpation, non-tender, No hepatosplenomegaly present and no masses AUSCULTATION: Yes normoactive bowel sounds PALPATION: Yes Soft to palpation and Yes No hepatosplenomegaly present RECTAL EXAM: Yes deferred Extremity: COMMON NORMALS: no clubbing, cyanosis or edema and no pedal edema Neuro: COMMON NORMALS: patient oriented x3 Discharge Data Studies Completed and Pending Completed Studies During Hospitalization Category Date Time Status XR chest 1V portable [id number] Stat Exams 10/03/21 18:52 Completed CV. echo complete* [id number] Routine Ultrasound 10/03/21 20:48 Completed Pending at discharge Category Date Time Status BMP [Basic Metabolic Panel] AM LABS Lab 10/07/21 04:00 Ordered CBC Auto Diff [Complete Blood Count w/Auto] AM LABS Lab 10/07/21 04:00 Ordered Magnesium AM LABS Lab 10/07/21 04:00 Ordered Radiology Impressions Chest X-Ray 10/03/21 18:52 IMPRESSION: 1. No acute cardiopulmonary process. 2. Incidental/nonacute findings are listed in the report. Laboratory Results WBC 7.2 10^3/uL (4.0-10.0) 10/06/21 04:32 RBC 4.16 10^6/uL (4.1-5.3) 10/06/21 04:32 Hgb 14.8 g/dL (11.7-16.6) 10/06/21 04:32 Hct 43.3 % (42.0-52.0) 10/06/21 04:32 MCV 104.1 fl (80-94) H 10/06/21 04:32 MCH 35.6 pg (28.0-34.0) H 10/06/21 04:32 MCHC 34.2 g/dL (30.0-36.0) 10/06/21 04:32 RDW 15.6 % (12.1-15.1) H 10/06/21 04:32 Plt Count 184 10^3/cmm (130-400) 10/06/21 04:32 MPV 10.1 fL (7.4-10.4) 10/06/21 04:32 Neut % (Auto) 56.7 % 10/06/21 04:32 Lymph % (Auto) 30.6 % 10/06/21 04:32 [place] % (Auto) 10.1 % 10/06/21 04:32 Eos % (Auto) 1.3 % 10/06/21 04:32 Baso % (Auto) 0.6 % 10/06/21 04:32 Neut # (Auto) 4.07 10^3/uL (1.8-7.7) 10/06/21 04:32 Lymph # (Auto) 2.2 10^3/uL (0.8-4.8) 10/06/21 04:32 [place] # (Auto) 0.7 10^3/uL (0.2-0.9) 10/06/21 04:32 Eos # (Auto) 0.1 10^3/uL (0.0-0.8) 10/06/21 04:32 Baso # (Auto) 0.0 10^3/uL (0.0-0.1) 10/06/21 04:32 Nucleated RBC % (auto) 0 % 10/06/21 04:32 Nucleated RBCs # 0.0 /100WBC 10/06/21 04:32 APTT 43.2 SECONDS (23.9-36.7) H D 10/05/21 17:40 D-Dimer 0.19 ug/mIFEU (0-0.59) 10/03/21 19:32 Sodium 130 mmol/L (136-145) L 10/06/21 06:38 Potassium 4.3 mmol/L (3.5-5.1) 10/06/21 06:38 Chloride 93 mmol/L (98-107) L 10/06/21 06:38 Carbon Dioxide 27 mmol/L (22-29) 10/06/21 06:38 Anion Gap 14.3 (5-19) 10/06/21 06:38 BUN 10 mg/dL (6-20) 10/06/21 06:38 Creatinine 0.7 mg/dL (0.7-1.2) 10/06/21 06:38 GFR Calculation 120.9 mL/min (90-130) 10/06/21 06:38 Glucose 97 mg/dL (65-115) 10/06/21 06:38 Calculated Osmolality 269 mOsm/kg (285-295) L 10/06/21 06:38 Calcium 8.3 mg/dL (8.5-10.5) L 10/06/21 06:38 Magnesium 2.5 mg/dL (1.7-2.3) H 10/06/21 06:38 Total Bilirubin 0.8 mg/dL (0.15-1.2) 10/04/21 05:07 AST 27 U/L (0-40) 10/04/21 05:07 ALT 17 U/L (0-41) 10/04/21 05:07 Alkaline Phosphatase 77 IU/L (40-130) 10/04/21 05:07 Troponin T Baseline 17 ng/L (0-15) H 10/03/21 18:31 Troponin T 120 Minute 15.81 ng/L (0-15) H 10/03/21 20:24 Delta Troponin T -1.19 ABS# (0-10) L 10/03/21 20:24 Troponin T Hi Sens 6Hr 16.13 ng/L (0-15) H 10/04/21 01:04 Troponin T Hi Sens 6Hr Delta -0.87 ng/L (0-12) L 10/04/21 01:04 NT-Pro-B Natriuret Pep 1873 pg/mL (0-125) H 10/03/21 18:31 Total Protein 6.6 g/dL (6.6-8.7) 10/04/21 05:07 Albumin 3.8 g/dL (3.5-5.2) 10/04/21 05:07 Globulin 2.8 g/dL (1.3-4.6) 10/04/21 05:07 Lipase 9 U/L (13-60) L 10/03/21 18:31 Vitamin B12 353 pg/mL (232-1245) 10/03/21 18:31 Folate 7.1 ng/mL (4.5-32.2) 10/03/21 18:31 TSH 5.86 uIU/mL (0.27-4.20) H 10/03/21 18:31 Free T4 1.24 ng/dL (0.82-1.77) 10/03/21 18:31 SARS-CoV-2 Ag (Rapid) Negative (Negative) 10/03/21 19:30 Vitals Last Vital Signs Temp 98.6 F 10/06/21 09:30 Pulse 67 10/06/21 10:00 Resp 17 10/06/21 10:00 BP 118/88 10/06/21 10:00 Pulse Ox 93 10/06/21 10:00 Discharge Plan Discharge Patient Disposition: Home Condition: Stable Prescriptions: New Pacerone 200 mg Tablet 400 mg PO TID 7 Days Qty: 60 3RF Digox 125 mcg (0.125 mg) tablet 125 mcg PO DAILY Qty: 30 5RF Continued albuterol sulfate [ProAir HFA] 90 mcg/actuation HFA aerosol inhaler 1 inh inhalation Q6H PRN (Reason: shortness of breath or wheezing) 30 Days Qty: 8.5 2RF multivitamin Tablet 1 tab PO DAILY@07 0RF buspirone 10 mg tablet 10 mg PO BID 0RF furosemide [Lasix] 20 mg Tablet 20 mg PO DAILY@07 0RF potassium gluconate 595 mg (99 mg) Tablet 595 mg PO DAILY PRN (Reason: unknown) 0RF BC Pain Relief 845-65 mg Powder In Packet 1 ea PO PRN PRN (Reason: Pain) 0RF metoprolol succinate 100 mg tablet extended release 24 hr 100 mg PO BID Qty: 60 3RF atorvastatin 80 mg tablet 80 mg PO DAILY@07 0RF clopidogrel 75 mg tablet 75 mg PO DAILY@07 0RF divalproex 500 mg tablet,delayed release (DR/EC) 500 mg PO BID 0RF amlodipine 10 mg tablet 10 mg PO DAILY@07 0RF hydrocodone-acetaminophen 10-325 mg tablet 1 tab PO Q6H PRN (Reason: Pain) 0RF folic acid 1 mg Tablet 1 mg PO DAILY Qty: 30 0RF sildenafil 100 mg tablet 50 - 100 mg PO DAILY PRN (Reason: Erectile Dysfunction) 0RF Nitrostat 0.4 mg Tablet, Sublingual 0.4 mg SUBLINGUAL Q5M PRN (Reason: Chest Pain) 0RF Rx Instructions: do not exceed 3 doses per episode Eliquis 5 mg tablet 5 mg PO BID 0RF Discontinued aspirin 81 mg Tablet,Delayed Release (Dr/Ec) 81 mg PO DAILY@07 Qty: 0 0RF Discharge Orders: Discharge Order (Routine); Ordered 10/06/21 Ordered By: Irasema Patel Referrals: Irasema Patel MD [Physician] - 1 month Jonny Gifford [Primary Care Provider] - (THIS APPOINTMENT HAS BEEN SCHEDULED . SUNDAY OCTOBER 10, 2021 AT TIME OF 10:00 AM ) Discharge Diet: Advance as tolerated Discharge Activity: Increase activity as tolerated Patient Instructions: Digoxin (By mouth), Amiodarone (By mouth) (Cordarone, Pacerone), Heart Failure (DC), Supraventricular Tachycardia (DC), How to Stop Smoking (DC), Heart Healthy Diet (DC), CHF Stoplight, Opioid Safety Activity Restrictions/Additional Instructions: Patient to start taking the Eliquis this evening Amiodarone 400 mg p.o. 3 times a day for 5 days followed by twice daily for 1 week followed by 1 tablet daily Appointment the [facility] in 2 weeks to see the nurse practitioner Appointment with me in the office in 1 month Discharge Attestations Time Spent in Discharge Care*: greater than 30 min Specific Discharge Activities: educating patient, educating and/or supporting family/caregiver, discussing with pcp/other providers, discussing with supervisor case loading/social workers/dc planners, documenting/other paperwork and evaluating patient/reviewing data Quality Metrics Clinical Quality Measures [ No reported AMI, CVA or VTE this stay] Coding Level of Care Code Acute Chg FW DC note Diagnoses Ventricular tachycardia I47.2 Atrial fibrillation I48.20 Atrial fibrillation type: unspecified chronic Benign essential hypertension with target blood pressure below 140/90 I10 Atherosclerosis of coronary artery of [place] heart without angina pectoris I25.10 Coronary Disease-Associated Artery/Lesion type: [place] artery Cardiomyopathy I42.9 Seizure disorder G40.901
--- NOTE | 2021-10-06 10:52 | PC.CHAP ---
Pastoral Care Encounter/Spiritual Assessment Type of Contact [] Declined dungeon master visit [] Patient/Family/Request visit [] Outpatient visit [] Follow-up visit [] Physician referral [] Code/Alert [x] Routine visit [] Staff referral [] Actively dying [] Patient sleeping [] Family support [] [] Out of room [] Palliative care [] [] Receiving care in room [] Pre-surgical visit [] Trauma [] Long length of stay [x] ICU visit [] Other: Relational/Emotional Strength [] Patient feels connected with others/family/visitors/staff [] Distress [] Loneliness/isolation [] Abandonment Spirituality of Patient [] Person of Jumana [] Attends Denominational of their Jumana [] Believes in Prayer [] Reads Bible or Mormon materials [] There are Spiritual issues to be addressed Cloth Cutter Interventions [xx] Prayer [] Active listening [] Non-anxious presence [] Spiritual/emotional support [] Crisis/trauma care [] Spiritual counseling [] Bereavement support [] Provided bereavement packet [] Provided Bible/devotional materials [] Provided toy/stuffed animal, coloring book to patient or family member [] Provided Communion [] Anointing/[place] [] Salvation [x] Completed spiritual assessment [] Other: Impact on Illness or Injury [] Angry [] Fearful [] Anxious [] Often cries [] Exhaustion [] Unable to work [] Unable to attend roman catholic [] Unable to walk/stand [] Unable to read [] Unable to drive [] Unable to eat/drink [] Unable to sleep [] Unable to be with family [] Patient intubated [] Other: Summary served communion... hoping to return home today Time spent with patient 10 min
--- NOTE | 2021-10-06 15:50 | PC.SOCIAL ---
IMM Update pg 2 of IMM updated and reviewed w/ patient. Copy provided and copy in chart updated.
== END 2021-10-06 12:07 | disposition home or self-care (01) | DRG 309 ==
LOC: ER 19:25 → ICU 19:53
PROVIDERS: Emergency Medicine; Admitting Provider Internal Medicine; Emergency Provider Emergency Medicine; PCP Family Medicine; Visit Provider Internal Medicine
DX: I47.2 Ventricular tachycardia (principal); I50.20 Unspecified systolic (congestive) heart failure; Z95.810 Presence of automatic (implantable) cardiac defibrillator; I25.10 Atherosclerotic heart disease of native coronary artery without angina pectoris; Z95.5 Presence of coronary angioplasty implant and graft; F17.210 Nicotine dependence, cigarettes, uncomplicated; F10.10 Alcohol abuse, uncomplicated; E87.6 Hypokalemia; I95.9 Hypotension, unspecified; I25.2 Old myocardial infarction; I11.0 Hypertensive heart disease with heart failure; I25.5 Ischemic cardiomyopathy; I48.20 Chronic atrial fibrillation, unspecified; G89.29 Other chronic pain; F41.9 Anxiety disorder, unspecified; E03.9 Hypothyroidism, unspecified; J44.9 Chronic obstructive pulmonary disease, unspecified; Z79.82 Long term (current) use of aspirin; Z79.01 Long term (current) use of anticoagulants; Z79.891 Long term (current) use of opiate analgesic; G40.909 Epilepsy, unspecified, not intractable, without status epilepticus; Z91.19 Patient's noncompliance with other medical treatment and regimen; F12.10 Cannabis abuse, uncomplicated; E66.9 Obesity, unspecified; Z68.39 Body mass index [BMI] 39.0-39.9, adult; E78.5 Hyperlipidemia, unspecified; Z79.02 Long term (current) use of antithrombotics/antiplatelets; Z45.02 Encounter for adjustment and management of automatic implantable cardiac defibrillator
CPT/HCPCS: 36415; 71045; 80048; 80053; 82607; 82746; 83690; 83735; 83880; 84439; 84443; 84484; 85025; 85378; 85730; 87426; 93005; 93306; 94640; 96365; 96367; 96372; 96375; 99291; J0153; J0282; J1160; J1644; J1650; J2001; J2060; J2250; J2270; J3475; J3480; J3490; J3535; J7030; J7040; J7060; J7512

== ENCOUNTER 2022-10-17 11:21 | Emergency (ER) | payer MEDICARE, MEDICAID, SELFPAY ==
[2022-10-17 11:26] VITALS: BP 160/92; PULSE 93; RESP 16; TEMP 36.8; O2SAT 99; BMI 30.2
[2022-10-17 11:29] VITALS: BP 121/69; PULSE 70; RESP 17; O2SAT 96
--- NOTE | 2022-10-17 11:29 | ECG_ITS ---
[facility] Test Date: 2022-10-17 Pat Name: Carlos Alberto Morrow Department: Room: Gender: Male Claims Investigator: : 1975 Requested By: Mansoor Del Rio Order Number: [id number] Suraj MD: Ulices Hardwick M.D. Measurements Intervals [place] Rate: 82 P: 148 DC: 157 QRS: 99 QRSD: 146 T: 3 QT: 377 QTc: 443 Interpretive Statements ECTOPIC ATRIAL RHYTHM LEFT ATRIAL ENLARGEMENT [-0.15mV P-WAVE IN V1/V2] BORDERLINE RIGHT AXIS DEVIATION [QRS AXIS > 90] INTRAVENTRICULAR CONDUCTION DELAY [130+ ms QRS DURATION] Compared to ECG 10/04/2021 17:41:27 Ectopic atrial rhythm now present Atrial abnormality now present Intraventricular conduction delay now present First degree AV block no longer present Right bundle-branch block no longer present Electronically Signed On 10-17-2022 16:27:31 CDT by Ulices Hardwick M.D. [email or web address]
--- NOTE | 2022-10-17 12:42 | XR_ITS ---
WS: [id number] Exam: XR chest 2V* [id number] Date/Time of Exam: 10/17/2022 12:45 PM Reason For Exam: right chest/scapula pain Comparison 10/03/2021. The lungs are fully expanded and clear. Heart size top limits normal. Permanent cardiac pacer seen ov er the left chest. Signs of coronary artery stenting. The mediastinum is normal in contour. Bony stru ctures are intact. XR/XR chest 2V* [id number] IMPRESSION: 1. No acute cardiopulmonary finding.
--- NOTE | 2022-10-17 12:43 | W.ED.CHESTPA ---
HPI - Chest Pain General: Chief Complaint: Chest Pain Stated Complaint: right chest sharp pain/SOB Time Seen by Provider: 10/17/22 12:28 Source: patient Mode of arrival: ambulatory Limitations: no limitations History of Present Illness: This patient primarily came to the emergency department because of concerns about some right scapular pain has been present approximately 5 to 6 days. He states that the pain has been in the same location although sometimes he feels like it comes straight from his right anterior chest through to his back. He states that when he takes a deep breath and certain movements seem to bring the pain on. He denies any recent cough fevers or illness. He also has a known history of coronary artery disease and noted today that he felt like he had some numbness in his left arm and some mild chest discomfort when he was walking [place] and [place] the [place] his rental property. He states he has been faithful to all his medications and his defibrillator has not fired for over a year. He is on his second AICD having his first 1 placed at age 33. He is also had 9 stents placed. He denies any other symptoms at this time. He is unaware of any specific injury although he is a daily gym rat and works out 2 to 3 hours in the gym most days. But again he denies any lifting or other calisthenics or any other inciting event that might have resulted in his right scapular pain. He is right-handed. Associated symptoms: Deny abdominal pain, fever(s), nausea, palpitations, syncope or vomiting Review of Systems Const: Denies: fever(s) or chills ENMT: Denies: throat pain or odynophagia Card: Reports: chest pain; Denies: palpitations, irregular heart rhythm, syncope or pre-syncope Resp: Denies: productive cough, non-productive cough, wheezing or stridor GI: Denies: abdominal pain, nausea or vomiting : Denies: flank pain, difficulty urinating or dysuria Musc: Reports: back pain; Denies: neck pain, extremity pain or extremity swelling Skin/Breast: Denies: rash Neuro: Denies: headache(s), numbness in extremities or weakness in extremities Psych: Denies: anxiety or depression [facility] ED PFSH: Medical History Abnormal coronary angiogram Bronchitis Cardiac defibrillator in place Cardiomyopathy Coronary disease Heart failure with reduced ejection fraction History of cardioversion Hypertension ICD (implantable cardioverter-defibrillator) discharge Ischemic cardiomyopathy Nicotine dependence Pacemaker Pharyngitis Seizure disorder Shortness of breath Supraventricular tachycardia Ventricular tachycardia Surgical History AICD (automatic cardioverter/defibrillator) present H/O cardiac catheterization H/O hernia repair Family History Mother Family history of premature coronary artery disease Initial [place] age 31, at 60; his mother sister at the age of 20 and had a myocardial infarction. Maternal grandfather and grandmother of myocardial infarction in their 50s and 60s. One of his sisters had pacemaker placed placement CAD (coronary artery disease) Father Clotting disorder Bleeding disorder Family/Other CAD (coronary artery disease) Grandmother CAD (coronary artery disease) Grandfather CAD (coronary artery disease) Denies family history of Diabetes Dementia Chronic kidney disease (CKD) Suicide Anesthesia complication Lung disease Cancer Stroke Social History Smoking and tobacco status: current every day smoker cigarettes Packs smoked per day: 1 Years cigarettes smoked: 30 Alcohol intake: current Alcohol intake frequency: 3 or more drinks per day Alcohol type: hard liquor Substance/Drug Use: current Housing: House Special eloise needs: No Physical Exam Narrative: EXAM NARRATIVE: Appears to be in no acute distress, active, in her interactive as well. Speech is goal-directed. Const: COMMON NORMALS: no acute distress, average body habitus, patient oriented x3 and healthy appearing ORIENTATION/CONSCIOUSNESS: Yes awake HENMT: COMMON NORMALS: normocephalic, atraumatic, Normal nasal mucous membranes and turbinates present, moist oral mucous membranes and oropharynx normal HEAD & SCALP: normocephalic and atraumatic NOSE: Normal nasal mucous membranes and turbinates present Eye: COMMON NORMALS: Equal, round and reactive pupils present, EOMs intact bilaterally, conjunctivae normal and normal visual beck by confrontation CONJUNCTIVA: Yes conjunctivae normal PUPIL: Yes Equal, round and reactive pupils present Neck/C-Spine: COMMON NORMALS: full ROM, supple, no meningeal signs and no JVD Chest: COMMONS NORMALS: normal inspection of the chest OTHER: Implanted anesthesiology medical doctor in left subscapular region of anterior chest. No redness erythema etc. Resp: COMMON NORMALS: normal respiratory effort, No retractions, No use of accessory muscles and clear to auscultation bilaterally EFFORT & INSPECTION: Yes able to speak in complete sentences AUSCULTATION: clear to auscultation bilaterally Cardio: COMMON NORMALS: no JVD, regular rate, regular rhythm, No murmurs present (Cardio) and Peripheral pulses 2+ throughout RATE: regular rate RHYTHM: regular rhythm PERIPHERAL PULSES: Peripheral pulses 2+ throughout GI: COMMON NORMALS: Normal to inspection, nondistended, normoactive bowel sounds present, Soft to palpation and non-tender PALPATION: Yes Soft to palpation Back/Pelvis: COMMON NORMALS: thoracic and lumbar spine normal to inspection OTHER: No midline tenderness, step-off, ecchymosis. Symptoms are reproduced with elevation of the right arm against resistance from normal position as well as rotation of the trunk to the left. BACK IMAGE (MALE): 1. Area of tenderness. No skin rashes no other findings such as ecchymosis, subcutaneous emphysema etc. Extremity: COMMON NORMALS: normal to inspection, full ROM, capillary refill normal, no calf tenderness and no pedal edema Neuro: COMMON NORMALS: patient oriented x3, moves all extremities and no focal motor deficits MENINGEAL SIGNS: Yes no meningeal signs CRANIAL NERVES: Yes CN normal except as noted Psych: COMMON NORMALS: mental status grossly normal Skin: COMMON NORMALS: no rashes or lesions noted, no wounds and turgor normal GENERAL SKIN EXAM: no rashes or lesions noted and turgor normal Course Reevaluation(s): Reevaluation #1: Patient continues to be clinically stable Has any new or changing complaints. Repeat focal evaluation reveals no new or concerning changes at this time. We discussed current findings, their implications and expected course and follow-up. He voiced understanding and was appreciative of care. Time: 14:26 Vital Signs: Vital signs: Vital Signs Temperature 98.3 F 10/17/22 11:26 Pulse Rate 60 10/17/22 14:19 Respiratory Rate 18 10/17/22 14:19 Blood Pressure 110/63 10/17/22 14:19 Pulse Oximetry 98 10/17/22 14:19 Oxygen Delivery Me thod Room Air 10/17/22 14:19 MDM - Chest Pain Medical Decision Making This patient comes to our emergency department with a known history of coronary artery disease. Has a prior history of multiple stents as well as an AICD placement on 2 occasions. He is here because he has had some right scapular area pain that has been present for the last week or so most noticeable when he takes a deep breath or moves in a certain fashion. That combined with some discomfort that he had this morning prompted him to come to the emergency department because of his significant history. Clinical examination revealed reproducible discomfort and tenderness in the right subscapular and medial scapular region without any evidence of concerning clinical findings. Screening studies were obtained to mitigate against possible ongoing ACS, pneumothorax, occult rib fracture etc. He was felt to be a low risk for thromboembolic disease given his current use of antiplatelet agents, no tachycardia, no hypoxia and no significant risk otherwise. Essentially PERC negative. EKG, biomarkers and chest x-ray were all reassuring at this emergency department stay. His clinical picture did not suggest a worrisome condition such as enumerated above. Since his right periscapular pain is likely due to his workout regimen and probably a occult musculoskeletal etiology. We discussed findings and their limitations and discussed home care and reasons for return. Medical Records I reviewed the patient's medical records. Lab Data I reviewed the patient's lab results. 10/17/22 12:27 10/17/22 12: Radiology Impressions Chest X-Ray 10/17/22 12: IMPRESSION: 1. No acute cardiopulmonary finding. Laboratory Results WBC 10.1 10^3/uL (4.0-10.0) H 10/17/22 12: RBC 4.19 10^6/uL (4.1-5.3) 10/17/22 12: Hgb 13.0 g/dL (11.7-16.6) 10/17/22 12: Hct 40.1 % (42.0-52.0) L 10/17/22 12: MCV 95.7 fl (80-94) H 10/17/22 12: MCH 31.0 pg (28.0-34.0) 10/17/22 12: MCHC 32.4 g/dL (30.0-36.0) 10/17/22 12: RDW 13.2 % (12.1-15.1) 10/17/22 12:27 Plt Count 291 10^3/cmm (130-400) 10/17/22 12: MPV 9.1 fL (7.4-10.4) 10/17/22 12: Neut % (Auto) 74.0 % 10/17/22 12: Lymph % (Auto) 16.8 % 10/17/22 12: [place] % (Auto) 6.6 % 10/17/22 12: Eos % (Auto) 1.6 % 10/17/22 12: Baso % (Auto) 0.6 % 10/17/22 12: Neut # (Auto) 7.48 10^3/uL (1.8-7.7) 10/17/22 12: Lymph # (Auto) 1.7 10^3/uL (0.8-4.8) 10/17/22 12: [place] # (Auto) 0.7 10^3/uL (0.2-0.9) 10/17/22 12: Eos # (Auto) 0.2 10^3/uL (0.0-0.8) 10/17/22 12: Baso # (Auto) 0.1 10^3/uL (0.0-0.1) 10/17/22 12: Nucleated RBC % (auto) 0 % 10/17/22 12: Nucleated RBCs # 0.0 /100WBC 10/17/22 12: Sodium 136 mmol/L (136-145) 10/17/22 12: Potassium 4.5 mmol/L (3.5-5.1) 10/17/22 12: Chloride 100 mmol/L (98-107) 10/17/22 12: Carbon Dioxide 24 mmol/L (22-29) 10/17/22 12: Anion Gap 16.5 (5-19) 10/17/22 12: BUN 15 mg/dL (6-20) 10/17/22 12: Creatinine 0.8 mg/dL (0.7-1.2) 10/17/22 12: GFR Calculation 103.2 mL/min (90-130) 10/17/22 12: Glucose 73 mg/dL (65-115) 10/17/22 12:27 Calculated Osmolality 281 mOsm/kg (285-295) L 10/17/22 12:27 Calcium 9.1 mg/dL (8.5-10.5) 10/17/22 12:27 Troponin T Baseline 8 ng/L (0-15) 10/17/22 12:27 EKG Data EKG 1: I personally reviewed and interpreted this EKG as follows: Interpretation: Contemporaneous review of EKG reveals a ventricular rate of 65 bpm. Consistent with a paced rhythm. No acute ST-T wave changes noted. Discharge Plan Discharge Patient Disposition: Home Clinical Impression: Musculoskeletal back pain Condition: Stable Prescriptions: No Action albuterol sulfate [ProAir HFA] 90 mcg/actuation HFA aerosol inhaler 1 inh inhalation Q6H PRN (Reason: shortness of breath or wheezing) 30 Days Qty: 8.5 2RF Pacerone 200 mg tablet 400 mg PO DAILY Qty: 180 2RF Rx Instructions: 10/06/21 Discharged from hospital dose 400mg daily multivitamin Tablet 1 tab PO DAILY@07 furosemide [Lasix] 20 mg Tablet 20 mg PO DAILY@07 BC Pain Relief 845-65 mg Powder In Packet 1 ea PO PRN PRN (Reason: Pain) atorvastatin 80 mg tablet 80 mg PO DAILY@07 clopidogrel 75 mg tablet 75 mg PO DAILY@07 divalproex 500 mg tablet,delayed release (DR/EC) 500 mg PO BID amlodipine 10 mg tablet 10 mg PO DAILY@07 hydrocodone-acetaminophen 10-325 mg tablet 1 tab PO Q6H PRN (Reason: Pain) folic acid 1 mg Tablet 1 mg PO DAILY Qty: 30 0RF Vitamin D3 25 mcg (1,000 unit) Tablet 25 mcg PO DAILY metoprolol succinate 100 mg tablet extended release 24 hr 100 mg PO DAILY sildenafil 100 mg tablet 50 - 100 mg PO DAILY PRN (Reason: Erectile Dysfunction) nitroglycerin [Nitrostat] 0.4 mg Tablet, Sublingual 0.4 mg SUBLINGUAL Q5M PRN (Reason: Chest Pain) Rx Instructions: do not exceed 3 doses per episode Eliquis 5 mg tablet 5 mg PO BID digoxin [Digox] 125 mcg (0.125 mg) tablet 125 mcg PO DAILY Qty: 30 5RF Discharge Orders: Discharge ED (Routine); Ordered 10/17/22 Ordered By: Baldomero Arnold Referrals: Jonny Gifford [Primary Care Provider] - Discharge Diet: Usual diet Discharge Activity: Increase activity as tolerated Patient Instructions: Opioid Safety, Pain Management Activity Restrictions/Additional Instructions: As we discussed while you are in the emergency department there was no findings today to suggest an acute process such as a heart attack, collapsed lung or other worrisome conditions. We think that your pain that you came with today likely represents a strain of one of the chest wall muscles around your scapula which is in the middle or the right side of your back in your case. We recommend continuing all your medications, activities etc. You may use acetaminophen in the usual [id number] doses to help control symptoms. If you develop any new persistent or worsening symptoms of concern such as prolonged chest pain with exertion shortness of breath etc. typical chest pain that you have had in the past associated with coronary artery disease return to this or the nearest emergency department for reevaluation. Coding Level of Care Code ED [employer] Coordinator for Theodore Felton
--- NOTE | 2022-10-17 12:59 | ECG_ITS ---
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 Measurements Intervals [place] Rate: 69 P: 60 [place]: 163 QRS: 69 QRSD: 136 T: 207 QT: 409 QTc: 438 Interpretive Statements SINUS RHYTHM POSSIBLE RIGHT ATRIAL ENLARGEMENT [0.25mV P-WAVE] INTRAVENTRICULAR CONDUCTION DELAY [130+ ms QRS DURATION] Compared to ECG 10/17/2022 11:29:24 Ectopic atrial rhythm no longer present Electronically Signed On 10-17-2022 16:27:10 CDT by Ulices Hardwick M.D. [email or web address]/[id number]
[2022-10-17 13:12] LABS: Basophils # 0.1 10^3/uL (0.0-0.1); Basophils % 0.6 %; Eosinophils # 0.2 10^3/uL (0.0-0.8); Eosinophils % 1.6 %; Hematocrit 40.1 % (42.0-52.0); Lymphocytes # 1.7 10^3/uL (0.8-4.8); Lymphocytes % 16.8 %; Mean Corpuscular HGB Conc 32.4 g/dL (30.0-36.0); Mean Corpuscular Volume 95.7 fl (80-94); Mean Platelet Volume 9.1 fL (7.4-10.4); Monocytes # 0.7 10^3/uL (0.2-0.9); Monocytes % 6.6 %; Neutrophils # 7.48 10^3/uL (1.8-7.7); Nucleated Red Blood Cells % 0 %; Platelet Count 291 10^3/cmm (130-400); Red Blood Count 4.19 10^6/uL (4.1-5.3); Red Cell Distribution Width 13.2 % (12.1-15.1); White Blood Count 10.1 10^3/uL (4.0-10.0)
[2022-10-17 13:17] VITALS: BP 121/69; PULSE 67; RESP 17; O2SAT 95
--- NOTE | 2022-10-17 13:41 | PC.PHAR ---
PT STS HE IS NO LONGER TAKING BUSPIRONE 10MG- LAST FILLED 10/06/22 90DS
[2022-10-17 13:52] LABS: Troponin(5th) Baseline 8 ng/L (0-15)
[2022-10-17 13:53] LABS: Anion Gap 16.5 (5-19); Blood Urea Nitrogen 15 mg/dL (6-20); Calcium 9.1 mg/dL (8.5-10.5); Carbon Dioxide 24 mmol/L (22-29); Chloride 100 mmol/L (98-107); Glomerular Filtration Rate 103.2 mL/min (90-130); Glucose 73 mg/dL (65-115); Osmolality Calculated 281 mOsm/kg (285-295); Potassium 4.5 mmol/L (3.5-5.1); Sodium 136 mmol/L (136-145)
--- NOTE | 2022-10-17 14:03 | ECG_ITS ---
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 Measurements Intervals [place] Rate: 65 P: 108 DE: 175 QRS: 70 QRSD: 146 T: 85 QT: 453 QTc: 472 Interpretive Statements ELECTRONIC ATRIAL PACEMAKER INTRAVENTRICULAR CONDUCTION DELAY [130+ ms QRS DURATION] Compared to ECG 10/17/2022 12:59:10 Sinus rhythm no longer present Electronically Signed On 10-17-2022 16:27:41 CDT by Ulices Hardwick M.D. [id number]
[2022-10-17 14:19] VITALS: BP 110/63; PULSE 60; RESP 18; O2SAT 98
[2022-10-17 14:49] VITALS: BP 110/63; PULSE 60; RESP 18; O2SAT 98
== END 2022-10-17 14:51 | disposition home or self-care (01) ==
PROVIDERS: Emergency Provider Emergency Medicine; PCP Family Medicine
DX: M54.6 Pain in thoracic spine (principal); Z79.01 Long term (current) use of anticoagulants; Z79.02 Long term (current) use of antithrombotics/antiplatelets; F17.210 Nicotine dependence, cigarettes, uncomplicated; I25.10 Atherosclerotic heart disease of native coronary artery without angina pectoris; I11.0 Hypertensive heart disease with heart failure; I50.9 Heart failure, unspecified; Z95.0 Presence of cardiac pacemaker
CPT/HCPCS: 36415; 71046; 80048; 84484; 85025; 93005; 99285

== ENCOUNTER 2023-01-10 11:13 | Inpatient (IN) | payer MEDICARE, MEDICAID, SELFPAY ==
[2023-01-10] VITALS (61 sets, daily range): BP systolic 108–145; BP diastolic 71–106; PULSE 60–88; RESP 10–22; TEMP 36.8–36.9; O2SAT 83–100; BMI 28.7
--- NOTE | 2023-01-10 11:26 | ECG_ITS ---
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 Measurements Intervals [place] Rate: 78 P: 72 [place]: 155 QRS: 66 QRSD: 138 T: -42 QT: 369 QTc: 423 Interpretive Statements SINUS RHYTHM POSSIBLE LEFT ATRIAL ENLARGEMENT [-0.1mV P-WAVE IN V1/V2] INTRAVENTRICULAR CONDUCTION DELAY [130+ ms QRS DURATION] POSSIBLE INFERIOR MYOCARDIAL INFARCTION , OF INDETERMINATE AGE [30 ms Q WAVE IN II/aVF] Compared to ECG 10/17/2022 14:03:45 Myocardial infarct finding now present Atrial-paced complex(es) or rhythm no longer present Electronically Signed On 01-10-2023 16:23:31 CDT by Raquel Solano M.D. [id number] f
[2023-01-10 11:38] LABS: Basophils # 0.1 10^3/uL (0.0-0.1); Basophils % 0.5 %; Eosinophils # 0.7 10^3/uL (0.0-0.8); Eosinophils % 4.6 %; Hematocrit 40.7 % (42.0-52.0); Lymphocytes # 2.8 10^3/uL (0.8-4.8); Lymphocytes % 18.5 %; Mean Corpuscular HGB Conc 31.9 g/dL (30.0-36.0); Mean Corpuscular Hemoglobin 30.8 pg (28.0-34.0); Mean Corpuscular Volume 96.4 fl (80-94); Mean Platelet Volume 9.8 fL (7.4-10.4); Monocytes # 0.7 10^3/uL (0.2-0.9); Neutrophils # 10.58 10^3/uL (1.8-7.7); Neutrophils % 70.9 %; Nucleated Red Blood Cells % 0 %; Platelet Count 295 10^3/cmm (130-400); Red Blood Count 4.22 10^6/uL (4.1-5.3); Red Cell Distribution Width 13.3 % (12.1-15.1); White Blood Count 14.9 10^3/uL (4.0-10.0)
--- NOTE | 2023-01-10 11:51 | XR_ITS ---
WS: [id number] Exam: XR chest 1V portable [id number] Date/Time of Exam: 01/10/2023 11:51 AM Reason For Exam: ICD discharge Comparison 10/17/2022. The lungs are hyperinflated and clear. Cardiomediastinal silhouette is unremarkable. A cardiac pacer superimposes the left chest. Signs of coronary artery stenting. No pleural effusions. Bony structures are intact. XR/XR chest 1V portable [id number] IMPRESSION: 1. No acute cardiopulmonary finding. Pulmonary hyperinflation.
[2023-01-10 12:01] LABS: Troponin(5th) Baseline 31 ng/L (0-15)
[2023-01-10 12:04] LABS: Alanine Aminotransferase 24 U/L (0-41); Albumin Level 4.5 g/dL (3.5-5.2); Alkaline Phosphatase 64 U/L (40-130); Anion Gap 19.5 (5-19); Aspartate Amino Transferase 25 U/L (0-40); Blood Urea Nitrogen 11 mg/dL (6-20); Calcium 8.9 mg/dL (8.5-10.5); Carbon Dioxide 22 mmol/L (22-29); Chloride 101 mmol/L (98-107); Globulin 2.2 g/dL (1.3-4.6); Glomerular Filtration Rate 89.7 mL/min (90-130); Glucose 148 mg/dL (65-115); Osmolality Calculated 290 mOsm/kg (285-295); Potassium 3.5 mmol/L (3.5-5.1); Sodium 139 mmol/L (136-145); Total Bilirubin 0.2 mg/dL (0.15-1.2); Total Protein 6.7 g/dL (6.6-8.7)
[2023-01-10 12:06] LABS: Creatine Phosphokinase 329 U/L (39-308)
[2023-01-10 12:14] LABS: Troponin 5 2HR 92.45 ng/L (0-15)
[2023-01-10 12:17] LABS: Troponin 5 2HR Delta 61.45 ABS# (0-10)
--- NOTE | 2023-01-10 12:29 | ED_ITS ---
HPI - Arrhythmia/Palpitations General: Chief Complaint: Arrhythmia/Palpitations Stated Complaint: defib firing Time Seen by Provider: 01/10/23 11:15 Source: patient Mode of arrival: EMS History of Present Illness: 47-year-old male presents to the emergency room with complaint of chest discomfort palpitations and multiple discharges from his ICD. He has a history of cardiomyopathy. He woke up and then shortly after that felt discharge felt multiple discharges since and when EMS arrived he was tachycardic they had him cough several times this to the dropped his heart rate to the 80s. He is symptom-free now other than a little bit of residual chest discomfort from what he describes as a multiple discharges from the ICD. No recent fever sweats chills cough shortness of breath no orthopnea no leg swelling. MD complaint: rapid heart beat and heart racing Onset (ago): hour(s) Duration: intermittent Severity: moderate Arrhythmia history: AICD Associated symptoms: Reports nausea; Deny anxiety, cough, diaphoresis, muscle cramps, paresthesias, pre-syncope, sense of impending doom, short of breath, syncope or vomiting Review of Systems Const: Reports: fatigue; Denies: fever(s), chills or diaphoresis ENMT: Denies: throat pain, ear or mastoid pain, nasal discharge or nasal congestion Card: Reports: chest pain and palpitations; Denies: irregular heart rhythm, edema, swelling of feet/ankles, syncope or pre-s yncope Resp: Denies: dyspnea, productive cough or non-productive cough GI: Reports: nausea; Denies: abdominal pain or vomiting : Reports: flank pain and testicular pain; Denies: dysuria, urinary frequency or urinary urgency Musc: Denies: muscle cramps Skin/Breast: Denies: rash or pruritus Psych: Denies: anxiety PFSH ED PFSH: Medical History Abnormal coronary angiogram AICD discharge Alcohol abuse Atherosclerosis of coronary artery of [place] heart without angina pectoris Atherosclerotic heart disease of [place] coronary artery with other forms of angina pectoris Atrial fibrillation Benign essential hypertension with target blood pressure below 140/90 Bronchitis Cardiac defibrillator in place Cardiomyopathy Congestive heart failure with cardiomyopathy and cardiomegaly Coronary disease Elevated troponin Heart failure with reduced ejection fraction History of cardioversion Hypertension ICD (implantable cardioverter-defibrillator) discharge Ischemic cardiomyopathy Nicotine dependence Non-ST elevation NV (NSTEMI) Appears to be type II secondary to SVT. Patient has a history of multiple PCI's Pacemaker Pharyngitis Seizure disorder Shortness of breath Supraventricular tachycardia Ventricular tachycardia Ventricular tachycardia Warfarin anticoagulation Surgical History AICD (automatic cardioverter/defibrillator) present H/O cardiac catheterization H/O hernia repair Family History Mother Family history of premature coronary artery disease Initial [place] age 31, at 60; his mother sister at the age of 20 and had a myocardial infarction. Maternal grandfather and grandmother of myocardial infarction in their 50s and 60s. One of his sisters had pacemaker placed placement CAD (coronary artery disease) Father Clotting disorder Bleeding disorder Family/Other CAD (coronary artery disease) Grandmother CAD (coronary artery disease) Grandfather CAD (coronary artery disease) Denies family history of Diabetes Dementia Chronic kidney disease (CKD) Suicide Anesthesia complication Lung disease Cancer Stroke Social History Smoking and tobacco status: current every day smoker cigarettes Packs smoked per day: 1 Years cigarettes smoked: 30 Alcohol intake: current Alcohol intake frequency: 3 or more drinks per day Alcohol type: hard liquor Substance/Drug Use: current Housing: House Special eloise needs: No Physical Exam Const: GENERAL APPEARANCE: cooperative and comfortable ORIENTATION/CONSCIOUSNESS: Yes awake, Yes oriented to person, Yes oriented to place and Yes oriented to time HENMT: COMMON NORMALS: normocephalic, atraumatic and hearing grossly normal bilaterally HEAD & SCALP: normocephalic and atraumatic Resp: COMMON NORMALS: normal respiratory effort, No retractions, No use of accessory muscles and clear to auscultation bilaterally AUSCULTATION: clear to auscultation bilaterally Cardio: COMMON NORMALS: regular rate, regular rhythm and No murmurs present (Cardio) RATE: regular rate RHYTHM: regular rhythm GI: COMMON NORMALS: Soft to palpation and No hepatosplenomegaly present AUSCULTATION: Yes normoactive bowel sounds PALPATION: Yes Soft to palpation, No Tenderness to palpation present (GI), No Guarding due to palpation present (GI) and Yes No hepatosplenomegaly present Extremity: COMMON NORMALS: normal to inspection, capillary refill normal, no clubbing, cyanosis or edema, no calf tenderness and no pedal edema Neuro: SENSORIUM/ORIENTATION: Yes oriented to person, Yes oriented to place and Yes oriented to time Skin: COMMON NORMALS: no rashes or lesions noted GENERAL SKIN EXAM: no rashes or lesions noted Course Vital Signs: Vital signs: Vital Signs Temperature 98.5 F 01/12/23 04:00 Pulse Rate 62 01/12/23 12:00 Respiratory Rate 18 01/12/23 12:00 Blood Pressure 107/70 01/12/23 12:00 Pulse Oximetry 94 01/12/23 12:00 Oxygen Delivery Me thod Room Air 01/12/23 12:00 Oxygen Flow Rate 2 01/10/23 20:00 MDM - Arrhythmia/Palpitations Medical Decision Making ICD interrogated reports several events however its been 13 months since last time its been interrogated. Unfortunately the report we received did not identify date and times of discharge so I cannot confirm that he had a defib event this morning however based on his history I suspect he indeed did. He also the way the report is formatted looks like there were several events that the ICD may or may not have terminated. I had a little difficult time in reviewing that report the weight was formatted I do not have the details some reports of had in the past. Given that along with his elevated troponin will admit he is not currently having any active chest discomfort he describes a vague chest discomfort that has been steadily decreasing he reports that this is similar to what he had in the past when his AICD has discharged. Discussed with hospitalist and cardiology Dr. Jacques is in the department seeing the patient. Orders written for admission to ICU. Medical Records I reviewed the patient's medical records. Lab Data I reviewed the patient's lab results. 01/12/23 02:28 01/12/23 02:28 Radiology Impressions Chest X-Ray 01/10/23 11:51 IMPRESSION: 1. No acute cardiopulmonary finding. Pulmonary hyperinflation. Laboratory Results WBC 14.9 10^3/uL (4.0-10.0) H 01/10/23 10:00 RBC 4.22 10^6/uL (4.1-5.3) 01/10/23 10:00 Hgb 13.0 g/dL (11.7-16.6) 01/10/23 10:00 Hct 40.7 % (42.0-52.0) L 01/10/23 10:00 MCV 96.4 fl (80-94) H 01/10/23 10:00 MCH 30.8 pg (28.0-34.0) 01/10/23 10:00 MCHC 31.9 g/dL (30.0-36.0) 01/10/23 10:00 RDW 13.3 % (12.1-15.1) 01/10/23 10:00 Plt Count 295 10^3/cmm (130-400) 01/10/23 10:00 MPV 9.8 fL (7.4-10.4) 01/10/23 10:00 Neut % (Auto) 70.9 % 01/10/23 10:00 Lymph % (Auto) 18.5 % 01/10/23 10:00 Whitman % (Auto) 5.0 % 01/10/23 10:00 Eos % (Auto) 4.6 % 01/10/23 10:00 Baso % (Auto) 0.5 % 01/10/23 10:00 Neut # (Auto) 10.58 10^3/uL (1.8-7.7) H 01/10/23 10:00 Lymph # (Auto) 2.8 10^3/uL (0.8-4.8) 01/10/23 10:00 Whitman # (Auto) 0.7 10^3/uL (0.2-0.9) 01/10/23 10:00 Eos # (Auto) 0.7 10^3/uL (0.0-0.8) 01/10/23 10:00 Baso # (Auto) 0.1 10^3/uL (0.0-0.1) 01/10/23 10:00 Nucleated RBC % (auto) 0 % 01/10/23 10:00 Nucleated RBCs # 0.0 /100WBC 01/10/23 10:00 Sodium 139 mmol/L (136-145) 01/10/23 10:00 Potassium 3.5 mmol/L (3.5-5.1) 01/10/23 10:00 Chloride 101 mmol/L (98-107) 01/10/23 10:00 Carbon Dioxide 22 mmol/L (22-29) 01/10/23 10:00 Anion Gap 19.5 (5-19) H 01/10/23 10:00 BUN 11 mg/dL (6-20) 01/10/23 10:00 Creatinine 0.9 mg/dL (0.7-1.2) 01/10/23 10:00 GFR Calculation 89.7 mL/min (90-130) L 01/10/23 10:00 Glucose 148 mg/dL (65-115) H 01/10/23 10:00 Calculated Osmolality 290 mOsm/kg (285-295) 01/10/23 10:00 Calcium 8.9 mg/dL (8.5-10.5) 01/10/23 10:00 Total Bilirubin 0.2 mg/dL (0.15-1.2) 01/10/23 10:00 AST 25 U/L (0-40) 01/10/23 10:00 ALT 24 U/L (0-41) 01/10/23 10:00 Alkaline Phosphatase 64 U/L (40-130) 01/10/23 10:00 Creatine Kinase 329 U/L (39-308) H* 01/10/23 10:00 Troponin T Baseline 31 ng/L (0-15) H 01/10/23 10:00 Troponin T 120 Minute 92.45 ng/L (0-15) H 01/10/23 11:43 Delta Troponin T 61.45 ABS# (0-10) H* 01/10/23 11:43 Troponin T Hi Sens 6Hr 190.1 ng/L (0-15) H 01/10/23 15:56 Troponin T Hi Sens 6Hr Delta 159.1 ng/L (0-12) H* 01/10/23 15:56 Total Protein 6.7 g/dL (6.6-8.7) 01/10/23 10:00 Albumin 4.5 g/dL (3.5-5.2) 01/10/23 10:00 Globulin 2.2 g/dL (1.3-4.6) 01/10/23 10:00 Discharge Plan Discharge Patient Disposition: Admitted As Inpatient Admit Provider: Angel Mahmood Clinical Impression: Defibrillator discharge, Ischemic cardiomyopathy, Heart failure with reduced ejection fraction Condition: Stable Coding Level of Care Code ED Plate Grainer for Theodore Felton
[2023-01-10] MEDS: ketorolac 30 mg/mL INJ IVP (13:13)
--- NOTE | 2023-01-10 13:26 | ECG_ITS ---
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 Measurements Intervals [place] Rate: 76 P: 69 DE: 165 QRS: 62 QRSD: 138 T: -65 QT: 396 QTc: 448 Interpretive Statements SINUS RHYTHM INTRAVENTRICULAR CONDUCTION DELAY [130+ ms QRS DURATION] POSSIBLE INFERIOR MYOCARDIAL INFARCTION , OF INDETERMINATE AGE [30 ms Q WAVE IN II/aVF] Compared to ECG 01/10/2023 11:26:06 No significant changes Electronically Signed On 01-10-2023 16:24:04 CDT by Raquel Solano M.D. [id number]
[2023-01-10 16:40] LABS: Troponin 5 6HR 190.1 ng/L (0-15); Troponin 5 6HR Delta 159.1 ng/L (0-12)
--- NOTE | 2023-01-10 16:51 | PM.CONSULT ---
Providers/Reason For Consult Consulting Physician/Specialty*: Cardiovascular medicine Reason for Consult*: Defibrillator firing Requesting Physician: Emergency room Primary Care Provider: Jonny Gifford History of Present Illness History of Present Illness Carlos Alberto Morrow is a 47 year old male with a long history of multiple medical problems. He has what I believe is an ischemic cardiomyopathy and has a defibrillator in place. He does not follow-up regularly. His last visit was September last year now some 15 months ago. He has a history of coronary artery disease. His last angiogram was in 2020 when he had in-stent restenosis of a proximal circumflex stent. This was restented at the time and also had in-stent restenosis of a marginal stent. That underwent angioplasty. 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 He has had episodes of congestive heart failure, atrial fibrillation post cardioversion, hypertension, tobacco abuse, SVT, ventricular tachycardia and a history of alcohol use. He is also on narcotics. He came to the emergency room today because he states that the defibrillator shocked him 16 times this morning. He tells me he quit drinking and smoking a year ago and is lost 100 pounds since September last . He is not having any chest pain. Currently he is in sinus rhythm. His CPK is 329. His troponins are 31, 92 and 190. Chest x-ray is unremarkable. Review of Systems Narrative: Review of systems is largely negative though he talks frequently about narcotics and about other substances. Medications/Allergies Home Medications Medication Instructions Recorded Confirmed Last Taken Type amlodipine 10 mg tablet 10 mg PO DAILY@04/09/20 01/10/23 01/10/23 History atorvastatin 80 mg tablet 80 mg PO DAILY@04/09/20 01/10/23 01/10/23 History clopidogrel 75 mg tablet 75 mg PO DAILY@04/09/20 01/10/23 01/10/23 History divalproex 500 mg tablet,delayed 500 mg PO BID 04/09/20 01/10/23 01/10/23 History release folic acid 1 mg tablet 1 mg PO DAILY #30 tabs 04/10/20 01/10/23 01/10/23 Rx albuterol sulfate 90 mcg/actuation 1 inh inhalation Q6H PRN shortness 06/02/20 01/10/23 Unknown Rx aerosol inhaler (ProAir HFA) of breath or wheezing 30 days #8.5 grams aspirin-caffeine 845 mg-65 mg oral 1 ea PO PRN PRN Pain 02/06/21 01/10/23 Unknown History powder packet (BC Pain Relief) multivitamin 1 tab PO DAILY@07 02/06/21 01/10/23 01/10/23 History apixaban 5 mg tablet (Eliquis) 5 mg PO BID 10/04/21 01/10/23 01/10/23 History nitroglycerin 0.4 mg sublingual 0.4 mg sublingual Q5M PRN Chest 10/04/21 01/10/23 Unknown History tablet (Nitrostat) Pain cholecalciferol (vitamin D3) 25 25 mcg PO DAILY 10/17/22 01/10/23 01/10/23 History mcg (1,000 unit) tablet (Vitamin D3) metoprolol succinate 100 mg 50 mg PO DAILY 10/17/22 01/10/23 01/10/23 History tablet,extended release 24 hr oxycodone-acetaminophen 7.5 mg-325 1 tab PO Q6H PRN Pain 01/10/23 01/10/23 01/10/23 History mg tablet (Percocet) Allergies Allergy/AdvReac Type Severity Reaction Status Date / Time No Known Allergies Allergy Verified 10/17/22 11:31 PFSH Acute PFSH: Medical History (Updated 01/10/23 @ 17:01 by Jonnathan Jacques MD) Abnormal coronary angiogram Bronchitis Cardiac defibrillator in place Cardiomyopathy Coronary disease Elevated troponin Heart failure with reduced ejection fraction History of cardioversion Hypertension ICD (implantable cardioverter-defibrillator) discharge Ischemic cardiomyopathy Nicotine dependence Pacemaker Pharyngitis Seizure disorder Shortness of breath Supraventricular tachycardia Ventricular tachycardia Warfarin anticoagulation Surgical History (Updated 01/10/23 @ 17:01 by Jonnathan Jacques MD) AICD (automatic cardioverter/defibrillator) present H/O cardiac catheterization H/O hernia repair Family History Mother Family history of premature coronary artery disease Initial [place] age 31, at 60; his mother sister at the age of 20 and had a myocardial infarction. Maternal grandfather and grandmother of myocardial infarction in their 50s and 60s. One of his sisters had pacemaker placed placement CAD (coronary artery disease) Father Clotting disorder Bleeding disorder Family/Other CAD (coronary artery disease) Grandmother CAD (coronary artery disease) Grandfather CAD (coronary artery disease) Denies family history of Diabetes Dementia Chronic kidney disease (CKD) Suicide Anesthesia complication Lung disease Cancer Stroke Social History Smoking and tobacco status: current every day smoker cigarettes Packs smoked per day: 1 Years cigarettes smoked: 30 Alcohol intake: current Alcohol intake frequency: 3 or more drinks per day Alcohol type: hard liquor Substance/Drug Use: current Housing: House Special eloise needs: No Vitals/I&O/Wt Last Vital Signs Temp 98.2 F 01/10/23 11:23 Pulse 86 01/10/23 11:23 Resp 18 01/10/23 11:23 BP 117/85 01/10/23 11:23 Pulse Ox 99 01/10/23 11:23 O2 Del Method Nasal Cannula 01/10/23 11:23 O2 Flow Rate 2 01/10/23 11:23 Weight last 48 hrs Weight 200 lb Physical Exam Narrative: GENERAL: In general he is awake alert looks comfortable and is in no distress HEENT: Exam within normal limits. NECK: Supple without jugular vein distention. The carotid upstroke is normal without bruits. BACK: Exam normal. LUNGS: Clear. HEART: Regular rate and rhythm. ABDOMEN: Benign without organomegaly or tenderness. EXTREMITIES: No edema. NEUROLOGIC: Exam normal. SKIN: Unremarkable. Data 01/10/23 10:00 01/10/23 10:00 A&P Assessment and plan (1) Cardiomyopathy: (2) Seizure disorder: (3) Ventricular tachycardia: (4) Atrial fibrillation: Qualifiers: Atrial fibrillation type: unspecified chronic Qualified Code(s): I48.20 - Chronic atrial fibrillation, unspecified (5) Benign essential hypertension with target blood pressure below 140/90: (6) Atherosclerosis of coronary artery of [place] heart without angina pectoris: Qualifiers: Coronary Disease-Associated Artery/Lesion type: [place] artery Qualified Code(s): I25.10 - Atherosclerotic heart disease of [place] coronary artery without angina pectoris (7) Congestive heart failure with cardiomyopathy and cardiomegaly: (8) Hypertension: Qualifiers: Hypertension type: essential hypertension Qualified Code(s): I10 - Essential (primary) hypertension (9) Atherosclerotic heart disease of [place] coronary artery with other forms of angina pectoris: (10) Alcohol abuse: (11) Warfarin anticoagulation: (12) Elevated troponin: (13) AICD (automatic cardioverter/defibrillator) present: Plan We will admit him and check his electrolytes and magnesium. His device was interrogated. He has had 627 episodes of ventricular tachycardia which were nonsustained, 79 of those were high rate. There were 17 paced terminated episodes of ventricular tachycardia and ventricular fibrillation. It states that only one was shocked terminated. He has had 19 episodes of ventricular fibrillation treated and 3 episodes of ventricular tachycardia treated. This is not consistent with him saying that he has been shocked 16 times today. He will need another ischemia work-up. I will order a stress test for tomorrow. Consult Attestations Medical Necessity Statement: Needs admission for evaluation of underlying ischemic cardiomyopathy, ventricular fibrillation with defibrillator shocks and elevation of the troponin. and High Time for a total of 70 minutes, includes reviewing past or interval history, examining/interviewing patient, counseling patient/family/other support, updating patient/family/other support, discussing plan of care with staff, communicating with other healthcare providers and documenting encounter Diagnoses Cardiomyopathy I42.9 Seizure disorder G40.909 Ventricular tachycardia I47.2 Atrial fibrillation I48.20 Atrial fibrillation type: unspecified chronic Benign essential hypertension with target blood pressure below 140/90 I10 Atherosclerosis of coronary artery of [place] heart without angina pectoris I25.10 Coronary Disease-Associated Artery/Lesion type: [place] artery Congestive heart failure with cardiomyopathy and cardiomegaly I50.9; I42.9; I51.7 Hypertension I10 Hypertension type: essential hypertension Atherosclerotic heart disease of [place] coronary artery with other forms of angina pectoris I25.118 Alcohol abuse F10.10 Warfarin anticoagulation Z79.01 Elevated troponin R77.8 AICD (automatic cardioverter/defibrillator) present Z95.810
--- NOTE | 2023-01-10 17:26 | ECG_ITS ---
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 Measurements Intervals [place] Rate: 60 P: 175 [place]: 170 QRS: 62 QRSD: 138 T: 2 QT: 425 QTc: 425 Interpretive Statements ELECTRONIC ATRIAL PACEMAKER INTRAVENTRICULAR CONDUCTION DELAY [130+ ms QRS DURATION] Compared to ECG 01/10/2023 13:40:48 Sinus rhythm no longer present Myocardial infarct finding no longer present Electronically Signed On 01-10-2023 22:43:55 CDT by Raquel Solano M.D. [id number]
--- NOTE | 2023-01-10 17:54 | PM.HP ---
Providers/Chief Complaint Admitting Physician: Angel Mahmood MD Primary Care Provider: Jonyn Gifford Chief Complaint: defib firing History of Present Illness Carlos Alberto Morrow is a 47 year old male with past PMH of coronary artery disease status post PCI, ischemic cardiomyopathy, HFrEF EF of 38% on his last 2d echo done in 09/2021, A.F on eliquis, hypertension, status post AICD placement, pacemaker, came in today after he experienced acute onset of palpitation followed by AICD discharge, according to the patient he was shocked 16 times. AICD interrogation was done today:?He has had 627 episodes of ventricular tachycardia which were nonsustained, 79 of those were high rate.? There were 17 paced terminated episodes of ventricular tachycardia and ventricular fibrillation.? It states that only one was shocked terminated. Patient is currently denying any chest pain shortness of breath, nausea vomiting dizziness. EKG is showing paced rhythm, troponin trend is: 31-92-190 with 2-hour and 6-hour delta of 61 and 159, his other vitals and labs have been reviewed. Review of Systems General: Reports: 10 or more systems reviewed and unremarkable except in HPI and below Const: Denies: fever(s), chills, body aches, change in appetite or diaphoresis Card: Reports: palpitations; Denies: edema, swelling of feet/ankles, dyspnea on exertion, orthopnea or leg pain with exertion Resp: Denies: dyspnea, productive cough, wheezing or pain on inspiration GI: Denies: abdominal pain, nausea, vomiting, diarrhea or constipation : Denies: flank pain or difficulty urinating Musc: Denies: back pain, extremity pain or extremity swelling Neuro: Denies: headache(s), difficulty walking or confusion Medications/Allergies Home Medications Medication Instructions Recorded Confirmed Last Taken Type amlodipine 10 mg tablet 10 mg PO DAILY@04/09/20 01/10/23 01/10/23 History atorvastatin 80 mg tablet 80 mg PO DAILY@04/09/20 01/10/23 01/10/23 History clopidogrel 75 mg tablet 75 mg PO DAILY@04/09/20 01/10/23 01/10/23 History divalproex 500 mg tablet,delayed 500 mg PO BID 04/09/20 01/10/23 01/10/23 History release folic acid 1 mg tablet 1 mg PO DAILY #30 tabs 04/10/20 01/10/23 01/10/23 Rx albuterol sulfate 90 mcg/actuation 1 inh inhalation Q6H PRN shortness 06/02/20 01/10/23 Unknown Rx aerosol inhaler (ProAir HFA) of breath or wheezing 30 days #8.5 grams aspirin-caffeine 845 mg-65 mg oral 1 ea PO PRN PRN Pain 02/06/21 01/10/23 Unknown History powder packet (BC Pain Relief) multivitamin 1 tab PO DAILY@07 02/06/21 01/10/23 01/10/23 History apixaban 5 mg tablet (Eliquis) 5 mg PO BID 10/04/21 01/10/23 01/10/23 History nitroglycerin 0.4 mg sublingual 0.4 mg sublingual Q5M PRN Chest 10/04/21 01/10/23 Unknown History tablet (Nitrostat) Pain cholecalciferol (vitamin D3) 25 25 mcg PO DAILY 10/17/22 01/10/23 01/10/23 History mcg (1,000 unit) tablet (Vitamin D3) metoprolol succinate 100 mg 50 mg PO DAILY 10/17/22 01/10/23 01/10/23 History tablet,extended release 24 hr oxycodone-acetaminophen 7.5 mg-325 1 tab PO Q6H PRN Pain 01/10/23 01/10/23 01/10/23 History mg tablet (Percocet) Allergies Allergy/AdvReac Type Severity Reaction Status Date / Time No Known Allergies Allergy Verified 10/17/22 11:31 PFSH Acute PFSH: Medical History (Updated 01/10/23 @ 17:59 by Angel Mahmood MD) Abnormal coronary angiogram Bronchitis Cardiac defibrillator in place Cardiomyopathy Coronary disease Elevated troponin Heart failure with reduced ejection fraction History of cardioversion Hypertension ICD (implantable cardioverter-defibrillator) discharge Ischemic cardiomyopathy Nicotine dependence Pacemaker Pharyngitis Seizure disorder Shortness of breath Supraventricular tachycardia Ventricular tachycardia Warfarin anticoagulation Surgical History (Updated 01/10/23 @ 17:01 by Jonnathan Jacques MD) AICD (automatic cardioverter/defibrillator) present H/O cardiac catheterization H/O hernia repair Family History Mother Family history of premature coronary artery disease Initial [place] age 31, at 60; his mother sister at the age of 20 and had a myocardial infarction. Maternal grandfather and grandmother of myocardial infarction in their 50s and 60s. One of his sisters had pacemaker placed placement CAD (coronary artery disease) Father Clotting disorder Bleeding disorder Family/Other CAD (coronary artery disease) Grandmother CAD (coronary artery disease) Grandfather CAD (coronary artery disease) Denies family history of Diabetes Dementia Chronic kidney disease (CKD) Suicide Anesthesia complication Lung disease Cancer Stroke Social History Smoking and tobacco status: current every day smoker cigarettes Packs smoked per day: 1 Years cigarettes smoked: 30 Alcohol intake: current Alcohol intake frequency: 3 or more drinks per day Alcohol type: hard liquor Substance/Drug Use: current Housing: House Special eloise needs: No Vitals/I&O/Wt Last Vital Signs Temp 98.2 F 01/10/23 11:23 Pulse 64 01/10/23 17:35 Resp 16 01/10/23 17:35 BP 127/78 01/10/23 17:50 Pulse Ox 98 01/10/23 17:35 O2 Del Method Nasal Cannula 01/10/23 11:23 O2 Flow Rate 2 01/10/23 11:23 Weight last 48 hrs Weight 90.718 kg Physical Exam Const: COMMON NORMALS: patient oriented x3 HENMT: COMMON NORMALS: normocephalic and atraumatic HEAD & SCALP: normocephalic and atraumatic Resp: COMMON NORMALS: clear to auscultation bilaterally AUSCULTATION: clear to auscultation bilaterally Cardio: COMMON NORMALS: regular rate, regular rhythm, S1 normal heart sound present, S2 normal heart sound present, No gallops present (Cardio), No murmurs present (Cardio), No rub (Cardio) and Peripheral pulses 2+ throughout RATE: regular rate RHYTHM: regular rhythm HEART SOUNDS: S1 normal heart sound present and S2 normal heart sound present PERIPHERAL PULSES: Peripheral pulses 2+ throughout GI: COMMON NORMALS: Normal to inspection, nondistended, normoactive bowel sounds present, Soft to palpation, non-tender, No hepatosplenomegaly present and no masses AUSCULTATION: Yes normoactive bowel sounds PALPATION: Yes Soft to palpation and Yes No hepatosplenomegaly present RECTAL EXAM: Yes deferred Extremity: COMMON NORMALS: no clubbing, cyanosis or edema and no pedal edema Neuro: COMMON NORMALS: patient oriented x3 Data 01/10/23 10:00 01/10/23 10:00 A&P Assessment and plan (1) Cardiomyopathy: (2) Seizure disorder: (3) Ventricular tachycardia: (4) Benign essential hypertension with target blood pressure below 140/90: (5) Congestive heart failure with cardiomyopathy and cardiomegaly: (6) Alcohol abuse: (7) Atrial fibrillation: Qualifiers: Atrial fibrillation type: unspecified chronic Qualified Code(s): I48.20 - Chronic atrial fibrillation, unspecified (8) AICD discharge: (9) Non-ST elevation [place] (NSTEMI): Plan 47 year old male with past PMH of coronary artery disease status post PCI, ischemic cardiomyopathy, HFrEF EF of 38% on his last 2d echo done in 09/2021, A.F on eliquis, hypertension, status post AICD placement, pacemaker, came in today after he experienced acute onset of palpitation followed by AICD discharge. Assessment: Patient is currently being admitted for AICD discharge as well as episodes for the episodes of VT/ V-fib, Currently plan is to keep potassium greater than 4 and magnesium greater than 2, keep him n.p.o. after midnight for nuclear stress test in the morning, 2D echo ,continue Lovenox therapeutic for now we will switch him over to Eliquis on discharge, which he takes for his history of A-fib, continue Plavix statin, metoprolol. Continue amlodipine for history of hypertension. Continue Depakote for his history of seizure. CODE STATUS full code DVT prophylaxis not needed on therapeutic anticoagulation with Lovenox. Attestations Medical Necessity Statement*: Needs to be in hospital for ischemia work-up. Anticipated length of stay greater than 2 midnights Coding Level of Care Code Acute Code for [facility] Fwd Diagnoses Cardiomyopathy I42.9 Seizure disorder G40.909 Ventricular tachycardia I47.2 Benign essential hypertension with target blood pressure below 140/90 I10 Congestive heart failure with cardiomyopathy and cardiomegaly I50.9; I42.9; I51.7 Alcohol abuse F10.10 Atrial fibrillation I48.20 Atrial fibrillation type: unspecified chronic AICD discharge Z45.02 Non-ST elevation [place] (NSTEMI) I21.4
[2023-01-10] MEDS: divalproex DR 500 mg Tablet PO (18:29)
[2023-01-10] MEDS: enoxaparin 100 mg/mL Syringe 90 MG SUBCUT (18:35)
[2023-01-10] MEDS: morphine 4 mg/mL SDV 1 mL 2 MG IVP (19:54)
[2023-01-10] MEDS: oxyCODONE-APAP 10-325 mg Tablet 1 TAB PO (23:00)
[2023-01-11] VITALS (31 sets, daily range): BP systolic 108–148; BP diastolic 69–107; PULSE 59–81; RESP 8–22; TEMP 36.7–37.1; O2SAT 94–99; BMI 28.7
[2023-01-11] MEDS: morphine 4 mg/mL SDV 1 mL 2 MG IVP ×2 (03:08→21:40)
[2023-01-11 05:01] LABS: Basophils # 0.1 10^3/uL (0.0-0.1); Basophils % 1.3 %; Eosinophils # 0.7 10^3/uL (0.0-0.8); Eosinophils % 10.9 %; Hematocrit 38.5 % (42.0-52.0); Hemoglobin 12.5 g/dL (11.7-16.6); Lymphocytes # 2.4 10^3/uL (0.8-4.8); Lymphocytes % 39.2 %; Mean Corpuscular HGB Conc 32.5 g/dL (30.0-36.0); Mean Corpuscular Hemoglobin 31.1 pg (28.0-34.0); Mean Corpuscular Volume 95.8 fl (80-94); Mean Platelet Volume 9.4 fL (7.4-10.4); Monocytes # 0.4 10^3/uL (0.2-0.9); Monocytes % 7.2 %; Neutrophils # 2.52 10^3/uL (1.8-7.7); Neutrophils % 41.1 %; Nucleated Red Blood Cells % 0 %; Platelet Count 229 10^3/cmm (130-400); Red Blood Count 4.02 10^6/uL (4.1-5.3); Red Cell Distribution Width 13.4 % (12.1-15.1); White Blood Count 6.1 10^3/uL (4.0-10.0)
[2023-01-11] MEDS: enoxaparin 100 mg/mL Syringe 90 MG SUBCUT ×2 (05:11→17:38)
[2023-01-11] MEDS: oxyCODONE-APAP 10-325 mg Tablet 1 TAB PO ×3 (05:12→18:29)
[2023-01-11 05:27] LABS: Alanine Aminotransferase 23 U/L (0-41); Albumin Level 3.8 g/dL (3.5-5.2); Alkaline Phosphatase 54 U/L (40-130); Anion Gap 12.3 (5-19); Aspartate Amino Transferase 47 U/L (0-40); Blood Urea Nitrogen 11 mg/dL (6-20); Calcium 8.7 mg/dL (8.5-10.5); Carbon Dioxide 28 mmol/L (22-29); Chloride 103 mmol/L (98-107); Globulin 1.9 g/dL (1.3-4.6); Glomerular Filtration Rate 89.7 mL/min (90-130); Glucose 85 mg/dL (65-115); Osmolality Calculated 287 mOsm/kg (285-295); Potassium 4.3 mmol/L (3.5-5.1); Sodium 139 mmol/L (136-145); Total Bilirubin 0.3 mg/dL (0.15-1.2); Total Protein 5.7 g/dL (6.6-8.7)
--- NOTE | 2023-01-11 06:16 | ECG_ITS ---
[facility] Test Date: 2023-01-11 Pat Name: Carlos Alberto Morrow Department: Room: ICU01 Gender: Male Hands Assembler: Beckijean CarolinaDanilo : 1975 Requested By: Jonnathan Jacques Order Number: [id number] Suraj MD: Raquel Solano M.D. Interpretive Statements NAME OF STUDY: LEXISCAN SESTAMIBI STRESS TEST INDICATION: Chest pain PROCEDURE: At the baseline, the blood pressure was 130/91 mmHg with a heart rate of 62 bpm. The electrocardiogram showed sinus rhythm, normal axis with nonspecific ST-T wave changes in lead II, III, aVF and V6. The Lexiscan was infused over a period of 20 seconds. A total of 0.4 milligrams of Lexiscan was infused. The stress phase was continued for a total of 5 minutes. Heart rate at the end of the stress phase was 90 bpm with a blood pressure 121/82 mmHg. The EKG at the peak infusion revealed no significant ST-T wave changes. Sestamibi was injected 20 seconds after the Lexiscan infusion. Blood pressure at the end of the recovery phase was 122 over 81 mmHg with a heart rate of 78 beats per minute. CONCLUSION: 1. No significant EKG changes with the LexiScan infusion. 2. No LexiScan induced chest pain or cardiac arrhythmia. 3. Normal blood pressure and heart rate response. 4. Sestamibi/sestamibi perfusion scan pending; see separate report. Electronically Signed On 01-11-2023 12:00:32 CDT by Raquel Solano M.D. [email or web address]
--- NOTE | 2023-01-11 06:16 | NMCV_ITS ---
NM alfonso perf SPECT r/s* [id number] Carlos Alberto Morrow Age: 47 Gender: M : 1975 Exam Date: 01/11/2023 06:16 Ordering Phys: Jonnathan Jacques MD ([email or web address]) Technologist: CARMEN Womack Exam Location: [facility] Indications: CHEST PAIN STRESS TEST Please see separate stress test report in [facility] for full findings IMAGE PROTOCOL Rest/Stress 1 Lexiscan Day Radiopharmaceutical Dose (mCi) Administration Site Administered by Rest: Tc-99m 10.6 IV Chidi Cardenas, CARMEN Sestamibi Stress:Tc-99m 32.7 IV CARMEN Womack Sestamibi Rest: 11-Jan-2023 60 Discovery 630 Stress: 11-Jan-2023 30 Discovery 630 0.4mg Lexiscan. Images obtained in supine and prone position. SPECT RESULTS Technical Quality: Excellent Raw Data Analysis: Normal Image Corrections: No attenuation or motion correction applied Summed Stress Score: 36 Summed Rest Score: 28 Summed Difference Score: 8 PERFUSION FINDINGS Large sized perfusion abnormality of basal to apical inferior, basal to mid inferolateral, basal to mid inferoseptal, apical septal, apical lateral and apical bennett on rest images with reversibility in basal to mid inferoseptal, basal to mid anterolateral, apical septal and apical lateral bennett on stress images. FUNCTIONAL RESULTS (calculated via Gated SPECT) Stress Image LV EF (%): 37 Stress EDV (mL):233 TID: 0.93 Stress ESV (mL):146 FUNCTIONAL FINDINGS: The left ventricle is normal in size. Transient Ischemia Dilatation of 0.93. There is moderately reduced left ventricular global systolic function. The left ventricular ejection fraction is reduced with a value of 37%. There is hypokinesis of inferior, basal to mid lateral and apical bennett. Markedly increased end-diastolic and end-systolic volumes. IMPRESSIONS 1. Large sized perfusion abnormality of basal to apical inferior, basal to mid inferolateral, basal to mid inferoseptal, apical septal, apical lateral and apical bennett with reversibility in inferoseptal, basal to mid anterolateral, apical septal and apical lateral bennett. 2. This is suggestive of old myocardial infarction in right coronary artery and circumflex artery territory with moderate dhruv-infarct ischemia. 3. The left ventricular ejection fraction is moderately reduced with a value of 37% with hypokinesis of inferior, basal to mid lateral and apical bennett. 5. EKG portion of the study will be reported separately. Raquel Solano MD (Electronically Signed) Final Date: 11 January 2023 13:28 S
[2023-01-11] MEDS: atorvastatin 40 mg Tablet 80 MG PO (06:24)
[2023-01-11] MEDS: multivitamin therapeutic Tablet 1 TAB PO (06:24)
[2023-01-11] MEDS: amlodipine 10 mg Tablet PO (06:25)
--- NOTE | 2023-01-11 07:34 | PM.PN ---
Subjective Subjective: No events overnight. The patient says that he had very brief palpitation was told by the nurse that he had 7 beats of a fast heart rate. I did not see that. There have been no defibrillator shocks.His potassium has been within normal limits. His magnesium is 2.0. No complaints today Vitals/I&O/Wt Last Vital Signs Temp 98.3 F 01/10/23 23:00 Pulse 61 01/11/23 06:00 Resp 18 01/11/23 05:12 BP 123/71 01/11/23 04:00 Pulse Ox 95 01/11/23 04:00 O2 Del Method Room Air 01/10/23 18:00 O2 Flow Rate 2 01/10/23 20:00 01/10/23 01/11/23 01/11/23 22:59 06:59 14:59 Intake Total 110 / 110 110 / 220 Output Total 750 / 750 Balance 110 / 110 -640 / -530 Weight last 48 hrs Weight 200 lb Weight 200 lb Physical Exam Narrative: GENERAL: General he looks and feels well. HEENT: Exam within normal limits. NECK: Supple without jugular vein distention. The carotid upstroke is normal without bruits. BACK: Exam normal. LUNGS: Clear. HEART: Regular rate and rhythm. ABDOMEN: Benign without organomegaly or tenderness. EXTREMITIES: No edema. NEUROLOGIC: Exam normal. SKIN: Unremarkable. Data 01/11/23 04:05 01/11/23 04:05 A&P Assessment and plan (1) AICD discharge: (2) AICD (automatic cardioverter/defibrillator) present: (3) Elevated troponin: (4) Cardiomyopathy: (5) Seizure disorder: (6) Ventricular tachycardia: (7) Atrial fibrillation: Qualifiers: Atrial fibrillation type: unspecified chronic Qualified Code(s): I48.20 - Chronic atrial fibrillation, unspecified (8) Benign essential hypertension with target blood pressure below 140/90: (9) Atherosclerosis of coronary artery of hughes heart without angina pectoris: Qualifiers: Coronary Disease-Associated Artery/Lesion type: hughes artery Qualified Code(s): I25.10 - Atherosclerotic heart disease of hughes coronary artery without angina pectoris (10) Alcohol abuse: Plan No further shocks. I am suspicious about whether he really had 16 shocks yesterday. There was nothing of that sort on the defibrillator interrogation. His electrolytes are in order. Stress testing is pending today.If the stress test does not show any significant ischemia I would probably send him home on the amlodipine, metoprolol, atorvastatin, Plavix and some kind of afterload reducing agent either an ARB or an VAIBHAV inhibitor. Attestations Medical Necessity Statement*: Continue hospital stay for management of cardiomyopathy. and Moderate Time for a total of 35 minutes, includes reviewing past or interval history, examining/interviewing patient, updating patient/family/other support, communicating with other healthcare providers and documenting encounter Diagnoses AICD discharge Z45.02 AICD (automatic cardioverter/defibrillator) present Z95.810 Elevated troponin R77.8 Cardiomyopathy I42.9 Seizure disorder G40.909 Ventricular tachycardia I47.2 Atrial fibrillation I48.20 Atrial fibrillation type: unspecified chronic Benign essential hypertension with target blood pressure below 140/90 I10 Atherosclerosis of coronary artery of hughes heart without angina pectoris I25.10 Coronary Disease-Associated Artery/Lesion type: hughes artery Alcohol abuse F10.10
[2023-01-11] MEDS: regadenoson 0.4 Mg/5 ml Syringe IVP (10:45)
[2023-01-11] MEDS: folic acid 1 mg Tablet PO (11:50)
[2023-01-11] MEDS: divalproex DR 500 mg Tablet PO ×2 (11:50→17:38)
[2023-01-11] MEDS: cholecalciferol (vitamin D3) 1,000 unit Tablet 1000 UNIT PO (11:50)
[2023-01-11] MEDS: metoprolol succinate ER (24 HR) 50 mg Tablet PO (11:50)
[2023-01-11] MEDS: aspirin 325 mg Tablet PO (17:38)
--- NOTE | 2023-01-11 18:05 | PM.PN ---
Subjective Subjective: Patient was seen and examined this morning no acute events reported on telemetry overnight. Denied any chest pain, shortness of breath, had likely brief episode of palpitation.Nuclear stress test was done today. Medications: Medication Review Details: Generic Name Dose Route Start Last Admin Trade Name Jemq PRN Reason Stop Dose Admin Amlodipine Besylat e 10 mg 01/11/23 07:00 01/11/23 06:25 Amlodipine 10 Mg Tablet PO 10 mg DAILY@07 [facility] Administration Atorvastatin Calci um 80 mg 01/11/23 07:00 01/11/23 06:24 Atorvastatin 40 Mg Tablet PO 80 mg DAILY@07 [facility] Administration Clopidogrel Bisulf ate 75 mg 01/11/23 07:00 01/11/23 07:05 Clopidogrel 75 M g Tablet PO Not Given DAILY@07 [facility] Divalproex Sodium 500 mg 01/10/23 18:00 01/11/23 17:[address] 50 0 Mg Tablet PO 500 mg BID [facility] Administration Enoxaparin Sodium 90 mg 01/10/23 18:00 01/11/23 17:38 Enoxaparin 100 M g/Ml Syringe 1 mg/kg (90 mg) 90 mg SUBCUT Administration Q12H [facility] Folic Acid 1 mg 01/11/23 09:00 01/11/23 11:50 Folic Acid 1 Mg Tablet PO 1 mg DAILY [facility] Administration Metoprolol Succina te 50 mg 01/11/23 09:00 01/11/23 11:50 Metoprolol Succi kemal Er (24 Hr) 50 Mg Tablet PO 50 mg DAILY [facility] Administration Morphine Sulfate 2 mg 01/10/23 18:36 01/11/23 03:08 Morphine 4 Mg/Ml Sdv 1 Ml IVP 2 mg Q4H PRN Administration SEVERE PAIN Multivitamins Ther apeutic 1 tab 01/11/23 07:00 01/11/23 06:24 Multivitamin The rapeutic Tablet PO 1 tab DAILY@07 [facility] Administration Oxycodone/Acetamin ophen 1 tab 01/10/23 22:47 01/11/23 11:50 Oxycodone-Apap 1 0-325 Mg Tablet PO 1 tab Q6H PRN Administration MODERATE PAIN Vitamin D 1,000 unit 01/11/23 09:00 01/11/23 11:50 Cholecalciferol (Vitamin D3) 1,000 Unit Tablet PO 1,000 unit DAILY RICHARD Administration Vitals/I&O/Wt Last Vital Signs Temp 98.4 F 01/11/23 17:00 Pulse 60 01/11/23 17:00 Resp 11 L 01/11/23 17:00 BP 120/72 01/11/23 17:00 Pulse Ox 96 01/11/23 17:00 O2 Del Method Room Air 01/11/23 08:00 O2 Flow Rate 2 01/10/23 20:00 01/11/23 01/11/23 01/11/23 06:59 14:59 22:59 Intake Total 110 / 220 360 / 360 Output Total 750 / 750 Balance -640 / -530 360 / 360 Weight last 48 hrs Weight 90.718 kg Weight 90.718 kg Physical Exam Const: COMMON NORMALS: patient oriented x3 HENMT: COMMON NORMALS: normocephalic and atraumatic HEAD & SCALP: normocephalic and atraumatic Resp: COMMON NORMALS: clear to auscultation bilaterally AUSCULTATION: clear to auscultation bilaterally Cardio: COMMON NORMALS: regular rate, regular rhythm, S1 normal heart sound present, S2 normal heart sound present, No gallops present (Cardio), No murmurs present (Cardio), No rub (Cardio) and Peripheral pulses 2+ throughout RATE: regular rate RHYTHM: regular rhythm HEART SOUNDS: S1 normal heart sound present and S2 normal heart sound present PERIPHERAL PULSES: Peripheral pulses 2+ throughout GI: COMMON NORMALS: Normal to inspection, nondistended, normoactive bowel sounds present, Soft to palpation, non-tender, No hepatosplenomegaly present and no masses AUSCULTATION: Yes normoactive bowel sounds PALPATION: Yes Soft to palpation and Yes No hepatosplenomegaly present RECTAL EXAM: Yes deferred Extremity: COMMON NORMALS: no clubbing, cyanosis or edema and no pedal edema Neuro: COMMON NORMALS: patient oriented x3 Data 01/11/23 04:05 01/11/23 04:05 A&P Assessment and plan (1) Cardiomyopathy: (2) Seizure disorder: (3) Ventricular tachycardia: (4) Benign essential hypertension with target blood pressure below 140/90: (5) Congestive heart failure with cardiomyopathy and cardiomegaly: (6) Alcohol abuse: (7) Atrial fibrillation: Qualifiers: Atrial fibrillation type: unspecified chronic Qualified Code(s): I48.20 - Chronic atrial fibrillation, unspecified (8) AICD discharge: (9) Non-ST elevation [place] (NSTEMI): Plan 47 year old male with past PMH of coronary artery disease status post PCI, ischemic cardiomyopathy, HFrEF EF of 38% on his last 2d echo done in 09/2021, A.F on eliquis, hypertension, status post AICD placement, pacemaker, came in today after he experienced acute onset of palpitation followed by AICD discharge. Assessment: Patient is currently being admitted for AICD discharge as well as episodes for the episodes of VT/ V-fib, Currently plan is to keep potassium greater than 4 and magnesium greater than 2, nuclear stress test is abnormal:Large sized perfusion abnormality of basal to apical inferior, basal to mid?inferolateral, basal to mid inferoseptal, apical septal, apical lateral and ?apical bennett with reversibility in inferoseptal, basal to mid anterolateral, apical septal and apical lateral bennett.?This is suggestive of old myocardial infarction in right coronary artery and circumflex artery territory with moderate dhruv-infarct ischemia. 2D echo: continue Lovenox therapeutic for now we will switch him over to Eliquis on discharge, which he takes for his history of A-fib, continue Plavix statin, metoprolol. Continue amlodipine for history of hypertension. Continue Depakote for his history of seizure. CODE STATUS full code DVT prophylaxis not needed on therapeutic anticoagulation with Lovenox. Attestations Medical Necessity Statement*: Needs to be in hospital for management of NSTEMI. Coding Level of Care Code Acute Code for [facility] Diagnoses Cardiomyopathy I42.9 Seizure disorder G40.909 Ventricular tachycardia I47.2 Benign essential hypertension with target blood pressure below 140/90 I10 Congestive heart failure with cardiomyopathy and cardiomegaly I50.9; I42.9; I51.7 Alcohol abuse F10.10 Atrial fibrillation I48.20 Atrial fibrillation type: unspecified chronic AICD discharge Z45.02 Non-ST elevation [place] (NSTEMI) I21.4
[2023-01-12] VITALS (18 sets, daily range): BP systolic 107–150; BP diastolic 69–93; PULSE 60–68; RESP 13–20; TEMP 36.9; O2SAT 93–100; BMI 28.3
[2023-01-12 02:53] LABS: Basophils # 0.1 10^3/uL (0.0-0.1); Basophils % 1.2 %; Eosinophils # 0.7 10^3/uL (0.0-0.8); Eosinophils % 8.9 %; Hematocrit 41.5 % (42.0-52.0); Hemoglobin 13.3 g/dL (11.7-16.6); Lymphocytes # 2.8 10^3/uL (0.8-4.8); Lymphocytes % 37.4 %; Mean Corpuscular Hemoglobin 30.6 pg (28.0-34.0); Mean Corpuscular Volume 95.4 fl (80-94); Mean Platelet Volume 9.7 fL (7.4-10.4); Monocytes # 0.6 10^3/uL (0.2-0.9); Monocytes % 7.3 %; Neutrophils # 3.38 10^3/uL (1.8-7.7); Neutrophils % 45.1 %; Nucleated Red Blood Cells % 0 %; Platelet Count 230 10^3/cmm (130-400); Red Blood Count 4.35 10^6/uL (4.1-5.3); Red Cell Distribution Width 13.2 % (12.1-15.1); White Blood Count 7.5 10^3/uL (4.0-10.0)
[2023-01-12 03:14] LABS: Alanine Aminotransferase 26 U/L (0-41); Albumin Level 4.3 g/dL (3.5-5.2); Alkaline Phosphatase 58 U/L (40-130); Anion Gap 15.5 (5-19); Aspartate Amino Transferase 43 U/L (0-40); Blood Urea Nitrogen 10 mg/dL (6-20); Calcium 9.4 mg/dL (8.5-10.5); Carbon Dioxide 27 mmol/L (22-29); Chloride 103 mmol/L (98-107); Globulin 2.2 g/dL (1.3-4.6); Glomerular Filtration Rate 102.7 mL/min (90-130); Glucose 81 mg/dL (65-115); Osmolality Calculated 290 mOsm/kg (285-295); Potassium 4.5 mmol/L (3.5-5.1); Sodium 141 mmol/L (136-145); Total Bilirubin 0.3 mg/dL (0.15-1.2); Total Protein 6.5 g/dL (6.6-8.7)
[2023-01-12] MEDS: multivitamin therapeutic Tablet 1 TAB PO (06:17)
[2023-01-12] MEDS: amlodipine 10 mg Tablet PO (06:17)
[2023-01-12] MEDS: oxyCODONE-APAP 10-325 mg Tablet 1 TAB PO (06:17)
[2023-01-12] MEDS: atorvastatin 40 mg Tablet 80 MG PO (06:18)
[2023-01-12] MEDS: sodium chloride 0.9% 1,000 ML 50 ML IV (07:46)
--- NOTE | 2023-01-12 07:47 | PC.NURSE ---
To Metaphysician at this time, AAOx4, 0/10 pain.
--- NOTE | 2023-01-12 07:49 | XACV_ITS ---
Exam Room: [facility] Ht: 178 cm Wt: 91 kg BSA: 2.14 m2 Gender: Male : 1975 Exam Priority: Routine Procedure(s): Procedure Description: Diagnostic procedure Procedure Description: Coronary Angiography Sawyer PEREZ; Diagnostic Cath Status: Urgent Diagnostic Findings * Patient with known coronary artery disease and previous stents. Arrived to hospital with defibrillator shocks. Stress testing abnormal, troponin elevated. * The procedure was done from the right radial artery. Ventriculography was not performed. The left main coronary artery is normal. The left anterior descending is normal. It is a large system with multiple diagonal branches. It provides collateral flow to the distal right coronary artery which is the dominant vessel. The circumflex has been stented. The proximal circumflex into the first marginal branch has multiple stents. The proximal circumflex is patent. The marginal branch is occluded. There is some collateral flow to that marginal branch from the septal branches of the LAD. The remainder of the circumflex distally is patent. It provides some collateral flow to the right coronary artery. I was not able to find the ostium of the right coronary artery. It is known to be occluded from previous angiograms. Conclusions 1. Two-vessel coronary artery disease with occluded right and occluded first obtuse marginal branch. Excellent collateral flow to both occluded vessels. Recommendations * Medical treatment. Interventional RX Recommendation: medical therapy and/or counseling Diagnostic RX Recommendation: medical therapy and/or counseling Anticoagulation: Heparin Pressures Phase:Rest AO : 96 / 82 ( 90 ) @ 9:10:00 AM 105 / 90 ( 98 ) @ 9:13:00 AM 98 / 82 ( 91 ) @ 9:22:00 AM Clinical Evaluation EBL: 5mL-10mL Procedural Details Procedure Consent Obtained. Admit Source: In Patient. Pre-Procedure Time Out. Identified patient by full name and date of as verbalized by the patient/guarantor. Does the consent match the physician's order: Yes. Accurate & Complete Informed Consent: Yes. Inpatient/Outpatient History & Physical on Chart: Yes. If H&P is completed, is and addenduem needed: No; If yes, is the addendum complete: N/A. Visualize and Verify Site with Patient/Guarantor: N/A. Relevant Radiology Images available: N/A. The risks, benefits, and alternatives of sedation and/or procedure were discussed by physician. The patient agrees to continue. Procedure started. [facility] Clinical Fraility Score: 3: Managing Well. [place]olog[place] Lacer Indications: Cardiac Arrhythmia. Chest Pain Symptom Assessment: Typical Angina Symptoms. Cardiovascular Instability: Yes, if yes, Ventricular Arrhythmias. Correct patient, site and procedure confirmed by cath team. Current diagnosis: Chest Pain. PERRLA. Strong, equal hand computer systems designer bilaterally. Lungs clear x 5 lobes. IV Site on Arrival: 20 gauge in the left anticubital. IV Fluids: 0.9% NaCl at KVO. 0 mL infused prior to mobile home laborer. Pre Procedural Pulses: right radial was 3+. Pre Procedural Pulses: bilateral dorsalis pedis was 2+. Oxygen started at 2liters/min via nasal canula. right groin was prepped with chloroprep then draped in the usual sterile fashion. right radial was prepped with chloroprep then draped in the usual sterile fashion. Physician notified. Baseline sample Acquired. HR: 60 BPM. Physician arrived. Physician scrubbed in. Immediate Pre-Procedure Time Out. Correct Patient: Yes; Correct Procedure: Yes; Correct Site: Yes; Correct Patient Position: Yes; Correct Supplies: Yes; Dried Flammable Prep: Yes; Blood Products Available: N/A;. Lidocaine 1% infiltrated to the right radial. Arterial access obtained. A 5 spanish TIG catheter in over wire. Multiple views taken of left coronary artery. Catheter redirected to the RCA. Catheter removed over the exchange wire. A 5 spanish JR4 catheter in over wire. Catheter removed over the exchange wire. A 5 spanish AL1 catheter in over wire. RCA occluded. Catheter removed over the exchange wire. Physician review of cine films. Physician scrubbed out. A TR Band was successful obtaining hemostatsis at the Right Radial artery insertion site. Post Procedure: Pulses reassessed and unchanged. PERRLA. Strong, equal hand computer systems designer bilaterally. No VTE prophylaxis required. Medication's Wasted: Lidocaine 1% = 1 mL. Medication's Wasted: Heparin = 1000 u. Medication's Wasted: Nitro = 49.8 mg. Total IV fluids: 50 mL. Post-op diagnosis: Obstructive CAD. Complications: none. Estimated blood loss: 5mL-10mL. Responsiveness - Normal response to verbal stimuli; alert and oriented, PERRLA. Airway - Unaffected, no intervention required; spontaneous ventilation. Circulation: W/N/L, pulses unchanged. Nausea/Vomiting: No. Procedure completed. Patient transferred by wheelchair to ICU. Vital chart was stopped. Access Site Site: Right Radial artery Sheath Size: 6 Fr Hemostasis Method: TR Band Hemostasis Success: Successful Procedure Medications Start: 8:00 AM Stop: 8:00 AM Medication: Versed Amount: 1 mg Route: I.V. Start: 8:00 AM Stop: 8:00 AM Medication: Fentanyl Amount: 50 mcg Route: I.V. Start: 8:00 AM Stop: 8:00 AM Medication: Benadryl Amount: 50 mg Route: I.V. Start: 8:05 AM Stop: 8:05 AM Medication: Versed Amount: 1 mg Route: I.V. Start: 8:05 AM Stop: 8:05 AM Medication: Fentanyl Amount: 50 mcg Route: I.V. Start: 8:06 AM Stop: 8:06 AM Medication: Nitrogylcerin Amount: 200 mcg Route: I.A. Start: 8:08 AM Stop: 8:08 AM Medication: Heparin Amount: 5000 units Route: I.V. Start: 8:14 AM Stop: 8:14 AM Medication: Versed Amount: 1 mg Route: I.V. Start: 8:17 AM Stop: 8:17 AM Medication: Versed Amount: 1 mg Route: I.V. I, the attending physician, have reviewed and verified all procedure medications. Yes, all medications given per verbal order History/Risk Factors Hypertension: Yes Dyslipidemia: Yes Peripheral Arterial Disease (PAD): No Myocardial Infarction (IL): Yes Obesity: No Renal Disease: No Tobacco Use: Current/Recent(w/in 1 year) Prior Interventions PCI: Yes CABG: No Valve Surgery: No Date of PCI: 02/10/2021 Report Signatures Finalized by Dr. Jonnathan Jacques MD on 01/12/2023 08:57 AM
--- NOTE | 2023-01-12 08:39 | PM.MISC ---
Miscellaneous Note Note: Patient underwent cardiac catheterization this morning. Left ventriculography was not performed. He has apparently not had any defibrillator shocks since he has been in the hospital. The procedure was done from the right radial artery. Angiography reveals a normal left main, normal LAD. The right coronary artery is chronically occluded and has been noted before. He has excellent collateral flow from both the circumflex and LAD. Circumflex is patent with the exception of the first obtuse marginal which is chronically occluded. That vessel has been stented previously. Medical therapy is most appropriate. As long as his electrolytes are in order, he may be discharged later once the right radial artery area is evaluated and has had no complications. He should be seen in the office at the next available device clinic. Phone call should be made to the office on Saturday to schedule him for the earliest possible device clinic appointment so that the device can be interrogated in the office. I discontinued his Norvasc since that is less appropriate for left ventricular dysfunction. I added losartan for afterload reduction. I put him back on his Eliquis. I also reinstituted the Plavix. He should remain on the beta-anna and his other medications.
[2023-01-12] MEDS: folic acid 1 mg Tablet PO (09:02)
[2023-01-12] MEDS: clopidogrel 75 mg Tablet PO (09:03)
[2023-01-12] MEDS: apixaban 5 mg Tablet PO (09:03)
[2023-01-12] MEDS: divalproex DR 500 mg Tablet PO (09:03)
[2023-01-12] MEDS: cholecalciferol (vitamin D3) 1,000 unit Tablet 1000 UNIT PO (09:03)
[2023-01-12] MEDS: losartan 50 mg Tablet 25 MG PO (09:04)
[2023-01-12] MEDS: metoprolol succinate ER (24 HR) 50 mg Tablet PO (09:05)
--- NOTE | 2023-01-12 11:07 | PM.DCS ---
Discharge Providers Date of Admission: 01/10/23 16:16 Date of Discharge: January 12, 2023 Attending Provider at Admission: Angel Mahmood MD Attending Provider at Discharge: Angel Mahmood MD Primary Care Provider: Jonny Gifford Diagnoses at Discharge Discharge Diagnosis (1) Cardiomyopathy: Status: Acute (2) Seizure disorder: Status: Acute (3) Ventricular tachycardia: Status: Acute (4) Benign essential hypertension with target blood pressure below 140/90: Status: Acute (5) Congestive heart failure with cardiomyopathy and cardiomegaly: Status: Acute (6) Alcohol abuse: Status: Acute (7) Atrial fibrillation: Status: Acute Qualifiers: Atrial fibrillation type: unspecified chronic Qualified Code(s): I48.20 - Chronic atrial fibrillation, unspecified (8) AICD discharge: Status: Acute (9) Non-ST elevation [place] (NSTEMI): Status: Acute Permanent problem details: Appears to be type II secondary to SVT. Patient has a history of multiple PCI's Reason for Visit Reason for Visit: defib firing Hospital Course Hospital Course 47 year old male with? past PMH of coronary artery disease status post PCI, ischemic cardiomyopathy, HFrEF EF of 38% on his last 2d echo done in 09/2021, A.F on eliquis, hypertension, status post AICD placement, pacemaker, came in today after he experienced acute onset of palpitation followed by AICD discharge,?as , He was admitted for the management of AICD discharge,well as for episodes of? VT/ V-fib,NSTEMI, Serum potassium and serum magnesium was normal, it was monitored during the hospital stay. AICD interrogation was done :?showed 627 episodes of ventricular tachycardia which were nonsustained, 79 of those were high rate.? There were 17 paced terminated episodes of ventricular tachycardia and ventricular fibrillation.? It states that only one was shocked terminated.? underwent nuclear stress test which was abnormal: Large sized perfusion abnormality of basal to apical inferior, basal to mid?inferolateral, basal to mid inferoseptal, apical septal, apical lateral and ?apical bennett with reversibility in inferoseptal, basal to mid anterolateral, apical septal and apical lateral bennett.?This is suggestive of old myocardial infarction in right coronary artery and circumflex artery territory with moderate dhruv-infarct ischemia. Patient was initially kept on therapeutic anticoagulation with Lovenox Plavix statin beta-anna, he underwent coronary angiogram, normal left main, normal LAD.? Chronically occluded RCA,excellent collateral flow but from LCx LAD,patent LCx, except for chronically occluded OM1,That vessel has been stented previously.Patient was continued on medical management. He will follow cardiology as outpatient. ? Physical Exam Const: COMMON NORMALS: patient oriented x3 HENMT: COMMON NORMALS: normocephalic and atraumatic HEAD & SCALP: normocephalic and atraumatic Resp: COMMON NORMALS: clear to auscultation bilaterally AUSCULTATION: clear to auscultation bilaterally Cardio: COMMON NORMALS: regular rate, regular rhythm, S1 normal heart sound present, S2 normal heart sound present, No gallops present (Cardio), No murmurs present (Cardio), No rub (Cardio) and Peripheral pulses 2+ throughout RATE: regular rate RHYTHM: regular rhythm HEART SOUNDS: S1 normal heart sound present and S2 normal heart sound present PERIPHERAL PULSES: Peripheral pulses 2+ throughout GI: COMMON NORMALS: Normal to inspection, nondistended, normoactive bowel sounds present, Soft to palpation, non-tender, No hepatosplenomegaly present and no masses AUSCULTATION: Yes normoactive bowel sounds PALPATION: Yes Soft to palpation and Yes No hepatosplenomegaly present RECTAL EXAM: Yes deferred Extremity: COMMON NORMALS: no clubbing, cyanosis or edema and no pedal edema Neuro: COMMON NORMALS: patient oriented x3 Discharge Data Studies Completed and Pending Completed Studies During Hospitalization Category Date Time Status MANAGER BUSINESS PROCESS request for service Routine Exams 01/12/23 07:49 Completed Cardiac Stress Test MIBI [Sestamibi Stress Test Request Exams 01/11/23 06:16 Completed ] Routine XR chest 1V portable [id number] Stat Exams 01/10/23 11:51 Completed NM alfonso perf SPECT r/s* [id number] Routine Nuc Med 01/11/23 06:16 Completed Pending at discharge Category Date Time Status Complete Blood Count w/Auto AM LABS Lab 01/13/23 04:00 Ordered Comprehensive Metabolic Panel AM LABS Lab 01/13/23 04:00 Ordered Magnesium AM LABS Lab 01/13/23 04:00 Ordered Radiology Impressions Chest X-Ray 01/10/23 11:51 IMPRESSION: 1. No acute cardiopulmonary finding. Pulmonary hyperinflation. Laboratory Results WBC 7.5 10^3/uL (4.0-10.0) 01/12/23 02:28 RBC 4.35 10^6/uL (4.1-5.3) 01/12/23 02:28 Hgb 13.3 g/dL (11.7-16.6) 01/12/23 02:28 Hct 41.5 % (42.0-52.0) L 01/12/23 02:28 MCV 95.4 fl (80-94) H 01/12/23 02:28 MCH 30.6 pg (28.0-34.0) 01/12/23 02:28 MCHC 32.0 g/dL (30.0-36.0) 01/12/23 02:28 RDW 13.2 % (12.1-15.1) 01/12/23 02:28 Plt Count 230 10^3/cmm (130-400) 01/12/23 02:28 MPV 9.7 fL (7.4-10.4) 01/12/23 02:28 Neut % (Auto) 45.1 % 01/12/23 02:28 Lymph % (Auto) 37.4 % 01/12/23 02:28 [place] % (Auto) 7.3 % 01/12/23 02:28 Eos % (Auto) 8.9 % 01/12/23 02:28 Baso % (Auto) 1.2 % 01/12/23 02:28 Neut # (Auto) 3.38 10^3/uL (1.8-7.7) 01/12/23 02:28 Lymph # (Auto) 2.8 10^3/uL (0.8-4.8) 01/12/23 02:28 [place] # (Auto) 0.6 10^3/uL (0.2-0.9) 01/12/23 02:28 Eos # (Auto) 0.7 10^3/uL (0.0-0.8) 01/12/23 02:28 Baso # (Auto) 0.1 10^3/uL (0.0-0.1) 01/12/23 02:28 Nucleated RBC % (auto) 0 % 01/12/23 02:28 Nucleated RBCs # 0.0 /100WBC 01/12/23 02:28 Sodium 141 mmol/L (136-145) 01/12/23 02:28 Potassium 4.5 mmol/L (3.5-5.1) 01/12/23 02:28 Chloride 103 mmol/L (98-107) 01/12/23 02:28 Carbon Dioxide 27 mmol/L (22-29) 01/12/23 02:28 Anion Gap 15.5 (5-19) 01/12/23 02:28 BUN 10 mg/dL (6-20) 01/12/23 02:28 Creatinine 0.8 mg/dL (0.7-1.2) 01/12/23 02:28 GFR Calculation 102.7 mL/min (90-130) 01/12/23 02:28 Glucose 81 mg/dL (65-115) 01/12/23 02:28 Calculated Osmolality 290 mOsm/kg (285-295) 01/12/23 02:28 Calcium 9.4 mg/dL (8.5-10.5) 01/12/23 02:28 Magnesium 2.0 mg/dL (1.7-2.3) 01/12/23 02:28 Total Bilirubin 0.3 mg/dL (0.15-1.2) 01/12/23 02:28 AST 43 U/L (0-40) H 01/12/23 02:28 ALT 26 U/L (0-41) 01/12/23 02:28 Alkaline Phosphatase 58 U/L (40-130) 01/12/23 02:28 Creatine Kinase 329 U/L (39-308) H* 01/10/23 10:00 Troponin T Baseline 31 ng/L (0-15) H 01/10/23 10:00 Troponin T 120 Minute 92.45 ng/L (0-15) H 01/10/23 11:43 Delta Troponin T 61.45 ABS# (0-10) H* 01/10/23 11:43 Troponin T Hi Sens 6Hr 190.1 ng/L (0-15) H 01/10/23 15:56 Troponin T Hi Sens 6Hr Delta 159.1 ng/L (0-12) H* 01/10/23 15:56 Total Protein 6.5 g/dL (6.6-8.7) L 01/12/23 02:28 Albumin 4.3 g/dL (3.5-5.2) 01/12/23 02:28 Globulin 2.2 g/dL (1.3-4.6) 01/12/23 02:28 Vitals Last Vital Signs Temp 98.5 F 01/12/23 04:00 Pulse 60 01/12/23 09:00 Resp 15 01/12/23 09:00 BP 125/77 01/12/23 09:04 Pulse Ox 97 01/12/23 09:00 O2 Del Method Room Air 01/12/23 09:00 O2 Flow Rate 2 01/10/23 20:00 Discharge Plan Discharge Patient Disposition: Home Condition: Stable Prescriptions: New losartan 50 mg Tablet 25 mg PO DAILY 30 Days Qty: 30 3RF Nitrostat 0.4 mg tablet, sublingual 0.4 mg sublingual Q5M PRN (Reason: chest pain) Qty: 30 1RF Rx Instructions: do not exceed 3 doses per episode Continued albuterol sulfate [ProAir HFA] 90 mcg/actuation HFA aerosol inhaler 1 inh inhalation Q6H PRN (Reason: shortness of breath or wheezing) 30 Days Qty: 8.5 2RF multivitamin Tablet 1 tab PO DAILY@07 BC Pain Relief 845-65 mg Powder In Packet 1 ea PO PRN PRN (Reason: Pain) atorvastatin 80 mg tablet 80 mg PO DAILY@07 clopidogrel 75 mg tablet 75 mg PO DAILY@07 divalproex 500 mg tablet,delayed release (DR/EC) 500 mg PO BID folic acid 1 mg Tablet 1 mg PO DAILY Qty: 30 0RF cholecalciferol (vitamin D3) [Vitamin D3] 25 mcg (1,000 unit) Tablet 25 mcg PO DAILY metoprolol succinate 100 mg tablet extended release 24 hr 50 mg PO DAILY Percocet 7.5-325 mg Tablet 1 tab PO Q6H PRN (Reason: Pain) nitroglycerin [Nitrostat] 0.4 mg Tablet, Sublingual 0.4 mg SUBLINGUAL Q5M PRN (Reason: Chest Pain) Rx Instructions: do not exceed 3 doses per episode Eliquis 5 mg tablet 5 mg PO BID Discontinued amlodipine 10 mg tablet 10 mg PO DAILY@07 Discharge Orders: Discharge Order (Routine); Ordered 01/12/23 Ordered By: Angel Mahmood Referrals: Jonny Gifford [Primary Care Provider] - Patient Instructions: Nitroglycerin (By mouth), Losartan (By mouth), Chest Pain (DC), Arteriogram of Carotid Arteries (DC), Opioid Safety Activity Restrictions/Additional Instructions: Please call Saturday to schedule follow-up appointment with your primary care provider. Please call Saturday to schedule a follow-up with Cardiology [phone]. Discharge Attestations Time Spent in Discharge Care*: less than 30 min Quality Metrics Clinical Quality Measures [ No reported AMI, CVA or VTE this stay] Coding Level of Care Code Acute Code for Chg Fwd Diagnoses Cardiomyopathy I42.9 Seizure disorder G40.909 Ventricular tachycardia I47.2 Benign essential hypertension with target blood pressure below 140/90 I10 Congestive heart failure with cardiomyopathy and cardiomegaly I50.9; I42.9; I51.7 Alcohol abuse F10.10 Atrial fibrillation I48.20 Atrial fibrillation type: unspecified chronic AICD discharge Z45.02 Non-ST elevation KS (NSTEMI) I21.4
--- NOTE | 2023-01-12 12:18 | PC.NURSE ---
Discharge instructions given to patient. IV removed. TR band off and site covered with dressing. PT waiting on ride.
--- NOTE | 2023-01-12 12:43 | PC.NURSE ---
PT ambulated to front entrance to wait on ride outside (per PT request). Belongings with patient. Accompanied by this nurse. Patient left at front entrance, sitting area, told to come back inside if needed.
== END 2023-01-12 12:40 | disposition home or self-care (01) | DRG 281 ==
LOC: ER 13:50 → ICU 17:22
PROVIDERS: Internal Medicine Cardiovascular Disease; Admitting Provider Internal Medicine; Emergency Provider Family Medicine; PCP Family Medicine; Visit Provider Internal Medicine
PROC: B2111ZZ Fluoroscopy of Multiple Coronary Arteries using Low Osmolar Contrast (ICD-10-PCS; principal; 2023-01-12 08:30)
DX: I47.20 Ventricular tachycardia, unspecified (principal); I21.4 Non-ST elevation (NSTEMI) myocardial infarction; I50.22 Chronic systolic (congestive) heart failure; I25.119 Atherosclerotic heart disease of native coronary artery with unspecified angina pectoris; I25.5 Ischemic cardiomyopathy; I11.0 Hypertensive heart disease with heart failure; I48.91 Unspecified atrial fibrillation; Z95.810 Presence of automatic (implantable) cardiac defibrillator; I25.2 Old myocardial infarction; Z79.51 Long term (current) use of inhaled steroids; Z79.02 Long term (current) use of antithrombotics/antiplatelets; Z79.01 Long term (current) use of anticoagulants; G40.909 Epilepsy, unspecified, not intractable, without status epilepticus; F10.10 Alcohol abuse, uncomplicated; F11.10 Opioid abuse, uncomplicated; Z45.02 Encounter for adjustment and management of automatic implantable cardiac defibrillator; F17.210 Nicotine dependence, cigarettes, uncomplicated
CPT/HCPCS: 36415; 71045; 78452; 80048; 80053; 82550; 83690; 83735; 83880; 84484; 85025; 93005; 93454; 96372; 96374; 96375; 96376; 99152; 99153; 99285; A9500; C1769; C1887; C1894; J1200; J1644; J1650; J1885; J2250; J2270; J2785; J3010; J3490; J7030; Q9967

== ENCOUNTER 2023-01-13 16:10 | Inpatient (IN) | payer MEDICARE, MEDICAID, SELFPAY ==
[2023-01-13 16:13] VITALS: BP 117/75; PULSE 87; RESP 18; O2SAT 97
--- NOTE | 2023-01-13 16:17 | W.ED.CHESTPA ---
Documented by User: Raad Prado MD 01/26/23 23:19 HPI - Chest Pain General: Chief Complaint: Chest Pain Stated Complaint: cp Time Seen by Provider: 01/13/23 16:17 History of Present Illness: Mr. Morrow is a 47-year-old gentleman with complex past medical history including ischemic cardiomyopathy and defibrillator in situ. He returns to the hospital after being discharged yesterday for approximately 6 ICD shocks. Additionally he had a new event of hearing beeping from his defibrillator. Does not correlate this with any particular activity. At times he feels his heart race prior to these events and lightheaded. He has had some shortness of breath. He reports medication compliance and denies alcohol or tobacco use. No other specific changes in health, exacerbating, or alleviating factors identified. Onset (ago): day(s) Associated symptoms: Reports other Review of Systems General: Reports: 10 or more systems reviewed and unremarkable except in HPI and below PFSH ED PFSH: Medical History Abnormal coronary angiogram AICD discharge Alcohol abuse Atherosclerosis of coronary artery of [place] heart without angina pectoris Atherosclerotic heart disease of [place] coronary artery with other forms of angina pectoris Atrial fibrillation Benign essential hypertension with target blood pressure below 140/90 Bronchitis Cardiac defibrillator in place Cardiomyopathy Congestive heart failure with cardiomyopathy and cardiomegaly Coronary disease Elevated troponin Heart failure with reduced ejection fraction History of cardioversion Hypertension ICD (implantable cardioverter-defibrillator) discharge Ischemic cardiomyopathy Nicotine dependence Non-ST elevation [place] (NSTEMI) Appears to be type II secondary to SVT. Patient has a history of multiple PCI's Pacemaker Pharyngitis Seizure disorder Shortness of breath Supraventricular tachycardia Ventricular tachycardia Ventricular tachycardia Warfarin anticoagulation Surgical History AICD (automatic cardioverter/defibrillator) present H/O cardiac catheterization H/O hernia repair Family History Mother Family history of premature coronary artery disease Initial [place] age 31, at 60; his mother sister at the age of 20 and had a myocardial infarction. Maternal grandfather and grandmother of myocardial infarction in their 50s and 60s. One of his sisters had pacemaker placed placement CAD (coronary artery disease) Father Clotting disorder Bleeding disorder Family/Other CAD (coronary artery disease) Grandmother CAD (coronary artery disease) Grandfather CAD (coronary artery disease) Denies family history of Diabetes Dementia Chronic kidney disease (CKD) Suicide Anesthesia complication Lung disease Cancer Stroke Social History Smoking and tobacco status: current every day smoker cigarettes Packs smoked per day: 1 Years cigarettes smoked: 30 Alcohol intake: current Alcohol intake frequency: 3 or more drinks per day Alcohol type: hard liquor Substance/Drug Use: current Housing: House Special eloise needs: No Physical Exam Const: COMMON NORMALS: alert GENERAL APPEARANCE: cooperative and well developed HENMT: COMMON NORMALS: normocephalic and atraumatic HEAD & SCALP: normocephalic and atraumatic Eye: COMMON NORMALS: conjunctivae normal CONJUNCTIVA: Yes conjunctivae normal SCLERA: sclerae normal Neck/C-Spine: COMMON NORMALS: supple GENERAL: Yes trachea midline Resp: COMMON NORMALS: clear to auscultation bilaterally EFFORT & INSPECTION: Yes able to speak in complete sentences AUSCULTATION: clear to auscultation bilaterally Cardio: COMMON NORMALS: regular rate and regular rhythm RATE: regular rate RHYTHM: regular rhythm GI: COMMON NORMALS: Soft to palpation PALPATION: Yes Soft to palpation and No Tenderness to palpation present (GI) Extremity: GENERAL: Yes normal exam except as noted and No edema Neuro: COMMON NORMALS: moves all extremities SENSORIUM/ORIENTATION: Yes alert and No Orientation impaired Psych: COMMON NORMALS: mental status grossly normal and Normal thought process present THOUGHT PROCESS: Normal thought process present Course Vital Signs: Vital signs: Vital Signs Temperature 97.8 F 01/16/23 08:00 Pulse Rate 60 01/16/23 12:11 Respiratory Rate 17 01/16/23 12:11 Blood Pressure 129/74 01/16/23 12:11 Pulse Oximetry 97 01/16/23 12:11 Oxygen Delivery Me thod Room Air 01/16/23 11:47 MDM - Chest Pain Medical Decision Making 47-year-old gentleman with complex history and recent hospitalization for defibrillator issues presenting for recurrent defibrillator shocks. Exam as above. Laboratory studies ordered and pending at time of patient care handoff. Handed off to Dr. Brasher pending completion of ED evaluation. Patient presents here with defibrillator discharges patient defibrillator was interrogated it appears to be over sensing his T waves given inappropriate shocks I spoke to cardiology along with hospitalist will admit. Medical Records I reviewed the patient's medical records. Lab Data I reviewed the patient's lab results. 01/16/23 04:30 01/16/23 04:30 Radiology Impressions Chest X-Ray 01/13/23 16:18 IMPRESSION: No acute infiltrate. Laboratory Results WBC 13.5 10^3/uL (4.0-10.0) H 01/13/23 17:07 RBC 4.03 10^6/uL (4.1-5.3) L 01/13/23 17:07 Hgb 12.4 g/dL (11.7-16.6) 01/13/23 17:07 Hct 38.8 % (42.0-52.0) L 01/13/23 17:07 MCV 96.3 fl (80-94) H 01/13/23 17:07 MCH 30.8 pg (28.0-34.0) 01/13/23 17:07 MCHC 32.0 g/dL (30.0-36.0) 01/13/23 17:07 RDW 13.2 % (12.1-15.1) 01/13/23 17:07 Plt Count 221 10^3/cmm (130-400) 01/13/23 17:07 MPV 9.9 fL (7.4-10.4) 01/13/23 17:07 Neut % (Auto) 85.9 % 01/13/23 17:07 Lymph % (Auto) 7.1 % 01/13/23 17:07 [place] % (Auto) 5.8 % 01/13/23 17:07 Eos % (Auto) 0.4 % 01/13/23 17:07 Baso % (Auto) 0.3 % 01/13/23 17:07 Neut # (Auto) 11.57 10^3/uL (1.8-7.7) H 01/13/23 17:07 Lymph # (Auto) 1.0 10^3/uL (0.8-4.8) 01/13/23 17:07 [place] # (Auto) 0.8 10^3/uL (0.2-0.9) 01/13/23 17:07 Eos # (Auto) 0.1 10^3/uL (0.0-0.8) 01/13/23 17:07 Baso # (Auto) 0.0 10^3/uL (0.0-0.1) 01/13/23 17:07 Nucleated RBC % (auto) 0 % 01/13/23 17:07 Nucleated RBCs # 0.0 /100WBC 01/13/23 17:07 Sodium 134 mmol/L (136-145) L 01/13/23 17:07 Potassium 4.4 mmol/L (3.5-5.1) 01/13/23 17:07 Chloride 99 mmol/L (98-107) 01/13/23 17:07 Carbon Dioxide 21 mmol/L (22-29) L 01/13/23 17:07 Anion Gap 18.4 (5-19) 01/13/23 17:07 BUN 12 mg/dL (6-20) 01/13/23 17:07 Creatinine 1.0 mg/dL (0.7-1.2) 01/13/23 17:07 GFR Calculation 79.4 mL/min (90-130) L 01/13/23 17:07 Glucose 106 mg/dL (65-115) 01/13/23 17:07 Calculated Osmolality 278 mOsm/kg (285-295) L 01/13/23 17:07 Calcium 9.1 mg/dL (8.5-10.5) 01/13/23 17:07 Magnesium 1.8 mg/dL (1.7-2.3) 01/13/23 17:07 Total Bilirubin 0.2 mg/dL (0.15-1.2) 01/13/23 17:07 AST 25 U/L (0-40) 01/13/23 17:07 ALT 21 U/L (0-41) 01/13/23 17:07 Alkaline Phosphatase 51 U/L (40-130) 01/13/23 17:07 Troponin T Baseline 169 ng/L (0-15) H* 01/13/23 17:07 NT-Pro-B Natriuret Pep 417 pg/mL (0-125) H 01/13/23 17:07 Total Protein 6.2 g/dL (6.6-8.7) L 01/13/23 17:07 Albumin 4.1 g/dL (3.5-5.2) 01/13/23 17:07 Globulin 2.1 g/dL (1.3-4.6) 01/13/23 17:07 Lipase 8 U/L (13-60) L 01/13/23 17:07 Discharge Plan Discharge Patient Disposition: Admitted As Inpatient Admit Provider: Angel Mahmood Clinical Impression: Chest pain, Defibrillator discharge Condition: Stable Discharge Diet: Usual diet Discharge Activity: Limit activity as instructed Coding Level of Care Code ED Furniture Sander for Chg Fwd Documented by User: Durga Brasher MD 01/13/23 18:48 HPI - Chest Pain General: Chief Complaint: Chest Pain Stated Complaint: cp Time Seen by Provider: 01/13/23 16:17 PFSH ED PFSH: Medical History Abnormal coronary angiogram AICD discharge Alcohol abuse Atherosclerosis of coronary artery of [place] heart without angina pectoris Atherosclerotic heart disease of [place] coronary artery with other forms of angina pectoris Atrial fibrillation Benign essential hypertension with target blood pressure below 140/90 Bronchitis Cardiac defibrillator in place Cardiomyopathy Congestive heart failure with cardiomyopathy and cardiomegaly Coronary disease Elevated troponin Heart failure with reduced ejection fraction History of cardioversion Hypertension ICD (implantable cardioverter-defibrillator) discharge Ischemic cardiomyopathy Nicotine dependence Non-ST elevation [place] (NSTEMI) Appears to be type II secondary to SVT. Patient has a history of multiple PCI's Pacemaker Pharyngitis Seizure disorder Shortness of breath Supraventricular tachycardia Ventricular tachycardia Ventricular tachycardia Warfarin anticoagulation Surgical History AICD (automatic cardioverter/defibrillator) present H/O cardiac catheterization H/O hernia repair Family History Mother Family history of premature coronary artery disease Initial LA age 31, at 60; his mother sister at the age of 20 and had a myocardial infarction. Maternal grandfather and grandmother of myocardial infarction in their 50s and 60s. One of his sisters had pacemaker placed placement CAD (coronary artery disease) Father Clotting disorder Bleeding disorder Family/Other CAD (coronary artery disease) Grandmother CAD (coronary artery disease) Grandfather CAD (coronary artery disease) Denies family history of Diabetes Dementia Chronic kidney disease (CKD) Suicide Anesthesia complication Lung disease Cancer Stroke Social History Smoking and tobacco status: current every day smoker cigarettes Packs smoked per day: 1 Years cigarettes smoked: 30 Alcohol intake: current Alcohol intake frequency: 3 or more drinks per day Alcohol type: hard liquor Substance/Drug Use: current Housing: House Special eloise needs: No Course Vital Signs: Vital signs: Vital Signs Temperature 97.8 F 01/16/23 08:00 Pulse Rate 60 01/16/23 12:11 Respiratory Rate 17 01/16/23 12:11 Blood Pressure 129/74 01/16/23 12:11 Pulse Oximetry 97 01/16/23 12:11 Oxygen Delivery Me thod Room Air 01/16/23 11:47 MDM - Chest Pain Medical Decision Making Patient presents here with defibrillator discharges patient defibrillator was interrogated it appears to be over sensing his T waves given inappropriate shocks I spoke to cardiology along with hospitalist will admit. Lab Data 01/16/23 04:30 01/16/23 04:30 Radiology Impressions Chest X-Ray 01/13/23 16:18 IMPRESSION: No acute infiltrate. Laboratory Results WBC 13.5 10^3/uL (4.0-10.0) H 01/13/23 17:07 RBC 4.03 10^6/uL (4.1-5.3) L 01/13/23 17:07 Hgb 12.4 g/dL (11.7-16.6) 01/13/23 17:07 Hct 38.8 % (42.0-52.0) L 01/13/23 17:07 MCV 96.3 fl (80-94) H 01/13/23 17:07 MCH 30.8 pg (28.0-34.0) 01/13/23 17:07 MCHC 32.0 g/dL (30.0-36.0) 01/13/23 17:07 RDW 13.2 % (12.1-15.1) 01/13/23 17:07 Plt Count 221 10^3/cmm (130-400) 01/13/23 17:07 MPV 9.9 fL (7.4-10.4) 01/13/23 17:07 Neut % (Auto) 85.9 % 01/13/23 17:07 Lymph % (Auto) 7.1 % 01/13/23 17:07 [place] % (Auto) 5.8 % 01/13/23 17:07 Eos % (Auto) 0.4 % 01/13/23 17:07 Baso % (Auto) 0.3 % 01/13/23 17:07 Neut # (Auto) 11.57 10^3/uL (1.8-7.7) H 01/13/23 17:07 Lymph # (Auto) 1.0 10^3/uL (0.8-4.8) 01/13/23 17:07 [place] # (Auto) 0.8 10^3/uL (0.2-0.9) 01/13/23 17:07 Eos # (Auto) 0.1 10^3/uL (0.0-0.8) 01/13/23 17:07 Baso # (Auto) 0.0 10^3/uL (0.0-0.1) 01/13/23 17:07 Nucleated RBC % (auto) 0 % 01/13/23 17:07 Nucleated RBCs # 0.0 /100WBC 01/13/23 17:07 Sodium 134 mmol/L (136-145) L 01/13/23 17:07 Potassium 4.4 mmol/L (3.5-5.1) 01/13/23 17:07 Chloride 99 mmol/L (98-107) 01/13/23 17:07 Carbon Dioxide 21 mmol/L (22-29) L 01/13/23 17:07 Anion Gap 18.4 (5-19) 01/13/23 17:07 BUN 12 mg/dL (6-20) 01/13/23 17:07 Creatinine 1.0 mg/dL (0.7-1.2) 01/13/23 17:07 GFR Calculation 79.4 mL/min (90-130) L 01/13/23 17:07 Glucose 106 mg/dL (65-115) 01/13/23 17:07 Calculated Osmolality 278 mOsm/kg (285-295) L 01/13/23 17:07 Calcium 9.1 mg/dL (8.5-10.5) 01/13/23 17:07 Magnesium 1.8 mg/dL (1.7-2.3) 01/13/23 17:07 Total Bilirubin 0.2 mg/dL (0.15-1.2) 01/13/23 17:07 AST 25 U/L (0-40) 01/13/23 17:07 ALT 21 U/L (0-41) 01/13/23 17:07 Alkaline Phosphatase 51 U/L (40-130) 01/13/23 17:07 Troponin T Baseline 169 ng/L (0-15) H* 01/13/23 17:07 NT-Pro-B Natriuret Pep 417 pg/mL (0-125) H 01/13/23 17:07 Total Protein 6.2 g/dL (6.6-8.7) L 01/13/23 17:07 Albumin 4.1 g/dL (3.5-5.2) 01/13/23 17:07 Globulin 2.1 g/dL (1.3-4.6) 01/13/23 17:07 Lipase 8 U/L (13-60) L 01/13/23 17:07 Discharge Plan Discharge Patient Disposition: Admitted As Inpatient Admit Provider: Angel Mahmood Clinical Impression: Chest pain, Defibrillator discharge Condition: Stable Discharge Diet: Usual diet Discharge Activity: Limit activity as instructed Coding Level of Care Code ED Furniture Sander for Theodore Felton
--- NOTE | 2023-01-13 16:18 | XRR_ITS ---
PROCEDURE INFORMATION: Exam: XR Chest Exam date and time: 01/13/2023 4:42 PM Age: 47 years old Clinical indication: Pain; Chest pressure; Additional info: Cp TECHNIQUE: Imaging protocol: Radiologic exam of the chest. Views: 1 view. COMPARISON: CR XR chest 1V portable [id number] 01/10/2023 11:56 AM FINDINGS: Tubes, catheters and devices: There is transvenous AICD in place with leads in appropriate position. External pacer leads are noted. Lungs: Visualized portions of the lungs are clear. Pleural spaces: Unremarkable. No pleural effusion. No pneumothorax. Heart/Mediastinum: Heart is within normal limits of size. Bones/joints: Old healed left 9th rib fracture again identified. XR/XR chest 1V portable [id number] IMPRESSION: No acute infiltrate.
--- NOTE | 2023-01-13 16:18 | ECG_ITS ---
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 Measurements Intervals [place] Rate: 83 P: 72 ND: 145 QRS: 58 QRSD: 138 T: -58 QT: 369 QTc: 434 Interpretive Statements SINUS RHYTHM WITH SINUS ARRHYTHMIA INTRAVENTRICULAR CONDUCTION DELAY [130+ ms QRS DURATION] POSSIBLE INFERIOR MYOCARDIAL INFARCTION , OF INDETERMINATE AGE [30 ms Q WAVE IN II/aVF] Compared to ECG 01/10/2023 17:32:50 Myocardial infarct finding now present Atrial-paced complex(es) or rhythm no longer present Electronically Signed On 01-14-2023 21:18:00 CDT by Raquel Solano M.D. [id number]
[2023-01-13 17:19] LABS: Basophils % 0.3 %; Eosinophils # 0.1 10^3/uL (0.0-0.8); Eosinophils % 0.4 %; Hematocrit 38.8 % (42.0-52.0); Hemoglobin 12.4 g/dL (11.7-16.6); Lymphocytes % 7.1 %; Mean Corpuscular Hemoglobin 30.8 pg (28.0-34.0); Mean Corpuscular Volume 96.3 fl (80-94); Mean Platelet Volume 9.9 fL (7.4-10.4); Monocytes # 0.8 10^3/uL (0.2-0.9); Monocytes % 5.8 %; Neutrophils # 11.57 10^3/uL (1.8-7.7); Neutrophils % 85.9 %; Nucleated Red Blood Cells % 0 %; Platelet Count 221 10^3/cmm (130-400); Red Blood Count 4.03 10^6/uL (4.1-5.3); Red Cell Distribution Width 13.2 % (12.1-15.1); White Blood Count 13.5 10^3/uL (4.0-10.0)
[2023-01-13 17:46] LABS: Troponin(5th) Baseline 169 ng/L (0-15)
[2023-01-13 17:50] VITALS: BP 117/75; PULSE 82; RESP 14; O2SAT 98
[2023-01-13 18:02] LABS: Alanine Aminotransferase 21 U/L (0-41); Albumin Level 4.1 g/dL (3.5-5.2); Alkaline Phosphatase 51 U/L (40-130); Blood Urea Nitrogen 12 mg/dL (6-20); Calcium 9.1 mg/dL (8.5-10.5); Carbon Dioxide 21 mmol/L (22-29); Chloride 99 mmol/L (98-107); Globulin 2.1 g/dL (1.3-4.6); Glomerular Filtration Rate 79.4 mL/min (90-130); Glucose 106 mg/dL (65-115); Lipase 8 U/L (13-60); Magnesium 1.8 mg/dL (1.7-2.3); NT Pro B Type Natriuretic Pept 417 pg/mL (0-125); Osmolality Calculated 278 mOsm/kg (285-295); Sodium 134 mmol/L (136-145); Total Bilirubin 0.2 mg/dL (0.15-1.2); Total Protein 6.2 g/dL (6.6-8.7)
[2023-01-13 18:06] LABS: Anion Gap 18.4 (5-19); Aspartate Amino Transferase 25 U/L (0-40); Potassium 4.4 mmol/L (3.5-5.1)
--- NOTE | 2023-01-13 18:18 | ECG_ITS ---
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 Measurements Intervals [place] Rate: 80 P: 73 GA: 149 QRS: 59 QRSD: 139 T: -54 QT: 378 QTc: 437 Interpretive Statements SINUS RHYTHM INTRAVENTRICULAR CONDUCTION DELAY [130+ ms QRS DURATION] POSSIBLE INFERIOR MYOCARDIAL INFARCTION , OF INDETERMINATE AGE [30 ms Q WAVE IN II/aVF] Compared to ECG 01/13/2023 16:33:36 Sinus arrhythmia no longer present Myocardial infarct finding still present Electronically Signed On 01-14-2023 21:35:51 CDT by Raquel Solano M.D. [email or web address] [email or web address] state [email or web address]/[id number]
--- NOTE | 2023-01-13 19:29 | PM.HP ---
Providers/Chief Complaint Admitting Physician: Angel Mahmood MD Primary Care Provider: Jonny Gifford Chief Complaint: cp History of Present Illness Carlos Alberto Morrow is a 47 year old male with PMH of coronary artery disease status post PCI, ischemic cardiomyopathy, HFrEF EF of 38% on his last 2d echo done in 09/2021, A.F on eliquis, hypertension, status post AICD placement, pacemaker, came in today after he experinced AICD discharge today during noon,patient was discharged yesterday after being worked up for similar complain,he underwent nuclear stress test which was abnormal, then followed by CAG which showed normal left main, normal LAD.? Chronically occluded RCA,excellent collateral flow but from LCx LAD,patent LCx, except for chronically occluded OM1,That vessel has been stented previously.Patient was continued on medical management,he was to follow with device clinic as outpatient, came in today after AICD discharge, cardiology has been consulted by ER,for device setting/interrogation. His labs and vitals have been reviwed.Currently he is compalining of chest pain,due to AICD Discharge. Review of Systems General: Reports: 10 or more systems reviewed and unremarkable except in HPI and below Const: Denies: fever(s), chills, body aches, change in appetite or diaphoresis Card: Denies: palpitations, edema, swelling of feet/ankles, dyspnea on exertion, orthopnea or leg pain with exertion Resp: Denies: dyspnea, productive cough, wheezing or pain on inspiration GI: Denies: abdominal pain, nausea, vomiting, diarrhea or constipation : Denies: flank pain or difficulty urinating Musc: Denies: back pain, extremity pain or extremity swelling Neuro: Denies: headache(s), difficulty walking or confusion Medications/Allergies Home Medications Medication Instructions Recorded Confirmed Last Taken Type atorvastatin 80 mg tablet 80 mg PO DAILY@04/09/20 01/13/23 01/13/23 History clopidogrel 75 mg tablet 75 mg PO DAILY@04/09/20 01/13/23 01/13/23 History divalproex 500 mg tablet,delayed 500 mg PO BID 04/09/20 01/13/23 01/13/23 History release folic acid 1 mg tablet 1 mg PO DAILY #30 tabs 04/10/20 01/13/23 01/13/23 Rx albuterol sulfate 90 mcg/actuation 1 inh inhalation Q6H PRN shortness 06/02/20 01/13/23 Unknown Rx aerosol inhaler (ProAir HFA) of breath or wheezing 30 days #8.5 grams aspirin-caffeine 845 mg-65 mg oral 1 ea PO PRN PRN Pain 02/06/21 01/13/23 Unknown History powder packet (BC Pain Relief) multivitamin 1 tab PO DAILY@02/06/21 01/13/23 01/13/23 History apixaban 5 mg tablet (Eliquis) 5 mg PO BID 10/04/21 01/13/23 01/13/23 History cholecalciferol (vitamin D3) 25 25 mcg PO DAILY 10/17/22 01/13/23 01/10/23 History mcg (1,000 unit) tablet (Vitamin D3) oxycodone-acetaminophen 7.5 mg-325 1 tab PO Q6H PRN Pain 01/10/23 01/13/23 01/13/23 History mg tablet (Percocet) losartan 50 mg tablet 25 mg PO DAILY 30 days #30 tabs 01/12/23 01/13/23 01/13/23 Rx nitroglycerin 0.4 mg sublingual 0.4 mg sublingual Q5M PRN chest 01/12/23 01/13/23 01/13/23 Rx tablet (Nitrostat) pain #30 tabs hydrocodone 10 mg-acetaminophen 1 tab PO Q6H 01/13/23 01/13/23 01/13/23 History 325 mg tablet metoprolol succinate 100 mg 100 mg PO DAILY 01/13/23 01/13/23 Unknown History tablet,extended release 24 hr Allergies Allergy/AdvReac Type Severity Reaction Status Date / Time No Known Allergies Allergy Verified 01/13/23 16:46 PFSH Acute PFSH: Medical History (Updated 01/13/23 @ 19:39 by Angel Mahmood MD) Abnormal coronary angiogram AICD discharge Alcohol abuse Atherosclerosis of coronary artery of [place] heart without angina pectoris Atherosclerotic heart disease of [place] coronary artery with other forms of angina pectoris Atrial fibrillation Benign essential hypertension with target blood pressure below 140/90 Bronchitis Cardiac defibrillator in place Cardiomyopathy Congestive heart failure with cardiomyopathy and cardiomegaly Coronary disease Elevated troponin Heart failure with reduced ejection fraction History of cardioversion Hypertension ICD (implantable cardioverter-defibrillator) discharge Ischemic cardiomyopathy Nicotine dependence Non-ST elevation [place] (NSTEMI) Appears to be type II secondary to SVT. Patient has a history of multiple PCI's Pacemaker Pharyngitis Seizure disorder Shortness of breath Supraventricular tachycardia Ventricular tachycardia Ventricular tachycardia Warfarin anticoagulation Surgical History AICD (automatic cardioverter/defibrillator) present H/O cardiac catheterization H/O hernia repair Family History Mother Family history of premature coronary artery disease Initial [place] age 31, at 60; his mother sister at the age of 20 and had a myocardial infarction. Maternal grandfather and grandmother of myocardial infarction in their 50s and 60s. One of his sisters had pacemaker placed placement CAD (coronary artery disease) Father Clotting disorder Bleeding disorder Family/Other CAD (coronary artery disease) Grandmother CAD (coronary artery disease) Grandfather CAD (coronary artery disease) Denies family history of Diabetes Dementia Chronic kidney disease (CKD) Suicide Anesthesia complication Lung disease Cancer Stroke Social History Smoking and tobacco status: current every day smoker cigarettes Packs smoked per day: 1 Years cigarettes smoked: 30 Alcohol intake: current Alcohol intake frequency: 3 or more drinks per day Alcohol type: hard liquor Substance/Drug Use: current Housing: House Special eloise needs: No Vitals/I&O/Wt Last Vital Signs Pulse 82 01/13/23 17:50 Resp 14 01/13/23 17:50 BP 117/75 01/13/23 17:50 Pulse Ox 98 01/13/23 17:50 O2 Del Method Room Air 01/13/23 17:50 Weight last 48 hrs Weight 87.543 kg Physical Exam Const: COMMON NORMALS: patient oriented x3 HENMT: COMMON NORMALS: normocephalic and atraumatic HEAD & SCALP: normocephalic and atraumatic Resp: COMMON NORMALS: clear to auscultation bilaterally EFFORT & INSPECTION: Yes symmetric chest movement AUSCULTATION: clear to auscultation bilaterally Cardio: COMMON NORMALS: regular rate, regular rhythm, S1 normal heart sound present, S2 normal heart sound present, No gallops present (Cardio), No murmurs present (Cardio), No rub (Cardio) and Peripheral pulses 2+ throughout RATE: regular rate RHYTHM: regular rhythm HEART SOUNDS: S1 normal heart sound present and S2 normal heart sound present PERIPHERAL PULSES: Peripheral pulses 2+ throughout GI: COMMON NORMALS: Normal to inspection, nondistended, normoactive bowel sounds present, Soft to palpation, non-tender, No hepatosplenomegaly present and no masses AUSCULTATION: Yes normoactive bowel sounds PALPATION: Yes Soft to palpation and Yes No hepatosplenomegaly present RECTAL EXAM: Yes deferred Extremity: COMMON NORMALS: no clubbing, cyanosis or edema and no pedal edema Neuro: COMMON NORMALS: patient oriented x3 Data 01/13/23 17:07 01/13/23 17:07 A&P Assessment and plan (1) Defibrillator discharge: (2) Seizure disorder: (3) Ischemic cardiomyopathy: (4) Heart failure with reduced ejection fraction: (5) Elevated troponin: Plan 47 year old male with PMH of coronary artery disease status post PCI, ischemic cardiomyopathy, HFrEF EF of 38% on his last 2d echo done in 09/2021, A.F on eliquis, hypertension, status post AICD placement, pacemaker, came in today after he experinced AICD discharge. Assessment : AICD Discharge: Monitor Electrolytes keep K>4, Mg>2 Cardiology on Board for device setting/Interrogation. Code Status Full code Attestations Medical Necessity Statement*: Patient needs to be in hospital for AICD Discharge.Anticipated LOS Greater then 2 midnights. Coding Level of Care Code Acute Code for Chg Fwd Diagnoses Defibrillator discharge Z45.02 Seizure disorder G40.909 Ischemic cardiomyopathy I25.5 Heart failure with reduced ejection fraction I50.20 Elevated troponin R77.8
[2023-01-13] MEDS: HYDROcodone-acetaminophen 10-325 mg Tablet 1 TAB PO (19:46)
[2023-01-13 19:52] VITALS: BP 143/94; PULSE 76; RESP 17; TEMP 36.9; O2SAT 96
[2023-01-13 20:17] LABS: Troponin 5 2HR Delta -8.5 ABS# (0-10)
[2023-01-13 20:18] LABS: Troponin 5 2HR 160.5 ng/L (0-15)
[2023-01-13 20:40] VITALS: PULSE 67
--- NOTE | 2023-01-13 21:41 | PC.NURSE ---
Phone call received from Andreina at [employer], wanting me to put a round magnet over patient pacemaker/defibrillator. Dr Solano was notified by phone call, she requested all [employer] report. Faxed report to Dr Claros and requested report to be scanned into chart.
[2023-01-13 22:00] VITALS: PULSE 64
--- NOTE | 2023-01-13 22:23 | ECG_ITS ---
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 Measurements Intervals [place] Rate: 68 P: 66 ME: 148 QRS: 51 QRSD: 144 T: -48 QT: 417 QTc: 444 Interpretive Statements SINUS RHYTHM INTRAVENTRICULAR CONDUCTION DELAY [130+ ms QRS DURATION] Compared to ECG 01/13/2023 18:23:59 Myocardial infarct finding no longer present Electronically Signed On 01-14-2023 21:32:04 CDT by Raquel Solano M.D. [id number]
--- NOTE | 2023-01-13 22:31 | PC.NURSE ---
Magnet placed over pacemaker/defibrillator per Dr Solano request.
[2023-01-14] VITALS (14 sets, daily range): BP systolic 113–145; BP diastolic 73–87; PULSE 60–93; RESP 12–97; TEMP 36.5–37.1; O2SAT 97–100
[2023-01-14] MEDS: HYDROcodone-acetaminophen 10-325 mg Tablet 1 TAB PO ×4 (01:13→19:27)
[2023-01-14 04:40] LABS: Basophils # 0.1 10^3/uL (0.0-0.1); Basophils % 0.6 %; Eosinophils # 0.5 10^3/uL (0.0-0.8); Eosinophils % 5.8 %; Hematocrit 39.8 % (42.0-52.0); Lymphocytes # 2.2 10^3/uL (0.8-4.8); Lymphocytes % 25.9 %; Mean Corpuscular HGB Conc 32.7 g/dL (30.0-36.0); Mean Corpuscular Hemoglobin 31.1 pg (28.0-34.0); Mean Corpuscular Volume 95.2 fl (80-94); Mean Platelet Volume 9.8 fL (7.4-10.4); Monocytes # 0.6 10^3/uL (0.2-0.9); Monocytes % 7.3 %; Neutrophils % 60.2 %; Nucleated Red Blood Cells % 0 %; Platelet Count 207 10^3/cmm (130-400); Red Blood Count 4.18 10^6/uL (4.1-5.3); Red Cell Distribution Width 13.3 % (12.1-15.1); White Blood Count 8.3 10^3/uL (4.0-10.0)
[2023-01-14 04:57] LABS: Anion Gap 13.5 (5-19); Blood Urea Nitrogen 9 mg/dL (6-20); Calcium 9.1 mg/dL (8.5-10.5); Carbon Dioxide 27 mmol/L (22-29); Chloride 103 mmol/L (98-107); Glomerular Filtration Rate 119.9 mL/min (90-130); Glucose 84 mg/dL (65-115); Magnesium 1.9 mg/dL (1.7-2.3); Osmolality Calculated 286 mOsm/kg (285-295); Potassium 4.5 mmol/L (3.5-5.1); Sodium 139 mmol/L (136-145)
[2023-01-14] MEDS: atorvastatin 40 mg Tablet PO (06:21)
[2023-01-14] MEDS: clopidogrel 75 mg Tablet PO (06:21)
[2023-01-14] MEDS: multivitamin therapeutic Tablet 1 TAB PO (06:21)
[2023-01-14] MEDS: metoprolol succinate ER (24 HR) 100 mg Tablet PO (08:31)
[2023-01-14] MEDS: divalproex DR 500 mg Tablet PO ×2 (08:31→17:34)
[2023-01-14] MEDS: apixaban 5 mg Tablet PO (08:31)
[2023-01-14] MEDS: folic acid 1 mg Tablet PO (08:32)
[2023-01-14] MEDS: losartan 50 mg Tablet 25 MG PO (08:32)
--- NOTE | 2023-01-14 08:42 | P.CONIM_ITS ---
Providers/Reason For Consult Consulting Physician/Specialty*: Dr. Solano, Cardiology Reason for Consult*: ICD discharges Attending Physician: Karin Funk MD Primary Care Provider: Jonny Gifford History of Present Illness History of Present Illness Carlos Alberto Morrow is a 47 year old male with PMHx of CAD, h/o first myocardial infarction at the age of 31, cardiomyopathy s/p ICD implantation in 2008 at [place] for the first time and device was revised in [facility] by in 01/2017, h/o heavy alcoholism (drank a fifth of heavy liquor everyday; quit 1 yr back) and smoker (quit 1yr back). He has a strong family history for premature atherosclerotic heart disease.? His mother had a myocardial infarction at the age of 31.? Her sister had a heart attack at age of 29.? 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 He was feeling good until very recently. He has history of coronary artery disease.? His last angiogram was in 2020 when he had in-stent restenosis of a proximal circumflex stent.? This was restented at the time and also had in-stent restenosis of a marginal stent.? That underwent angioplasty.? His right coronary artery is chronically occluded.? He has had episodes of congestive heart failure, atrial fibrillation post cardioversion, hypertension, tobacco abuse, SVT, ventricular tachycardia and a history of alcohol use.? He is also on narcotics.He used to be on amiodarone but ran out of it several months ago. He missed his f/u appointment in clinic. He had multiple ICD discharges last and was admitted. He had coronary angiogram with Dr. Jacques that revealed normal left main, normal LAD.? The right coronary artery is chronically occluded and has been noted before.? He has excellent collateral flow from both the circumflex and LAD.? Circumflex is mistry nt with the exception of the first obtuse marginal which is chronically occluded.? That vessel has been stented previously.? Medical therapy was thought most appropriate. He was discharged home without any major changes. He presented again yesterday with multiple ICD discharges. I have been asked to evaluate him for same. Review of Systems General: Reports: 10 or more systems reviewed and unremarkable except in HPI and below Const: Denies: fever(s), chills, body aches, change in appetite or diaphoresis Card: Denies: palpitations, edema, swelling of feet/ankles, dyspnea on exertion, orthopnea or leg pain with exertion Resp: Denies: dyspnea, productive cough, wheezing or pain on inspiration GI: Denies: abdominal pain, nausea, vomiting, diarrhea or constipation : Denies: flank pain or difficulty urinating Musc: Denies: back pain, extremity pain or extremity swelling Neuro: Denies: headache(s), difficulty walking or confusion Medications/Allergies Home Medications Medication Instructions Recorded Confirmed Last Taken Type atorvastatin 80 mg tablet 80 mg PO DAILY@04/09/20 01/13/23 01/13/23 History clopidogrel 75 mg tablet 75 mg PO DAILY@04/09/20 01/13/23 01/13/23 History divalproex 500 mg tablet,delayed 500 mg PO BID 04/09/20 01/13/23 01/13/23 History release folic acid 1 mg tablet 1 mg PO DAILY #30 tabs 04/10/20 01/13/23 01/13/23 Rx albuterol sulfate 90 mcg/actuation 1 inh inhalation Q6H PRN shortness 06/02/20 01/13/23 Unknown Rx aerosol inhaler (ProAir HFA) of breath or wheezing 30 days #8.5 grams aspirin-caffeine 845 mg-65 mg oral 1 ea PO PRN PRN Pain 02/06/21 01/13/23 Unknown History powder packet (BC Pain Relief) multivitamin 1 tab PO DAILY@02/06/21 01/13/23 01/13/23 History apixaban 5 mg tablet (Eliquis) 5 mg PO BID 10/04/21 01/13/23 01/13/23 History cholecalciferol (vitamin D3) 25 25 mcg PO DAILY 10/17/22 01/13/23 01/10/23 History mcg (1,000 unit) tablet (Vitamin D3) oxycodone-acetaminophen 7.5 mg-325 1 tab PO Q6H PRN Pain 01/10/23 01/13/23 01/13/23 History mg tablet (Percocet) losartan 50 mg tablet 25 mg PO DAILY 30 days #30 tabs 01/12/23 01/13/23 01/13/23 Rx nitroglycerin 0.4 mg sublingual 0.4 mg sublingual Q5M PRN chest 01/12/23 01/13/23 01/13/23 Rx tablet (Nitrostat) pain #30 tabs hydrocodone 10 mg-acetaminophen 1 tab PO Q6H 01/13/23 01/13/23 01/13/23 History 325 mg tablet metoprolol succinate 100 mg 100 mg PO DAILY 01/13/23 01/13/23 Unknown History tablet,extended release 24 hr Allergies Allergy/AdvReac Type Severity Reaction Status Date / Time No Known Allergies Allergy Verified 01/13/23 16:46 Current Medications Generic Name Dose Route Start Last Admin Trade Name Sandra PRN Reason Stop Dose Admin Hydrocodone Bitart/Acetaminophen 1 tab 01/13/23 19:30 01/14/23 07:33 Hydrocodone-Acetaminophen 10-325 Mg Tablet PO 1 tab Q6H RICHARD Administration Apixaban 5 mg 01/14/23 09:00 01/14/23 08:31 Apixaban 5 Mg Tablet PO 5 mg BID RICHARD Administration Atorvastatin Calcium 40 mg 01/14/23 07:00 01/14/23 06:21 Atorvastatin 40 Mg Tablet PO 40 mg DAILY@07 RICHARD Administration Clopidogrel Bisulfate 75 mg 01/14/23 07:00 01/14/23 06:21 Clopidogrel 75 Mg Tablet PO 75 mg DAILY@07 RICHARD Administration Divalproex Sodium 500 mg 01/14/23 09:00 01/14/23 08:[address] 500 Mg Tablet PO 500 mg BID RICHARD Administration Folic Acid 1 mg 01/14/23 09:00 01/14/23 08:32 Folic Acid 1 Mg Tablet PO 1 mg DAILY RICHARD Administration Losartan Potassium 25 mg 01/14/23 09:00 01/14/23 08:32 Losartan 50 Mg Tablet PO 25 mg DAILY RICHARD Administration Metoprolol Succinate 100 mg 01/14/23 09:00 01/14/23 08:31 Metoprolol Succinate Er (24 Hr) 100 Mg Tablet PO 100 mg DAILY RICHARD Administration Multivitamins Therapeutic 1 tab 01/14/23 07:00 01/14/23 06:21 Multivitamin Therapeutic Tablet PO 1 tab DAILY@07 RICHARD Administration PFSH Acute PFSH: Medical History (Updated 07/25/23 @ 08:44 by Raquel Solano MD) Abnormal coronary angiogram AICD discharge Alcohol abuse Atherosclerosis of coronary artery of [place] heart without angina pectoris Atherosclerotic heart disease of [place] coronary artery with other forms of angina pectoris Atrial fibrillation Benign essential hypertension with target blood pressure below 140/90 Bronchitis Cardiac defibrillator in place Cardiomyopathy Congestive heart failure with cardiomyopathy and cardiomegaly Coronary disease Elevated troponin Heart failure with reduced ejection fraction History of cardioversion Hypertension ICD (implantable cardioverter-defibrillator) discharge Ischemic cardiomyopathy Nicotine dependence Non-ST elevation NJ (NSTEMI) Appears to be type II secondary to SVT. Patient has a history of multiple PCI's Pacemaker Pharyngitis Seizure disorder Shortness of breath Supraventricular tachycardia Ventricular tachycardia Ventricular tachycardia Warfarin anticoagulation Surgical History AICD (automatic cardioverter/defibrillator) present H/O cardiac catheterization H/O hernia repair Family History Mother Family history of premature coronary artery disease Initial [place] age 31, at 60; his mother sister at the age of 20 and had a myocardial infarction. Maternal grandfather and grandmother of myocardial infarction in their 50s and 60s. One of his sisters had pacemaker placed placement CAD (coronary artery disease) Father Clotting disorder Bleeding disorder Family/Other CAD (coronary artery disease) Grandmother CAD (coronary artery disease) Grandfather CAD (coronary artery disease) Denies family history of Diabetes Dementia Chronic kidney disease (CKD) Suicide Anesthesia complication Lung disease Cancer Stroke Social History Smoking and tobacco status: current every day smoker cigarettes Packs smoked per day: 1 Years cigarettes smoked: 30 Alcohol intake: current Alcohol intake frequency: 3 or more drinks per day Alcohol type: hard liquor Substance/Drug Use: current Housing: House Special eloise needs: No Vitals/I&O/Wt Last Vital Signs Temp 98.1 F 01/14/23 07:45 Pulse 74 01/14/23 07:45 Resp 12 01/14/23 07:45 BP 145/85 01/14/23 08:32 Pulse Ox 97 01/14/23 07:45 O2 Del Method Room Air 01/14/23 07:45 01/13/23 01/14/2323 22:59 06:59 14:59 Intake Total 480 / 480 880 / 1360 Output Total 850 / 850 Balance 480 / 480 30 / 510 Weight last 48 hrs Weight 193 lb Physical Exam Const: COMMON NORMALS: no acute distress, patient oriented x3 and alert GENERAL APPEARANCE: cooperative, comfortable, well kempt and well hydrated HENMT: COMMON NORMALS: hearing grossly normal bilaterally, external ears norm al and moist oral mucous membranes FACE & SINUS: normal facial exam NOSE: Normal septum present and No nasal discharge present; no Epistaxis present EXTERNAL EAR: Yes external ears normal MOUTH: lip normal Eye: COMMON NORMALS: EOMs intact bilaterally and no scleral icterus GENERAL EYE: appearance normal, both eyes and all related structures ALIGNMENT: Yes alignment normal Neck/C-Spine: COMMON NORMALS: no lymphadenopathy, supple and no JVD GENERAL: Yes normal visual inspection and Yes trachea midline CAROTIDS: Yes normal carotid upstroke Lymph: LYMPHATIC: no lymphadenopathy noted Chest: COMMONS NORMALS: normal inspection of the chest and normal palpation of entire chest wall CHEST: Yes Symmetrical chest wall rise and No tenderness OTHER: magnet placed on ICD in place Resp: COMMON NORMALS: clear to auscultation bilaterally EFFORT & INSPECTION: Yes able to speak in complete sentences, No tachypneic, No respiratory distress, No pursed lip breathing, No labored and No Actively coughing AUSCULTATION: clear to auscultation bilaterally, no crackles, no rales, no rhonchi and no wheezes Cardio: COMMON NORMALS: no JVD, regular rate, regular rhythm, S1 normal heart sound present, S2 normal heart sound present and Peripheral pulses 2+ throughout PALPATION: normal PMI RATE: regular rate RHYTHM: regular rhythm HEART SOUNDS: S1 normal heart sound present, S2 normal heart sound present, no click, no gallops and no murmurs BRUITS: no carotid bruits PERIPHERAL PULSES: Peripheral pulses 2+ throughout, radial pulses present, posterior tibial pulses present and dorsalis pedis present GI: COMMON NORMALS: Soft to palpation AUSCULTATION: Yes normoactive bowel sounds PALPATION: Yes Soft to palpation, No Tenderness to palpation present (GI), No Guarding due to palpation present (GI) and No Rigid due to palpation PERCUSSION: tympanic to percussion Extremity: GENERAL: No clubbing, No cyanosis, Yes edema and No pallor Neuro: COMMON NORMALS: patient oriented x3, CN's II-XII intact bilaterally and no focal motor deficits SENSORIUM/ORIENTATION: Yes alert Psych: COMMON NORMALS: Normal thought process present and speech normal APPEARANCE: Yes well kempt SPEECH: Yes normal speech MOOD & AFFECT: Yes euthymic mood THOUGHT PROCESS: Normal thought process present THOUGHT CONTENT: Yes Normal thought content present Data 01/15/23 05:17 01/15/23 05:17 A&P Assessment and plan (1) Defibrillator discharge: .ICD interrogation reveals AAI -DDD 60/130/120, VT zone 140-214, VF zone >214 bpm. High RV lead capture threshold inappropriate ICD shocks with what appears to be T wave oversensing noted. Few runs of SVT terminated by ATP noted and several NSVT out of which some are true and some are still T wave oversensing noted. Device battery < 1 month. -I spoke to Dr. Patel for ICD gen change, RV lead revision and device reprogramming. He advised to check if Dr. Reynoso is around and if not we may need to transfer him out. -continue to monitor closely on telemetry -PVC's isolated and couplets noted on tele -Keep K> 4.5, Mg> 2.5. (2) Chest pain: 2/2 multilpe ICD discharges -recent cath wherein medical management was recommended. (3) Heart failure with reduced ejection fraction: (4) Ischemic cardiomyopathy: Plan H/O VT H/o SVT Atrial fibrillation CAD HTN h/o alcohol and tobacco abuse Dyslipidemia and High Time for a total of 70 minutes, includes reviewing past or interval history, examining/interviewing patient, counseling patient/family/other support, updating patient/family/other support, discussing plan of care with staff, communicating with other healthcare providers and documenting encounter Diagnoses Defibrillator discharge Z45.02 Chest pain R07.9 Heart failure with reduced ejection fraction I50.20 Ischemic cardiomyopathy I25.5
--- NOTE | 2023-01-14 09:12 | ECG_ITS ---
[facility] Test Date: 2023-01-14 Pat Name: Carlos Alberto Morrow Department: Room: 105 Gender: Male Clinical Academic Allergist: : 1975 Requested By: Karin Funk Order Number: [id number] Suraj MD: Raquel Solano M.D. Measurements Intervals [place] Rate: 88 P: 64 SD: 157 QRS: 55 QRSD: 146 T: -54 QT: 389 QTc: 472 Interpretive Statements SINUS RHYTHM WITH OCCASIONAL VENTRICULAR PREMATURE COMPLEXES INTRAVENTRICULAR CONDUCTION DELAY [130+ ms QRS DURATION] POSSIBLE INFERIOR MYOCARDIAL INFARCTION , OF INDETERMINATE AGE [30 ms Q WAVE IN II/aVF] Compared to ECG 01/13/2023 22:23:44 Ventricular premature complex(es) now present Myocardial infarct finding now present Electronically Signed On 01-14-2023 21:10:13 CDT by Raquel Solano M.D. [id number]
[2023-01-14] MEDS: morphine 4 mg/mL SDV 1 mL 2 MG IVP ×3 (11:51→21:50)
--- NOTE | 2023-01-14 12:44 | P.PN_ITS ---
Subjective Subjective: Complains of chest discomfort since AICD firing. Pacemaker interrogation report is available. Awaiting for cardiology review and assessment. Troponin trend is down with negative delta serially. Vitals/I&O/Wt Last Vital Signs Temp 98.1 F 01/14/23 07:45 Pulse 88 01/14/23 10:00 Resp 97 H 01/14/23 11:51 BP 145/85 01/14/23 08:32 Pulse Ox 97 01/14/23 07:45 O2 Del Method Room Air 01/14/23 07:45 01/13/23 01/14/23 01/14/23 22:59 06:59 14:59 Intake Total 480 / 480 880 / 1360 Output Total 850 / 850 760 / 760 Balance 480 / 480 30 / 510 -760 / -760 Weight last 48 hrs Weight 87.543 kg Physical Exam Narrative: General: No acute distress, AO x3 HEENT: PERRLA, pupils bilaterally equal and reactive, pallors not present Chest: Normal vesicular breath sounds, no added sounds, equal good air entry bilaterally CVS: S1-S2 regular, no murmurs, no tachycardia, no gallops, no rubs Abdomen: Soft, nontender, no organomegaly, bowel sounds present Neuro: No focal deficits, no facial deformity, AO x3, power 5/5 in all limbs Data 01/14/23 03:44 01/14/23 03:44 A&P Assessment and plan (1) Defibrillator discharge: (2) Seizure disorder: (3) Ischemic cardiomyopathy: (4) Heart failure with reduced ejection fraction: (5) Elevated troponin: Plan 47 year old male with PMH of coronary artery disease status post PCI, ischemic cardiomyopathy, HFrEF EF of 38% on his last 2d echo done in 09/2021, A.F on e liquis, hypertension, status post AICD placement, pacemaker, came in after he experinced AICD discharge. Pacemaker interrogated. Reports now available. Most recent EF appears he had 3 treated VT on January 10, 2023. Awaiting cardiology assessment and further plan. Troponin trend 169---> 160--> 166 with negative delta's Status post recent cardiac catheterization on January 12, 2023. Angiography reve aled a normal left main normal LAD. RCA was chronically occluded, he was noted to have excellent collateral flow from circumflex and LAD. Medical therapy was recommended per cardiology. Electrolytes are currently within range with potassium at 4.5 and mag at 1.9 Continue plavix 75mg po daily, eliwuis 5 mg po BID prn morphine ib an dpo hydrocodone for pain management Attestations Medical Necessity Statement*: Awaiting cardiology assessment and recommendations regarding recurrent ICD firing Coding Level of Care Code Acute Code for Chg Fwd Diagnoses Defibrillator discharge Z45.02 Seizure disorder G40.909 Ischemic cardiomyopathy I25.5 Heart failure with reduced ejection fraction I50.20 Elevated troponin R77.8
[2023-01-15] VITALS (58 sets, daily range): BP systolic 119–145; BP diastolic 69–95; PULSE 60–84; RESP 9–23; TEMP 36.6–37; O2SAT 89–100
[2023-01-15] MEDS: HYDROcodone-acetaminophen 10-325 mg Tablet 1 TAB PO ×4 (01:19→19:42)
[2023-01-15 05:54] LABS: Basophils # 0.1 10^3/uL (0.0-0.1); Basophils % 1.3 %; Eosinophils # 0.7 10^3/uL (0.0-0.8); Eosinophils % 8.2 %; Hematocrit 42.2 % (42.0-52.0); Hemoglobin 13.6 g/dL (11.7-16.6); Lymphocytes # 2.2 10^3/uL (0.8-4.8); Mean Corpuscular HGB Conc 32.2 g/dL (30.0-36.0); Mean Corpuscular Hemoglobin 31.1 pg (28.0-34.0); Mean Corpuscular Volume 96.6 fl (80-94); Mean Platelet Volume 9.4 fL (7.4-10.4); Monocytes # 0.6 10^3/uL (0.2-0.9); Neutrophils # 4.73 10^3/uL (1.8-7.7); Neutrophils % 57.3 %; Nucleated Red Blood Cells % 0 %; Platelet Count 218 10^3/cmm (130-400); Red Blood Count 4.37 10^6/uL (4.1-5.3); Red Cell Distribution Width 13.3 % (12.1-15.1); White Blood Count 8.3 10^3/uL (4.0-10.0)
[2023-01-15 06:10] LABS: Anion Gap 14.8 (5-19); Blood Urea Nitrogen 11 mg/dL (6-20); Calcium 9.2 mg/dL (8.5-10.5); Carbon Dioxide 27 mmol/L (22-29); Chloride 101 mmol/L (98-107); Glomerular Filtration Rate 119.9 mL/min (90-130); Glucose 84 mg/dL (65-115); Osmolality Calculated 285 mOsm/kg (285-295); Potassium 4.8 mmol/L (3.5-5.1); Sodium 138 mmol/L (136-145)
[2023-01-15] MEDS: multivitamin therapeutic Tablet 1 TAB PO (06:38)
[2023-01-15] MEDS: clopidogrel 75 mg Tablet PO (06:38)
[2023-01-15] MEDS: atorvastatin 40 mg Tablet PO (06:38)
[2023-01-15] MEDS: morphine 4 mg/mL SDV 1 mL 2 MG IVP ×2 (06:49→15:14)
[2023-01-15] MEDS: metoprolol succinate ER (24 HR) 100 mg Tablet PO (08:13)
[2023-01-15] MEDS: divalproex DR 500 mg Tablet PO (08:44)
[2023-01-15] MEDS: losartan 50 mg Tablet 25 MG PO (08:44)
[2023-01-15] MEDS: folic acid 1 mg Tablet PO (08:45)
--- NOTE | 2023-01-15 11:36 | PM.PN ---
Subjective Subjective: From cardiology note: ICD interrogation reveals AAI -DDD 60/130/120, VT zone 140-214, VF zone >214 bpm. High RV lead capture threshold inappropriate ICD shocks with what appears to be T wave oversensing noted. Few runs of SVT terminated by ATP noted and several NSVT out of which some are true and some are still T wave oversensing noted. Device battery < 1 month. Patient complains of extreme anxiety related to his multiple shocks and plans regarding ICD generator change etc Vitals/I&O/Wt Last Vital Signs Temp 97.8 F 01/15/23 08:00 Pulse 70 01/15/23 08:00 Resp 16 01/15/23 08:00 BP 145/95 01/15/23 08:00 Pulse Ox 99 01/15/23 08:00 O2 Del Method Room Air 01/15/23 08:00 01/14/23 01/15/23 01/15/23 22:59 06:59 14:59 Intake Total 440 / 440 0 / 440 240 / 240 Output Total 550 / 1310 475 / 1785 Balance -110 / -870 -475 / -1345 240 / 240 Weight last 48 hrs Weight 87.543 kg Physical Exam Narrative: General: No acute distress, AO x3 HEENT: PERRLA, pupils bilaterally equal and reactive, pallors not present Chest: Normal vesicular breath sounds, no added sounds, equal good air entry bilaterally CVS: S1-S2 regular, no murmurs, no tachycardia, no gallops, no rubs Abdomen: Soft, nontender, no organomegaly, bowel sounds present Neuro: No focal deficits, no facial deformity, AO x3, power 5/5 in all limbs Data 01/15/23 05:17 01/15/23 05:17 A&P Assessment and plan (1) Defibrillator discharge: (2) Seizure disorder: (3) Ischemic cardiomyopathy: (4) Heart failure with reduced ejection fraction: (5) Elevated troponin: Plan 47 year old male with PMH of coronary artery disease status post PCI, ischemic cardiomyopathy, HFrEF EF of 38% on his last 2d echo done in 09/2021, A.F on eliquis, hypertension, status post AICD placement, pacemaker, came in after he experinced AICD discharge. Pacemaker interrogated. Reports now available. Per cardiology note, Few runs of SVT terminated by ATP noted and several NSVT out of which some are true and some are still T wave oversensing noted. Device battery < 1 month. recommended ICD gen change, RV lead revision and device reprogramming. will consult Dr. Reynoso per cardiology recommendations Troponin trend 169---> 160--> 166 with negative delta's Status post recent cardiac catheterization on January 12, 2023. Angiography revealed a normal left main normal LAD. RCA was chronically occluded, he was noted to have excellent collateral flow from circumflex and LAD. Medical therapy was recommended. Electrolytes are currently within range with potassium at 4.5 and mag at 1.9 Continue plavix 75mg po daily, Eliquis on hold considering possible surgery. LAst dose on 01/14 am. prn morphine ib an dpo hydrocodone for pain management Add Xanax for anxiety Attestations Medical Necessity Statement*: CT surgery consult, possible RV lead revision and device reprogramming. Coding Level of Care Code Acute Code for Chg Fwd Diagnoses Defibrillator discharge Z45.02 Seizure disorder G40.909 Ischemic cardiomyopathy I25.5 Heart failure with reduced ejection fraction I50.20 Elevated troponin R77.8
[2023-01-15] MEDS: ALPRAZolam 0.5 mg Tablet PO ×2 (12:17→19:42)
--- NOTE | 2023-01-15 12:28 | PM.CONSULT ---
Providers/Reason For Consult Consulting Physician/Specialty*: Dr. Reynoso/cardiothoracic surgery Reason for Consult*: AICD generator at end of service with concerns of malfunctioning RV lead Requesting Physician: Dr. Solano Attending Physician: Karin Funk MD Primary Care Provider: Jonny Gifford History of Present Illness History of Present Illness Carlos Alberto Morrow is a 47 year old male with a history for early coronary disease and subsequent cardiomyopathy. He has a family history for early cardiac disease and suffered his first ND at age 31. He is status post AICD implantation in 2008 with subsequent generator exchange in 2017. He is noted to have a high RV lead threshold. Apparently, this has been longstanding. He was recently hospitalized for AICD discharge. Subsequent left heart catheterization by Dr. Jacques revealed mild chronically occluded RCA. He has collateral flow around the circumflex and LAD. When the branch of the circumflex is chronically occluded. He had prior stenting to the OMB branch and proximal circumflex artery which had a stent with in-stent stenosis which was corrected. He was hospitalized several days ago but we presented after multiple discharges of his AICD. Interrogation reveals the AICD has approxi-1 month of longevity remaining. He appears to also have oversensing of the T wave. Dr. Solano discussed with Dr. Patel to consider AICD generator change and RV lead replacement. He was suggested be contacted concerning this with the patient be transferred. Currently, Mr. Mello is resting comfortably on the cardiac stepdown unit. A magnet is been placed over his AICD in an attempt to prevent inappropriate discharge. As would be expected, he is rather anxious concerning potential for discharge from his AICD. Device interrogation yesterday upon presentation to the ER confirms the longstanding high RV threshold which is unchanged from previous values. Since September of last year there have been no 19 treated VF zone events and 3 treated VT zone events. Most recent for both of these was January 10 of this year. Report describes 26 shocks for VT/VF with 24 failed. Review of Systems Const: Denies: fever(s), chills or body aches Eyes: Denies: change in vision or blurry vision Card: Reports: palpitations and irregular heart rhythm; Denies: chest pain, edema or orthopnea Resp: Denies: dyspnea or productive cough Musc: Denies: neck pain or back pain Neuro: Reports: numbness in extremities; Denies: headache(s) Psych: Reports: anxiety; Denies: depression Naeem/Lymph: Denies: easy bruising Medications/Allergies Home Medications Medication Instructions Recorded Confirmed Last Taken Type atorvastatin 80 mg tablet 80 mg PO DAILY@04/09/20 01/13/23 01/13/23 History clopidogrel 75 mg tablet 75 mg PO DAILY@04/09/20 01/13/23 01/13/23 History divalproex 500 mg tablet,delayed 500 mg PO BID 04/09/20 01/13/23 01/13/23 History release folic acid 1 mg tablet 1 mg PO DAILY #30 tabs 04/10/20 01/13/23 01/13/23 Rx albuterol sulfate 90 mcg/actuation 1 inh inhalation Q6H PRN shortness 06/02/20 01/13/23 Unknown Rx aerosol inhaler (ProAir HFA) of breath or wheezing 30 days #8.5 grams aspirin-caffeine 845 mg-65 mg oral 1 ea PO PRN PRN Pain 02/06/21 01/13/23 Unknown History powder packet (BC Pain Relief) multivitamin 1 tab PO DAILY@02/06/21 01/13/23 01/13/23 History apixaban 5 mg tablet (Eliquis) 5 mg PO BID 10/04/21 01/13/23 01/13/23 History cholecalciferol (vitamin D3) 25 25 mcg PO DAILY 10/17/22 01/13/23 01/10/23 History mcg (1,000 unit) tablet (Vitamin D3) oxycodone-acetaminophen 7.5 mg-325 1 tab PO Q6H PRN Pain 01/10/23 01/13/23 01/13/23 History mg tablet (Percocet) losartan 50 mg tablet 25 mg PO DAILY 30 days #30 tabs 01/12/23 01/13/23 01/13/23 Rx nitroglycerin 0.4 mg sublingual 0.4 mg sublingual Q5M PRN chest 01/12/23 01/13/23 01/13/23 Rx tablet (Nitrostat) pain #30 tabs hydrocodone 10 mg-acetaminophen 1 tab PO Q6H 01/13/23 01/13/23 01/13/23 History 325 mg tablet metoprolol succinate 100 mg 100 mg PO DAILY 01/13/23 01/13/23 Unknown History tablet,extended release 24 hr Allergies Allergy/AdvReac Type Severity Reaction Status Date / Time No Known Allergies Allergy Verified 01/13/23 16:46 Current Medications Generic Name Dose Route Start Last Admin Trade Name Jemq PRN Reason Stop Dose Admin Hydrocodone Bitart/Acetaminophen 1 tab 01/13/23 19:30 01/15/23 12:18 Hydrocodone-Acetaminophen 10-325 Mg Tablet PO 1 tab Q6H RICHARD Administration Alprazolam 0.5 mg 01/15/23 11:42 01/15/23 12:17 Alprazolam 0.5 Mg Tablet PO 0.5 mg TID PRN Administration ANXIETY Atorvastatin Calcium 40 mg 01/14/23 07:00 01/15/23 06:38 Atorvastatin 40 Mg Tablet PO 40 mg DAILY@07 RICHARD Administration Divalproex Sodium 500 mg 01/14/23 09:00 01/15/23 08:[address] 500 Mg Tablet PO 500 mg BID RICHARD Administration Folic Acid 1 mg 01/14/23 09:00 01/15/23 08:45 Folic Acid 1 Mg Tablet PO 1 mg DAILY RICHARD Administration Losartan Potassium 25 mg 01/14/23 09:00 01/15/23 08:44 Losartan 50 Mg Tablet PO 25 mg DAILY RICHARD Administration Metoprolol Succinate 100 mg 01/14/23 09:00 01/15/23 08:13 Metoprolol Succinate Er (24 Hr) 100 Mg Tablet PO 100 mg DAILY RICHARD Administration Morphine Sulfate 2 mg 01/13/23 19:24 01/15/23 06:49 Morphine 4 Mg/Ml Sdv 1 Ml IVP 2 mg Q4H PRN Administration SEVERE PAIN Multivitamins Therapeutic 1 tab 01/14/23 07:00 01/15/23 06:38 Multivitamin Therapeutic Tablet PO 1 tab DAILY@07 RICHARD Administration PFSH Acute PFSH: Medical History Abnormal coronary angiogram AICD discharge Alcohol abuse Atherosclerosis of coronary artery of [place] heart without angina pectoris Atherosclerotic heart disease of [place] coronary artery with other forms of angina pectoris Atrial fibrillation Benign essential hypertension with target blood pressure below 140/90 Bronchitis Cardiac defibrillator in place Cardiomyopathy Congestive heart failure with cardiomyopathy and cardiomegaly Coronary disease Elevated troponin Heart failure with reduced ejection fraction History of cardioversion Hypertension ICD (implantable cardioverter-defibrillator) discharge Ischemic cardiomyopathy Nicotine dependence Non-ST elevation ND (NSTEMI) Appears to be type II secondary to SVT. Patient has a history of multiple PCI's Pacemaker Pharyngitis Seizure disorder Shortness of breath Supraventricular tachycardia Ventricular tachycardia Ventricular tachycardia Warfarin anticoagulation Surgical History AICD (automatic cardioverter/defibrillator) present H/O cardiac catheterization H/O hernia repair Family History Mother Family history of premature coronary artery disease Initial ND age 31, at 60; his mother sister at the age of 20 and had a myocardial infarction. Maternal grandfather and grandmother of myocardial infarction in their 50s and 60s. One of his sisters had pacemaker placed placement CAD (coronary artery disease) Father Clotting disorder Bleeding disorder Family/Other CAD (coronary artery disease) Grandmother CAD (coronary artery disease) Grandfather CAD (coronary artery disease) Denies family history of Diabetes Dementia Chronic kidney disease (CKD) Suicide Anesthesia complication Lung disease Cancer Stroke Social History Smoking and tobacco status: current every day smoker cigarettes Packs smoked per day: 1 Years cigarettes smoked: 30 Alcohol intake: current Alcohol intake frequency: 3 or more drinks per day Alcohol type: hard liquor Substance/Drug Use: current Housing: House Special eloise needs: No Vitals/I&O/Wt Last Vital Signs Temp 97.8 F 01/15/23 08:00 Pulse 70 01/15/23 08:00 Resp 16 01/15/23 08:00 BP 145/95 01/15/23 08:00 Pulse Ox 99 01/15/23 08:00 O2 Del Method Room Air 01/15/23 08:00 01/14/23 01/15/23 01/15/23 22:59 06:59 14:59 Intake Total 440 / 440 0 / 440 240 / 240 Output Total 550 / 1310 475 / 1785 Balance -110 / -870 -475 / -1345 240 / 240 Weight last 48 hrs Weight 193 lb Physical Exam Const: COMMON NORMALS: no acute distress, average body habitus and patient oriented x3 HENMT: COMMON NORMALS: normocephalic, atraumatic, hearing grossly normal bilaterally, external ears normal and Normal external nose present HEAD & SCALP: normocephalic and atraumatic NOSE: Normal external nose present EXTERNAL EAR: Yes external ears normal Eye: COMMON NORMALS: EOMs intact bilaterally and no scleral icterus Neck/C-Spine: COMMON NORMALS: no lymphadenopathy and No carotid bruits Chest: COMMONS NORMALS: normal inspection of the chest OTHER: Pacing magnet has been placed over the AICD to prevent inappropriate discharge Resp: COMMON NORMALS: normal respiratory effort and clear to auscultation bilaterally AUSCULTATION: clear to auscultation bilaterally Cardio: COMMON NORMALS: regular rate, regular rhythm, No murmurs present (Cardio) and No rub (Cardio) RATE: regular rate RHYTHM: regular rhythm GI: COMMON NORMALS: Normal to inspection, nondistended, normoactive bowel sounds present Extremity: COMMON NORMALS: normal to inspection, full ROM and capillary refill normal Neuro: COMMON NORMALS: patient oriented x3, CN's II-XII intact bilaterally, moves all extremities, no focal motor deficits and no sensory deficits noted Data 01/15/23 05:17 01/15/23 05:17 A&P Assessment and plan (1) Encounter for servicing of implantable cardioverter-defibrillator (ICD) at end of battery life: 47-year-old gentleman with a long and early history for cardiac disease status post AICD implantation and subsequent generator exchange. Chronically elevated RV lead threshold. Multiple discharges most recently with some felt to be related to T wave oversensing. Generator is now near end of service. Generator exchange been recommended an attempt at RV lead replacement. I discussed this carefully with Dr. Solano as well as with Dr. Funk. I had a detailed conversation with Mr. Yee concerning recommendations that he is in agreement. But the potential inability to place the new RV lead was also discussed as well as our that we do not have the capacity to extract his old lead and will require referral to a tertiary center. He states understanding and wishes to proceed with plan for generator exchange and possible RV lead replacement with subsequent capping of the old lead if we are successful. Risk of the procedure include pneumothorax, major bleeding, infection, inability to complete the procedure, pain after surgery, inability to correct the frequent discharges, and need for long-term surveillance. We will tentatively plan for surgery tomorrow afternoon. Consult Attestations Medical Necessity Statement: AICD generator end of service. RV lead with high threshold. Coding Level of Care Code Acute Code for Chg Fwd Diagnoses Encounter for servicing of implantable cardioverter-defibrillator (ICD) at end of battery life Z45.02
--- NOTE | 2023-01-15 16:40 | PM.PN ---
Subjective Subjective: Patient has not had any recurrence of V. tach or ICD discharges since the hospital admission. He had a pacemaker in duration today. His pacemaker was reprogrammed to minimize/avoid T wave sensing. Patient apparently had episodes of sinus tachycardia with a oversensedventricular rate of more than 160. He had multiple shock-total of 24. The VT /VF zone therapies were all failed. The RV lead has a pacing threshold as well. But the RV pacing is less than 0.1% Telemetry shows sinus rhythm with short runs of nonsustained V. tach of 3-4 beats Medications: Medication Review Details: Current Medications Acetaminophen (Acetaminophen 325 Mg Tablet) 650 mg PO Q6H PRN PRN Reason: Mild/Mod Pain Or Temp >/= 101 Hydrocodone Bitart/Acetaminophen (Hydrocodone-Acetaminophen 10-325 Mg Tablet) 1 tab PO Q6H [facility] Last Admin: 01/15/23 12:18 Dose: 1 tab Alprazolam (Alprazolam 0.5 Mg Tablet) 0.5 mg PO TID PRN PRN Reason: ANXIETY Last Admin: 01/15/23 12:17 Dose: 0.5 mg Atorvastatin Calcium (Atorvastatin 40 Mg Tablet) 40 mg PO DAILY@07 [facility] Last Admin: 01/15/23 06:38 Dose: 40 mg Chlorhexidine Gluconate (Chlorhexidine Gluconate 4% Btl 118 Ml) 1 applic TOPICAL BID [facility] Divalproex Sodium (Divalproex Dr 500 Mg Tablet) 500 mg PO 0700,1900 [facility] Folic Acid (Folic Acid 1 Mg Tablet) 1 mg PO 0700 [facility] Losartan Potassium (Losartan 50 Mg Tablet) 25 mg PO 0700 [facility] Metoprolol Succinate (Metoprolol Succinate Er (24 Hr) 100 Mg Tablet) 100 mg PO 0700 [facility] Morphine Sulfate (Morphine 4 Mg/Ml Sdv 1 Ml) 2 mg IVP Q4H PRN PRN Reason: SEVERE PAIN Last Admin: 01/15/23 15:14 Dose: 2 mg Multivitamins Therapeutic (Multivitamin Therapeutic Tablet) 1 tab PO DAILY@07 [facility] Last Admin: 01/15/23 06:38 Dose: 1 tab Ondansetron HCl (Ondansetron 2 Mg/Ml Sdv 2 Ml) 4 mg IVP Q8H PRN PRN Reason: vomiting, or N/V if npo Vitals/I&O/Wt Last Vital Signs Temp 97.8 F 01/15/23 08:00 Pulse 67 01/15/23 13:00 Resp 18 01/15/23 15:14 BP 141/95 01/15/23 13:00 Pulse Ox 97 01/15/23 15:14 O2 Del Method Room Air 01/15/23 08:00 01/15/23 01/15/23 01/15/23 06:59 14:59 22:59 Intake Total 0 / 440 600 / 600 Output Total 475 / 1785 Balance -475 / -1345 600 / 600 Physical Exam Narrative: GENERAL: The patient is alert and oriented times three. Not in any acute distress. HEENT: No significant pallor, icterus or lymphadenopathy.Oral cavity: There are no mucous membrane lesions. NECK: Trachea appears to be central. No masses noted. No JVD or thyromegaly appreciated. RESPIRATORY: Chest is symmetrical. No intercostals muscle retraction or any accessory muscle activation. There is no chest wall tenderness. Breath sounds are heard bilaterally. No rales or rhonchi heard. No evidence of any consolidation. BREASTS: Deferred. HEART: The heart sounds are normal. No S3 or S4. Short systolic murmur in the mitral area. No pericardial rub ABDOMEN: No vessel pulsations or distention. No tenderness. No organomegaly appreciated. Bowel sounds are normally heard. : Deferred. RECTAL: Deferred. LYMPHATIC: No lymphadenopathy noted in the neck. EXTREMITIES: No edema or cyanosis. No clubbing. MUSCULOSKELETAL: No acute joint deformities or swelling SKIN: There are no significant rashes or ecchymosis NEUROPSYCHIATRIC: The patient is alert and oriented x3. Appears to be in a good mood. No tremors or rigidity noted. Data 01/15/23 05:17 01/15/23 05:17 A&P Assessment and plan (1) Inappropriate shocks from ICD (implantable cardioverter-defibrillator): The patient was found to have T wave sensing causing the ICD discharges. I discussed this with the device technologist. It was thought to be appropriate to reprogram the device for decreased T wavel sensing and see whether that will take care of the inappropriate shock. Patient will be brought back to the hospital after the reprogramming in 2 weeks and see whether there is any T way sensing. Based on the interrogation findings, the need for lead revision will be decided. I may add Mag-Tab SR 81 mg 2 tablets p.o. daily for the arrhythmia control (2) Ischemic cardiomyopathy: Clinically stable this. Seems to have no evidence of new decompensation. (3) Atherosclerosis of coronary artery of [place] heart without angina pectoris: Patient is a one-time oral anticoagulation. This may be continued. Qualifiers: Coronary Disease-Associated Artery/Lesion type: [place] artery Qualified Code(s): I25.10 - Atherosclerotic heart disease of [place] coronary artery without angina pectoris (4) Atrial fibrillation: Intermittent atrial fibrillation. Currently he is in a regular rhythm. Qualifiers: Atrial fibrillation type: unspecified chronic Qualified Code(s): I48.20 - Chronic atrial fibrillation, unspecified Plan The patient is extremely nervous about going home without having the device revised. He has longevity of one month on the device. Because of the high pacing threshold and over sensing of the T wave, it may be appropriate to change RV lead. The patient does not care about MR safe device. He is more concerned about the repeated shocks. Attestations Medical Necessity Statement*: Patient requires continued hospital stay for close monitoring and further management Coding Level of Care Code 57927 Diagnoses Inappropriate shocks from ICD (implantable cardioverter-defibrillator) T82.198A Ischemic cardiomyopathy I25.5 Atherosclerosis of coronary artery of [place] heart without angina pectoris I25.10 Coronary Disease-Associated Artery/Lesion type: [place] artery Atrial fibrillation I48.20 Atrial fibrillation type: unspecified chronic
[2023-01-15] MEDS: chlorhexidine gluconate 4% Btl 118 mL 1 APPLIC TOPICAL (19:41)
[2023-01-16] VITALS: BP 132/76; PULSE 69; RESP 16; TEMP 36.4; O2SAT 99
[2023-01-16] MEDS: HYDROcodone-acetaminophen 10-325 mg Tablet 1 TAB PO ×3 (02:29→11:27)
[2023-01-16 04:00] VITALS: BP 121/73; PULSE 60; RESP 15; TEMP 36.6; O2SAT 97
[2023-01-16 05:05] VITALS: PULSE 60
[2023-01-16 05:16] LABS: Basophils # 0.1 10^3/uL (0.0-0.1); Basophils % 1.1 %; Eosinophils # 0.7 10^3/uL (0.0-0.8); Eosinophils % 8.8 %; Hematocrit 44.9 % (42.0-52.0); Hemoglobin 14.9 g/dL (11.7-16.6); Lymphocytes # 2.3 10^3/uL (0.8-4.8); Mean Corpuscular HGB Conc 33.2 g/dL (30.0-36.0); Mean Corpuscular Hemoglobin 31.4 pg (28.0-34.0); Mean Corpuscular Volume 94.7 fl (80-94); Mean Platelet Volume 9.6 fL (7.4-10.4); Monocytes # 0.6 10^3/uL (0.2-0.9); Monocytes % 7.6 %; Neutrophils # 4.36 10^3/uL (1.8-7.7); Neutrophils % 54.1 %; Nucleated Red Blood Cells % 0 %; Platelet Count 229 10^3/cmm (130-400); Red Blood Count 4.74 10^6/uL (4.1-5.3); Red Cell Distribution Width 13.1 % (12.1-15.1); White Blood Count 8.1 10^3/uL (4.0-10.0)
[2023-01-16 05:45] LABS: Anion Gap 14.4 (5-19); Blood Urea Nitrogen 12 mg/dL (6-20); Calcium 9.7 mg/dL (8.5-10.5); Carbon Dioxide 28 mmol/L (22-29); Chloride 100 mmol/L (98-107); Glomerular Filtration Rate 102.7 mL/min (90-130); Glucose 86 mg/dL (65-115); Osmolality Calculated 285 mOsm/kg (285-295); Potassium 4.4 mmol/L (3.5-5.1); Sodium 138 mmol/L (136-145)
[2023-01-16] MEDS: folic acid 1 mg Tablet PO (06:08)
[2023-01-16] MEDS: multivitamin therapeutic Tablet 1 TAB PO (06:08)
[2023-01-16] MEDS: metoprolol succinate ER (24 HR) 100 mg Tablet PO (06:09)
[2023-01-16] MEDS: losartan 50 mg Tablet 25 MG PO (06:09)
[2023-01-16] MEDS: divalproex DR 500 mg Tablet PO (06:09)
[2023-01-16] MEDS: atorvastatin 40 mg Tablet PO (06:10)
[2023-01-16] MEDS: magnesium lactate 84 mg Tablet PO (07:59)
[2023-01-16] MEDS: ALPRAZolam 0.5 mg Tablet PO (07:59)
[2023-01-16 08:00] VITALS: BP 149/92; PULSE 67; RESP 22; TEMP 36.6; O2SAT 97
--- NOTE | 2023-01-16 10:55 | PC.SOCIAL ---
IMM update IMM updated with patient. Verbalized an understanding. Copy Pg 2 provided. Initialled, dated, timed, and placed in chart.
[2023-01-16 11:47] VITALS: BP 129/74; PULSE 60; RESP 17; O2SAT 97
[2023-01-16 12:11] VITALS: BP 129/74; PULSE 60; RESP 17; O2SAT 97
--- NOTE | 2023-01-16 12:13 | PC.NURSE ---
pt requesting hydrocodone for back pain.no sced for [address] ling stated to give hydrocodone early
--- NOTE | 2023-01-16 13:09 | PM.MISC ---
Miscellaneous Note Purpose of Documentation: After a nearly 30-minute discussion with Mr. Yee this morning concerning options related to the now new programming of his AICD, he is now in agreement to proceed with the delaying any type of surgery today and allowing for 2-week review of his new settings to determine whether his RV lead would require replacement or could remain in only a generator exchange be needed. I did discuss that if [facility] felt that the RV lead truly needed to be replaced, we could attempt that here that we do not have the skill set or equipment to perform a lead extraction should this be required to allow for placement of a new lead. He stated understanding. We will await this 2-week trial for reevaluation of his new settings to determine functionality of his current RV lead prior to scheduling for a generator exchange.
--- NOTE | 2023-01-16 13:26 | PC.NURSE ---
discharge instructions given and explained.pt verb understanding of instructions.discharged via w/c to exit at this time.spouse to drive pt home.
--- NOTE | 2023-01-16 13:40 | P.DS_ITS ---
Discharge Providers Date of Admission: 01/13/23 19:12 Date of Discharge: January 16, 2023 Attending Provider at Admission: Angel Mahmood MD Attending Provider at Discharge: Karin Funk MD Primary Care Provider: Jonny Gifford Diagnoses at Discharge Discharge Diagnosis (1) Inappropriate shocks from ICD (implantable cardioverter-defibrillator): Status: Acute (2) Ischemic cardiomyopathy: Status: Acute (3) Atherosclerosis of coronary artery of belkofski heart without angina pectoris: Status: Acute Qualifiers: Coronary Disease-Associated Artery/Lesion type: belkofski artery Qualified Code(s): I25.10 - Atherosclerotic heart disease of belk[place]ski coronary artery without angina pectoris (4) Atrial fibrillation: Status: Acute Qualifiers: Atrial fibrillation type: unspecified chronic Qualified Code(s): I48.20 - Chronic atrial fibrillation, unspecified Reason for Visit Reason for Visit: cp Hospital Course Hospital Course Carlos Alberto Morrow is a 47 year old male with PMHx of CAD, h/o first myocardial infarction at the age of 31, cardiomyopathy s/p ICD implantation in 2008 at [place] for the first time and device was revised in [facility] by in 01/2017. he was currently admitted on January 14, 2023 due to multiple ICD discharges similar to recent hospital admission where he underwent coronary angiogram which did not, find any acute intervenable lesions..?Interrogation revealed the AICD has approxi-1 month of longevity remaining.? He appears to also have oversensing of the T wave.? Cardiology service and Dr. Reynoso were consulted. His AICD settings were changed per CT surgery- please see their notes for details. He was initially planned to undergo generator exchange and possible RV lead replacement with subsequent capping of the old lead. He was planned for the procedure today but subsequently after multiple discussions this morning, he elected to proceed with the delaying any type of surgery and allowing for 2-week review of his new settings to determine whether his RV lead would require replacement or could remain in only a generator exchange be needed.? eliwuis is being resumed at discharge. He is being discharged with recommendations to follow up with CT surgery. He had significant anxiety surrounding his recurrent AICD firing, he was on Xanax as inpatient to which he responded well and requests an outpatient prescription for the same. Limited quantity has been prescribed today, to follow with his PCP for future management of anxiety disorder. Physical Exam Narrative: General: No acute distress, AO x3 HEENT: PERRLA, pupils bilaterally equal and reactive, pallors not present Chest: Normal vesicular breath sounds, no added sounds, equal good air entry bilaterally CVS: S1-S2 regular, no murmurs, no tachycardia, no gallops, no rubs Abdomen: Soft, nontender, no organomegaly, bowel sounds present Neuro: No focal deficits, no facial deformity, AO x3, power 5/5 in all limbs Discharge Data Studies Completed and Pending Completed Studies During Hospitalization Category Date Time Status XR chest 1V portable [id number] Stat Exams 01/13/23 16:18 Completed Radiology Impressions Chest X-Ray 01/13/23 16:18 IMPRESSION: No acute infiltrate. Laboratory Results WBC 8.1 10^3/uL (4.0-10.0) 01/16/23 04:30 RBC 4.74 10^6/uL (4.1-5.3) 01/16/23 04:30 Hgb 14.9 g/dL (11.7-16.6) 01/16/23 04:30 Hct 44.9 % (42.0-52.0) 01/16/23 04:30 MCV 94.7 fl (80-94) H 01/16/23 04:30 MCH 31.4 pg (28.0-34.0) 01/16/23 04:30 MCHC 33.2 g/dL (30.0-36.0) 01/16/23 04:30 RDW 13.1 % (12.1-15.1) 01/16/23 04:30 Plt Count 229 10^3/cmm (130-400) 01/16/23 04:30 MPV 9.6 fL (7.4-10.4) 01/16/23 04:30 Neut % (Auto) 54.1 % 01/16/23 04:30 Lymph % (Auto) 28.0 % 01/16/23 04:30 Mcintosh % (Auto) 7.6 % 01/16/23 04:30 Eos % (Auto) 8.8 % 01/16/23 04:30 Baso % (Auto) 1.1 % 01/16/23 04:30 Neut # (Auto) 4.36 10^3/uL (1.8-7.7) 01/16/23 04:30 Lymph # (Auto) 2.3 10^3/uL (0.8-4.8) 01/16/23 04:30 Mcintosh # (Auto) 0.6 10^3/uL (0.2-0.9) 01/16/23 04:30 Eos # (Auto) 0.7 10^3/uL (0.0-0.8) 01/16/23 04:30 Baso # (Auto) 0.1 10^3/uL (0.0-0.1) 01/16/23 04:30 Nucleated RBC % (auto) 0 % 01/16/23 04:30 Nucleated RBCs # 0.0 /100WBC 01/16/23 04:30 Sodium 138 mmol/L (136-145) 01/16/23 04:30 Potassium 4.4 mmol/L (3.5-5.1) 01/16/23 04:30 Chloride 100 mmol/L (98-107) 01/16/23 04:30 Carbon Dioxide 28 mmol/L (22-29) 01/16/23 04:30 Anion Gap 14.4 (5-19) 01/16/23 04:30 BUN 12 mg/dL (6-20) 01/16/23 04:30 Creatinine 0.8 mg/dL (0.7-1.2) 01/16/23 04:30 GFR Calculation 102.7 mL/min (90-130) 01/16/23 04:30 Glucose 86 mg/dL (65-115) 01/16/23 04:30 Calculated Osmolality 285 mOsm/kg (285-295) 01/16/23 04:30 Calcium 9.7 mg/dL (8.5-10.5) 01/16/23 04:30 Magnesium 2.0 mg/dL (1.7-2.3) 01/16/23 04:30 Total Bilirubin 0.2 mg/dL (0.15-1.2) 01/13/23 17:07 AST 25 U/L (0-40) 01/13/23 17:07 ALT 21 U/L (0-41) 01/13/23 17:07 Alkaline Phosphatase 51 U/L (40-130) 01/13/23 17:07 Troponin T Baseline 169 ng/L (0-15) H* 07/23/23 17:07 Troponin T 120 Minute 160.5 ng/L (0-15) H 01/13/23 19:39 Delta Troponin T -8.5 ABS# (0-10) L 01/13/23 19:39 Troponin T Hi Sens 6Hr 166.0 ng/L (0-15) H 01/13/23 22:59 Troponin T Hi Sens 6Hr Delta -3.0 ng/L (0-12) L 01/13/23 22:59 NT-Pro-B Natriuret Pep 417 pg/mL (0-125) H 01/13/23 17:07 Total Protein 6.2 g/dL (6.6-8.7) L 01/13/23 17:07 Albumin 4.1 g/dL (3.5-5.2) 01/13/23 17:07 Globulin 2.1 g/dL (1.3-4.6) 01/13/23 17:07 Lipase 8 U/L (13-60) L 01/13/23 17:07 Vitals Last Vital Signs Temp 97.8 F 01/16/23 08:00 Pulse 60 01/16/23 12:11 Resp 17 01/16/23 12:11 BP 129/74 01/16/23 12:11 Pulse Ox 97 01/16/23 12:11 O2 Del Method Room Air 01/16/23 11:47 Discharge Plan Discharge Patient Disposition: Home Condition: Stable Prescriptions: New alprazolam 0.5 mg Tablet 0.5 mg PO BID PRN (Reason: Anxiety) 15 Days Qty: 30 0RF Continued albuterol sulfate [ProAir HFA] 90 mcg/actuation HFA aerosol inhaler 1 inh inhalation Q6H PRN (Reason: shortness of breath or wheezing) 30 Days Qty: 8.5 2RF multivitamin Tablet 1 tab PO DAILY@07 BC Pain Relief 845-65 mg Powder In Packet 1 ea PO PRN PRN (Reason: Pain) atorvastatin 80 mg tablet 80 mg PO DAILY@07 clopidogrel 75 mg tablet 75 mg PO DAILY@07 divalproex 500 mg tablet,delayed release (DR/EC) 500 mg PO BID folic acid 1 mg Tablet 1 mg PO DAILY Qty: 30 0RF cholecalciferol (vitamin D3) [Vitamin D3] 25 mcg (1,000 unit) Tablet 25 mcg PO DAILY oxycodone-acetaminophen [Percocet] 7.5-325 mg Tablet 1 tab PO Q6H PRN (Reason: Pain) losartan 50 mg Tablet 25 mg PO DAILY 30 Days Qty: 30 3RF nitroglycerin [Nitrostat] 0.4 mg tablet, sublingual 0.4 mg sublingual Q5M PRN (Reason: chest pain) Qty: 30 1RF Rx Instructions: do not exceed 3 doses per episode hydrocodone-acetaminophen 10-325 mg tablet 1 tab PO Q6H metoprolol succinate 100 mg tablet extended release 24 hr 100 mg PO DAILY Eliquis 5 mg tablet 5 mg PO BID Discharge Orders: Discharge Order (Routine); Ordered 01/16/23 Ordered By: Karin Funk Referrals: Jonny Gifford [Primary Care Provider] - 01/23/23 11:20 am Will Reynoso MD [Physician] - 01/21/23 2:15 pm (You will follow-up with Mya Valenzuela on 01/21 at 2:15P.M. during this appointment you will be scheduled with Dr. Reynoso for your pacemaker. ) Discharge Diet: Usual diet Discharge Activity: Limit activity as instructed Patient Instructions: Alprazolam (By mouth), Heart Failure (DC), Chest Pain (ED), Implantable Cardioverter Defibrillator (DC), CHF Stoplight, Opioid Safety Activity Restrictions/Additional Instructions: Follow-up with cardiology as planned. Return for anything that you are concerned about and feel needs emergency department evaluation. Discharge Attestations Time Spent in Discharge Care*: greater than 30 min Quality Metrics Clinical Quality Measures [ No reported AMI, CVA or VTE this stay] Coding Level of Care Code Acute Code for Chg Fwd Diagnoses Inappropriate shocks from ICD (implantable cardioverter-defibrillator) T82.198A Ischemic cardiomyopathy I25.5 Atherosclerosis of coronary artery of belkofski heart without angina pectoris I25.10 Coronary Disease-Associated Artery/Lesion type: belkofski artery Atrial fibrillation I48.20 Atrial fibrillation type: unspecified chronic
== END 2023-01-16 13:27 | disposition home or self-care (01) | DRG 315 ==
LOC: ER 18:13 → CSU 18:47
PROVIDERS: Emergency Medicine; Admitting Provider Internal Medicine; Emergency Provider Emergency Medicine; PCP Family Medicine; Visit Provider Student in an Organized Health Care Education/Training Program
DX: T82.118A Breakdown (mechanical) of other cardiac electronic device, initial encounter (principal); I50.22 Chronic systolic (congestive) heart failure; Y71.8 Miscellaneous cardiovascular devices associated with adverse incidents, not elsewhere classified; Z45.02 Encounter for adjustment and management of automatic implantable cardiac defibrillator; I25.10 Atherosclerotic heart disease of native coronary artery without angina pectoris; Z95.5 Presence of coronary angioplasty implant and graft; I25.2 Old myocardial infarction; I25.5 Ischemic cardiomyopathy; F41.9 Anxiety disorder, unspecified; Z79.51 Long term (current) use of inhaled steroids; Z79.02 Long term (current) use of antithrombotics/antiplatelets; Z79.891 Long term (current) use of opiate analgesic; Z79.01 Long term (current) use of anticoagulants; I11.0 Hypertensive heart disease with heart failure; I48.91 Unspecified atrial fibrillation; F10.10 Alcohol abuse, uncomplicated; F17.210 Nicotine dependence, cigarettes, uncomplicated; G40.909 Epilepsy, unspecified, not intractable, without status epilepticus
CPT/HCPCS: 36415; 71045; 80048; 80053; 83690; 83735; 83880; 84484; 85025; 93005; 96376; 99285; J2270

== ENCOUNTER → 2023-01-21 14:04 | Outpatient (BNVA) | payer MEDICARE, MEDICAID, SELFPAY | PROVIDERS: PCP Family Medicine; Visit Provider Nurse Practitioner Family | DX: Z45.02 Encounter for adjustment and management of automatic implantable cardiac defibrillator (principal) | CPT/HCPCS: 99213 ==

== ENCOUNTER 2023-02-12 06:43 | Day surgery (SDC) | payer MEDICARE, MEDICAID, SELFPAY ==
[2023-02-07 13:51] VITALS: BMI 29.5
[2023-02-12 07:11] VITALS: BP 137/85; PULSE 62; RESP 17; TEMP 36.3; O2SAT 100
[2023-02-12 07:35] LABS: Basophils # 0.1 10^3/uL (0.0-0.1); Basophils % 0.6 %; Eosinophils # 0.5 10^3/uL (0.0-0.8); Eosinophils % 6.3 %; Hematocrit 40.4 % (42.0-52.0); Hemoglobin 12.9 g/dL (11.7-16.6); Lymphocytes # 1.9 10^3/uL (0.8-4.8); Mean Corpuscular HGB Conc 31.9 g/dL (30.0-36.0); Mean Corpuscular Hemoglobin 31.5 pg (28.0-34.0); Mean Corpuscular Volume 98.5 fl (80-94); Mean Platelet Volume 9.5 fL (7.4-10.4); Monocytes # 0.6 10^3/uL (0.2-0.9); Neutrophils # 5.17 10^3/uL (1.8-7.7); Neutrophils % 62.9 %; Nucleated Red Blood Cells % 0 %; Platelet Count 199 10^3/cmm (130-400); Red Cell Distribution Width 13.9 % (12.1-15.1); White Blood Count 8.2 10^3/uL (4.0-10.0)
--- NOTE | 2023-02-12 07:35 | P.ANESASSM_ITS ---
Pre-Anesthetic Assessment Height/Weight: Height 1.78 m Weight 93.44 kg Temp Pulse Resp BP Pulse Ox O2 Del Method 97.3 F L 62 17 137/85 100 Room Air 02/12/23 07:11 02/12/23 07:11 02/12/23 07:11 02/12/23 07:11 02/12/23 07:11 02/12/23 07:11 Preop Diagnosis: AICD generator at end of service: Right ventricular lead with high threshol Operation Date: 02/12/23 08:20 Proposed Procedures p Defibillator Generator Exchange 68188,I50.2(Not Applicable) - Will Reynoso MD Familial anesthetic complications: none Was Beta Medina taken within 24 hours: Yes Was Clonidine taken within 24 hours: N/A Last intake: Intake Last Liquid Date 02/11/23 Last Liquid Time 21:00 Last Solid Date 02/11/23 Last Solid Time 21:00 Social No alcohol (h/o drinking) and No tobacco (h/o smoking) Exam alert, oriented x 3 and regular rate & rhythm Airway Submandibular: within normal limits Cervical ROM: within normal limits Mallampati: Class II Dentition: chipped Pulmonary Chronic Obstructive Pulmonary Disease CV/HEM Atrial Fibrillation, Arrythmia, Coronary Artery Disease (Normal stress test 01/13), Congestive Heart Failure (EF 38%), Hypertension and Myocardial Infarction AICD CONCLUSIONS ?Dilated left ventricle with ejection fraction of 38%.? ?Diffuse hypokinesia of the ventricle. ?Mild mitral valve regurgitation. ?There is no pericardial effusion. ? Defibrillator wire on the right ventricle ? There is no pericardial effusion. ?Compared to the study from 02/06/2021, there may not be a ?significant change ?Dr Irasema Patel MD [facility] ?(Electronically Signed) ?Final Date:? ? ? 04 October 2021 Metabolic Hyperlipidemia Neuropsych Seizure Anesthetic Plan ASA status: 3 Anesthesia: Choice Medications/Allergies Home Medications Medication Instructions Recorded Confirmed Last Taken Type atorvastatin 80 mg tablet 80 mg PO DAILY@04/09/20 02/12/23 02/12/23 History clopidogrel 75 mg tablet 75 mg PO DAILY@04/09/20 02/07/23 02/07/23 History divalproex 500 mg tablet,delayed 500 mg PO BID 04/09/20 02/12/23 02/12/23 History release folic acid 1 mg tablet 1 mg PO DAILY #30 tabs 04/10/20 02/12/23 02/12/23 Rx albuterol sulfate 90 mcg/actuation 1 inh inhalation Q6H PRN shortness 06/02/20 02/07/23 Unknown Rx aerosol inhaler (ProAir HFA) of breath or wheezing 30 days #8.5 grams aspirin-caffeine 845 mg-65 mg oral 1 ea PO PRN PRN Pain 02/06/21 02/07/23 Unknown History powder packet (BC Pain Relief) multivitamin 1 tab PO DAILY@07 02/06/21 02/07/23 01/13/23 History apixaban 5 mg tablet (Eliquis) 5 mg PO BID 10/04/21 02/07/23 02/10/23 History cholecalciferol (vitamin D3) 25 25 mcg PO DAILY 10/17/22 02/12/23 01/10/23 History mcg (1,000 unit) tablet (Vitamin D3) losartan 50 mg tablet 25 mg PO DAILY 30 days #30 tabs 01/12/23 02/12/23 02/12/23 Rx nitroglycerin 0.4 mg sublingual 0.4 mg sublingual Q5M PRN chest 01/12/23 02/07/23 01/13/23 Rx tablet (Nitrostat) pain #30 tabs hydrocodone 10 mg-acetaminophen 1 tab PO Q6H 01/13/23 02/12/23 02/12/23 History 325 mg tablet metoprolol succinate 100 mg 100 mg PO DAILY 01/13/23 02/12/23 02/12/23 History tablet,extended release 24 hr alprazolam 0.5 mg tablet 0.5 mg PO BID 02/07/23 02/12/23 02/11/23 History Allergies Allergy/AdvReac Type Severity Reaction Status Date / Time No Known Allergies Allergy Verified 02/07/23 13:41 [facility] Anesthesia Medical History Abnormal coronary angiogram AICD discharge Alcohol abuse Atherosclerosis of coronary artery of [place] heart without angina pectoris Atherosclerotic heart disease of [place] coronary artery with other forms of angina pectoris Atrial fibrillation Benign essential hypertension with target blood pressure below 140/90 Bronchitis Cardiac defibrillator in place Cardiomyopathy Congestive heart failure with cardiomyopathy and cardiomegaly Coronary disease Elevated troponin Heart failure with reduced ejection fraction History of cardioversion Hypertension ICD (implantable cardioverter-defibrillator) discharge Ischemic cardiomyopathy Nicotine dependence Non-ST elevation RI (NSTEMI) Appears to be type II secondary to SVT. Patient has a history of multiple PCI's Pacemaker Pharyngitis Seizure disorder Shortness of breath Supraventricular tachycardia Ventricular tachycardia Ventricular tachycardia Warfarin anticoagulation Surgical History AICD (automatic cardioverter/defibrillator) present H/O cardiac catheterization H/O hernia repair Family History Mother Family history of premature coronary artery disease Initial RI age 31, at 60; his mother sister at the age of 20 and had a myocardial infarction. Maternal grandfather and grandmother of myocardial infarction in their 50s and 60s. One of his sisters had pacemaker placed placement CAD (coronary artery disease) Father Clotting disorder Bleeding disorder Family/Other CAD (coronary artery disease) Grandmother CAD (coronary artery disease) Grandfather CAD (coronary artery disease) Denies family history of Diabetes Dementia Chronic kidney disease (CKD) Suicide Anesthesia complication Lung disease Cancer Stroke Social History Smoking and tobacco status: current every day smoker cigarettes Packs smoked per day: 1 Years cigarettes smoked: 30 Alcohol intake: current Alcohol intake frequency: 3 or more drinks per day Alcohol type: hard liquor Substance/Drug Use: current Housing: House Special eloise needs: No Data Anesthesia 02/12/23 07:16 02/12/23 07:16 Short CBC 02/12/23 Range/Units 07:16 WBC 8.2 (4.0-10.0) 10^3/uL Hgb 12.9 (11.7-16.6) g/dL Hct 40.4 L (42.0-52.0) % MCV 98.5 H (80-94) fl Plt Count 199 (130-400) 10^3/cmm Neut % (Auto) 62.9 % Neut # (Auto) 5.17 (1.8-7.7) 10^3/uL Cardiac Studies: Echocardiogram 10/03/21 Echocardiogram Ultrasound 04/09/20 Sestamibi Stress Test (Cardiology) 01/11
[2023-02-12] MEDS: sodium chloride 0.9% 1,000 ML 30 ML IV (07:42)
[2023-02-12] MEDS: HYDROmorphone 1 mg/mL INJ 1 mL 0.5 MG IVP (07:45)
[2023-02-12 07:48] LABS: Anion Gap 11.5 (5-19); Blood Urea Nitrogen 21 mg/dL (6-20); Calcium 9.2 mg/dL (8.5-10.5); Carbon Dioxide 32 mmol/L (22-29); Chloride 99 mmol/L (98-107); Glomerular Filtration Rate 102.7 mL/min (90-130); Glucose 98 mg/dL (65-115); Osmolality Calculated 289 mOsm/kg (285-295); Potassium 4.5 mmol/L (3.5-5.1); Sodium 138 mmol/L (136-145)
[2023-02-12 07:55] LABS: Add Urine Microscopic? NO; Charge for UA Resulting for Rev
[2023-02-12 08:19] LABS: Bilirubin Urine Neg (Negative); Blood Urine Neg (Negative); Glucose Urine UA Norm (Normal); Ketones Urine Negative (Negative); Leukocyte Esterase Urine Negative (Negative); Nitrate Urine Negative (Negative); Protein Urine Neg (Negative); Urine Appearance Clear (CLEAR); Urine Color Straw (Yellow); Urobilinogen Urine Norm (Negative); pH Urine 7 (5-7)
--- NOTE | 2023-02-12 08:28 | W.PM.OPSUD ---
Surgery/Procedure H&P Update DATE OF PROCEDURE: February 12, 2023 DATE H&P PERFORMED: 01/21/23 H&P UPDATE INFORMATION: I have reviewed H&P completed within last 30 days, I have examined patient prior to procedure and No changes to prior documentation CHANGES TO PREVIOUS DOCUMENTATION: Mr. Linares is aware that if on table interrogation reveals the right ventricular lead needs replacement, we will attempt to perform this. However, if the lead advancement is unsuccessful due to the old lead being and position, we do not have the capabilities to perform a lead extraction at [facility]. Therefore, we would not be able to place a new RV lead and he may require subsequent referral to a tertiary center for this. He wishes to proceed. Appropriate consents have been reviewed and signed. PREOP DIAGNOSIS: AICD generator at end of service: Right ventricular lead with high threshol PLANNED PROCEDURE: Operation Date: 02/12/23 08:20 Proposed Procedures p Defibillator Generator Exchange [id number],I50.2(Not Applicable) - Will Reynoso MD
[2023-02-12] MEDS: ceFAZolin 2,000 MG in sodium chloride 0.9% (plus) 50 ML 100 MG IV (08:59)
[2023-02-12] MEDS: ceFAZolin 1,000 mg SDV 1000 MG IRRIGATION (09:47)
[2023-02-12] MEDS: lidocaine 1% INJ 50 mL INJECTION (09:50)
[2023-02-12 10:30] VITALS: BP 115/70; PULSE 63; RESP 16; TEMP 36.6; O2SAT 99
--- NOTE | 2023-02-12 10:31 | PM.OP ---
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 Morrow is a 47-year-old gentleman with a history of early coronary artery disease and cardiomyopathy. He has a strong family history as well. He is status post AICD implantation in 2008 with a subsequent generator exchange in 2017. He has been noted for some time to have a chronic high threshold of the RV lead though he rarely requires ventricular pacing. He has been previously hospitalized for multiple discharges from his AICD when upon interrogation, it was determined that the generator was over sensing on the T wave. Reprogramming has been completed. His current generator is at end of service and generator exchange is recommended. Discharge delivery through his RV lead is not felt to be adversely affected despite his high threshold and since he rarely requires ventricular pacing, he has not been felt advantageous at this time to replace his RV lead. Details and risk of generator exchange were carefully discussed with Mr. Morrow. Appropriate consents have been reviewed and signed. Procedure: Mr. Morrow was appropriately positioned and sterilely prepped and draped. IV consicious sedation was given with anesthesia monitoring. Appropriate timeout was completed and confirmed by all operating team members present. 1% lidocaine was infiltrated through the prior insertion incision site. # 15 scalpel blade was used to incise the skin down to subcutaneous layer. Subsequently, using sharp and blunt dissection the pseudocapsule to the old generator was reached and opened with a scalpel blade. This area was then enhanced utilizing Metzenbaum scissors with care taken not to injure the pacing leads. Once the pocket was adequate opened, hemostats were utilized to deliver the old generator. Set screws were released and the leads were removed and inserted properly into the new generator with set screws then secured. The old generator was removed from the field. The incision was irrigated with antibiotic solution. Hemostasis was confirmed. The new generator was placed back into the old subcutaneous pocket. The wound was then closed in 2 layers of 3-0 Vicryl suture. Skin was closed in a subcuticular manner with 4-0 undyed Vicryl suture. A 2 layer pressure dressing was then applied. The entire system was interrogated and appropriate parameters obtained. Patient tolerated procedure well and was taken to the recovery room in stable condition. There were no family members immediately present for counseling. [employer] generator model# [id number] serial number: [id number] Right atrial lead has amplitude of 3.4 with an impedance of 399 and a capture threshold of 0.75 Right ventricular lead has an amplitude of 5.5 with an impedance of 589 and a capture threshold of 2.75 Pacing mode: AAI/DDD VT detection rate equals 140 VF detection rate equals 214
[2023-02-12 10:35] VITALS: BP 110/78; PULSE 60; RESP 17; O2SAT 97; O2SAT 99
[2023-02-12] MEDS: fentaNYL 50 mcg/mL INJ 2mL IVP (10:35)
[2023-02-12 10:40] VITALS: BP 119/79; PULSE 61; RESP 17; O2SAT 99
[2023-02-12 10:45] VITALS: BP 105/79; PULSE 60; RESP 18; O2SAT 96
[2023-02-12 10:50] VITALS: BP 122/79; PULSE 62; RESP 17; TEMP 36.4; O2SAT 95
[2023-02-12] MEDS: HYDROcodone-acetaminophen 5-325 mg Tablet 1 TAB PO (11:32)
--- NOTE | 2023-02-12 13:56 | ANE.PACU2 ---
Inpatient post-anesthesia follow up: Airway intact: Yes Vital signs: Temperature 97.5 F Pulse Rate 62 Respiratory Rate 17 Blood Pressure 122/79 Pulse Oximetry 95 Oxygen Delivery Me thod Room Air Oxygen Flow Rate 6 Fraction of Inspir ed Oxygen Hydration adequate: Yes Nausea and vomiting: No Pain level: 2 Mental status: Baseline
== END 2023-02-12 12:20 | disposition home or self-care (01) ==
PROVIDERS: PCP Family Medicine; Visit Provider Thoracic Surgery (Cardiothoracic Vascular Surgery)
PROC: 0JPT0PZ Removal of Cardiac Rhythm Related Device from Trunk Subcutaneous Tissue and Fascia, Open Approach (ICD-10-PCS; CPT 33263; principal; 2023-02-12 08:00)
DX: Z45.02 Encounter for adjustment and management of automatic implantable cardiac defibrillator (principal); J44.9 Chronic obstructive pulmonary disease, unspecified; I48.91 Unspecified atrial fibrillation; I25.10 Atherosclerotic heart disease of native coronary artery without angina pectoris; I11.0 Hypertensive heart disease with heart failure; I50.9 Heart failure, unspecified; I25.2 Old myocardial infarction; E78.5 Hyperlipidemia, unspecified; F17.210 Nicotine dependence, cigarettes, uncomplicated
CPT/HCPCS: 33263; 36415; 80048; 81003; 85025; 86850; 86900; 86920; C1721; J0690; J1170; J2250; J2371; J2704; J3010; J7030

== ENCOUNTER → 2023-08-28 10:55 | Outpatient (BNVA) | payer MEDICARE, SELFPAY | PROVIDERS: PCP Family Medicine; Visit Provider Internal Medicine Cardiovascular Disease | DX: Z45.02 Encounter for adjustment and management of automatic implantable cardiac defibrillator (principal) | CPT/HCPCS: 93296 ==

== ENCOUNTER → 2023-09-16 11:05 | Outpatient (BNVA) | payer MEDICARE, SELFPAY | PROVIDERS: PCP Family Medicine; Visit Provider Internal Medicine Cardiovascular Disease | DX: R06.02 Shortness of breath (principal); I48.91 Unspecified atrial fibrillation; I25.10 Atherosclerotic heart disease of native coronary artery without angina pectoris | CPT/HCPCS: 36415; 80048; 83880; 99214 ==

== ENCOUNTER → 2023-11-27 10:13 | Outpatient (BNVA) | payer MEDICARE, SELFPAY | PROVIDERS: PCP Family Medicine; Visit Provider Internal Medicine Cardiovascular Disease | DX: Z45.02 Encounter for adjustment and management of automatic implantable cardiac defibrillator (principal) | CPT/HCPCS: 93296 ==

== ENCOUNTER → 2024-07-21 15:00 | Outpatient (BNVA) | payer MEDICARE, SELFPAY | PROVIDERS: PCP Family Medicine; Visit Provider Nurse Practitioner Family | DX: I25.5 Ischemic cardiomyopathy (principal); I50.20 Unspecified systolic (congestive) heart failure; I11.0 Hypertensive heart disease with heart failure; I25.118 Atherosclerotic heart disease of native coronary artery with other forms of angina pectoris; Z95.810 Presence of automatic (implantable) cardiac defibrillator; I48.20 Chronic atrial fibrillation, unspecified; Z87.891 Personal history of nicotine dependence; Z79.01 Long term (current) use of anticoagulants | CPT/HCPCS: 99214 ==

== ENCOUNTER → 2025-01-28 13:57 | Outpatient (BNVA) | payer MEDICARE, SELFPAY | PROVIDERS: PCP Family Medicine; Visit Provider Internal Medicine Cardiovascular Disease | DX: I11.0 Hypertensive heart disease with heart failure (principal); I50.20 Unspecified systolic (congestive) heart failure; I25.10 Atherosclerotic heart disease of native coronary artery without angina pectoris; I25.5 Ischemic cardiomyopathy; I47.10 Supraventricular tachycardia, unspecified; I48.91 Unspecified atrial fibrillation; Z79.01 Long term (current) use of anticoagulants; Z95.810 Presence of automatic (implantable) cardiac defibrillator; Z87.891 Personal history of nicotine dependence; I25.2 Old myocardial infarction | CPT/HCPCS: 99214 ==